=== PATIENT | female | born 1935 | race Caucasian/White ===

== ENCOUNTER → 2016-11-11 | Outpatient (CLI) | payer MEDICARE ==
[~2016-11-11] MED LIST: ASPI-587 PO; CARV40CP PO; CHOL10003 PO; OMEP-10 GT; OMEP20CA6 PO
--- OUTSIDE RECORDS SUMMARY | 2016-11-11 10:06 | XMS REPORT | Continuity of Care Document ---
Author Author [facility] Organization [facility] Address Unknown Phone Unavailable Care Team Providers Care Tree Pruner Name Role Phone FILEMON GAMEZ DO PCP Insurance Providers Payer Name Policy Number Subscriber Name Relationship Wps Medicare [id number] Elba Ricks 18 Self / Same As Patient Blue Cross [facility] Supp [id number] Elba Ricks 18 Self / Same As Patient Advance Directives Directive Response Recorded Date/Time Advance Directives No 08/25/14 6:35pm Resuscitation Status Full Code 08/25/14 6:35pm Problems Medical Problems Problem Onset Date Status Upper abdominal pain Unknown Active Coronary artery disease Unknown Active Leukocytosis Unknown Active Renal insufficiency Unknown Active Elevated troponin Unknown Active Chest pain Unknown Active Medications Medication Dose Route Sig Days/Qty Instructions Order Date Discontinued Date Status Carvedilol Phosphate 1 Each PO DAILY 08/25/14 Active Aspirin 81 Mg PO DAILY 08/25/14 Active Omeprazole 20 Mg GT 08/25/14 08/25/14 Discontinued Omeprazole 20 Mg PO DAILY 08/25/14 Active Cholecalciferol 1,000 Unit PO DAILY 08/25/14 Active Social History Social History Problem Response Recorded Date/Time Alcohol Use Denies Use 08/25/2014 6:35pm Recreational Drug Use No 08/25/2014 6:35pm Recent Foreign Travel No 08/25/2014 6:30pm Smoking Status Never a Smoker 08/25/2014 6:35pm Query Response Start Date Stop Date Smoking Status Never a Smoker Hospital Discharge Instructions No hospital discharge instructions. Plan of Care No plan of care. Functional Status No functional status results. Allergies, Adverse Reactions, Alerts Allergen Type Severity Reaction Status Last Updated No Known Drug Allergies Active 08/25/14 Immunizations No immunization records. Vital Signs Acute Vital Signs Vital Response Date/Time Temperature (Fahrenheit) 97.5 degrees F (97.6 - 99.5) Temperature (Calculated Celsius) 36.73219 degrees C (36.4 - 37.5) Pulse Rate (adult) 67 bpm (60 - 90) Respiratory Rate 20 bpm (12 - 24) O2 Sat by Pulse Oximetry 94 % (88 - 100) Blood Pressure 150/75 mm Hg Pain Pain Intensity 6 Height (Feet) 5 feet Height (Inches) 1 inches Height (Calculated Centimeters) 154.053668 cm Weight (Pounds) 180 pounds Weight (Calculated Kilograms) 81.518145 kilograms Calculated BMI 34.01 Results Laboratory Results Test Name Result Units Flags Reference Collection Date/Time Result Date/ Time Comments White Blood Count 15.2 10^3/uL H 4.3-11.0 08/25/2014 6:40pm 08/25/2014 6: 52pm Red Blood Count 4.92 10^6/uL 4.35-5.85 08/25/2014 6:40pm 08/25/2014 6: 52pm Hemoglobin 14.2 G/DL 11.5-16.0 08/25/2014 6:40pm 08/25/2014 6:52pm Hematocrit 44 % 35-52 08/25/2014 6:40pm 08/25/2014 6:52pm Mean Corpuscular Volume 88 FL 80-99 08/25/2014 6:40pm 08/25/2014 6: 52pm Mean Corpuscular Hemoglobin 29 PG 25-34 08/25/2014 6:40pm 08/25/2014 6: 52pm Mean Corpuscular Hemoglobin Concent 33 G/DL 32-36 08/25/2014 6:40pm 6:52pm Red Cell Distribution Width 14.3 % 10.0-14.5 08/25/2014 6:40pm 2013 6:52pm Platelet Count 345 10^3/uL 130-400 08/25/2014 6:40pm 08/25/2014 6:52pm Mean Platelet Volume 10.4 FL 7.4-10.4 08/25/2014 6:40pm 08/25/2014 6: 52pm Neutrophils (%) (Auto) 80 % H 42-75 08/25/2014 6:40pm 08/25/2014 6:52pm Lymphocytes (%) (Auto) 11 % L 12-44 08/25/2014 6:40pm 08/25/2014 6:52pm Monocytes (%) (Auto) 8 % 0-12 08/25/2014 6:40pm 08/25/2014 6:52pm Eosinophils (%) (Auto) 1 % 0-10 08/25/2014 6:40pm 08/25/2014 6:52pm Basophils (%) (Auto) 0 % 0-10 08/25/2014 6:40pm 08/25/2014 6:52pm Neutrophils # (Auto) 12.1 X 10^3 H 1.8-7.8 08/25/2014 6:40pm 08/25/2014 6 :52pm Lymphocytes # (Auto) 1.7 X 10^3 1.0-4.0 08/25/2014 6:40pm 08/25/2014 6: 52pm Monocytes # (Auto) 1.2 X 10^3 H 0.0-1.0 08/25/2014 6:40pm 08/25/2014 6: 52pm Eosinophils # (Auto) 0.2 10^3/uL 0.0-0.3 08/25/2014 6:40pm 08/25/2014 6 :52pm Basophils # (Auto) 0.1 10^3/uL 0.0-0.1 08/25/2014 6:40pm 08/25/2014 6: 52pm Neutrophils % (Manual) 78 % 08/25/2014 6:40pm 08/25/2014 7:06pm Band Neutrophils 0 % 08/25/2014 6:40pm 08/25/2014 7:06pm Lymphocytes % (Manual) 13 % 08/25/2014 6:40pm 08/25/2014 7:06pm Monocytes % (Manual) 5 % 08/25/2014 6:40pm 08/25/2014 7:06pm Eosinophils % (Manual) 4 % 08/25/2014 6:40pm 08/25/2014 7:06pm Basophils % (Manual) 0 % 08/25/2014 6:40pm 08/25/2014 7:06pm Anisocytosis SLIGHT 08/25/2014 6:40pm 08/25/2014 7:06pm Prothrombin Time 12.5 SEC 12.2-14.7 08/25/2014 6:40pm 08/25/2014 6: 58pm INR Comment 1.0 0.8-1.4 08/25/2014 6:40pm 08/25/2014 6:58pm INTERPRETIVE DATA SUGGESTED THERAPEUTIC RANGE FOR INR'S: VENOUS THROMBOSIS, PULMONARY EMBOLISM, OR PREVENTION OF SYSTEMIC EMBOLISM (EG. IN ATRIAL FIBRILLATION): 2.0 - 3.0 MECHANICAL PROSTHETIC HEART VALVES: 2.5 - 3.5* *NOTE: INR'S UP TO 4.5 MAY BE NECESSARY IN SELECTED GROUPS OF HIGH RISK PATIENTS. [employer] CONSENSUS CONFERENCE ON ANTITHROMBOTIC THERAPY (2000). Activated Partial Thromboplast Time 32 SEC 24-35 08/25/2014 6:40pm 6:58pm Sodium Level 138 MMOL/L 135-145 08/25/2014 6:40pm 08/25/2014 7:19pm Potassium Level 3.8 MMOL/L 3.6-5.0 08/25/2014 6:40pm 08/25/2014 7:19pm Chloride Level 102 MMOL/L 98-107 08/25/2014 6:40pm 08/25/2014 7:19pm Carbon Dioxide Level 24 MMOL/L 21-32 08/25/2014 6:40pm 08/25/2014 7: 19pm Blood Urea Nitrogen 21 MG/DL H 7-18 08/25/2014 6:40pm 08/25/2014 7:19pm Creatinine 1.33 MG/DL H 0.60-1.30 08/25/2014 6:40pm 08/25/2014 7:19pm BUN/Creatinine Ratio 16 08/25/2014 6:40pm 08/25/2014 7:19pm Estimat Glomerular Filtration Rate 39 08/25/2014 6:40pm 08/25/2014 7:19pm GFR INTERPRETIVE DATA UNITS FOR ESTIMATED GFR (eGFR): mL/min/1.73 M2 REFERENCE RANGE FOR ESTIMATED GFR (eGFR) eGFR NORMAL eGFR >60 MODERATELY DECREASED eGFR 30-59 SEVERLY DECREASED eGFR 15-29 KIDNEY FAILURE <15 (OR DIALYSIS) Glucose Level 110 MG/DL H 70-105 08/25/2014 6:40pm 08/25/2014 7:19pm Calcium Level 8.5 MG/DL 8.5-10.1 08/25/2014 6:40pm 08/25/2014 7:19pm Magnesium Level 2.0 MG/DL 1.8-2.4 08/25/2014 6:40pm 08/25/2014 7:19pm Total Bilirubin 0.6 MG/DL 0.1-1.0 08/25/2014 6:40pm 08/25/2014 7:19pm Alkaline Phosphatase 90 U/L 40-136 08/25/2014 6:40pm 08/25/2014 7:19pm Aspartate Amino Transf (AST/SGOT) 18 U/L 5-34 08/25/2014 6:40pm 2013 7:19pm Alanine Aminotransferase (ALT/SGPT) 10 U/L 0-55 08/25/2014 6:40pm 08/25 7:19pm Troponin I 0.52 NG/ML CH <0.30 08/25/2014 6:40pm 08/25/2014 7:18pm RESULT CALLED TO VENESSA AT 1920. RESULTS READ BACK: YES. Myoglobin 62.0 NG/ML 10.0-92.0 08/25/2014 6:40pm 08/25/2014 7:18pm Total Protein 7.0 G/DL 6.4-8.2 08/25/2014 6:40pm 08/25/2014 7:19pm Albumin 3.5 G/DL 3.2-4.5 08/25/2014 6:40pm 08/25/2014 7:19pm Lipase 38 U/L 8-78 08/25/2014 6:40pm 08/25/2014 7:19pm Procedures Procedure Status Date Provider(s) Tracing only of electrocardiogram completed 08/25/14 GOGO RAMIREZ MD Encounters Encounter Location Date/Time Departed Emergency Room [facility] 08/25/14 6:24pm Recent Diagnosis
--- NOTE | 2016-11-11 16:13 | Diagnostic Imaging Report ---
PA and lateral views of the chest. INDICATION: Cough and shortness of breath. FINDINGS: The lungs are clear. Pulmonary hyperinflation noted. The heart size is mildly enlarged. There is no effusion or pneumothorax. The mediastinum and zoe appear unremarkable. Mild opacity near the left lung base is likely related to pericardial fat pad. Sternotomy wires and post CABG changes are seen. No significant change from 01/22/2016 seen. IMPRESSION: Stable cardiomegaly and COPD changes. Dictated by: Dictated on workstation # [id number]
== END ==
LOC: RAD 10:02
PROVIDERS: ATTEND Nurse Practitioner Family
DX: J44.9 Chronic obstructive pulmonary disease, unspecified (principal); I51.7 Cardiomegaly
CPT/HCPCS: 71020

== ENCOUNTER → 2016-12-25 | Outpatient (CLI) | payer MEDICARE ==
--- NOTE | 2016-12-25 14:02 | Diagnostic Imaging Report ---
PROCEDURE: CT chest without contrast. TECHNIQUE: Multiple contiguous axial images were obtained through the chest without the use of intravenous contrast. INDICATION: Cryptococcus of the left lung, left lung pulmonary nodules. COMPARISON STUDY: CT of the chest from 08/25/2014. CT scan of the abdomen pelvis from 12/19/2015. FINDINGS: Coronary artery bypass graft changes are present. The heart size is upper normal. Couple of small mediastinal lymph nodes, which are within normal limits of size. No pleural or pericardial effusions are present. The right lung is clear. Two adjacent pulmonary nodules are seen in the left lower lobe. Largest one measures 11 mm and is unchanged. No new nodules are present. No infiltrates are seen. Visualized portions of the abdomen demonstrates some calcifications in the region of the gallbladder. This is seen on the most inferior slice and these are not completely imaged. A simple cyst is present in the right kidney which is incompletely imaged. This was seen previously. IMPRESSION: 1. Stable pulmonary nodules in the left lower lobe. 2. Coronary artery bypass graft changes with borderline cardiomegaly. 3. Probable gallstones. This is seen on the most inferior slice only and could be averaging from an adjacent bowel loop. Dictated by: Dictated on workstation # [id number]
== END ==
LOC: RAD 13:05
PROVIDERS: ATTEND Family Medicine
DX: R91.1 Solitary pulmonary nodule (principal); Z95.1 Presence of aortocoronary bypass graft
CPT/HCPCS: 71250

== ENCOUNTER 2017-01-30 15:42 | Outpatient (RCR) | payer MEDICARE | END 2017-03-19 14:52 | disposition home or self-care (01) | PROVIDERS: ATTEND Family Medicine | DX: M54.9 Dorsalgia, unspecified (principal); M25.512 Pain in left shoulder ==

== ENCOUNTER 2017-04-17 16:54 | Day surgery (SDC) | payer MEDICARE ==
[~2017-04-17] VITALS: Ht 157.5 cm; Wt 84.4 kg
--- OUTSIDE RECORDS SUMMARY | 2017-04-17 17:00 | XMS REPORT | Continuity of Care Document ---
Author Author [facility] Organization [facility] Address Unknown Phone Unavailable Allergies Active Description Code Type Severity Reaction Onset Reported/Identified Relationship to Patient Clinical Status Yes No Known Drug Allergies [id number] Drug Allergy Unknown N/ A 08/25/2014 Medications Problems Date Dx Coded Attending Type Code Diagnosis Diagnosed By 08/25/2014 JAMES VILLAR, GOGO Chun Ot 288.60 LEUKOCYTOSIS, UNSPECIFIED 08/25/2014 JAMES VILLAR, GOGO Chun Ot 414.01 CORONARY ATHEROSCLEROSIS OF [place] CORON 08/25/2014 JAMES VILLAR, GOGO Chun Ot 593.9 RENAL URETERAL DIS NOS 08/25/2014 JAMES VILLAR, GOGO Chun Ot 786.50 CHEST PAIN NOS 08/25/2014 JAMES VILLAR, GOGO Chun Ot V45.82 PERCUTANEOUS TRANSLUM CORON ANGIOPLASTY 10/02/2015 MOLINA VILLAR, REBECCA A Ot R05 10/02/2015 MOLINA VILLAR, REBECCA A Ot R06.00 10/11/2015 MOLINA VILLAR, REBECCA A Ot R05 10/11/2015 MOLINA VILLAR, REBECCA A Ot R06.00 12/07/2015 MOLINA VILLAR, REBECCA A Ot R05 12/07/2015 MOLINA VILLAR, REBECCA A Ot R06.00 12/10/2015 RUBA WHARTON TOWBOAT OPERATOR Ot K59.00 12/10/2015 RUBA WHARTON TOWBOAT OPERATOR Ot N39.0 12/11/2015 RUBA WHARTON TOWBOAT OPERATOR Ot M54.9 12/11/2015 RUBA WHARTON TOWBOAT OPERATOR Ot R10.13 12/11/2015 RUBA WHARTON TOWBOAT OPERATOR Ot R10.32 12/27/2015 RUBA WHARTON TOWBOAT OPERATOR Ot K59.00 CONSTIPATION, UNSPECIFIED 12/27/2015 RUBA WHARTON TOWBOAT OPERATOR Ot N39.0 URINARY TRACT INFECTION, SITE NOT SPECIF 01/02/2016 RUBA WHARTON TOWBOAT OPERATOR Ot K59.00 CONSTIPATION, UNSPECIFIED 01/02/2016 RUBA WHARTON TOWBOAT OPERATOR Ot N39.0 URINARY TRACT INFECTION, SITE NOT SPECIF 01/02/2016 RUBA WHARTON TOWBOAT OPERATOR Ot M54.9 DORSALGIA, UNSPECIFIED 01/02/2016 RUBA WHARTON TOWBOAT OPERATOR Ot R10.13 EPIGASTRIC PAIN 01/02/2016 RUBA WHARTON TOWBOAT OPERATOR Ot R10.32 LEFT LOWER QUADRANT PAIN 01/08/2016 JONATHAN OROZCO BLANKET BINDER Ot K57.90 DVRTCLOS OF INTEST, PART UNSP, W/O PERF 01/08/2016 JONATHAN OROZCO BLANKET BINDER Ot R10.11 RIGHT UPPER QUADRANT PAIN 01/08/2016 JONATHAN OROZCO BLANKET BINDER Ot R10.12 LEFT UPPER QUADRANT PAIN 01/08/2016 JONATHAN OROZCO APRN Ot R91.1 SOLITARY PULMONARY NODULE 01/09/2016 RUBA WHARTON TOWBOAT OPERATOR Ot M54.9 DORSALGIA, UNSPECIFIED 01/09/2016 RUBA WHARTON TOWBOAT OPERATOR Ot R10.13 EPIGASTRIC PAIN 01/09/2016 RUBA WHARTON TOWBOAT OPERATOR Ot R10.32 LEFT LOWER QUADRANT PAIN 01/22/2016 MOLINA VILLAR, REBECCA Lai Ot R05 COUGH 01/24/2016 JONATHAN OROZCO APRN Ot K57.90 DVRTCLOS OF INTEST, PART UNSP, W/O PERF 01/24/2016 JONATHAN OROZCO BLANKET BINDER Ot R10.11 RIGHT UPPER QUADRANT PAIN 01/24/2016 JONATHAN OROZCO BLANKET BINDER Ot R10.12 LEFT UPPER QUADRANT PAIN 01/24/2016 JONATHAN OROZCO BLANKET BINDER Ot R91.1 SOLITARY PULMONARY NODULE 02/14/2016 MOLINA VILLAR, REBECCA Lai Ot R05 COUGH 02/23/2016 MOLINA VILLAR, REBECCA Lai Ot R05 COUGH 11/11/2016 MOLINA VILLAR, REBECCA Lai Ot R05 COUGH 11/11/2016 MOLINA VILLAR, REBECCA Lai Ot R06.00 DYSPNEA, UNSPECIFIED 11/11/2016 RUBA WHARTON TOWBOAT OPERATOR Ot K59.00 CONSTIPATION, UNSPECIFIED 11/11/2016 RUBA WHARTON TOWBOAT OPERATOR Ot N39.0 URINARY TRACT INFECTION, SITE NOT SPECIF 11/11/2016 RUBA WHARTON TOWBOAT OPERATOR Ot M54.9 DORSALGIA, UNSPECIFIED 11/11/2016 RUBA WHARTON TOWBOAT OPERATOR Ot R10.13 EPIGASTRIC PAIN 11/11/2016 RUBA WHARTON TOWBOAT OPERATOR Ot R10.32 LEFT LOWER QUADRANT PAIN 11/11/2016 JONATHAN OROZCO BLANKET BINDER Ot K57.90 DVRTCLOS OF INTEST, PART UNSP, W/O PERF 11/11/2016 JONATHAN OROZCO BLANKET BINDER Ot R10.11 RIGHT UPPER QUADRANT PAIN 11/11/2016 JONATHAN OROZCO BLANKET BINDER Ot R10.12 LEFT UPPER QUADRANT PAIN 11/11/2016 JONATHAN OROZCO BLANKET BINDER Ot R91.1 SOLITARY PULMONARY NODULE 11/11/2016 MOLINA VILLAR, REBECCA Lai Ot R05 COUGH 11/12/2016 RUBA WHARTON TOWBOAT OPERATOR Ot I51.7 CARDIOMEGALY 11/12/2016 RUBA WHARTON TOWBOAT OPERATOR Ot J44.9 CHRONIC OBSTRUCTIVE PULMONARY DISEASE , U 11/27/2016 RUBA WHARTON TOWBOAT OPERATOR Ot I51.7 CARDIOMEGALY 11/27/2016 RUBA WHARTON TOWBOAT OPERATOR Ot J44.9 CHRONIC OBSTRUCTIVE PULMONARY DISEASE , U 12/02/2016 RUBA WHARTON TOWBOAT OPERATOR Ot I51.7 CARDIOMEGALY 12/02/2016 RUBA WHARTON TOWBOAT OPERATOR Ot J44.9 CHRONIC OBSTRUCTIVE PULMONARY DISEASE , U 01/15/2017 REBECCA AUGUSTE MD Ot R91.1 SOLITARY PULMONARY NODULE 01/15/2017 REBECCA AUGUSTE MD Ot Z95.1 PRESENCE OF AORTOCORONARY BYPASS GRAFT 01/27/2017 REBECCA AUGUSTE MD Ot R91.1 SOLITARY PULMONARY NODULE 01/27/2017 REBECCA AUGUSTE MD Ot Z95.1 PRESENCE OF AORTOCORONARY BYPASS GRAFT 02/20/2017 REBECCA AUGUSTE MD Ot M25.512 PAIN IN LEFT SHOULDER 02/20/2017 REBECCA AUGUSTE MD Ot M54.9 DORSALGIA, UNSPECIFIED 02/26/2017 REBECCA AUGUSTE MD Ot M25.512 PAIN IN LEFT SHOULDER 02/26/2017 REBECCA AUGUSTE MD Ot M54.9 DORSALGIA, UNSPECIFIED Procedures Results Encounters ACCT No. Visit Date/Time Discharge Status Pt. Type Provider Facility Loc./Unit Complaint [id number] 01/30/2017 15:42:00 2016 14:52:00 DIS Outpatient REBECCA AUGUSTE MD [facility] REHAB LEFT UPPER BACK AND SCAPULAR; L SHOULDER PAIN [id number] 12/25/2016 13:05:00 2016 23:59:59 CLS Outpatient REBECCA AUGUSTE MD [facility] RAD LEFT LUNG PULMONARY NODULES, FLU [id number] 11/11/2016 10:02:00 2016 23:59:59 CLS Outpatient RUBA WHARTON [facility] RAD COUGH [id number] 01/22/2016 10:25:00 2015 23:59:59 CLS Outpatient REBECCA AUGUSTE MD [facility] RAD COUGH [id number] 12/19/2015 11:57:00 2015 23:59:59 CLS Outpatient JONATHAN OROZCO APRN [facility] RAD RUQ PAIN LUQ PAIN [id number] 12/10/2015 15:16:00 2015 23:59:59 CLS Outpatient RUBA WHARTON [facility] RAD EPIGASTRIC PAIN [id number] 12/07/2015 12:01:00 2015 23:59:59 CLS Outpatient RUBA WHARTON [facility] RAD ABD PAIN,UTI,CONSTIPATION [id number] 09/05/2015 11:41:00 2015 23:59:59 CLS Outpatient REBECCA AUGUSTE MD [facility] RAD COUGH, DYSPNEA [id number] 08/25/2014 18:24:00 2013 22:25:00 DIS Emergency JAMES VILLAR, GOGO Chun [facility] ER L SIDE PAIN, CHEST PAIN
[2017-04-17] MEDS ORDERED: LOSA25TA2 PO (17:33)
[2017-04-17] MEDS ORDERED: ISOS30TA3 PO (17:33)
[2017-04-17] MEDS ORDERED: CLOP75TA69 PO (17:33)
[2017-04-17] MEDS ORDERED: KETOROLAC 30 MG/ML VIAL IVP STA (17:54)
[2017-04-17] MEDS ORDERED: NS IV 1000 ML 1,000 ML IV ONE ×2 (17:54→19:36)
--- NOTE | 2017-04-17 18:07 | ED Abdominal Pain ---
General Chief Complaint: Abdominal/GI Problems Stated Complaint: UNABLE TO HAVE A BOWEL MOVEMENT Nursing Triage Note: PT TO ROOM 6 CO OF ABD PAIN AND CONSTIPATION. PT HAS NOT HAD BM SINCE THURSDAY , STATES BM IS LOOSE AND RUNNING OUT WHEN STANDS Sepsis Screen: No Definite Risk Source of Information: Patient, Family Exam Limitations: No Limitations History of Present Illness Time Seen By Provider: 17:45 Initial Comments 81-year-old female patient presents to the emergency department with complaints of left sided abdominal pain and constipation. Patient states she has not had a good bowel movement since Thursday and is now having watery stools running out when she stands up. States she has been eating prunes, apples, and apple juice without improvement in symptoms. Does complain of nausea without vomiting. Patient has noticed over the last several months that she has been gaining weight and her abdomen has been getting bigger, but has had a poor appetite. Timing/Duration: 2-3 Days, Getting Worse Severity/Quality: Severe, Aching, Cramping, Sharp Location: Other (left-sided abdominal pain) Activities at Onset: None Modifying Factors: Worsens With Eating Allergies and Home Medications Allergies Coded Allergies: morphine (Verified Adverse Reaction, Unknown, vomiting, 04/17/17) Home Medications Aspirin 81 Mg Tablet.dr, 81 MG PO DAILY, (Reported) Carvedilol Phosphate 40 Mg Cpmp.24hr, 1 EACH PO DAILY, (Reported) Cholecalciferol 1,000 Unit Tablet, 1,000 UNIT PO DAILY, (Reported) Clopidogrel Bisulfate 75 Mg Tablet, 75 MG PO DAILY, (Reported) Isosorbide Mononitrate 30 Mg Tab.er.24h, Unknown Dose PO, (Reported) Losartan Potassium 25 Mg Tablet, 25 MG PO DAILY, (Reported) Omeprazole 20 Mg Capsule.dr, 20 MG PO DAILY, (Reported) Review of Systems Constitutional: No chills, No diaphoresis, No dizziness, No fever, malaise Respiratory: Denies Cough, Denies Shortness of Air Cardiovascular: Denies Chest Pain, Denies Edema, Denies Lightheadedness, Denies Palpitations, Denies Syncope Gastrointestinal: See HPI, Abdomen Distended, Abdominal Pain, Constipated, Nausea, Poor Appetite, Poor Fluid Intake, Denies Rectal Bleeding, Denies Vomiting Genitourinary: Denies Burning, Denies Frequency, Denies Flank Pain, Denies Hematuria Musculoskeletal: no symptoms reported Skin: no symptoms reported Psychiatric/Neurological: No Symptoms Reported All Other Systems Reviewed Negative Unless Noted: Yes (Negative excepted noted.) Past Unnxrtc-Lbviat-Gvajof Hx Patient Social History Alcohol Use: Denies Use Recreational Drug Use: No Smoking Status: Never a Smoker Recent Foreign Travel: No Contact w/Someone Who Travel: No Recent Infectious Disease Expo: No Recent Hopitalizations: No Immunizations Up To Date Date of Pneumonia Vaccine: Jul 31, 2015 Surgeries HX Surgeries: Yes (HEART STENT) Respiratory Hx Respiratory Disorders: Yes (FREQUENT PNEUMONIA) Cardiovascular Hx Cardiac Disorders: Yes Cardiac Disorders: Coronary Artery Disease, Hypertension Neurological Hx Neurological Disorders: No Reproductive System Hx Reproductive Disorders: No Gastrointestinal Hx Gastrointestinal Disorders: Yes (h/o diverticulitis) Gastrointestinal Disorders: Diverticulosis Musculoskeletal Hx Musculoskeletal Disorders: No Endocrine Hx Endocrine Disorders: No HEENT HX ENT Disorders: No Cancer Hx Cancer: No Psychosocial Hx Psychiatric Problems: No Integumentary HX Skin/Integumentary Disorder: No Blood Transfusions Hx Blood Disorders: No Reviewed Nursing Assessment Reviewed/Agree w Nursing PMH: Yes Family Medical History Significant Family History: No Pertinent Family Hx Physical Exam Vital Signs VS - Last 72 Hours, by Label 04/17/17 17:05 Temp 98.1 Pulse 83 Resp 18 B/P (MAP) 134/72 Pulse Ox 95 Capillary Refill : Less Than 3 Seconds General Appearance: WD/WN, no apparent distress HEENT: PERRL/EOMI, pharynx normal Neck: supple, normal inspection Respiratory: lungs clear, normal breath sounds, no respiratory distress, no accessory muscle use Cardiovascular: regular rate, rhythm, no murmur Gastrointestinal: abnormal bowel sounds (hypoactive bowel sounds), distended, guarding, No rebound, tenderness (generalized tenderness with greatest tenderness in the left mid abdomen and left lower quadrant.) Extremities: normal capillary refill Back: normal inspection Neurologic/Psychiatric: alert, normal mood/affect, oriented x 3 Skin: normal color, warm/dry Progress/Results/Core Measures Results/Orders Lab Results Laboratory Tests Test 04/17/17 18:35 Range/Units White Blood Count 24.1 H 4.3-11.0 10^3/uL Red Blood Count 4.50 4.35-5.85 10^6/uL Hemoglobin 12.9 11.5-16.0 G/DL Hematocrit 41 35-52 % Mean Corpuscular Volume 90 80-99 FL Mean Corpuscular Hemoglobin 29 25-34 PG Mean Corpuscular Hemoglobin Concent 32 32-36 G/DL Red Cell Distribution Width 14.2 10.0-14.5 % Platelet Count 346 130-400 10^3/uL Mean Platelet Volume 10.5 H 7.4-10.4 FL Neutrophils (%) (Auto) 90 H 42-75 % Lymphocytes (%) (Auto) 5 L 12-44 % Monocytes (%) (Auto) 5 0-12 % Eosinophils (%) (Auto) 0 0-10 % Basophils (%) (Auto) 0 0-10 % Neutrophils # (Auto) 21.7 H 1.8-7.8 X 10^3 Lymphocytes # (Auto) 1.2 1.0-4.0 X 10^3 Monocytes # (Auto) 1.1 H 0.0-1.0 X 10^3 Eosinophils # (Auto) 0.0 0.0-0.3 10^3/uL Basophils # (Auto) 0.0 0.0-0.1 10^3/uL Neutrophils % (Manual) 93 % Lymphocytes % (Manual) 4 % Monocytes % (Manual) 2 % Eosinophils % (Manual) 0 % Basophils % (Manual) 0 % Band Neutrophils 1 % Blood Morphology Comment NORMAL Sodium Level 136 135-145 MMOL/L Potassium Level 4.1 3.6-5.0 MMOL/L Chloride Level 104 98-107 MMOL/L Carbon Dioxide Level 20 L 21-32 MMOL/L Anion Gap 12 5-14 MMOL/L Blood Urea Nitrogen 13 7-18 MG/DL Creatinine 1.06 0.60-1.30 MG/DL Estimat Glomerular Filtration Rate 50 BUN/Creatinine Ratio 12 Glucose Level 148 H 70-105 MG/DL Calcium Level 8.9 8.5-10.1 MG/DL Total Bilirubin 1.0 0.1-1.0 MG/DL Aspartate Amino Transf (AST/SGOT) 14 5-34 U/L Alanine Aminotransferase (ALT/SGPT) 9 0-55 U/L Alkaline Phosphatase 87 40-136 U/L Total Protein 6.3 L 6.4-8.2 GM/DL Albumin 3.2 3.2-4.5 GM/DL Ania Church - GABINO BAILEY Cbc With Automated Diff (8/18/17 17:54) Comprehensive Metabolic Panel (04/17/17 17:54) Ua Culture If Indicated (04/17/17 17:54) Ct Abdomen/Pelvis W (04/17/17 17:54) Saline Lock/Iv-Start (04/17/17 17:54) Ketorolac Injection (Toradol Injection) (04/17/17 17:54) Ns Iv 1000 Ml (Sodium Chloride 0.9%) (04/17/17 17:54) Iohexol Injection (Omnipaque 350 Mg/Ml 1 (04/17/17 18:15) Ns (Ivpb) (Sodium Chloride 0.9% Ivpb Bag (04/17/17 18:15) Manual Differential (04/17/17 18:35) Ns Iv 1000 Ml (Sodium Chloride 0.9%) (04/17/17 19:36) Ct Abdomen/Pelvis Wo (04/17/17 20:53) Morphine Injection (Morphine Injection (04/17/17 21:11) Bisacodyl Tablet (Dulcolax Tablet) (04/17/17 23:30) Fentanyl Injection (Sublimaze Injection (04/17/17 23:16) Medications Given in ED Current Medications Medications Dose Ordered Sig/Hiram Route Start Time Stop Time Status Last Admin Dose Admin Iohexol 100 ml ONCE ONCE IV 04/17/17 18:15 04/17/17 18:16 DC 04/17/17 19:40 100 ML Sodium Chloride 100 ml ONCE ONCE IV 04/17/17 18:15 04/17/17 18:16 DC 04/17/17 19:40 80 ML Sodium Chloride 1,000 ml @ 0 mls/hr Q0M ONCE IV 04/17/17 17:54 04/17/17 17:56 DC 04/17/17 18:17 1,000 MLS/HR Sodium Chloride 1,000 ml @ 0 mls/hr Q0M ONCE IV 04/17/17 19:36 04/17/17 19:37 DC 04/17/17 20:06 0 MLS/HR Vital Signs/I&O Vital Sign - Last 12Hours 04/17/17 17:05 Temp 98.1 Pulse 83 Resp 18 B/P (MAP) 134/72 Pulse Ox 95 Blood Pressure Mean: 92 Diagnostic Imaging Diagonstic Imaging: CT Plain Films/CT/US/NM/MRI: abdomen, pelvis Comments FINDINGS: There is a persistent 1 cm nodule seen within the left lung base which appears to reside within the lingula. Low density in the liver indicates steatosis with occasional calcified granulomas present. There is also calcification seen within the neck of the gallbladder however no gallbladder dilatation or inflammation is seen. No pancreatic or adrenal gland lesion is identified. There are several hypodensities involving the kidneys which likely represent cysts. No hydronephrosis is identified. There is moderate aortoiliac atherosclerotic calcification. Note is made of elongated ovoid hyperdense object within the region of the cecum which is deviated medially just deep to the umbilicus. There is dilated colonic loop in the left upper quadrant which may represent an enlarged displaced cecum. There is no evidence of associated inflammation. No free fluid is seen in the abdomen or pelvis. There is no evidence of pathologically enlarged adenopathy. IMPRESSION: There appears to be leftward and superior displacement of the cecum with probable dilatation of stool-filled cecum in the left upper quadrant. This could be related to volvulus and clinical correlation is recommended. If indicated, this could be further evaluated with CT study with rectal contrast or barium enema versus endoscopy. Dictated by: Dictated on workstation # [id number] Reviewed: Reviewed by Me (radiology report reviewed by me) Diagonstic Imaging: CT Plain Films/CT/US/NM/MRI: abdomen (with rectal contrast), pelvis Comments Since the study of earlier in the day, rectal contrast opacifies the distal half of the colon. There is insufficient contrast opacification for complete evaluation of the ileocecal junction. There is no significant change in the dilated stool containing loop of bowel in the upper left abdomen. There is no evidence of significant inflammation or obstruction. IMPRESSION: Incomplete opacification of the colon. Focally dilated stool containing loops in left upper quadrant may represent the cecum or terminal ileum. Consideration could be given to endoscopy or contrast enema for assessment. No other significant change identified. The 1 cm nodule in the left lung base is again noted and should be further assessed with followup study of the chest. Dictated by: Dictated on workstation # [id number] Reviewed: Reviewed by Me (radiology report reviewed by me) Departure Communication Communication Dr. Cih Bernstein Communication/Consulting Dr. Albert Zazueta Impression Impression: Primary Impression: Intractable abdominal pain Additional Impressions: Leukocytosis Diarrhea Disposition: ADMITTED INPATIENT Condition: Stable Admissions Decision to Admit Reason: Admit from ER (General) Decision to Admit/Date: Apr 17, 2017 Time/Decision to Admit Time: 22:30 Departure-Patient Inst. Referrals: REBECCA AUGUSTE MD (PCP) Primary Care Physician GABINO BAILEY Apr 17, 2017 18:07
[2017-04-17] MEDS ORDERED: NS 100 ML (IVPB) BAG IV ONE (18:15)
[2017-04-17] MEDS ORDERED: IOHEXOL 350 MG/ML 100 ML (OMNIPAQUE 350) VIAL IV ONE (18:15)
[2017-04-17 18:41] LABS: BASOPHILS % (AUTO) 0 % (0-10); EOSINOPHILS % (AUTO) 0 % (0-10); LYMPHOCYTES # (AUTO) 1.2 X 10^3 (1.0-4.0); LYMPHOCYTES % (AUTO) 5 % (12-44); MEAN CORPUSCULAR HEMOGLOBIN 29 PG (25-34); MEAN CORPUSCULAR HGB CONC 32 G/DL (32-36); MEAN CORPUSCULAR VOLUME 90 FL (80-99); MEAN PLATELET VOLUME 10.5 FL (7.4-10.4); MONOCYTES # (AUTO) 1.1 X 10^3 (0.0-1.0); MONOCYTES % (AUTO) 5 % (0-12); NEUTROPHILS # (AUTO) 21.7 X 10^3 (1.8-7.8); NEUTROPHILS % (AUTO) 90 % (42-75); PLATELET COUNT 346 10^3/uL (130-400); RED CELL DISTRIBUTION WIDTH 14.2 % (10.0-14.5); WHITE BLOOD COUNT 24.1 10^3/uL (4.3-11.0)
[2017-04-17 19:05] LABS: ALBUMIN 3.2 GM/DL (3.2-4.5); CALCIUM 8.9 MG/DL (8.5-10.1); CREATININE SERUM 1.06 MG/DL (0.60-1.30); POTASSIUM 4.1 MMOL/L (3.6-5.0); TOTAL PROTEIN 6.3 GM/DL (6.4-8.2)
[2017-04-17 20:05] LABS: BAND NEUTROPHILS 1 %; BASOPHILS % (MANUAL) 0 %; EOSINOPHILS % (MANUAL) 0 %; LYMPHOCYTES % (MANUAL) 4 %; NEUTROPHILS % (MANUAL) 93 %
--- NOTE | 2017-04-17 20:18 | Diagnostic Imaging Report ---
PROCEDURE: CT abdomen and pelvis with contrast. TECHNIQUE: Multiple contiguous axial images were obtained through the abdomen and pelvis after administration of intravenous contrast. INDICATION: Constipation, nausea, and diarrhea COMPARISON: Comparison is made to thoracic CT dated 12/25/2016. FINDINGS: There is a persistent 1 cm nodule seen within the left lung base which appears to reside within the lingula. Low density in the liver indicates steatosis with occasional calcified granulomas present. There is also calcification seen within the neck of the gallbladder however no gallbladder dilatation or inflammation is seen. No pancreatic or adrenal gland lesion is identified. There are several hypodensities involving the kidneys which likely represent cysts. No hydronephrosis is identified. There is moderate aortoiliac atherosclerotic calcification. Note is made of elongated ovoid hyperdense object within the region of the cecum which is deviated medially just deep to the umbilicus. There is dilated colonic loop in the left upper quadrant which may represent an enlarged displaced cecum. There is no evidence of associated inflammation. No free fluid is seen in the abdomen or pelvis. There is no evidence of pathologically enlarged adenopathy. IMPRESSION: There appears to be leftward and superior displacement of the cecum with probable dilatation of stool-filled cecum in the left upper quadrant. This could be related to volvulus and clinical correlation is recommended. If indicated, this could be further evaluated with CT study with rectal contrast or barium enema versus endoscopy. Dictated by: Dictated on workstation # [id number]
[2017-04-17] MEDS ORDERED: morphine INJ 10 MG/ML 1ML (SYR OR VIAL) IVP STA (21:11)
--- NOTE | 2017-04-17 21:55 | Diagnostic Imaging Report ---
PROCEDURE: CT abdomen and pelvis without contrast. TECHNIQUE: Multiple contiguous axial images were obtained through the abdomen and pelvis without the use of intravenous contrast. Rectal contrast was administered. INDICATION: Nausea and diarrhea Since the study of earlier in the day, rectal contrast opacifies the distal half of the colon. There is insufficient contrast opacification for complete evaluation of the ileocecal junction. There is no significant change in the dilated stool containing loop of bowel in the upper left abdomen. There is no evidence of significant inflammation or obstruction. IMPRESSION: Incomplete opacification of the colon. Focally dilated stool containing loops in left upper quadrant may represent the cecum or terminal ileum. Consideration could be given to endoscopy or contrast enema for assessment. No other significant change identified. The 1 cm nodule in the left lung base is again noted and should be further assessed with followup study of the chest. Dictated by: Dictated on workstation # [id number]
[2017-04-17] MEDS ORDERED: fentaNYL INJECTION 100 MCG/2 ML AMP IVP STA (23:16)
[2017-04-17] MEDS ORDERED: BISACODYL 5 MG (DULCOLAX) TABLET PO ONE (23:30)
[2017-04-18 01:20] VITALS: BP 170/69
[2017-04-18 02:00] VITALS: BP 116/61
[2017-04-18] MEDS ORDERED: MAGNESIUM CITRATE 300 ML BTL PO ONE ×2 (02:30→06:00)
[2017-04-18] MEDS ORDERED: CATHETER FLUSH 10 ML SYR IV PRN (02:30)
[2017-04-18] MEDS ORDERED: fentaNYL INJECTION 100 MCG/2 ML AMP IV PRN (02:30)
[2017-04-18] MEDS ORDERED: ONDANSETRON 4 MG/2 ML (SDV) Z0FRAN IV PRN (02:30)
[2017-04-18] MEDS ORDERED: KETOROLAC 15 MG/ML VIAL IV PRN (02:30)
[2017-04-18] MEDS: NS W/KCL 20 MEQ/L 1,000 ML IV SCH ×2 (02:36→08:44)
[2017-04-18] MEDS: CATHETER FLUSH 10 ML SYR IV SCH ×3 (02:40→21:07)
[2017-04-18 03:19] LABS: KETONES,URINE NEGATIVE (NEGATIVE); LEUKOCYTE ESTERASE ,URINE 1+ (NEGATIVE); PH,URINE 6.5 (5-9); PROTEIN,URINE 2+ (NEGATIVE); UROBILINOGEN,URINE 1 MG/DL (NORMAL)
[2017-04-18 03:45] LABS: BILIRUBIN,URINE 1+ (NEGATIVE)
[2017-04-18 03:46] LABS: NITRITE,URINE NEGATIVE (NEGATIVE)
[2017-04-18 03:47] LABS: SQUAMOUS EPITHELIAL CELL,UR 25-50 /HPF; WBC,URINE RARE /HPF
[2017-04-18 04:15] VITALS: BP 147/69
[2017-04-18 08:00] VITALS: BP 131/67
[2017-04-18 11:05] LABS: MEAN PLATELET VOLUME 10.5 FL (7.4-10.4); RED BLOOD COUNT 4.15 10^6/uL (4.35-5.85); RED CELL DISTRIBUTION WIDTH 14.2 % (10.0-14.5); WHITE BLOOD COUNT 18.2 10^3/uL (4.3-11.0)
[2017-04-18 11:16] LABS: CALCIUM 8.2 MG/DL (8.5-10.1); CREATININE SERUM 0.98 MG/DL (0.60-1.30); POTASSIUM 4.5 MMOL/L (3.6-5.0)
--- NOTE | 2017-04-18 11:54 | Consultation ---
History of Present Illness History of Present Illness Patient Consulted On(maye/time) 04/17/17 23:00 Date Seen by Provider: Apr 17, 2017 Time Seen by Provider: 23:00 History of Present Illness Consult from Suzi Montanez for Abdominal pain. 81 year old female with abdominal pain she's been having for 2-3 days. Aching pain that has continued to increase in strength. She rates it about a 4/10. Primarily on the left side but does have it over most of her abdomen as well. She had not had a good bowel movement since thursday and then today began having multiple bouts of diarrhea. No blood. She has had some nausea no emesis. No fever sweats chills shortness of breath or chest pain. She had a ct scan demonstrating the cecum possibly in the left upper quadrant with slight dilation, possible volvulus, and then ct with rectal contrast that did not help any further. She reports having a colonoscopy less than 2 years ago which was normal she and family states. She does note that for the last 3 years she has had stomach/constipation issues. She has tried prunes and apples with out any improvement. Allergies and Home Medications Allergies Coded Allergies: morphine (Verified Adverse Reaction, Unknown, vomiting, 04/17/17) Home Medications Aspirin 81 Mg Tablet.dr, 81 MG PO DAILY, (Reported) Carvedilol Phosphate 40 Mg Cpmp.24hr, 1 EACH PO DAILY, (Reported) Cholecalciferol 1,000 Unit Tablet, 1,000 UNIT PO DAILY, (Reported) Clopidogrel Bisulfate 75 Mg Tablet, 75 MG PO DAILY, (Reported) Isosorbide Mononitrate 30 Mg Tab.er.24h, Unknown Dose PO, (Reported) Losartan Potassium 25 Mg Tablet, 25 MG PO DAILY, (Reported) Omeprazole 20 Mg Capsule.dr, 20 MG PO DAILY, (Reported) Past Dsdypzb-Pwxlqk-Gcxmcm Hx Patient Social History Alcohol Use: Denies Use Recreational Drug Use: No Smoking Status: Never a Smoker Recent Foreign Travel: No Contact w/Someone Who Travel: No Recent Infectious Disease Expo: No Recent Hopitalizations: No Physical Abuse Screen: No Sexual Abuse: No Immunizations Up To Date PED Vaccines UTD: No Date of Pneumonia Vaccine: May 31, 2017 Seasonal Allergies Seasonal Allergies: No Surgeries HX Surgeries: Yes (HEART STENT) Respiratory Hx Respiratory Disorders: Yes (FREQUENT PNEUMONIA) Respiratory Disorders: Pneumonia Cardiovascular Hx Cardiac Disorders: Yes Cardiac Disorders: Coronary Artery Disease, Hypertension Neurological Hx Neurological Disorders: No Reproductive System Hx Reproductive Disorders: No Gastrointestinal Hx Gastrointestinal Disorders: Yes (h/o diverticulitis) Gastrointestinal Disorders: Diverticulosis Musculoskeletal Hx Musculoskeletal Disorders: No Endocrine Hx Endocrine Disorders: No HEENT HX ENT Disorders: No Cancer Hx Cancer: No Psychosocial Hx Psychiatric Problems: No Integumentary HX Skin/Integumentary Disorder: No Blood Transfusions Hx Blood Disorders: No Adverse Reaction to a Blood Tr: No Reviewed Nursing Assessment Reviewed/Agree w Nursing PMH: Yes Family Medical History Significant Family History: No Pertinent Family Hx Family Medial History: Patient reports no known family medical history. Review of Systems-General Constitutional: see HPI EENTM: no symptoms reported Respiratory: no symptoms reported Cardiovascular: no symptoms reported Gastrointestinal: see HPI Genitourinary: no symptoms reported Musculoskeletal: no symptoms reported Skin: no symptoms reported Psychiatric/Neurological: No Symptoms Reported Physical Exam-General Problems Physical Exam Vital Signs Vital Sign - Last 12Hours 04/17/17 17:05 Temp 98.1 Pulse 83 Resp 18 B/P (MAP) 134/72 Pulse Ox 95 Capillary Refill : Less Than 3 Seconds General Appearance: no apparent distress HEENT: PERRL/EOMI, normal ENT inspection Neck: supple Respiratory: no respiratory distress, no accessory muscle use Cardiovascular: regular rate, rhythm Gastrointestinal: soft, no organomegaly, no pulsatile mass, tenderness ( minimal left upper quadrant no guarding or rebounding) Rectal: deferred Back: normal inspection Extremities: non-tender, normal inspection Neurologic/Psychiatric: alert, normal mood/affect, oriented x 3 Skin: warm/dry Data Review Labs Laboratory Tests 04/17/17 18:35: White Blood Count 24.1H, Red Blood Count 4.50, Hemoglobin 12.9, Hematocrit 41, Mean Corpuscular Volume 90, Mean Corpuscular Hemoglobin 29, Mean Corpuscular Hemoglobin Concent 32, Red Cell Distribution Width 14.2, Platelet Count 346, Mean Platelet Volume 10.5H, Neutrophils (%) (Auto) 90H, Lymphocytes (%) (Auto) 5L, Monocytes (%) (Auto) 5, Eosinophils (%) (Auto) 0, Basophils (%) (Auto) 0, Neutrophils # (Auto) 21.7H, Lymphocytes # (Auto) 1.2, Monocytes # (Auto) 1.1H, Eosinophils # (Auto) 0.0, Basophils # (Auto) 0.0, Neutrophils % (Manual) 93, Lymphocytes % (Manual) 4, Monocytes % (Manual) 2, Eosinophils % (Manual) 0, Basophils % (Manual) 0, Band Neutrophils 1, Blood Morphology Comment NORMAL, Sodium Level 136, Potassium Level 4.1, Chloride Level 104, Carbon Dioxide Level 20L, Anion Gap 12, Blood Urea Nitrogen 13, Creatinine 1.06, Estimat Glomerular Filtration Rate 50, BUN/Creatinine Ratio 12, Glucose Level 148H, Calcium Level 8.9, Total Bilirubin 1.0, Aspartate Amino Transf (AST/SGOT) 14, Alanine Aminotransferase (ALT/SGPT) 9, Alkaline Phosphatase 87, Total Protein 6.3L, Albumin 3.2 04/18/17 03:15: Urine Color AMBERH, Urine Clarity CLEAR, Urine pH 6.5, Urine Specific [place] 1.010L, Urine Protein 2+H, Urine Glucose (UA) NEGATIVE, Urine Ketones NEGATIVE, Urine Nitrite NEGATIVE, Urine Bilirubin 1+H, Urine Urobilinogen 1, Urine Leukocyte Esterase 1+H, Urine RBC (Auto) 1+H, Urine RBC RARE, Urine WBC RARE, Urine Squamous Epithelial Cells 25-50H, Urine Crystals NONE, Urine Bacteria TRACE, Urine Casts NONE, Urine Mucus NEGATIVE, Urine Culture Indicated NO 04/18/17 10:55: White Blood Count 18.2H, Red Blood Count 4.15L, Hemoglobin 12.0, Hematocrit 37, Mean Corpuscular Volume 90, Mean Corpuscular Hemoglobin 29, Mean Corpuscular Hemoglobin Concent 32, Red Cell Distribution Width 14.2, Platelet Count 315, Mean Platelet Volume 10.5H, Sodium Level 140, Potassium Level 4.5, Chloride Level 111H, Carbon Dioxide Level 23, Anion Gap 6, Blood Urea Nitrogen 14, Creatinine 0.98, Estimat Glomerular Filtration Rate 55, BUN/Creatinine Ratio 14 , Glucose Level 108H, Calcium Level 8.2L Assessment/Plan Assessment/Plan Assessment/Plan left upper quadrant pain abnormal radiological studies questioning cecal volvulus Diarrhea today. Constipation CAD Leukocytosis Patient with questionable findings on CT and CT with rectal contrast not any more helpful She has minimal tenderness on exam I we discussed options and feel that colonoscopy would be most helpful at this time. She is on Plavix which does make slightly higher risk of bleeding. She and family understand and wish to proceed. Prep ordered. Repeat labs. Colonoscopy tomorrow. Clinical Quality Measures DVT/VTE Risk/Contraindication: Risk Factor Score Per Nursin RFS Level Per Nursing on Admit: 4+=Very High MARCUS SYKES DO Apr 18, 2017 11:54
--- NOTE | 2017-04-18 12:03 | Progress Note ---
Subjective Date Seen by Provider: Apr 18, 2017 Time Seen by Provider: 12:00 Subjective/Events-last exam Patient feeling a little better today. Tired from doing prep and getting room. Patient Abdomen minimal pain better than yesterday. WBC slightly down. No nausea or emesis. Denies fever sweats chills shortness of breath or chest pain. Objective Exam Vital Signs Date Time Temp Pulse Resp B/P (MAP) Pulse Ox O2 Delivery O2 Flow Rate FiO2 04/18/17 08:00 98.0 61 20 131/67 95 Room Air 04/18/17 04:15 98.0 71 17 147/69 97 Room Air 04/18/17 02:00 97.1 61 17 116/61 98 Room Air 04/18/17 01:20 Room Air 04/18/17 01:20 97.2 64 18 170/69 98 Room Air 04/18/17 00:42 98.2 65 18 97 04/17/17 17:05 98.1 83 18 134/72 95 Capillary Refill : Less Than 3 Seconds General Appearance: No Apparent Distress HEENT: PERRL/EOMI Neck: Supple Respiratory: No Accessory Muscle Use, No Respiratory Distress Cardiovascular: Regular Rate, Rhythm Gastrointestinal: soft, no organomegaly, no pulsatile mass, tenderness (no significant tenderness on exam today.) Extremity: Non Tender Neurologic/Psychiatric: Alert, Oriented x3, Normal Mood/Affect Skin: Warm/Dry Results Lab Laboratory Tests 04/17/17 18:35: White Blood Count 24.1H, Red Blood Count 4.50, Hemoglobin 12.9, Hematocrit 41, Mean Corpuscular Volume 90, Mean Corpuscular Hemoglobin 29, Mean Corpuscular Hemoglobin Concent 32, Red Cell Distribution Width 14.2, Platelet Count 346, Mean Platelet Volume 10.5H, Neutrophils (%) (Auto) 90H, Lymphocytes (%) (Auto) 5L, Monocytes (%) (Auto) 5, Eosinophils (%) (Auto) 0, Basophils (%) (Auto) 0, Neutrophils # (Auto) 21.7H, Lymphocytes # (Auto) 1.2, Monocytes # (Auto) 1.1H, Eosinophils # (Auto) 0.0, Basophils # (Auto) 0.0, Neutrophils % (Manual) 93, Lymphocytes % (Manual) 4, Monocytes % (Manual) 2, Eosinophils % (Manual) 0, Basophils % (Manual) 0, Band Neutrophils 1, Blood Morphology Comment NORMAL, Sodium Level 136, Potassium Level 4.1, Chloride Level 104, Carbon Dioxide Level 20L, Anion Gap 12, Blood Urea Nitrogen 13, Creatinine 1.06, Estimat Glomerular Filtration Rate 50, BUN/Creatinine Ratio 12, Glucose Level 148H, Calcium Level 8.9, Total Bilirubin 1.0, Aspartate Amino Transf (AST/SGOT) 14, Alanine Aminotransferase (ALT/SGPT) 9, Alkaline Phosphatase 87, Total Protein 6.3L, Albumin 3.2 04/18/17 03:15: Urine Color AMBERH, Urine Clarity CLEAR, Urine pH 6.5, Urine Specific [place] 1.010L, Urine Protein 2+H, Urine Glucose (UA) NEGATIVE, Urine Ketones NEGATIVE, Urine Nitrite NEGATIVE, Urine Bilirubin 1+H, Urine Urobilinogen 1, Urine Leukocyte Esterase 1+H, Urine RBC (Auto) 1+H, Urine RBC RARE, Urine WBC RARE, Urine Squamous Epithelial Cells 25-50H, Urine Crystals NONE, Urine Bacteria TRACE, Urine Casts NONE, Urine Mucus NEGATIVE, Urine Culture Indicated NO 04/18/17 10:55: White Blood Count 18.2H, Red Blood Count 4.15L, Hemoglobin 12.0, Hematocrit 37, Mean Corpuscular Volume 90, Mean Corpuscular Hemoglobin 29, Mean Corpuscular Hemoglobin Concent 32, Red Cell Distribution Width 14.2, Platelet Count 315, Mean Platelet Volume 10.5H, Sodium Level 140, Potassium Level 4.5, Chloride Level 111H, Carbon Dioxide Level 23, Anion Gap 6, Blood Urea Nitrogen 14, Creatinine 0.98, Estimat Glomerular Filtration Rate 55, BUN/Creatinine Ratio 14 , Glucose Level 108H, Calcium Level 8.2L Assessment/Plan Assessment/Plan Assessment/Plan left upper quadrant pain abnormal radiological studies questioning cecal volvulus Diarrhea Constipation CAD Leukocytosis Patient did prep and planning colonoscopy today. Patient wbc slightly down. No significant tenderness on exam. Repeat labs in am. Clinical Quality Measures DVT/VTE Risk/Contraindication: Risk Factor Score Per Nursin RFS Level Per Nursing on Admit: 4+=Very High MARCUS SYKES DO Apr 18, 2017 12:03
[2017-04-18] MEDS ORDERED: LACTATED RINGERS 1,000 ML IV ONE (12:57)
--- NOTE | 2017-04-18 13:01 | History & Physical ---
History of Present Illness History of Present Illness Reason for visit/HPI 81 yo F admitted last night from the ER for abdominal pain and diarrhea- she was found to have elevated WBC 25k but other labs were relatively normal. No blood in her stools. Pt endorses not having a bowel movement for days. Initial CT with contrast notes possible volvulus with cecal involvment. Follow up CT with contrast was not much help in yielding more information. Pt denies any fevers or sick contacts. She will be doing a bowel prep overnight in preparation of a colonoscopy today. No overnight events besides the bowel prep- Pt today was not happy as it was around noon before I saw her and she had already saw the surgeon Dr. Zazueta- she thought I should have been by already. Date of Admission Apr 17, 2017 at 23:20 Date Seen by Provider: Apr 18, 2017 Time Seen by Provider: 12:54 I consulted on this patient on 04/18/17 12:54 Attending Physician Chi Bergeron MD Admitting Physician Rhina Ordoñez MD Consult Allergies and Home Medications Allergies Coded Allergies: morphine (Verified Adverse Reaction, Unknown, vomiting, 04/17/17) Home Medications Aspirin 81 Mg Tablet.dr, 81 MG PO DAILY, (Reported) Carvedilol Phosphate 40 Mg Cpmp.24hr, 1 EACH PO DAILY, (Reported) Cholecalciferol 1,000 Unit Tablet, 1,000 UNIT PO DAILY, (Reported) Clopidogrel Bisulfate 75 Mg Tablet, 75 MG PO DAILY, (Reported) Isosorbide Mononitrate 30 Mg Tab.er.24h, Unknown Dose PO, (Reported) Losartan Potassium 25 Mg Tablet, 25 MG PO DAILY, (Reported) Omeprazole 20 Mg Capsule.dr, 20 MG PO DAILY, (Reported) Past Atbxtdh-Mgqeoy-Xapxrz Hx Patient Social History Alcohol Use: Denies Use Recreational Drug Use: No Smoking Status: Never a Smoker Physical Abuse Screen: No Sexual Abuse: No Recent Foreign Travel: No Contact w/other who traveled: No Recent Hopitalizations: No Recent Infectious Disease Expo: No Immunizations Up To Date Date of Pneumonia Vaccine: May 31, 2017 Seasonal Allergies Seasonal Allergies: No Surgeries HX Surgeries: Yes (HEART STENT) Respiratory Hx Respiratory Disorders: Yes (FREQUENT PNEUMONIA) Cardiovascular Hx Cardiovascular Disorders: Yes Cardiac Disorders: Coronary Artery Disease, Hypertension Neurological Hx Neurological Disorders: No Reproductive System Hx Reproductive Disorders: No Gastrointestinal Hx Gastrointestinal Disorders: Yes (h/o diverticulitis) Gastrointestinal Disorders: Diverticulosis Musculoskeletal Hx Musculoskeletal Disorders: No Endocrine Hx Endocrine Disorders: No HEENT HX ENT Disorders: No Cancer Hx Cancer: No Psychosocial Hx Psychiatric Problems: No Integumentary HX Skin/Integumentary Disorder: No Blood Transfusions Hx Blood Disorders: No Adverse Reaction to a Blood Tr: No Reviewed Nursing Assessment Reviewed/Agree w Nursing PMH: Yes Family Medical History Significant Family History: No Pertinent Family Hx Family Hx: Patient reports no known family medical history. Review of Systems Review of Systems General: No Chills, No Night Sweats HEENT: No Head Aches, No Visual Changes Pulmonary: No Dyspnea, No Cough Cardiovascular: No: Chest Pain Gastrointestinal: Nausea, Abdominal Pain, Diarrhea, No: Vomiting Genitourinary: No Dysuria, No Frequency Neurological: No: Change in speech, Confusion, Seizures All Other Systems Reviewed All Other Systems Reviewed: Yes (Negative excepted noted.) Physical Exam Vital Signs Vital Sign - Last 12Hours 04/17/17 17:05 Temp 98.1 Pulse 83 Resp 18 B/P (MAP) 134/72 Pulse Ox 95 Capillary Refill : Less Than 3 Seconds General Appearance: No Apparent Distress (grouchy), WD/WN HEENT: PERRL/EOMI Neck: Non Tender, Supple Respiratory: Lungs Clear Cardiovascular: Regular Rate, Rhythm Gastrointestinal: Soft, No Guarding Back: No CVA Tenderness Extremity: Normal Range of Motion, Non Tender Neurologic/Psychiatric: Alert, Oriented x3, No Motor/Sensory Deficits Skin: Warm/Dry Assessment/Plan Assessment/Plan Assessment/Plan 81 yo F abdominal pain- CT indicates concern for cecal volvulus - Dr. Zazueta consulted for evaluation- Colonoscopy today fentanyl for pain management leukocytosis- improved with ivf and repeat labs. h/o CAD- stable HTN - normotensive, will resume meds when not npo h/o diverticulosis- Dispo: colonoscopy today- pt hopeful to go home after the colonoscopy. Problems: Clinical Quality Measures DVT/VTE Risk/Contraindication: Risk Factor Score Per Nursin RFS Level Per Nursing on Admit: 4+=Very High CHI BERGERON MD Apr 18, 2017 13:00
[2017-04-18] MEDS ORDERED: PROPOFOL INJECTION 50 ML IV ONE (13:08)
--- NOTE | 2017-04-18 14:24 | Progress Note-Post Operative ---
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
[2017-04-18] MEDS ORDERED: LACTATED RINGERS 1,000 ML IV SCH (15:00)
[2017-04-18 15:45] VITALS: BP 154/73
--- NOTE | 2017-04-18 16:11 | OPERATIVE REPORT ---
DATE OF SERVICE: 04/18/2017 PREOPERATIVE DIAGNOSIS: Abnormal CT scan, questionable cecal volvulus. 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 PROCEDURE: Colonoscopy. SURGEON: Marcus Zazueta DO ANESTHESIA: Per AUTOMOBILE MECHANIC RADIATOR. ESTIMATED BLOOD LOSS: None. COMPLICATIONS: None. INDICATIONS: The patient is an 81-year-old female who presented to Emergency Department last night with abdominal complaints and diarrhea. She had a CT scan demonstrating a questionable cecal volvulus and she had a white count of 24,000. The patient was discussed options and we had decided to proceed with colonoscopy. The patient was prepped for colonoscopy. Family and patient understood the risks and benefits and wished to proceed. Consent was signed and in the chart. PROCEDURE: The patient was taken to the endoscopy suite, placed in left lateral recumbent position. Timeout was performed. Digital rectal exam was performed and there were no palpable polyps, masses or ulcerations. Scope was inserted in the rectum and advanced all the way to the cecum with minimal difficulty. There was no evidence of volvulus at any time during the scope. The appendiceal orifice was located. The terminal ileum was partially intubated and no abnormalities were visualized. The scope was continued and slowly retracted back. In the ascending colon there was a metal clip present from likely previous procedure. This was attached to some of the mucosa there. Within this region also there was a colonic lipoma. There is no other polyps, masses or ulcerations. Scope was continued to be slowly retracted back noting no other pathology in the ascending colon, transverse colon, descending colon. Within the sigmoid colon, there is a small amount of diverticulosis present. No polyps, masses or ulcerations. Once in the rectum, there is some slight irritation and a very minimal size of either bruising or ischemic changes which was less than approximately 1.5 cm in diameter. The scope was inserted and removed multiple times, noting no other pathology. The scope was then slowly retracted until completely removed. The prep was adequate. RECOMMENDATIONS: There is no evidence of any cecal volvulus at this time. There were the changes in the rectum which could be due to the patient being on Plavix and having the rectal contrast enemas or it is a small area of ischemic change that would not be causing patient's symptoms. Would recommend repeating a flexible sigmoidoscopy in three to six months just to reevaluate this area. At this time will start on clear liquids, repeat labs in the morning. Job ID: [id number] DocumentID: [id number] Dictated Date: 04/18/2017 14:29:17 Coffee Host Date: 04/18/2017 16:10:40 Dictated By: MARCUS ZAZUETA DO
[2017-04-18 20:00] VITALS: BP 147/72
[2017-04-19] VITALS: BP 175/82
[2017-04-19 04:00] VITALS: BP 163/70
[2017-04-19 05:22] LABS: BASOPHILS % (AUTO) 0 % (0-10); EOSINOPHILS # (AUTO) 0.2 10^3/uL (0.0-0.3); EOSINOPHILS % (AUTO) 2 % (0-10); LYMPHOCYTES # (AUTO) 2.8 X 10^3 (1.0-4.0); LYMPHOCYTES % (AUTO) 22 % (12-44); MEAN CORPUSCULAR HEMOGLOBIN 29 PG (25-34); MEAN CORPUSCULAR HGB CONC 31 G/DL (32-36); MEAN CORPUSCULAR VOLUME 91 FL (80-99); MEAN PLATELET VOLUME 11.1 FL (7.4-10.4); MONOCYTES % (AUTO) 8 % (0-12); NEUTROPHILS # (AUTO) 8.7 X 10^3 (1.8-7.8); NEUTROPHILS % (AUTO) 69 % (42-75); PLATELET COUNT 330 10^3/uL (130-400); RED BLOOD COUNT 4.25 10^6/uL (4.35-5.85); RED CELL DISTRIBUTION WIDTH 14.5 % (10.0-14.5); WHITE BLOOD COUNT 12.7 10^3/uL (4.3-11.0)
[2017-04-19] MEDS: CATHETER FLUSH 10 ML SYR IV SCH (05:57)
[2017-04-19 06:12] LABS: BILIRUBIN,TOTAL 0.7 MG/DL (0.1-1.0); CALCIUM 8.6 MG/DL (8.5-10.1); CREATININE SERUM 0.92 MG/DL (0.60-1.30); TOTAL PROTEIN 5.9 GM/DL (6.4-8.2)
[2017-04-19 08:00] VITALS: BP 135/64
--- NOTE | 2017-04-19 10:31 | Progress Note ---
Subjective Date Seen by Provider: Apr 19, 2017 Time Seen by Provider: 10:27 Subjective/Events-last exam feeling better. not having any pain. passing flatus. wbc trending down. no nausea vomiting fever sweats chills shortness of breath or chest pain. Objective Exam Vital Signs Date Time Temp Pulse Resp B/P (MAP) Pulse Ox O2 Delivery O2 Flow Rate FiO2 04/19/17 08:00 98.4 67 20 135/64 95 Room Air 04/19/17 08:00 Room Air 04/19/17 04:00 98.0 75 19 163/70 98 Room Air 04/19/17 00:00 99.5 73 18 175/82 97 Room Air 04/18/17 20:00 97.8 66 20 147/72 97 Room Air 04/18/17 15:45 97.0 56 20 154/73 97 Room Air Capillary Refill : Less Than 3 Seconds General Appearance: No Apparent Distress, WD/WN HEENT: PERRL/EOMI Neck: Non Tender, Supple Respiratory: Lungs Clear Cardiovascular: Regular Rate, Rhythm Gastrointestinal: soft, no organomegaly, no pulsatile mass, No tenderness Extremity: Normal Range of Motion, Non Tender Neurologic/Psychiatric: Alert, Oriented x3, No Motor/Sensory Deficits Skin: Warm/Dry Results Lab Laboratory Tests 04/18/17 10:55: White Blood Count 18.2H, Red Blood Count 4.15L, Hemoglobin 12.0, Hematocrit 37, Mean Corpuscular Volume 90, Mean Corpuscular Hemoglobin 29, Mean Corpuscular Hemoglobin Concent 32, Red Cell Distribution Width 14.2, Platelet Count 315, Mean Platelet Volume 10.5H, Sodium Level 140, Potassium Level 4.5, Chloride Level 111H, Carbon Dioxide Level 23, Anion Gap 6, Blood Urea Nitrogen 14, Creatinine 0.98, Estimat Glomerular Filtration Rate 55, BUN/Creatinine Ratio 14 , Glucose Level 108H, Calcium Level 8.2L 04/19/17 04:28: White Blood Count 12.7H, Red Blood Count 4.25L, Hemoglobin 12.1, Hematocrit 39, Mean Corpuscular Volume 91, Mean Corpuscular Hemoglobin 29, Mean Corpuscular Hemoglobin Concent 31L, Red Cell Distribution Width 14.5, Platelet Count 330, Mean Platelet Volume 11.1H, Sodium Level 142, Potassium Level 4.0, Chloride Level 111H, Carbon Dioxide Level 21, Anion Gap 10, Blood Urea Nitrogen 14, Creatinine 0.92, Estimat Glomerular Filtration Rate 59, BUN/Creatinine Ratio 15 , Glucose Level 89, Calcium Level 8.6, Neutrophils (%) (Auto) 69, Lymphocytes (% ) (Auto) 22, Monocytes (%) (Auto) 8, Eosinophils (%) (Auto) 2, Basophils (%) ( Auto) 0, Neutrophils # (Auto) 8.7H, Lymphocytes # (Auto) 2.8, Monocytes # (Auto ) 1.0, Eosinophils # (Auto) 0.2, Basophils # (Auto) 0.0, Total Bilirubin 0.7, Aspartate Amino Transf (AST/SGOT) 18, Alanine Aminotransferase (ALT/SGPT) 10, Alkaline Phosphatase 73, Total Protein 5.9L, Albumin 3.0L Assessment/Plan Assessment/Plan Assessment/Plan 81 yo F abdominal pain- CT indicates concern for cecal volvulus was not present on endoscopy leukocytosis- improved h/o CAD- stable HTN - small area in rectum with bruising or small ischemic area would recommend flex sig in 3-6 months to re-evaluate okhal with dc home today Clinical Quality Measures DVT/VTE Risk/Contraindication: Risk Factor Score Per Nursin RFS Level Per Nursing on Admit: 4+=Very High MARCUS SYKES DO Apr 19, 2017 10:31
--- NOTE | 2017-04-19 10:47 | Discharge Inst-Simple/Standard ---
Discharge Inst-Standard Patient Instructions/Follow Up Plan of Care/Instructions/FU: Advance diet slowly. Monitor nausea, vomiting, diarrhea, constipation Activity as Tolerated: Yes Discharge Diet: Eat Small Frequent Meals Return to The Hospital For: worsening of symptoms new concerns ARIANA BERGERON MD Apr 19, 2017 10:47 am
--- NOTE | 2017-04-19 10:48 | Discharge Summary ---
Diagnosis/Chief Complaint Date of Admission Apr 17, 2017 at 11:20 pm Date of Discharge April 19, 2017 Admission Diagnosis Admission Diagnosis abdominal pain- leukocytosis- h/o CAD- HTN - h/o diverticulosis- Discharge Diagnosis diffuse abdominal pain- leukocytosis- h/o CAD- HTN - h/o diverticulosis- left lower lung nodule Reason Hospital Visit 81 yo F admitted last night from the ER for abdominal pain and diarrhea- she was found to have elevated WBC 25k but other labs were relatively normal. No blood in her stools. Pt endorses not having a bowel movement for days. Initial CT with contrast notes possible volvulus with cecal involvment. Follow up CT with contrast was not much help in yielding more information. Pt denies any fevers or sick contacts. She will be doing a bowel prep overnight in preparation of a colonoscopy today. No overnight events besides the bowel prep- Pt today was not happy as it was around noon before I saw her and she had already saw the surgeon Dr. Zazueta- she thought I should have been by already. Discharge Summary Hospital Course Hospital Course 81yo F admitted for abdominal pain- CT indicates concern for cecal volvulus - Dr. Zazueta consulted for evaluation- Colonoscopy performed and nothing too significant found- Leukocytosis- improved with ivf and repeat labs. h/o CAD- stable HTN - normotensive, will resumed home medications. h/o diverticulosis- no sign of diverticulitis. Patient was deemed stable for discharge 04/19/17- she greatly improved- with no issues and remained afebrile. She will slowly advance her diet. No antibiotics were started as there was not a bacterial infection to treat at this time. Patient to have repeat CT of chest in 6 months to reevaluate her left lung nodule (1cm). Patient to follow up in [address] Ordoñez. Labs Laboratory Tests 04/17/17 18:35: White Blood Count 24.1H, Mean Platelet Volume 10.5H, Neutrophils (%) (Auto) 90H , Lymphocytes (%) (Auto) 5L, Neutrophils # (Auto) 21.7H, Monocytes # (Auto) 1.1H , Carbon Dioxide Level 20L, Glucose Level 148H, Total Protein 6.3L 04/18/17 03:15: Urine Color AMBERH, Urine Specific [place] 1.010L, Urine Protein 2+H, Urine Bilirubin 1+H, Urine Leukocyte Esterase 1+H, Urine RBC (Auto) 1+H, Urine Squamous Epithelial Cells 25-50H 04/18/17 10:55: White Blood Count 18.2H, Mean Platelet Volume 10.5H, Glucose Level 108H, Red Blood Count 4.15L, Chloride Level 111H, Calcium Level 8.2L 04/19/17 04:28: White Blood Count 12.7H, Mean Platelet Volume 11.1H, Neutrophils # (Auto) 8.7H, Total Protein 5.9L, Red Blood Count 4.25L, Chloride Level 111H, Mean Corpuscular Hemoglobin Concent 31L, Albumin 3.0L Procedures None. Consultations Dr. Zazueta, surgery Discharge Physical Examination Allergies: Coded Allergies: morphine (Verified Adverse Reaction, Unknown, vomiting, 04/17/17) Vitals & I&Os Vital Signs Date Time Temp Pulse Resp B/P (MAP) Pulse Ox O2 Delivery O2 Flow Rate FiO2 04/19/17 11:20 04/19/17 08:00 98.4 67 20 95 Room Air General Appearance: Alert, Oriented X3, Cooperative HEENT: Atraumatic Respiratory: Clear to Auscultation Cardiovascular: Regular Rate, Normal S1, Normal S2 Abdominal: Normal Bowel Sounds, Soft Extremities: No Clubbing, No Cyanosis Skin: No Rashes, No Breakdown Neuro: Normal Gait, Normal Speech, Strength at 5/5 X4 Ext Psych/Mental Status: Mental Status NL, Mood NL Discharge Home Medications Reviewed and agree with Discharge Medication list on patient's Discharge Instruction sheet Condition at Discharge stable Instructions to Patient/Family Please see electronic discharge instructions given to patient. Clinical Quality Measures DVT/VTE Risk/Contraindication: Risk Factor Score Per Nursin RFS Level Per Nursing on Admit: 4+=Very High ARIANA BERGERON MD Apr 19, 2017 10:48 am
== END 2017-04-19 11:27 | disposition home or self-care (01) ==
LOC: EDUNIT# 16:54 → ER 16:56 → 4TH 23:20 → UNDOADMOB 23:20 → 4TH 04-18 01:20 → SDC 04-18 01:20 → UNDODISOB 04-19 11:27
PROVIDERS: ATTEND Family Medicine
DX: R10.84 Generalized abdominal pain (principal); R19.7 Diarrhea, unspecified; D17.5 Benign lipomatous neoplasm of intra-abdominal organs; K59.8 Other specified functional intestinal disorders; K57.30 Diverticulosis of large intestine without perforation or abscess without bleeding; I25.10 Atherosclerotic heart disease of native coronary artery without angina pectoris; I10 Essential (primary) hypertension; R91.1 Solitary pulmonary nodule; D72.829 Elevated white blood cell count, unspecified; K59.00 Constipation, unspecified; Z95.5 Presence of coronary angioplasty implant and graft; Z79.899 Other long term (current) drug therapy
CPT/HCPCS: 36415; 74176; 74177; 80048; 80053; 81000; 85007; 85025; 85027; 96361; 96374; 96375

== ENCOUNTER → 2017-12-03 | Outpatient (CLI) | payer MEDICARE ==
[~2017-12-03] MED LIST changes: +CLOP75TA69 PO; +ISOS30TA3 PO; +LOSA25TA2 PO
--- NOTE | 2017-12-03 19:03 | Diagnostic Imaging Report ---
EXAMINATION: PA and lateral chest at 10:02 a.m. INDICATION: Chest pain, shortness of breath. FINDINGS: The heart size is mildly enlarged but stable when compared to 11/11/2016. The sternotomy wires and surgical clips noted previously are again evident and no different. The vague area of increased density near the apex of the heart seen on the previous study is also again identified and no different. I suspect that this is secondary to an epicardial fat pad and scar formation. The left upper lung and right lung remain clear. The mediastinum is not widened. The osseous structures are intact. IMPRESSION: There is mild cardiomegaly and evidence of prior cardiac surgery and chronic pulmonary changes involving the left lung base. There is no sign of an acute cardiopulmonary abnormality, however. Dictated by: Dictated on workstation # [id number]
--- NOTE | 2017-12-03 20:30 | Diagnostic Imaging Report ---
EXAMINATION: Bilateral breast ultrasound. INDICATION: Bilateral breast pain. FINDINGS: The diagnostic mammogram performed earlier today failed to show any sign of malignancy or of an acute abnormality involving either breast. For this study, all four quadrants of the breasts, the retroareolar region, and the axilla of each breast were examined. In the right breast approximately 1 cm from the nipple at the 2 o'clock position, there is a fairly well-circumscribed avascular 0.8 x 0.5 x 0.5 cm hypoechoic lesion. I suspect that this is a benign process such as a small fibroadenoma or a cyst which has been slightly complicated by an infection and/or hemorrhage. Also, in the left breast in the 11 o'clock position roughly 2 cm from the nipple, there is a small 0.6 cm area of slightly altered echogenicity. I suspect that this is probably related to fibroglandular tissue as opposed to a discrete lesion. There is no other solid mass identified and there is no sign of an acute abnormality to account for the patient's breast pain. IMPRESSION: 1. There is a small benign-appearing hypoechoic lesion in the 2 o'clock position of the right breast. There also appears to be a region of fibrous tissue in the 11 o'clock position of the left breast. It may prove worthwhile to have a short-term (three-month) follow-up ultrasound exam of both breasts for further evaluation of these findings. 2. There is no solid mass to suggest malignancy and there is no acute abnormality to account for the patient's breast pain. Clinical follow-up is recommended. ACR BI-RADS Category 3: Probably benign findings. Dictated on workstation # [id number]
--- NOTE | 2017-12-03 20:35 | Diagnostic Imaging Report ---
EXAMINATION: Digital Mammogram bilateral diagnostic. INDICATION: Bilateral breast pain. COMPARISON: This study was compared to the prior exams of 01/02/2005. At this time, the patient does complain of pain in both breasts. The current study was also evaluated with a Computer Aided Detection (CAD) system. FINDINGS: The fibroglandular tissue in both breasts is heterogeneously dense. This does limit the sensitivity of this exam. There is no primary or secondary sign of malignancy noted. Benign-appearing calcifications are evident in both breasts. There is no abnormality to account for the patient's pain. IMPRESSION: 1. There is no evidence of malignancy, and there is no acute abnormality identified. 2. Ultrasound of both breasts has been scheduled for further evaluation. ACR BI-RADS Category 0: Incomplete. (Needs additional imaging evaluation). Result letter will be mailed to the patient. Note: At least 10% of breast cancer is not imaged by mammography. Dictated by: Dictated on workstation # [id number]
== END ==
LOC: RAD 08:02
PROVIDERS: ATTEND Family Medicine
DX: N64.89 Other specified disorders of breast (principal); I51.7 Cardiomegaly; Z98.890 Other specified postprocedural states
CPT/HCPCS: 71046; 77066

== ENCOUNTER → 2018-03-15 | Outpatient (CLI) | payer MEDICARE ==
--- NOTE | 2018-03-15 17:49 | Diagnostic Imaging Report ---
INDICATION: Three-month follow-up of bilateral breast nodules. Correlation is made with recent breast ultrasound from 12/03/2017. FINDINGS: Right breast: There is a circumscribed hypoechoic nodule at the 2 o'clock location of the right breast 1 cm from the nipple. This measures approximately 5 mm x 5 mm x 5 mm, stable to perhaps slightly smaller when compared with three months earlier. No new abnormality on the right is seen. Left breast: On the left, at the 11 o'clock location 2 cm from the nipple, the area of hypoechogenicity appears to be stable at approximately 6 mm x 8 mm. This may represent fibroglandular tissue. No new abnormality is seen. IMPRESSION: Stable bilateral breast ultrasound. Follow-up ultrasound in six months is recommended to confirm stability. ACR BI-RADS Category 3: Probably benign findings. Dictated by: Dictated on workstation # [id number]
== END ==
LOC: RAD 11:57
PROVIDERS: ATTEND Nurse Practitioner Family
DX: N63.12 Unspecified lump in the right breast, upper inner quadrant (principal); N63.22 Unspecified lump in the left breast, upper inner quadrant
CPT/HCPCS: 76642

== ENCOUNTER → 2018-09-09 | Outpatient (CLI) | payer MEDICARE ==
--- NOTE | 2018-09-09 19:28 | Diagnostic Imaging Report ---
INDICATION: Breast nodules. Patient presents for six-month followup. Correlation is made with prior breast ultrasound from 03/15/2018. FINDINGS: A previously noted region of hypo-echogenicity at 11 o'clock location left breast 2 cm from the nipple is again seen measuring approximately 6 mm x 7 mm, similar to prior study. Circumscribed hypoechoic nodule right breast 2 o'clock location 1 cm from the nipple measures 5 mm x 6 mm, stable when compared to prior exam. No new abnormality is seen. IMPRESSION: Stable bilateral breast nodules. This now shows approximately 6 months of stability. Additional sonographic followup in 6 months is recommended to confirm stability. ACR BI-RADS Category 3: Probably benign findings. Dictated by: Dictated on workstation # [id number]
== END ==
LOC: RAD 12:03
PROVIDERS: ATTEND Nurse Practitioner Family
DX: N63.20 Unspecified lump in the left breast, unspecified quadrant (principal); N63.10 Unspecified lump in the right breast, unspecified quadrant
CPT/HCPCS: 76642

== ENCOUNTER → 2018-09-27 | Outpatient (CLI) | payer MEDICARE ==
--- NOTE | 2018-09-27 18:01 | Diagnostic Imaging Report ---
PA and lateral chest at 433 hours. INDICATION: Cough. FINDINGS: The mild cardiomegaly and the sternal wires and surgical clips noted on the prior exam of 12/03/2017 are again visualized and no different. The chronic pulmonary changes, primarily involving the left lung base seen previously are also stable. There is no sign of failure, pneumonia or pleural effusion. Mediastinum is not widened. The osseous structures are intact. IMPRESSION: There is no evidence for active disease. When compared to the prior study, there has been no adverse change. Dictated by: Dictated on workstation # [id number]
== END ==
LOC: RAD 16:10
PROVIDERS: ATTEND Nurse Practitioner Family
DX: R06.02 Shortness of breath (principal); R05 Cough; Z97.8 Presence of other specified devices
CPT/HCPCS: 71046

== ENCOUNTER 2018-11-23 08:02 | Day surgery (SDC) | payer MEDICARE ==
[2018-11-23] VITALS (11 sets, daily range): BP systolic 109–144; BP diastolic 43–86
[~2018-11-23] VITALS: Ht 154.9 cm; Wt 78.9 kg
[2018-11-23] MEDS ORDERED: HEParin 1000 UNIT/ML (10ML VIAL) FOR BOLUS ONE (08:08)
[2018-11-23] MEDS ORDERED: NS IV 1000 ML 3,000 ML ONE (08:08)
[2018-11-23] MEDS ORDERED: LIDOCAINE 1% INJ 20 ML 20 ML VIAL ONE (08:08)
[2018-11-23] MEDS ORDERED: NS IV 1000 ML 1,000 ML IV SCH ×2 (08:15→11:14)
[2018-11-23] MEDS ORDERED: CARV6.25 PO (08:39)
--- OUTSIDE RECORDS SUMMARY | 2018-11-23 08:47 | XMS REPORT | CCD ---
Author Author Rhina Ordoñez Organization Rhina Ordoñez MD, [facility] Address [address] [place] [address] Phone Care Team Providers [place] Tax Auditor Name Role Phone Rhina Ordoñez PP Unavailable CCM Unavailable Summary Purpose Interface Exchange Insurance Providers Payer name Policy type / Coverage type Covered democrat ID Effective Begin Date Effective End Date WPS Medicare Part B Medicare Part B [id number] Unknown [facility] Medicare Part B [id number] Unknown Family history Brother Diagnosis Age At Onset No Family Disease Entered N/A Brother Diagnosis Age At Onset Heart disease Unknown Father Diagnosis Age At Onset sepsis Unknown Daughter Diagnosis Age At Onset No Family Disease Entered N/A Brother Diagnosis Age At Onset Heart disease Unknown Brother Diagnosis Age At Onset Heart disease Unknown Daughter Diagnosis Age At Onset No Family Disease Entered N/A Brother Diagnosis Age At Onset Accident Unknown Son Diagnosis Age At Onset No Family Disease Entered N/A Sister Diagnosis Age At Onset Heart disease Unknown Brother Diagnosis Age At Onset No Family Disease Entered N/A Daughter Diagnosis Age At Onset No Family Disease Entered N/A Daughter Diagnosis Age At Onset No Family Disease Entered N/A Sister Diagnosis Age At Onset No Family Disease Entered N/A Daughter Diagnosis Age At Onset No Family Disease Entered N/A Brother Diagnosis Age At Onset No Family Disease Entered N/A Sister Diagnosis Age At Onset Heart disease Unknown Brother Diagnosis Age At Onset No Family Disease Entered N/A Mother Diagnosis Age At Onset Denies: Diabetes mellitus Type 2 Unknown Stroke Unknown Social History Social History Element Codes Description Effective Dates Marital status Unknown [place] 09/05/2015 Living arrangements Unknown House 04/27/2011 Employment 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 Unknown Has never used illegal drugs 04/24/2011 Allergies, Adverse Reactions, Alerts Substance Reaction Codes Entered Date Inactivated Date Status Lisinopril Unknown 09/05/2015 No Inactive Date Active Past Medical History Illness Codes Condition Status Onset Date Resolved Date Cough ICD-9: 786.2 ICD-10: R05 Active 07/27/2016 Unknown Essential (primary) hypertension ICD-9: 401.1 ICD-10: I10 Active 11/25/2016 Unknown Gastro-esophageal reflux disease without esophagitis ICD-9: 530.81 ICD-10: K21.9 Active 04/07/2016 Unknown Dysuria ICD-9: 788.1 ICD-10: R30.0 Active 08/11/2017 Unknown Mixed hyperlipidemia ICD-9: 272.2 ICD-10: E78.2 Active 03/18/2018 Unknown Other abnormal glucose ICD-9: 790.29 ICD-10: R73.09 Active 10/14/2016 Unknown Vitamin B12 deficiency anemia due to intrinsic factor deficiency ICD-9: 266.2 ICD-10: D51.0 Active 08/04/2018 Unknown Mastodynia ICD-9: 611.71 ICD-10: N64.4 Active 12/01/2017 Unknown Pleurodynia ICD-9: 786.52 ICD-10: R07.81 Active 10/03/2015 Unknown Encounter for general adult medical examination with abnormal findings ICD-9: V70.0 ICD-10: Z00.01 Active 11/12/2016 Unknown Essential (primary) hypertension ICD-9: 401.9 ICD-10: I10 Active 04/07/2017 Unknown Acute bronchitis, unspecified ICD-9: 466.0 ICD-10: J20.9 Active 11/11/2016 Unknown Pneumonia due to other specified bacteria ICD-9: 482.89 ICD-10: J15.8 Active 07/16/2016 Unknown Localized enlarged lymph nodes ICD-9: 785.6 ICD-10: R59.0 Active 03/23/2016 Unknown Acute maxillary sinusitis, unspecified ICD-9: 461.0 ICD-10: J01.00 Active 03/12/2016 Unknown Enlarged lymph nodes, unspecified ICD-9: 785.6 ICD-10: R59.9 Active 03/12/2016 Unknown Dyspnea, unspecified ICD-9: 786.09 ICD-10: R06.00 Active 01/21/2016 Unknown Left upper quadrant pain ICD-9: 789.02 ICD-10: R10.12 Active 12/18/2015 Unknown Right upper quadrant pain ICD-9: 789.01 ICD-10: R10.11 Active 12/18/2015 Unknown Constipation, unspecified ICD-9: 564.00 ICD-10: K59.00 Active 12/06/2015 Unknown Generalized abdominal pain ICD-9: 789.07 ICD-10: R10.84 Active 12/06/2015 Unknown Urinary tract infection, site not specified ICD-9: 599.0 ICD-10: N39.0 Active 12/06/2015 Unknown Elevated C-reactive protein (CRP) ICD-9: 790.95 ICD-10: R79.82 Active 10/25/2015 Unknown Encounter for general adult medical examination without abnormal findings ICD-9: V70.9 ICD-10: Z00.00 Active 10/24/2015 Unknown Hypertension Unknown Active 09/05/2015 Unknown ESSENTIAL HYPERTENSION ICD-9: 401.9 Active 04/25/2011 Unknown History of cryptococcosis ICD-9: V12.09 Active 04/25/2011 Unknown Vitamin B 12 deficiency ICD-9: 266.2 Active 04/25/2011 Unknown Cardiomyopathy Unknown Active 04/24/2011 Unknown Vitamin B12 Deficiency Unknown Active 04/24/2011 Unknown Problems Condition Codes Effective Dates Condition Status Cough ICD-9: 786.2 ICD-10: R05 07/27/2016 Active Essential (primary) hypertension ICD-9: 401.1 ICD-10: I10 11/25/2016 Active Gastro-esophageal reflux disease without esophagitis ICD-9: 530.81 ICD-10: K21.9 04/07/2016 Active Dysuria ICD-9: 788.1 ICD-10: R30.0 08/11/2017 Active Mixed hyperlipidemia ICD-9: 272.2 ICD-10: E78.2 03/18/2018 Active Other abnormal glucose ICD-9: 790.29 ICD-10: R73.09 10/14/2016 Active Vitamin B12 deficiency anemia due to intrinsic factor deficiency ICD-9: 266.2 ICD-10: D51.0 08/04/2018 Active Mastodynia ICD-9: 611.71 ICD-10: N64.4 12/01/2017 Active Pleurodynia ICD-9: 786.52 ICD-10: R07.81 10/03/2015 Active Encounter for general adult medical examination with abnormal findings ICD-9: V70.0 ICD-10: Z00.01 11/12/2016 Active Essential (primary) hypertension ICD-9: 401.9 ICD-10: I10 04/07/2017 Active Acute bronchitis, unspecified ICD-9: 466.0 ICD-10: J20.9 11/11/2016 Active Pneumonia due to other specified bacteria ICD-9: 482.89 ICD-10: J15.8 07/16/2016 Active Localized enlarged lymph nodes ICD-9: 785.6 ICD-10: R59.0 03/23/2016 Active Acute maxillary sinusitis, unspecified ICD-9: 461.0 ICD-10: J01.00 03/12/2016 Active Enlarged lymph nodes, unspecified ICD-9: 785.6 ICD-10: R59.9 03/12/2016 Active Dyspnea, unspecified ICD-9: 786.09 ICD-10: R06.00 01/21/2016 Active Left upper quadrant pain ICD-9: 789.02 ICD-10: R10.12 12/18/2015 Active Right upper quadrant pain ICD-9: 789.01 ICD-10: R10.11 12/18/2015 Active Constipation, unspecified ICD-9: 564.00 ICD-10: K59.00 12/06/2015 Active Generalized abdominal pain ICD-9: 789.07 ICD-10: R10.84 12/06/2015 Active Urinary tract infection, site not specified ICD-9: 599.0 ICD-10: N39.0 12/06/2015 Active Elevated C-reactive protein (CRP) ICD-9: 790.95 ICD-10: R79.82 10/25/2015 Active Encounter for general adult medical examination without abnormal findings ICD-9: V70.9 ICD-10: Z00.00 10/24/2015 Active Hypertension Unknown 09/05/2015 Active ESSENTIAL HYPERTENSION ICD-9: 401.9 04/25/2011 Active History of cryptococcosis ICD-9: V12.09 04/25/2011 Active Vitamin B 12 deficiency ICD-9: 266.2 04/25/2011 Active Cardiomyopathy Unknown 04/24/2011 Active Vitamin B12 Deficiency Unknown 04/24/2011 Active Medications Medication Codes Instructions Start Date Stop Date Status Fill Instructions Cozaar 50 mg tablet RxNorm: 196388 ... TAKE 1 TABLET BY MOUTH EVERY DAY AFTER SUPPER ... 10/29/2018 07/25/2019 Active Generic For:COZAAR 50MG 10/28/2018 11: 18:09 AM simvastatin 40 mg tablet RxNorm: 641426 1 Tablet(s) PO QPM 12/201707/29/2019 Active Generic For:ZOCOR 40MG N O T I C E Last quantity doesn't match original quantity 07/21/2018 9:52:25 AM cyanocobalamin (vit B-12) 1,000 mcg/mL injection solution RxNorm: 759806 1 Milliliter(s) Inj monthly 08/04/201807/29 Active Kenalog 40 mg/mL suspension for injection RxNorm: 1439488 Milliliter(s) Inj 08/04/2018 08/04/2018 Inactive simvastatin 40 mg tablet RxNorm: 673925 ... TAKE 1 TABLET BY MOUTH 3 TIMES A WEEK AT BEDTIME ... 07/21/2018 08/03/2018 Inactive Generic For:ZOCOR 40MG N O T I C E Last quantity doesn't match original quantity 07/21/2018 9:52:25 AM simvastatin 40 mg tablet RxNorm: 220788 1 Tablet(s) PO TIW at [facility] 03/25/2018 07/20/2018 Inactive Take with coQ10 QD Burton 5 mg-325 mg tablet RxNorm: 933865 1 Tablet(s) PO BID as needed for pain 03/19/2018 No Stop Date Active Cozaar 50 mg tablet RxNorm: 139831 ... TAKE 1 TABLET BY MOUTH EVERY DAY AFTER SUPPER ... 03/01/2018 10/28/2018 Inactive Generic For:COZAAR 50MG 03/01/2018 11 :50:08 AM Coreg 6.25 mg tablet RxNorm: 837099 ... TAKE ONE TABLET BY MOUTH TWICE A DAY ... 02/01/2018 01/26/2019 Active Generic For:COREG 6.25MG N O T I C E Last quantity doesn't match original quantity 02/01/2018 10:56:10 AM simvastatin 40 mg tablet RxNorm: 388237 1 Tablet(s) PO TIW at [facility] 12/04/2017 12/03/2017 Inactive simvastatin 40 mg tablet RxNorm: 637674 1 Tablet(s) PO TIW at [facility] 12/04/2017 03/24/2018 Inactive Take with coQ10 QD Burton 5 mg-325 mg tablet RxNorm: 705755 1 Tablet(s) PO BID as needed for pain 11/17/2017 03/18/2018 Inactive Burton 5 mg-325 mg tablet RxNorm: 215993 1 Tablet(s) PO QAM and one PM PRN pain 08/11/2017 11/16/2017 Inactive Coreg 6.25 mg tablet RxNorm: 525457 one by mouth twice a day No Stop Date Active Coreg 6.25 mg tablet RxNorm: 785969 one by mouth twice a day 08/06/2017 Inactive Lipitor 40 mg tablet RxNorm: 138663 1 Tablet(s) PO QPM 201612/01/2017 Inactive Vitamin B-12 1,000 mcg/mL injection solution RxNorm: 855969 Milliliter(s) Inject 1 mL (1,000 mcg) by subQ inject. bi monthly in march and may then every 30 days 04/07/2017 No Stop Date Active Cozaar 50 mg tablet RxNorm: 487024 Take 1 Tab (50 mg) by mouth daily after supper. 03/23/2017 02/28/2018 Inactive Protonix 40 mg tablet,delayed release RxNorm: 169495 ... TAKE 1 TABLET BY MOUTH TWICE DAILY ... 12/24/2016 01/04/2017 Inactive Generic For:PROTONIX 40MG 2016 9:21:06 AM isosorbide mononitrate ER 30 mg tablet,extended release 24 hr RxNorm: 655376 1 Tablet(s) PO QAM 11/25/2016 03/24/2017 Inactive Zithromax Z-Chase 250 mg tablet RxNorm: 655370 1 Tablet(s) PO UD 11/11/2016 11/15/2016 Inactive zpack Kenalog 40 mg/mL suspension for injection RxNorm: 2299001 1 Milliliter(s) Inj 11/11/2016 11/11/2016 Inactive Protonix 40 mg tablet,delayed release RxNorm: 902424 1 Tablet(s) PO BID 07/30/2016 11/26/2016 Inactive Vitamin B-12 1,000 mcg/mL injection solution RxNorm: 630081 Inject 1 mL (1,000 mcg ) by subcutaneous injection every 30 days. 07/21/2016 04/06/2017 Inactive ceftriaxone 500 mg solution for injection RxNorm: 5810464 Inj 07/17/2016 07/17/2016 Inactive cefdinir 300 mg capsule RxNorm: 174102 1 Capsule(s) PO BID 07/23/2016 Inactive Kenalog 40 mg/mL suspension for injection RxNorm: 3028404 1 Milliliter(s) Inj 07/17/2016 07/17/2016 Inactive azithromycin 250 mg tablet RxNorm: 414652 1 Tablet(s) PO UD 2 tabs on day #1, then one tab daily until zpack finished 07/17/2016 07/27/2016 Inactive Coreg 6.25 mg tablet RxNorm: 773367 1 Tablet(s) PO BID 201502/04/2017 Inactive Protonix 40 mg tablet,delayed release RxNorm: 737743 1 Tablet(s) PO BID 04/08/2016 07/29/2016 Inactive ceftriaxone 500 mg solution for injection RxNorm: 4518975 Inj 03/13/2016 03/13/2016 Inactive cephalexin 500 mg capsule RxNorm: 630059 1 Capsule(s) PO TID 03/22/2016 Inactive azithromycin 250 mg tablet RxNorm: 726089 1 Tablet(s) PO UD 2 tabs on day #1, then one tab daily until zpack finished 01/22/2016 04/07/2016 Inactive Flagyl 500 mg tablet RxNorm: 493974 1 Tablet(s) PO TID 201512/26/2015 Inactive Cipro 500 mg tablet RxNorm: 434299 1 Tablet(s) PO BID 201512/29/2015 Inactive Reglan 5 mg tablet RxNorm: 900457 1 Tablet(s) PO UD Once 01/21/2016 Inactive Flagyl 500 mg tablet RxNorm: 942225 1 Tablet(s) PO TID 201512/13/2015 Inactive Flagyl 500 mg tablet RxNorm: 870831 1 Tablet(s) PO TID 201512/06/2015 Inactive Carafate 1 gram tablet RxNorm: 755502 1 Tablet(s) dissolve in 10ML of water before taking PO three times daily x 1 week then daily before bed and prn acid reflux 10/26/2015 01/21/2016 Inactive Kenalog 40 mg/mL suspension for injection RxNorm: 6385764 2 Milliliter(s) Inj 10/04/2015 10/04/2015 Inactive Coreg 12.5 mg tablet RxNorm: 241152 1 Tablet(s) PO BID 201504/01/2016 Inactive Cozaar 100 mg tablet RxNorm: 922364 1 Tablet(s) PO daily 201508/29/2016 Inactive Fish Oil 1,000 mg Cap RxNorm: 1 Capsule(s) PO TID 05/27/2011 01/21/2016 Inactive Vitamin B-12 1,000 mcg/mL injection solution RxNorm: 445379 1 Milliliter(s) Inj 05/26/2011 05/26/2011 Inactive cetirizine 10 mg tablet RxNorm: 0966617 1 Tablet(s) PO QAM No Start Date Active coenzyme Q10 10 mg tablet RxNorm: 166515 oral No Start Date Active aspirin 81 mg Tab, Delayed Release RxNorm: 194115 1 Tablet(s) PO daily No Start Date Active Lasix 20 mg tablet RxNorm: 264438 1 Tablet(s) PO daily No Start Date Active albuterol sulfate 0.63 mg/3 mL solution for nebulization RxNorm: 589448 Milliliter (s) INH as needed No Start Date Active Vitamin D 2,000 unit Cap RxNorm: 1 Capsule(s) PO daily No Start Date Active vitamin E (dl, acetate) 1,000 unit Cap RxNorm: 928748 1 Capsule(s) PO daily No Start Date 01/21/2016 Inactive Protonix 40 mg tablet,delayed release RxNorm: 582027 1 Tablet(s) PO daily No Start Date 01/21/2016 Inactive Lipitor 40 mg tablet RxNorm: 946438 1 Tablet(s) PO QPM No Start Date 11/24/2016 Inactive Fish Oil 1,000 mg Cap RxNorm: 1 Capsule(s) PO daily No Start Date 05/26/2011 Inactive Vitamin D 1,000 unit Tab RxNorm: 424957 1 Tablet(s) PO daily No Start Date 04/24/2011 Inactive 2000 mg on Sat and Sun niacin 500 mg Tab RxNorm: 743822 1 Tablet(s) PO QHS No Start Date 01/21/2016 Inactive Coreg CR 40 mg 24 hr Cap RxNorm: 364377 1 Capsule(s) PO daily No Start Date 09/03/2015 Inactive Cozaar 50 mg tablet RxNorm: 272520 1 Tablet(s) PO daily No Start Date 09/04/2015 Inactive Medication Administered Medication Codes Instructions Start Date Status Kenalog 40 mg/mL suspension for injection RxNorm: 4578151 Milliliter 08/04/2018 No longer Active Kenalog 40 mg/mL suspension for injection RxNorm: 5681127 1Milliliter 11/11/2016 No longer Active ceftriaxone 500 mg solution for injection RxNorm: 7338678 07/17/2016 No longer Active Kenalog 40 mg/mL suspension for injection RxNorm: 6540227 1Milliliter 07/17/2016 No longer Active ceftriaxone 500 mg solution for injection RxNorm: 2991074 03/13/2016 No longer Active Kenalog 40 mg/mL suspension for injection RxNorm: 2200061 2Milliliter 10/04/2015 No longer Active Vitamin B-12 1,000 mcg/mL Injection RxNorm: 685743 1Milliliter 05/26/2011 No longer Active Immunizations Vaccine Codes Date Status Influenza CVX: 141 05/31/2015 completed Pneumococcal CVX: 133 05/31/2015 completed Assessments Condition Codes Effective Dates Cough ICD-10: R05 ICD-9: 786.2 09/23/2018 Gastro-esophageal reflux disease without esophagitis ICD-10 : K21.9 ICD-9: 530.81 09/23/2018 Essential (primary) hypertension ICD-10: I10 ICD-9: 401.1 09/23/2018 Dysuria ICD-10: R30.0 ICD-9: 788.1 09/20/2018 Mixed hyperlipidemia ICD-10: E78.2 ICD-9: 272.2 09/20/2018 Other abnormal glucose ICD-10: R73.09 ICD-9: 790.29 09/20/2018 Vitamin B12 deficiency anemia due to intrinsic factor deficiency ICD-10: D51.0 ICD-9: 266.2 08/04/2018 Pleurodynia ICD-10: R07.81 ICD-9: 786.52 03/18/2018 Mastodynia ICD-10: N64.4 ICD-9: 611.71 12/01/2017 Encounter for general adult medical examination with abnormal findings ICD-10: Z00.01 ICD-9: V70.0 11/17/2017 Essential (primary) hypertension ICD-10: I10 ICD-9: 401.9 04/07/2017 Acute bronchitis, unspecified ICD-10: J20.9 ICD-9: 466.0 11/11/2016 Pneumonia due to other specified bacteria ICD-10: J15.8 ICD-9: 482.89 07/17/2016 Localized enlarged lymph nodes ICD-10: R59.0 ICD-9: 785.6 03/24/2016 Enlarged lymph nodes, unspecified ICD-10: R59.9 ICD-9: 785.6 03/13/2016 Acute maxillary sinusitis, unspecified ICD-10: J01.00 ICD-9: 461.0 03/13/2016 Dyspnea, unspecified ICD-10: R06.00 ICD-9: 786.09 01/22/2016 Left upper quadrant pain ICD-10: R10.12 ICD-9: 789.02 12/19/2015 Right upper quadrant pain ICD-10: R10.11 ICD-9: 789.01 12/19/2015 Constipation, unspecified ICD-10: K59.00 ICD-9: 564.00 12/07/2015 Urinary tract infection, site not specified ICD-10: N39.0 ICD-9: 599.0 12/07/2015 Generalized abdominal pain ICD-10: R10.84 ICD-9: 789.07 12/07/2015 Elevated C-reactive protein (CRP) ICD-10: R79.82 ICD-9: 790.95 10/26/2015 Encounter for general adult medical examination without abnormal findings ICD-10: Z00.00 ICD-9: V70.9 10/25/2015 B12 deficiency ICD-9: 266.2 05/26/2011 ESSENTIAL HYPERTENSION SNOMED: 39439990 ICD-9: 401.9 04/25/2011 Reason For Visit Reason For Visit Effective Dates Notes cough 09/23/2018 cough 08/04/2018 hypertension 03/18/2018 breast complaint 12/01/2017 Annual Medicare Wellness Exam 11/17/2017 fatigue 08/11/2017 back of head fatigue 04/07/2017 reports to feet every night hypertension 01/05/2017 hypertension 2016 hypertension 11/25/2016 Annual Medicare Wellness Exam 11/12/2016 cough 11/11/2016 cough 07/28/2016 cough 07/17/2016 chest pain/pressure 04/08/2016 lymph node enlargement/mass 03/24/2016 lymph node enlargement/mass 03/13/2016 cough 01/22/2016 abdominal pain 12/19/2015 abdominal pain 12/07/2015 chest pain/pressure 10/26/2015 chest pain/pressure 10/04/2015 cough 09/05/2015 hypertension 04/25/2011 Results Observation Observation Code Item Item Code Result Date Urine Culture Ucult Preliminary NO Growth Day 1 09/23/2018 Urine Culture Ucult Complete NO Growth Day 2 09/23/2018 Tsh Ord6 TSH (3rd IS) 2.16 uIU/mL 09/21/2018 Urinalysis Ord28 U-Color Yellow 09/21/2018 Urinalysis Ord28 U-Clarity Clear 09/21/2018 Urinalysis Ord28 U-Gluc Negative 09/21/2018 Urinalysis Ord28 U-Bili Negative 09/21/2018 Urinalysis Ord28 U-Ketone Negative 09/21/2018 Urinalysis Ord28 U-SG 1.010 09/21/2018 Urinalysis Ord28 U-Blood Negative 09/21/2018 Urinalysis Ord28 U-pH 5.5 09/21/2018 Urinalysis Ord28 U-Protein Negative 09/21/2018 Urinalysis Ord28 U-Urobilin 0.2 E.U./dL E.U./dL 09/21/2018 Urinalysis Ord28 U-Nitrites Negative 09/21/2018 Urinalysis Ord28 U-Leuk Negative 09/21/2018 Urinalysis Ord28 U-Bact None 09/21/2018 Urinalysis Ord28 U-Squamous Epi 0-5 per/HPF 09/21/2018 Urinalysis Ord28 U-Crystal None per/HPF 09/21/2018 Urinalysis Ord28 U-Mucus None 09/21/2018 Urinalysis Ord28 U-Renal tubular epi None 09/21/2018 Urinalysis Ord28 U-RBC None per/HPF 09/21/2018 Urinalysis Ord28 U-Transitional epi None per/HPF 09/21/2018 Urinalysis Ord28 U-WBC None per/HPF 09/21/2018 Urinalysis Ord28 U-Cast None per/HPF 09/21/2018 Urinalysis Ord28 U-VOL VOLUME SUFFICIENT (10mL) 09/21/2018 Urinalysis Ord28 U-Yeast NEGATIVE 09/21/2018 Urinalysis Ord28 U-Com Urine saved if culture needed (specimen acceptable for 48 hours from collection if refrigerated) 09/21/2018 %Hba1C Xuo948 % HbA1c 65900-2 6.1 % 09/21/2018 %Hba1C Ujh863 Gluc Ave 128 mg/dL 09/21/2018 Cbc With Differential Ord2 WBC 10.20 K/ul 09/21/2018 Cbc With Differential Ord2 RBC 4.70 M/ul 09/21/2018 Cbc With Differential Ord2 HGB 13.9 g/dl 09/21/2018 Cbc With Differential Ord2 HCT 42.0 % 09/21/2018 Cbc With Differential Ord2 Neut% 65.5 % 09/21/2018 Cbc With Differential Ord2 MCV 89.4 fl 09/21/2018 Cbc With Differential Ord2 Lymph% 27.3 % 09/21/2018 Cbc With Differential Ord2 MCH 29.6 pg 09/21/2018 Cbc With Differential Ord2 [place]% 6.4 % 09/21/2018 Cbc With Differential Ord2 MCHC 33.1 pg 09/21/2018 Cbc With Differential Ord2 Eos% 0.6 % 09/21/2018 Cbc With Differential Ord2 PLT 351 K/ul 09/21/2018 Cbc With Differential Ord2 Baso% 0.2 % 09/21/2018 Cbc With Differential Ord2 RDW 15.3 % 09/21/2018 Cbc With Differential Ord2 Neut ABS# 6.69 K/ul 09/21/2018 Cbc With Differential Ord2 Lymph ABS# 2.78 K/ul 09/21/2018 Cbc With Differential Ord2 [place] ABS# 0.7 K/ul 09/21/2018 Cbc With Differential Ord2 Eos ABS# 0.1 K/ul 09/21/2018 Cbc With Differential Ord2 Baso ABS# 0.0 K/ul 09/21/2018 Lipid Ord30 CHOL 132 mg/dL 09/21/2018 Lipid Ord30 HDL 35.0 mg/dl 09/21/2018 Lipid Ord30 TRIG 137 mg/dL 09/21/2018 Lipid Ord30 LDL 70 mg/dL 09/21/2018 Lipid Ord30 C/HDL 3.8 Ratio 09/21/2018 Comp Metabolic Jxi027 NA 139 mEq/L 09/21/2018 Comp Metabolic Ewo011 K 4.3 mEq/L 09/21/2018 Comp Metabolic Vyg214 CL 103 mEq/L 09/21/2018 Comp Metabolic Dda993 CO2 28.0 mEq/L 09/21/2018 Comp Metabolic Hhc318 ANION GAP 12 09/21/2018 Comp Metabolic Lew439 GLUCOSE 99 mg/dL 09/21/2018 Comp Metabolic Sbn106 Creat 1.1 mg/dL 09/21/2018 Comp Metabolic Tlm244 eGFR 50 ml/min/1.73m2 09/21/2018 Comp Metabolic Mjy221 BUN 27 mg/dL 09/21/2018 Comp Metabolic Per146 B/C Ratio 24.3 Ratio 09/21/2018 Comp Metabolic Vpi894 CALCIUM 9.0 mg/dL 09/21/2018 Comp Metabolic Zun979 ALK PHOS 79 U/L 09/21/2018 Comp Metabolic Sql889 AST(SGOT) 19 U/L 09/21/2018 Comp Metabolic Byx056 ALT(SGPT) 9 U/L 09/21/2018 Comp Metabolic Wyd436 BILI T 0.8 mg/dL 09/21/2018 Comp Metabolic Vta397 ALBUMIN 3.5 g/dL 09/21/2018 Comp Metabolic Ult354 TPRO 6.2 g/dL 09/21/2018 Comp Metabolic Yeu311 GLOB 2.7 g/dL 09/21/2018 Comp Metabolic Jzg754 A/G Ratio 1.3 Ratio 09/21/2018 Comp Metabolic Lxt017 Osmo 283 mOsmo 09/21/2018 %Hba1C Ehr233 % HbA1c 77735-4 5.9 % 12/01/2017 %Hba1C Ryf899 Gluc Ave 123 mg/dL 12/01/2017 Lipid Ord30 CHOL 211 mg/dL 12/01/2017 Lipid Ord30 HDL 32.0 mg/dl 12/01/2017 Lipid Ord30 TRIG 300 mg/dL 12/01/2017 Lipid Ord30 LDL 119 mg/dL 12/01/2017 Lipid Ord30 C/HDL 6.6 Ratio 12/01/2017 Cbc With Differential Ord2 WBC 9.17 K/ul 12/01/2017 Cbc With Differential Ord2 RBC 4.83 M/ul 12/01/2017 Cbc With Differential Ord2 HGB 14.0 g/dl 12/01/2017 Cbc With Differential Ord2 HCT 42.9 % 12/01/2017 Cbc With Differential Ord2 Neut% 65.5 % 12/01/2017 Cbc With Differential Ord2 MCV 88.8 fl 12/01/2017 Cbc With Differential Ord2 Lymph% 25.5 % 12/01/2017 Cbc With Differential Ord2 MCH 29.0 pg 12/01/2017 Cbc With Differential Ord2 [place]% 7.2 % 12/01/2017 Cbc With Differential Ord2 MCHC 32.6 pg 12/01/2017 Cbc With Differential Ord2 Eos% 1.6 % 12/01/2017 Cbc With Differential Ord2 PLT 393 K/ul 12/01/2017 Cbc With Differential Ord2 Baso% 0.2 % 12/01/2017 Cbc With Differential Ord2 RDW 15.2 % 12/01/2017 Cbc With Differential Ord2 Neut ABS# 6.00 K/ul 12/01/2017 Cbc With Differential Ord2 Lymph ABS# 2.34 K/ul 12/01/2017 Cbc With Differential Ord2 [place] ABS# 0.7 K/ul 12/01/2017 Cbc With Differential Ord2 Eos ABS# 0.2 K/ul 12/01/2017 Cbc With Differential Ord2 Baso ABS# 0.0 K/ul 12/01/2017 Tsh Ord6 TSH (3rd IS) 1.91 uIU/mL 12/01/2017 Comp Metabolic Ffy945 NA 141 mEq/L 12/01/2017 Comp Metabolic Sce752 K 4.4 mEq/L 12/01/2017 Comp Metabolic Vmb220 CL 106 mEq/L 12/01/2017 Comp Metabolic Xjo396 CO2 23.0 mEq/L 12/01/2017 Comp Metabolic Jbv028 ANION GAP 16 12/01/2017 Comp Metabolic Wqb743 GLUCOSE 109 mg/dL 12/01/2017 Comp Metabolic Rvf895 Creat 1.0 mg/dL 12/01/2017 Comp Metabolic Mgu145 eGFR 57 ml/min/1.73m2 12/01/2017 Comp Metabolic Fok359 BUN 16 mg/dL 12/01/2017 Comp Metabolic Jue598 B/C Ratio 16.0 Ratio 12/01/2017 Comp Metabolic Itd894 CALCIUM 8.9 mg/dL 12/01/2017 Comp Metabolic Sjg265 ALK PHOS 99 U/L 12/01/2017 Comp Metabolic Kea179 AST(SGOT) 15 U/L 12/01/2017 Comp Metabolic Vqa338 ALT(SGPT) 12 U/L 12/01/2017 Comp Metabolic Upf830 BILI T 0.7 mg/dL 12/01/2017 Comp Metabolic Xid186 ALBUMIN 3.6 g/dL 12/01/2017 Comp Metabolic Fsv175 TPRO 6.5 g/dL 12/01/2017 Comp Metabolic Gji607 GLOB 2.9 g/dL 12/01/2017 Comp Metabolic Arj419 A/G Ratio 1.2 Ratio 12/01/2017 Comp Metabolic Kqm905 Osmo 283 mOsmo 12/01/2017 Lipid Ord30 CHOL 171 mg/dL 07/28/2017 Lipid Ord30 HDL 29.0 mg/dl 07/28/2017 Lipid Ord30 TRIG 218 mg/dL 07/28/2017 Lipid Ord30 LDL 98 mg/dL 07/28/2017 Lipid Ord30 C/HDL 5.9 Ratio 07/28/2017 Lipid Ord30 CHOL 248 mg/dL 04/08/2017 Lipid Ord30 HDL 34.0 mg/dl 04/08/2017 Lipid Ord30 TRIG 252 mg/dL 04/08/2017 Lipid Ord30 LDL 164 mg/dL 04/08/2017 Lipid Ord30 C/HDL 7.3 Ratio 04/08/2017 Tsh Ord6 hTSH II 3.37 uIU/mL 04/08/2017 %Hba1C Dia788 % HbA1c 47361-3 5.6 % 04/08/2017 %Hba1C Xzu035 Gluc Ave 114 mg/dL 04/08/2017 Comp Metabolic Rod053 NA 139 mEq/L 04/08/2017 Comp Metabolic Hfm790 K 4.3 mEq/L 04/08/2017 Comp Metabolic Mgj879 CL 102 mEq/L 04/08/2017 Comp Metabolic Ghj761 CO2 26.0 mEq/L 04/08/2017 Comp Metabolic Ulw411 ANION GAP 15 04/08/2017 Comp Metabolic Ock700 GLUCOSE 99 mg/dL 04/08/2017 Comp Metabolic Vdy507 Creat 1.1 mg/dL 04/08/2017 Comp Metabolic Bly607 eGFR 52 ml/min/1.73m2 04/08/2017 Comp Metabolic Haf020 BUN 16 mg/dL 04/08/2017 Comp Metabolic Cmw986 B/C Ratio 15.0 Ratio 04/08/2017 Comp Metabolic Mly907 CALCIUM 8.8 mg/dL 04/08/2017 Comp Metabolic Mpg389 ALK PHOS 86 U/L 04/08/2017 Comp Metabolic Kkh542 AST(SGOT) 12 U/L 04/08/2017 Comp Metabolic Jqv114 ALT(SGPT) 8 U/L 04/08/2017 Comp Metabolic Jzk551 BILI T 0.8 mg/dL 04/08/2017 Comp Metabolic Mke628 ALBUMIN 3.5 g/dL 04/08/2017 Comp Metabolic Snw520 TPRO 6.6 g/dL 04/08/2017 Comp Metabolic Pgh384 GLOB 3.1 g/dL 04/08/2017 Comp Metabolic Qdu566 A/G Ratio 1.1 Ratio 04/08/2017 Comp Metabolic Kag932 Osmo 279 mOsmo 04/08/2017 Cbc With Differential Ord2 WBC 10.13 K/ul 04/08/2017 Cbc With Differential Ord2 RBC 4.66 M/ul 04/08/2017 Cbc With Differential Ord2 HGB 13.8 g/dl 04/08/2017 Cbc With Differential Ord2 HCT 42.5 % 04/08/2017 Cbc With Differential Ord2 Neut% 69.4 % 04/08/2017 Cbc With Differential Ord2 MCV 91.2 fl 04/08/2017 Cbc With Differential Ord2 Lymph% 21.9 % 04/08/2017 Cbc With Differential Ord2 MCH 29.6 pg 04/08/2017 Cbc With Differential Ord2 [place]% 6.8 % 04/08/2017 Cbc With Differential Ord2 MCHC 32.5 pg 04/08/2017 Cbc With Differential Ord2 Eos% 1.6 % 04/08/2017 Cbc With Differential Ord2 PLT 336 K/ul 04/08/2017 Cbc With Differential Ord2 Baso% 0.3 % 04/08/2017 Cbc With Differential Ord2 RDW 14.5 % 04/08/2017 Cbc With Differential Ord2 Neut ABS# 7.03 K/ul 04/08/2017 Cbc With Differential Ord2 Lymph ABS# 2.22 K/ul 04/08/2017 Cbc With Differential Ord2 [place] ABS# 0.7 K/ul 04/08/2017 Cbc With Differential Ord2 Eos ABS# 0.2 K/ul 04/08/2017 Cbc With Differential Ord2 Baso ABS# 0.0 K/ul 04/08/2017 B12 Zyh134 B12 665.00 pg/ml 04/08/2017 Culture Sputum [id number] LOWER RESPIRATORY TRACT CULTURE SEE NOTES 12/26/2016 %Hba1C Npb225 % HbA1c 34088-1 5.9 % 10/15/2016 %Hba1C Uvs946 Gluc Ave 123 mg/dL 10/15/2016 Lipid Ord30 CHOL 141 mg/dL 10/15/2016 Lipid Ord30 HDL 39.0 mg/dl 10/15/2016 Lipid Ord30 TRIG 164 mg/dL 10/15/2016 Lipid Ord30 LDL 69 mg/dL 10/15/2016 Lipid Ord30 C/HDL 3.6 Ratio 10/15/2016 Comp Metabolic Xfk326 NA 140 mEq/L 10/15/2016 Comp Metabolic Rba956 K 4.3 mEq/L 10/15/2016 Comp Metabolic Bqc165 CL 105 mEq/L 10/15/2016 Comp Metabolic Mgc321 CO2 22.0 mEq/L 10/15/2016 Comp Metabolic Til865 ANION GAP 17 10/15/2016 Comp Metabolic Iak904 GLUCOSE 101 mg/dL 10/15/2016 Comp Metabolic Jqy630 Creat 1.1 mg/dL 10/15/2016 Comp Metabolic Epx908 eGFR 52 ml/min/1.73m2 10/15/2016 Comp Metabolic Otk777 BUN 20 mg/dL 10/15/2016 Comp Metabolic Jbv314 B/C Ratio 18.7 Ratio 10/15/2016 Comp Metabolic Skc704 CALCIUM 9.0 mg/dL 10/15/2016 Comp Metabolic Uqq877 ALK PHOS 103 U/L 10/15/2016 Comp Metabolic Zji593 AST(SGOT) 14 U/L 10/15/2016 Comp Metabolic Bht386 ALT(SGPT) 11 U/L 10/15/2016 Comp Metabolic Psr255 BILI T 1.3 mg/dL 10/15/2016 Comp Metabolic Jxi938 ALBUMIN 3.7 g/dL 10/15/2016 Comp Metabolic Vor560 TPRO 6.4 g/dL 10/15/2016 Comp Metabolic Mvj364 GLOB 2.7 g/dL 10/15/2016 Comp Metabolic Yeg734 A/G Ratio 1.4 Ratio 10/15/2016 Comp Metabolic Bbi095 Osmo 282 mOsmo 10/15/2016 Cbc With Differential Ord2 WBC 10.44 K/ul 10/15/2016 Cbc With Differential Ord2 RBC 4.58 M/ul 10/15/2016 Cbc With Differential Ord2 HGB 13.4 g/dl 10/15/2016 Cbc With Differential Ord2 HCT 42.4 % 10/15/2016 Cbc With Differential Ord2 Neut% 66.6 % 10/15/2016 Cbc With Differential Ord2 MCV 92.6 fl 10/15/2016 Cbc With Differential Ord2 Lymph% 24.6 % 10/15/2016 Cbc With Differential Ord2 MCH 29.3 pg 10/15/2016 Cbc With Differential Ord2 [place]% 6.9 % 10/15/2016 Cbc With Differential Ord2 MCHC 31.6 pg 10/15/2016 Cbc With Differential Ord2 Eos% 1.5 % 10/15/2016 Cbc With Differential Ord2 PLT 317 K/ul 10/15/2016 Cbc With Differential Ord2 Baso% 0.4 % 10/15/2016 Cbc With Differential Ord2 RDW 16.4 % 10/15/2016 Cbc With Differential Ord2 Neut ABS# 6.95 K/ul 10/15/2016 Cbc With Differential Ord2 Lymph ABS# 2.57 K/ul 10/15/2016 Cbc With Differential Ord2 [place] ABS# 0.7 K/ul 10/15/2016 Cbc With Differential Ord2 Eos ABS# 0.2 K/ul 10/15/2016 Cbc With Differential Ord2 Baso ABS# 0.0 K/ul 10/15/2016 Tsh Ord6 hTSH II 2.56 uIU/mL 10/15/2016 Lipid Ord30 CHOL 154 mg/dL 07/11/2016 Lipid Ord30 HDL 38.0 mg/dl 07/11/2016 Lipid Ord30 TRIG 199 mg/dL 07/11/2016 Lipid Ord30 LDL 76 mg/dL 07/11/2016 Lipid Ord30 C/HDL 4.1 Ratio 07/11/2016 %Hba1C Yep923 % HbA1c 66638-5 6.0 % 07/11/2016 %Hba1C Hvk023 Gluc Ave 126 mg/dL 07/11/2016 Vitamin D 25 Oh Nxj6341 VITAMIN D, 25 HYDROXY 49.14 ng/mL Free T4 Qns297 FREE T4 1.00 ng/dL 07/11/2016 Cbc With Differential Ord2 WBC 11.21 K/ul 07/11/2016 Cbc With Differential Ord2 RBC 4.69 M/ul 07/11/2016 Cbc With Differential Ord2 HGB 13.6 g/dl 07/11/2016 Cbc With Differential Ord2 HCT 42.2 % 07/11/2016 Cbc With Differential Ord2 Neut% 67.4 % 07/11/2016 Cbc With Differential Ord2 MCV 90.0 fl 07/11/2016 Cbc With Differential Ord2 Lymph% 24.4 % 07/11/2016 Cbc With Differential Ord2 MCH 29.0 pg 07/11/2016 Cbc With Differential Ord2 [place]% 6.4 % 07/11/2016 Cbc With Differential Ord2 MCHC 32.2 pg 07/11/2016 Cbc With Differential Ord2 Eos% 1.5 % 07/11/2016 Cbc With Differential Ord2 PLT 339 K/ul 07/11/2016 Cbc With Differential Ord2 Baso% 0.3 % 07/11/2016 Cbc With Differential Ord2 RDW 15.9 % 07/11/2016 Cbc With Differential Ord2 Neut ABS# 7.56 K/ul 07/11/2016 Cbc With Differential Ord2 Lymph ABS# 2.73 K/ul 07/11/2016 Cbc With Differential Ord2 [place] ABS# 0.7 K/ul 07/11/2016 Cbc With Differential Ord2 Eos ABS# 0.2 K/ul 07/11/2016 Cbc With Differential Ord2 Baso ABS# 0.0 K/ul 07/11/2016 Magnesium Ord90 Mag 2.0 mg/dL 07/11/2016 Comp Metabolic Vbr453 NA 139 mEq/L 07/11/2016 Comp Metabolic Qas011 K 4.0 mEq/L 07/11/2016 Comp Metabolic Aei192 CL 103 mEq/L 07/11/2016 Comp Metabolic Afi998 CO2 25.0 mEq/L 07/11/2016 Comp Metabolic Pkk463 ANION GAP 15 07/11/2016 Comp Metabolic Uid247 GLUCOSE 94 mg/dL 07/11/2016 Comp Metabolic Mud490 Creat 1.2 mg/dL 07/11/2016 Comp Metabolic Tqz487 eGFR 47 ml/min/1.73m2 07/11/2016 Comp Metabolic Twy899 BUN 17 mg/dL 07/11/2016 Comp Metabolic Jdo605 B/C Ratio 14.5 Ratio 07/11/2016 Comp Metabolic Rcl399 CALCIUM 8.9 mg/dL 07/11/2016 Comp Metabolic Uzo825 ALK PHOS 107 U/L 07/11/2016 Comp Metabolic Igj238 AST(SGOT) 14 U/L 07/11/2016 Comp Metabolic Rus655 ALT(SGPT) 10 U/L 07/11/2016 Comp Metabolic Pdz687 BILI T 1.1 mg/dL 07/11/2016 Comp Metabolic Tae173 ALBUMIN 3.8 g/dL 07/11/2016 Comp Metabolic Enu057 TPRO 6.7 g/dL 07/11/2016 Comp Metabolic Feb694 GLOB 3.0 g/dL 07/11/2016 Comp Metabolic Gnk070 A/G Ratio 1.3 Ratio 07/11/2016 Comp Metabolic Kak703 Osmo 279 mOsmo 07/11/2016 Tsh Ord6 hTSH II 2.65 uIU/mL 07/11/2016 Comp Metabolic Wii334 NA 137 mEq/L 12/11/2015 Comp Metabolic Lew663 K 3.9 mEq/L 12/11/2015 Comp Metabolic Lah872 CL 101 mEq/L 12/11/2015 Comp Metabolic Zcm962 CO2 32.0 mEq/L 12/11/2015 Comp Metabolic Faw212 ANION GAP 8 12/11/2015 Comp Metabolic Hnc738 GLUCOSE 88 mg/dL 12/11/2015 Comp Metabolic Qrn220 Creat 1.0 mg/dL 12/11/2015 Comp Metabolic Bni982 eGFR 55 ml/min/1.73m2 12/11/2015 Comp Metabolic Sew520 BUN 14 mg/dL 12/11/2015 Comp Metabolic Yug842 B/C Ratio 13.6 Ratio 12/11/2015 Comp Metabolic Bmt974 CALCIUM 9.0 mg/dL 12/11/2015 Comp Metabolic Mgj802 ALK PHOS 75 U/L 12/11/2015 Comp Metabolic Vlp036 AST(SGOT) 13 U/L 12/11/2015 Comp Metabolic Izj453 ALT(SGPT) 8 U/L 12/11/2015 Comp Metabolic Mpp914 BILI T 0.6 mg/dL 12/11/2015 Comp Metabolic Rpz448 ALBUMIN 3.4 g/dL 12/11/2015 Comp Metabolic Ndv168 TPRO 5.8 g/dL 12/11/2015 Comp Metabolic Zge897 GLOB 2.5 g/dL 12/11/2015 Comp Metabolic Ogm599 A/G Ratio 1.4 Ratio 12/11/2015 Comp Metabolic Osl769 Osmo 274 mOsmo 12/11/2015 Amylase Ord34 AMYLASE 32 U/L 12/11/2015 Cbc With Differential Ord2 WBC 9.94 K/ul 12/11/2015 Cbc With Differential Ord2 RBC 4.49 M/ul 12/11/2015 Cbc With Differential Ord2 HGB 13.1 g/dl 12/11/2015 Cbc With Differential Ord2 HCT 40.7 % 12/11/2015 Cbc With Differential Ord2 Neut% 65.3 % 12/11/2015 Cbc With Differential Ord2 MCV 90.6 fl 12/11/2015 Cbc With Differential Ord2 Lymph% 25.2 % 12/11/2015 Cbc With Differential Ord2 MCH 29.2 pg 12/11/2015 Cbc With Differential Ord2 [place]% 8.5 % 12/11/2015 Cbc With Differential Ord2 MCHC 32.2 pg 12/11/2015 Cbc With Differential Ord2 Eos% 0.5 % 12/11/2015 Cbc With Differential Ord2 PLT 428 K/ul 12/11/2015 Cbc With Differential Ord2 Baso% 0.5 % 12/11/2015 Cbc With Differential Ord2 RDW 15.6 % 12/11/2015 Cbc With Differential Ord2 Neut ABS# 6.50 K/ul 12/11/2015 Cbc With Differential Ord2 Lymph ABS# 2.50 K/ul 12/11/2015 Cbc With Differential Ord2 [place] ABS# 0.8 K/ul 12/11/2015 Cbc With Differential Ord2 Eos ABS# 0.1 K/ul 12/11/2015 Cbc With Differential Ord2 Baso ABS# 0.1 K/ul 12/11/2015 Cbc With Differential Ord2 New Analyzer Notice Please note new ref ranges starting 09-12-2015 due to implemntation of new five part differential hematolgy analyzer. 12/11/2015 Vitamin D 25 Oh Umb1317 VITAMIN D, 25 HYDROXY 54.60 ng/mL Lipase Psk187 LIPASE 38 U/L 12/11/2015 C-Reactive Protein Qnt Crqnt CRP 0.6 mg/dl 10/25/2015 Comp Metabolic Nxy914 NA 139 mEq/L 10/25/2015 Comp Metabolic Idi183 K 4.5 mEq/L 10/25/2015 Comp Metabolic Iwx211 CL 101 mEq/L 10/25/2015 Comp Metabolic Pql906 CO2 31.0 mEq/L 10/25/2015 Comp Metabolic Lsu096 ANION GAP 12 10/25/2015 Comp Metabolic Fnp939 GLUCOSE 70 mg/dL 10/25/2015 Comp Metabolic Bjf515 Creat 1.1 mg/dL 10/25/2015 Comp Metabolic Vhp628 eGFR 54 ml/min/1.73m2 10/25/2015 Comp Metabolic Qra523 BUN 17 mg/dL 10/25/2015 Comp Metabolic Mxz540 B/C Ratio 16.2 Ratio 10/25/2015 Comp Metabolic Uwl154 CALCIUM 8.8 mg/dL 10/25/2015 Comp Metabolic Hdg612 ALK PHOS 82 U/L 10/25/2015 Comp Metabolic Osd364 AST(SGOT) 13 U/L 10/25/2015 Comp Metabolic Jok640 ALT(SGPT) 7 U/L 10/25/2015 Comp Metabolic Gnu309 BILI T 0.7 mg/dL 10/25/2015 Comp Metabolic Mad349 ALBUMIN 3.5 g/dL 10/25/2015 Comp Metabolic Coc877 TPRO 6.2 g/dL 10/25/2015 Comp Metabolic Rcf320 GLOB 2.7 g/dL 10/25/2015 Comp Metabolic Equ570 A/G Ratio 1.3 Ratio 10/25/2015 Comp Metabolic Mte271 Osmo 278 mOsmo 10/25/2015 Lipid Ord30 CHOL 259 mg/dL 10/25/2015 Lipid Ord30 HDL 46.0 mg/dl 10/25/2015 Lipid Ord30 TRIG 146 mg/dL 10/25/2015 Lipid Ord30 LDL 184 mg/dL 10/25/2015 Lipid Ord30 C/HDL 5.6 Ratio 10/25/2015 Bordetella pertussis DNA, Qualitative Real-Time PCR [id number] BORDETELLA PERTUSSIS DNA NEGATIVE 09/06/2015 Cbc With Differential Ord2 WBC 10.4 K/uL 09/05/2015 Cbc With Differential Ord2 LYM 2.5 K/uL 09/05/2015 Cbc With Differential Ord2 LYM% 24.3 % 09/05/2015 Cbc With Differential Ord2 NEUT/GRAN 7.3 K/uL 09/05/2015 Cbc With Differential Ord2 NEUT/GRAN % 69.8 % 09/05/2015 Cbc With Differential Ord2 MID 0.6 K/uL 09/05/2015 Cbc With Differential Ord2 MID% 5.9 % 09/05/2015 Cbc With Differential Ord2 RBC 4.78 M/uL 09/05/2015 Cbc With Differential Ord2 HGB 13.5 g/dL 09/05/2015 Cbc With Differential Ord2 HCT 44.4 % 09/05/2015 Cbc With Differential Ord2 MCV 93 fL 09/05/2015 Cbc With Differential Ord2 MCH 28 pg 09/05/2015 Cbc With Differential Ord2 MCHC 30 g/dL 09/05/2015 Cbc With Differential Ord2 PLT 273 K/uL 09/05/2015 Cbc With Differential Ord2 RDW 15.8 % 09/05/2015 C-Reactive Protein Qnt Crqnt CRP 1.8 mg/dl 09/05/2015 Comp Metabolic Qnh436 NA 135 mEq/L 09/05/2015 Comp Metabolic Yjw236 K 3.8 mEq/L 09/05/2015 Comp Metabolic Sqw380 CL 100 mEq/L 09/05/2015 Comp Metabolic Seg392 CO2 26.0 mEq/L 09/05/2015 Comp Metabolic Lfu380 ANION GAP 13 09/05/2015 Comp Metabolic Pkq255 GLUCOSE 100 mg/dL 09/05/2015 Comp Metabolic Ggw879 Creat 1.0 mg/dL 09/05/2015 Comp Metabolic Cbh613 eGFR 56 ml/min/1.73m2 09/05/2015 Comp Metabolic Ige458 BUN 16 mg/dL 09/05/2015 Comp Metabolic Ejt080 B/C Ratio 15.7 Ratio 09/05/2015 Comp Metabolic Mha998 CALCIUM 8.8 mg/dL 09/05/2015 Comp Metabolic Wji744 ALK PHOS 96 U/L 09/05/2015 Comp Metabolic Qev632 AST(SGOT) 12 U/L 09/05/2015 Comp Metabolic Xnt950 ALT(SGPT) 10 U/L 09/05/2015 Comp Metabolic Zny354 BILI T 0.8 mg/dL 09/05/2015 Comp Metabolic Mkg750 ALBUMIN 3.6 g/dL 09/05/2015 Comp Metabolic Qhs820 TPRO 6.5 g/dL 09/05/2015 Comp Metabolic Pjx248 GLOB 2.9 g/dL 09/05/2015 Comp Metabolic Cla723 A/G Ratio 1.2 Ratio 09/05/2015 Comp Metabolic Mgq332 Osmo 271 mOsmo 09/05/2015 Tsh Ord6 hTSH II 2.05 uIU/mL 09/05/2015 Sed Rate Ord21 ESR 26 mm/hr 09/05/2015 Review of Systems System Result Effective Dates Constitutional No recent illness 2018 Constitutional No night sweats 2018 Constitutional No chills 09/23/2018 Constitutional fatigue 09/23/2018 Constitutional No fever 09/23/2018 Constitutional No insomnia 09/23/2018 Constitutional No malaise 09/23/2018 Eyes No blindness 09/23/2018 Eyes No vision change 09/23/2018 Ears/Nose/Throat/Neck No dental pain Ears/Nose/Throat/Neck No dizziness 2018 Ears/Nose/Throat/Neck No dysphagia 2018 Ears/Nose/Throat/Neck No headache 2018 Ears/Nose/Throat/Neck No hearing loss Ears/Nose/Throat/Neck No nasal allergies 09/23/2018 Ears/Nose/Throat/Neck No sore throat Ears/Nose/Throat/Neck No postnasal drip 09/23/2018 Ears/Nose/Throat/Neck No sinus congestion 09/23/2018 Cardiovascular No dyspnea 09/23/2018 Cardiovascular edema 09/23/2018 Cardiovascular exercise intolerance 09/23 Cardiovascular fatigue 09/23/2018 Cardiovascular hypertension 09/23/2018 Cardiovascular No near-syncope/dizziness 09/23/2018 Cardiovascular No palpitations 2018 Respiratory No chest congestion 2018 Respiratory No chest tightness 2018 Respiratory cough 09/23/2018 Respiratory dyspnea on exertion 2018 Respiratory No dyspnea 09/23/2018 Respiratory No pedal edema 09/23/2018 Gastrointestinal No abdominal pain 2018 Gastrointestinal No constipation 2018 Gastrointestinal No diarrhea 09/23/2018 Gastrointestinal gastroesophageal reflux 09/23/2018 Gastrointestinal No nausea 09/23/2018 Gastrointestinal No vomiting 09/23/2018 Genitourinary/Nephrology No dysuria 09/23 Genitourinary/Nephrology nocturia 2018 Genitourinary/Nephrology No urinary incontinence 09/23/2018 Musculoskeletal No stiffness 09/23/2018 Musculoskeletal No swelling 09/23/2018 Musculoskeletal No muscle weakness 2018 Musculoskeletal No myalgias 09/23/2018 Dermatologic No rash 09/23/2018 Dermatologic No sores 09/23/2018 Dermatologic No scar 09/23/2018 Neurologic No dizziness 09/23/2018 Neurologic No headache 09/23/2018 Neurologic No neck pain 09/23/2018 Neurologic No syncope 09/23/2018 Psychiatric No anxiety 09/23/2018 Psychiatric No depression 09/23/2018 Constitutional No recent illness 2017 Constitutional No night sweats 2017 Constitutional No chills 08/04/2018 Constitutional fatigue 08/04/2018 Constitutional No fever 08/04/2018 Constitutional No insomnia 08/04/2018 Constitutional No malaise 08/04/2018 Eyes No blindness 08/04/2018 Eyes No vision change 08/04/2018 Ears/Nose/Throat/Neck No dental pain 12/2017 Ears/Nose/Throat/Neck No dizziness 2017 Ears/Nose/Throat/Neck No dysphagia 2017 Ears/Nose/Throat/Neck No headache 2017 Ears/Nose/Throat/Neck No hearing loss 12/2017 Ears/Nose/Throat/Neck No nasal allergies 08/04/2018 Ears/Nose/Throat/Neck No sore throat 12/2017 Ears/Nose/Throat/Neck No postnasal drip 08/04/2018 Ears/Nose/Throat/Neck No sinus congestion 08/04/2018 Cardiovascular chest pain/pressure 2017 Cardiovascular No dyspnea 08/04/2018 Cardiovascular edema 08/04/2018 Cardiovascular exercise intolerance 08/04 Cardiovascular fatigue 08/04/2018 Cardiovascular hypertension 08/04/2018 Cardiovascular No near-syncope/dizziness 08/04/2018 Cardiovascular No palpitations 2017 Respiratory No chest congestion 2017 Respiratory No chest tightness 2017 Respiratory No cough 08/04/2018 Respiratory dyspnea on exertion 2017 Respiratory No dyspnea 08/04/2018 Respiratory No pedal edema 08/04/2018 Gastrointestinal No abdominal pain 2017 Gastrointestinal No constipation 2017 Gastrointestinal No diarrhea 08/04/2018 Gastrointestinal gastroesophageal reflux 08/04/2018 Gastrointestinal No nausea 08/04/2018 Gastrointestinal No vomiting 08/04/2018 Genitourinary/Nephrology breast complaint 08/04/2018 Genitourinary/Nephrology No dysuria 08/04 Genitourinary/Nephrology nocturia 2017 Genitourinary/Nephrology No urinary incontinence 08/04/2018 Musculoskeletal No stiffness 08/04/2018 Musculoskeletal No swelling 08/04/2018 Musculoskeletal No muscle weakness 2017 Musculoskeletal No myalgias 08/04/2018 Dermatologic No rash 08/04/2018 Dermatologic No sores 08/04/2018 Dermatologic No scar 08/04/2018 Neurologic No dizziness 08/04/2018 Neurologic No headache 08/04/2018 Neurologic No neck pain 08/04/2018 Neurologic paresthesia 08/04/2018 Neurologic No syncope 08/04/2018 Psychiatric No anxiety 08/04/2018 Psychiatric No depression 08/04/2018 Constitutional No recent illness 2017 Constitutional No night sweats 2017 Constitutional No chills 03/18/2018 Constitutional fatigue 03/18/2018 Constitutional No fever 03/18/2018 Constitutional No insomnia 03/18/2018 Constitutional No malaise 03/18/2018 Eyes No blindness 03/18/2018 Eyes No vision change 03/18/2018 Ears/Nose/Throat/Neck No dental pain Ears/Nose/Throat/Neck No dizziness 2017 Ears/Nose/Throat/Neck No dysphagia 2017 Ears/Nose/Throat/Neck No headache 2017 Ears/Nose/Throat/Neck No hearing loss Ears/Nose/Throat/Neck No nasal allergies 03/18/2018 Ears/Nose/Throat/Neck No sore throat Ears/Nose/Throat/Neck No postnasal drip 03/18/2018 Ears/Nose/Throat/Neck No sinus congestion 03/18/2018 Cardiovascular chest pain/pressure 2017 Cardiovascular No dyspnea 03/18/2018 Cardiovascular edema 03/18/2018 Cardiovascular exercise intolerance 03/18 Cardiovascular fatigue 03/18/2018 Cardiovascular hypertension 03/18/2018 Cardiovascular No near-syncope/dizziness 03/18/2018 Cardiovascular No palpitations 2017 Respiratory No chest congestion 2017 Respiratory chest tightness 03/18/2018 Respiratory No cough 03/18/2018 Respiratory dyspnea on exertion 2017 Respiratory No dyspnea 03/18/2018 Respiratory No pedal edema 03/18/2018 Gastrointestinal No abdominal pain 2017 Gastrointestinal No constipation 2017 Gastrointestinal No diarrhea 03/18/2018 Gastrointestinal gastroesophageal reflux 03/18/2018 Gastrointestinal No nausea 03/18/2018 Gastrointestinal No vomiting 03/18/2018 Genitourinary/Nephrology breast complaint 03/18/2018 Genitourinary/Nephrology No dysuria 03/18 Genitourinary/Nephrology nocturia 2017 Genitourinary/Nephrology No urinary incontinence 03/18/2018 Musculoskeletal No stiffness 03/18/2018 Musculoskeletal No swelling 03/18/2018 Musculoskeletal No muscle weakness 2017 Musculoskeletal No myalgias 03/18/2018 Dermatologic No rash 03/18/2018 Dermatologic No sores 03/18/2018 Dermatologic No scar 03/18/2018 Neurologic No dizziness 03/18/2018 Neurologic No headache 03/18/2018 Neurologic No neck pain 03/18/2018 Neurologic paresthesia 03/18/2018 Neurologic No syncope 03/18/2018 Psychiatric No anxiety 03/18/2018 Psychiatric No depression 03/18/2018 Constitutional No recent illness 2017 Constitutional No night sweats 2017 Constitutional No chills 12/01/2017 Constitutional fatigue 12/01/2017 Constitutional No fever 12/01/2017 Constitutional No insomnia 12/01/2017 Constitutional No malaise 12/01/2017 Eyes No blindness 12/01/2017 Eyes No vision change 12/01/2017 Ears/Nose/Throat/Neck No dental pain 10/2017 Ears/Nose/Throat/Neck No dizziness 2017 Ears/Nose/Throat/Neck No dysphagia 2017 Ears/Nose/Throat/Neck No headache 2017 Ears/Nose/Throat/Neck No hearing loss 10/2017 Ears/Nose/Throat/Neck No nasal allergies 12/01/2017 Ears/Nose/Throat/Neck No sore throat 10/2017 Ears/Nose/Throat/Neck No postnasal drip 12/01/2017 Ears/Nose/Throat/Neck No sinus congestion 12/01/2017 Cardiovascular chest pain/pressure 2017 Cardiovascular No dyspnea 12/01/2017 Cardiovascular edema 12/01/2017 Cardiovascular exercise intolerance 12/01 Cardiovascular fatigue 12/01/2017 Cardiovascular hypertension 12/01/2017 Cardiovascular No near-syncope/dizziness 12/01/2017 Cardiovascular No palpitations 2017 Respiratory No chest congestion 2017 Respiratory No chest tightness 2017 Respiratory No cough 12/01/2017 Respiratory dyspnea on exertion 2017 Respiratory No dyspnea 12/01/2017 Respiratory No pedal edema 12/01/2017 Gastrointestinal No abdominal pain 2017 Gastrointestinal No constipation 2017 Gastrointestinal No diarrhea 12/01/2017 Gastrointestinal gastroesophageal reflux 12/01/2017 Gastrointestinal No nausea 12/01/2017 Gastrointestinal No vomiting 12/01/2017 Genitourinary/Nephrology No dysuria 12/01 Genitourinary/Nephrology nocturia 2017 Genitourinary/Nephrology No urinary incontinence 12/01/2017 Musculoskeletal No stiffness 12/01/2017 Musculoskeletal No swelling 12/01/2017 Musculoskeletal No muscle weakness 2017 Musculoskeletal No myalgias 12/01/2017 Dermatologic No rash 12/01/2017 Dermatologic No sores 12/01/2017 Dermatologic No scar 12/01/2017 Neurologic No dizziness 12/01/2017 Neurologic No headache 12/01/2017 Neurologic No neck pain 12/01/2017 Neurologic paresthesia 12/01/2017 Neurologic No syncope 12/01/2017 Psychiatric No anxiety 12/01/2017 Psychiatric No depression 12/01/2017 Genitourinary/Nephrology breast complaint 12/01/2017 Constitutional No recent illness 2017 Constitutional No chills 11/17/2017 Constitutional No diaphoresis 11/17/2017 Constitutional No fever 11/17/2017 Eyes No eye erythema 11/17/2017 Ears/Nose/Throat/Neck No nasal discharge 11/17/2017 Cardiovascular No chest pain/pressure Cardiovascular No dyspnea 11/17/2017 Respiratory No cough 11/17/2017 Respiratory No dyspnea 11/17/2017 Neurologic No alteration of consciousness 11/17/2017 Neurologic No mental status change 2017 Constitutional No recent illness 2016 Constitutional No night sweats 2016 Constitutional No chills 08/11/2017 Constitutional fatigue 08/11/2017 Constitutional No fever 08/11/2017 Constitutional No insomnia 08/11/2017 Constitutional No malaise 08/11/2017 Eyes No blindness 08/11/2017 Eyes No vision change 08/11/2017 Ears/Nose/Throat/Neck No dental pain 07/2017 Ears/Nose/Throat/Neck No dizziness 2016 Ears/Nose/Throat/Neck No dysphagia 2016 Ears/Nose/Throat/Neck No headache 2016 Ears/Nose/Throat/Neck No hearing loss 07/2017 Ears/Nose/Throat/Neck No nasal allergies 08/11/2017 Ears/Nose/Throat/Neck No sore throat 07/2017 Ears/Nose/Throat/Neck No postnasal drip 08/11/2017 Ears/Nose/Throat/Neck No sinus congestion 08/11/2017 Cardiovascular No chest pain/pressure 07/2017 Cardiovascular No dyspnea 08/11/2017 Cardiovascular edema 08/11/2017 Cardiovascular exercise intolerance 08/11 Cardiovascular fatigue 08/11/2017 Cardiovascular hypertension 08/11/2017 Cardiovascular No near-syncope/dizziness 08/11/2017 Cardiovascular No palpitations 2016 Respiratory No chest congestion 2016 Respiratory No chest tightness 2016 Respiratory No cough 08/11/2017 Respiratory dyspnea on exertion 2016 Respiratory No dyspnea 08/11/2017 Respiratory No pedal edema 08/11/2017 Gastrointestinal No abdominal pain 2016 Gastrointestinal No constipation 2016 Gastrointestinal No diarrhea 08/11/2017 Gastrointestinal gastroesophageal reflux 08/11/2017 Gastrointestinal No nausea 08/11/2017 Gastrointestinal No vomiting 08/11/2017 Genitourinary/Nephrology No dysuria 08/11 Genitourinary/Nephrology nocturia 2016 Genitourinary/Nephrology No urinary incontinence 08/11/2017 Musculoskeletal No stiffness 08/11/2017 Musculoskeletal No swelling 08/11/2017 Musculoskeletal No muscle weakness 2016 Musculoskeletal No myalgias 08/11/2017 Dermatologic No rash 08/11/2017 Dermatologic No sores 08/11/2017 Dermatologic No scar 08/11/2017 Neurologic No dizziness 08/11/2017 Neurologic No headache 08/11/2017 Neurologic No neck pain 08/11/2017 Neurologic paresthesia 08/11/2017 Neurologic No syncope 08/11/2017 Psychiatric No anxiety 08/11/2017 Psychiatric No depression 08/11/2017 Constitutional No recent illness 2016 Constitutional No night sweats 2016 Constitutional No chills 04/07/2017 Constitutional fatigue 04/07/2017 Constitutional No fever 04/07/2017 Constitutional No insomnia 04/07/2017 Constitutional No malaise 04/07/2017 Eyes No blindness 04/07/2017 Eyes No vision change 04/07/2017 Ears/Nose/Throat/Neck No dental pain 03/2017 Ears/Nose/Throat/Neck No dizziness 2016 Ears/Nose/Throat/Neck No dysphagia 2016 Ears/Nose/Throat/Neck No headache 2016 Ears/Nose/Throat/Neck No hearing loss 03/2017 Ears/Nose/Throat/Neck No nasal allergies 04/07/2017 Ears/Nose/Throat/Neck No sore throat 03/2017 Ears/Nose/Throat/Neck No postnasal drip 04/07/2017 Ears/Nose/Throat/Neck No sinus congestion 04/07/2017 Cardiovascular No chest pain/pressure 03/2017 Cardiovascular No dyspnea 04/07/2017 Cardiovascular No edema 04/07/2017 Cardiovascular exercise intolerance 04/07 Cardiovascular No fatigue 04/07/2017 Cardiovascular hypertension 04/07/2017 Cardiovascular No near-syncope/dizziness 04/07/2017 Cardiovascular No palpitations 2016 Respiratory No chest congestion 2016 Respiratory No chest tightness 2016 Respiratory No cough 04/07/2017 Respiratory dyspnea on exertion 2016 Respiratory No dyspnea 04/07/2017 Respiratory No pedal edema 04/07/2017 Gastrointestinal No abdominal pain 2016 Gastrointestinal No constipation 2016 Gastrointestinal No diarrhea 04/07/2017 Gastrointestinal gastroesophageal reflux 04/07/2017 Gastrointestinal No nausea 04/07/2017 Gastrointestinal No vomiting 04/07/2017 Genitourinary/Nephrology No dysuria 04/07 Genitourinary/Nephrology No nocturia 03/2017 Genitourinary/Nephrology No urinary incontinence 04/07/2017 Musculoskeletal No stiffness 04/07/2017 Musculoskeletal No swelling 04/07/2017 Musculoskeletal No muscle weakness 2016 Musculoskeletal No myalgias 04/07/2017 Dermatologic No rash 04/07/2017 Dermatologic No sores 04/07/2017 Dermatologic No scar 04/07/2017 Neurologic No dizziness 04/07/2017 Neurologic No headache 04/07/2017 Neurologic No neck pain 04/07/2017 Neurologic paresthesia 04/07/2017 Neurologic No syncope 04/07/2017 Psychiatric No anxiety 04/07/2017 Psychiatric No depression 04/07/2017 Constitutional recent illness 01/05/2017 Constitutional No chills 01/05/2017 Constitutional No diaphoresis 01/05/2017 Constitutional fatigue 01/05/2017 Constitutional No fever 01/05/2017 Constitutional insomnia 01/05/2017 Constitutional No malaise 01/05/2017 Eyes No eye discharge 01/05/2017 Eyes No eye erythema 01/05/2017 Ears/Nose/Throat/Neck nasal allergies 03/2017 Ears/Nose/Throat/Neck nasal discharge 03/2017 Cardiovascular No chest pain/pressure 03/2017 Cardiovascular No dyspnea 01/05/2017 Respiratory cough 01/05/2017 Respiratory No dyspnea 01/05/2017 Gastrointestinal No abdominal pain 2016 Gastrointestinal No constipation 2016 Gastrointestinal No diarrhea 01/05/2017 Musculoskeletal No joint complaint 2016 Dermatologic No rash 01/05/2017 Neurologic No alteration of consciousness 01/05/2017 Neurologic No mental status change 2016 Psychiatric No anxiety 01/05/2017 Psychiatric No depression 01/05/2017 Constitutional No chills 2016 Constitutional fatigue 2016 Constitutional No fever 2016 Eyes No eye erythema 2016 Eyes No vision change 2016 Ears/Nose/Throat/Neck No nasal allergies 2016 Cardiovascular No chest pain/pressure Cardiovascular No dyspnea 2016 Respiratory cough 2016 Respiratory dyspnea on exertion 2016 Respiratory No dyspnea 2016 Gastrointestinal No abdominal pain 2016 Gastrointestinal No constipation 2016 Gastrointestinal No diarrhea 2016 Gastrointestinal No nausea 2016 Gastrointestinal No vomiting 2016 Dermatologic No rash 2016 Dermatologic No scar 2016 Ears/Nose/Throat/Neck No nasal discharge 2016 Respiratory productive sputum 2016 Musculoskeletal No joint complaint 2016 Neurologic No alteration of consciousness 2016 Neurologic No mental status change 2016 Constitutional No recent illness 2016 Constitutional No night sweats 2016 Constitutional No chills 11/25/2016 Constitutional fatigue 11/25/2016 Constitutional No fever 11/25/2016 Constitutional No insomnia 11/25/2016 Constitutional No malaise 11/25/2016 Eyes No blindness 11/25/2016 Eyes No vision change 11/25/2016 Ears/Nose/Throat/Neck No dental pain Ears/Nose/Throat/Neck No dizziness 2016 Ears/Nose/Throat/Neck No dysphagia 2016 Ears/Nose/Throat/Neck No headache 2016 Ears/Nose/Throat/Neck No hearing loss Ears/Nose/Throat/Neck No nasal allergies 11/25/2016 Ears/Nose/Throat/Neck No sore throat Ears/Nose/Throat/Neck No postnasal drip 11/25/2016 Ears/Nose/Throat/Neck No sinus congestion 11/25/2016 Cardiovascular No chest pain/pressure Cardiovascular No dyspnea 11/25/2016 Cardiovascular No edema 11/25/2016 Cardiovascular exercise intolerance 11/25 Cardiovascular No fatigue 11/25/2016 Cardiovascular hypertension 11/25/2016 Cardiovascular No near-syncope/dizziness 11/25/2016 Cardiovascular No palpitations 2016 Respiratory No chest congestion 2016 Respiratory No chest tightness 2016 Respiratory No cough 11/25/2016 Respiratory dyspnea on exertion 2016 Respiratory No dyspnea 11/25/2016 Respiratory No pedal edema 11/25/2016 Gastrointestinal No abdominal pain 2016 Gastrointestinal No constipation 2016 Gastrointestinal No diarrhea 11/25/2016 Gastrointestinal gastroesophageal reflux 11/25/2016 Gastrointestinal No nausea 11/25/2016 Gastrointestinal No vomiting 11/25/2016 Genitourinary/Nephrology No dysuria 11/25 Genitourinary/Nephrology No nocturia Genitourinary/Nephrology No urinary incontinence 11/25/2016 Musculoskeletal No stiffness 11/25/2016 Musculoskeletal No swelling 11/25/2016 Musculoskeletal No muscle weakness 2016 Musculoskeletal No myalgias 11/25/2016 Dermatologic No rash 11/25/2016 Dermatologic No sores 11/25/2016 Dermatologic No scar 11/25/2016 Neurologic No dizziness 11/25/2016 Neurologic No headache 11/25/2016 Neurologic No neck pain 11/25/2016 Neurologic paresthesia 11/25/2016 Neurologic No syncope 11/25/2016 Psychiatric No anxiety 11/25/2016 Psychiatric No depression 11/25/2016 Constitutional recent illness 11/12/2016 Constitutional No chills 11/12/2016 Constitutional No diaphoresis 11/12/2016 Constitutional fatigue 11/12/2016 Constitutional No fever 11/12/2016 Constitutional insomnia 11/12/2016 Constitutional No malaise 11/12/2016 Eyes No eye discharge 11/12/2016 Eyes No eye erythema 11/12/2016 Ears/Nose/Throat/Neck nasal allergies Ears/Nose/Throat/Neck nasal discharge Cardiovascular No chest pain/pressure Cardiovascular No dyspnea 11/12/2016 Respiratory cough 11/12/2016 Gastrointestinal No abdominal pain 2016 Gastrointestinal No constipation 2016 Gastrointestinal No diarrhea 11/12/2016 Musculoskeletal No joint complaint 2016 Dermatologic No rash 11/12/2016 Neurologic No alteration of consciousness 11/12/2016 Respiratory No dyspnea 11/12/2016 Neurologic No mental status change 2016 Constitutional recent illness 11/11/2016 Constitutional No anorexia 11/11/2016 Constitutional No night sweats 2016 Constitutional No chills 11/11/2016 Constitutional No diaphoresis 11/11/2016 Constitutional fatigue 11/11/2016 Constitutional No fever 11/11/2016 Constitutional insomnia 11/11/2016 Constitutional No malaise 11/11/2016 Constitutional No weight loss 11/11/2016 Constitutional No weight gain 11/11/2016 Eyes No eye discharge 11/11/2016 Eyes No eye erythema 11/11/2016 Ears/Nose/Throat/Neck nasal allergies Ears/Nose/Throat/Neck nasal discharge Cardiovascular No chest pain/pressure Cardiovascular No dyspnea 11/11/2016 Respiratory productive sputum 11/11/2016 Respiratory cough 11/11/2016 Gastrointestinal No abdominal pain 2016 Gastrointestinal No constipation 2016 Gastrointestinal No diarrhea 11/11/2016 Genitourinary/Nephrology No dysuria 11/11 Musculoskeletal No joint complaint 2016 Dermatologic No rash 11/11/2016 Neurologic No alteration of consciousness 11/11/2016 Gastrointestinal gastroesophageal reflux 11/11/2016 Constitutional recent illness 07/28/2016 Constitutional No night sweats 2015 Constitutional No chills 07/28/2016 Constitutional fatigue 07/28/2016 Constitutional No fever 07/28/2016 Constitutional No insomnia 07/28/2016 Constitutional No malaise 07/28/2016 Eyes No blindness 07/28/2016 Eyes No vision change 07/28/2016 Ears/Nose/Throat/Neck No dental pain Ears/Nose/Throat/Neck No dizziness 2015 Ears/Nose/Throat/Neck No dysphagia 2015 Ears/Nose/Throat/Neck No headache 2015 Ears/Nose/Throat/Neck No hearing loss Ears/Nose/Throat/Neck No nasal allergies 07/28/2016 Ears/Nose/Throat/Neck No sore throat Ears/Nose/Throat/Neck No postnasal drip 07/28/2016 Ears/Nose/Throat/Neck No sinus congestion 07/28/2016 Cardiovascular No chest pain/pressure Cardiovascular No dyspnea 07/28/2016 Cardiovascular No edema 07/28/2016 Cardiovascular No exercise intolerance Cardiovascular No fatigue 07/28/2016 Cardiovascular hypertension 07/28/2016 Cardiovascular No near-syncope/dizziness 07/28/2016 Cardiovascular No palpitations 2015 Respiratory chest congestion 07/28/2016 Respiratory No chest tightness 2015 Respiratory cough 07/28/2016 Respiratory No dyspnea on exertion 2015 Respiratory No dyspnea 07/28/2016 Respiratory No pedal edema 07/28/2016 Gastrointestinal No abdominal pain 2015 Gastrointestinal No constipation 2015 Gastrointestinal No diarrhea 07/28/2016 Gastrointestinal No gastroesophageal reflux 07/28/2016 Genitourinary/Nephrology No dysuria 07/28 Genitourinary/Nephrology No nocturia Genitourinary/Nephrology No urinary incontinence 07/28/2016 Musculoskeletal No stiffness 07/28/2016 Musculoskeletal No swelling 07/28/2016 Musculoskeletal No muscle weakness 2015 Musculoskeletal No myalgias 07/28/2016 Psychiatric No anxiety 07/28/2016 Psychiatric No depression 07/28/2016 Constitutional recent illness 07/17/2016 Constitutional No night sweats 2015 Constitutional No chills 07/17/2016 Constitutional fatigue 07/17/2016 Constitutional fever 07/17/2016 Constitutional No insomnia 07/17/2016 Constitutional malaise 07/17/2016 Eyes No blindness 07/17/2016 Eyes No vision change 07/17/2016 Ears/Nose/Throat/Neck No dental pain Ears/Nose/Throat/Neck No dizziness 2015 Ears/Nose/Throat/Neck No dysphagia 2015 Ears/Nose/Throat/Neck No headache 2015 Ears/Nose/Throat/Neck No hearing loss Ears/Nose/Throat/Neck No nasal allergies 07/17/2016 Ears/Nose/Throat/Neck No sore throat Ears/Nose/Throat/Neck No postnasal drip 07/17/2016 Ears/Nose/Throat/Neck No sinus congestion 07/17/2016 Cardiovascular No chest pain/pressure Cardiovascular No dyspnea 07/17/2016 Cardiovascular No edema 07/17/2016 Cardiovascular No exercise intolerance Cardiovascular No fatigue 07/17/2016 Cardiovascular hypertension 07/17/2016 Cardiovascular No near-syncope/dizziness 07/17/2016 Cardiovascular No palpitations 2015 Respiratory chest congestion 07/17/2016 Respiratory No chest tightness 2015 Respiratory cough 07/17/2016 Respiratory dyspnea on exertion 2015 Respiratory No dyspnea 07/17/2016 Respiratory No pedal edema 07/17/2016 Gastrointestinal No abdominal pain 2015 Gastrointestinal No constipation 2015 Gastrointestinal No diarrhea 07/17/2016 Gastrointestinal gastroesophageal reflux 07/17/2016 Gastrointestinal No nausea 07/17/2016 Gastrointestinal No vomiting 07/17/2016 Genitourinary/Nephrology No dysuria 07/17 Genitourinary/Nephrology No nocturia Genitourinary/Nephrology No urinary incontinence 07/17/2016 Musculoskeletal No stiffness 07/17/2016 Musculoskeletal No swelling 07/17/2016 Musculoskeletal No muscle weakness 2015 Musculoskeletal No myalgias 07/17/2016 Dermatologic No rash 07/17/2016 Dermatologic No sores 07/17/2016 Dermatologic No scar 07/17/2016 Neurologic No dizziness 07/17/2016 Neurologic No headache 07/17/2016 Neurologic No neck pain 07/17/2016 Neurologic paresthesia 07/17/2016 Neurologic No syncope 07/17/2016 Psychiatric No anxiety 07/17/2016 Psychiatric No depression 07/17/2016 Constitutional No recent illness 2015 Constitutional No night sweats 2015 Constitutional No chills 04/08/2016 Constitutional No fatigue 04/08/2016 Constitutional No fever 04/08/2016 Constitutional No insomnia 04/08/2016 Constitutional No malaise 04/08/2016 Eyes No blindness 04/08/2016 Eyes No vision change 04/08/2016 Ears/Nose/Throat/Neck No dental pain 05/2016 Ears/Nose/Throat/Neck No dizziness 2015 Ears/Nose/Throat/Neck No dysphagia 2015 Ears/Nose/Throat/Neck No headache 2015 Ears/Nose/Throat/Neck No hearing loss 05/2016 Ears/Nose/Throat/Neck No nasal allergies 04/08/2016 Ears/Nose/Throat/Neck No sore throat 05/2016 Ears/Nose/Throat/Neck No postnasal drip 04/08/2016 Ears/Nose/Throat/Neck No sinus congestion 04/08/2016 Cardiovascular No chest pain/pressure 05/2016 Cardiovascular No dyspnea 04/08/2016 Cardiovascular No edema 04/08/2016 Cardiovascular No exercise intolerance Cardiovascular No fatigue 04/08/2016 Cardiovascular hypertension 04/08/2016 Cardiovascular No near-syncope/dizziness 04/08/2016 Cardiovascular No palpitations 2015 Respiratory No chest congestion 2015 Respiratory No chest tightness 2015 Respiratory No cough 04/08/2016 Respiratory dyspnea on exertion 2015 Respiratory No dyspnea 04/08/2016 Respiratory No pedal edema 04/08/2016 Gastrointestinal No abdominal pain 2015 Gastrointestinal No constipation 2015 Gastrointestinal No diarrhea 04/08/2016 Gastrointestinal gastroesophageal reflux 04/08/2016 Gastrointestinal No nausea 04/08/2016 Gastrointestinal No vomiting 04/08/2016 Genitourinary/Nephrology No dysuria 04/08 Genitourinary/Nephrology No nocturia 05/2016 Genitourinary/Nephrology No urinary incontinence 04/08/2016 Musculoskeletal No stiffness 04/08/2016 Musculoskeletal No swelling 04/08/2016 Musculoskeletal No muscle weakness 2015 Musculoskeletal No myalgias 04/08/2016 Dermatologic No rash 04/08/2016 Dermatologic No sores 04/08/2016 Dermatologic No scar 04/08/2016 Neurologic No dizziness 04/08/2016 Neurologic No headache 04/08/2016 Neurologic No neck pain 04/08/2016 Neurologic paresthesia 04/08/2016 Neurologic No syncope 04/08/2016 Psychiatric No anxiety 04/08/2016 Psychiatric No depression 04/08/2016 Constitutional No recent illness 2015 Constitutional No anorexia 03/24/2016 Constitutional No night sweats 2015 Constitutional No chills 03/24/2016 Constitutional No diaphoresis 03/24/2016 Constitutional No fatigue 03/24/2016 Constitutional No fever 03/24/2016 Constitutional No insomnia 03/24/2016 Constitutional No malaise 03/24/2016 Constitutional No weight loss 03/24/2016 Constitutional No weight gain 03/24/2016 Ears/Nose/Throat/Neck No neck pain 2015 Ears/Nose/Throat/Neck No neck swelling Constitutional No recent illness 2015 Constitutional No anorexia 03/13/2016 Constitutional No night sweats 2015 Constitutional No chills 03/13/2016 Constitutional No diaphoresis 03/13/2016 Constitutional No fatigue 03/13/2016 Constitutional No fever 03/13/2016 Constitutional No insomnia 03/13/2016 Constitutional No malaise 03/13/2016 Ears/Nose/Throat/Neck No neck pain 2015 Ears/Nose/Throat/Neck No neck swelling Constitutional No recent illness 2015 Constitutional No night sweats 2015 Constitutional No chills 01/22/2016 Constitutional No fatigue 01/22/2016 Constitutional No fever 01/22/2016 Constitutional No insomnia 01/22/2016 Constitutional No malaise 01/22/2016 Eyes No blindness 01/22/2016 Eyes No vision change 01/22/2016 Ears/Nose/Throat/Neck No dental pain Ears/Nose/Throat/Neck No dizziness 2015 Ears/Nose/Throat/Neck No dysphagia 2015 Ears/Nose/Throat/Neck No headache 2015 Ears/Nose/Throat/Neck No hearing loss Ears/Nose/Throat/Neck No nasal allergies 01/22/2016 Ears/Nose/Throat/Neck No sore throat Ears/Nose/Throat/Neck No postnasal drip 01/22/2016 Ears/Nose/Throat/Neck No sinus congestion 01/22/2016 Cardiovascular No chest pain/pressure Cardiovascular No dyspnea 01/22/2016 Cardiovascular No edema 01/22/2016 Cardiovascular No exercise intolerance Cardiovascular No fatigue 01/22/2016 Cardiovascular hypertension 01/22/2016 Cardiovascular No near-syncope/dizziness 01/22/2016 Cardiovascular No palpitations 2015 Respiratory No chest congestion 2015 Respiratory No chest tightness 2015 Respiratory cough 01/22/2016 Respiratory dyspnea on exertion 2015 Respiratory No dyspnea 01/22/2016 Respiratory No pedal edema 01/22/2016 Gastrointestinal No abdominal pain 2015 Gastrointestinal No constipation 2015 Gastrointestinal No diarrhea 01/22/2016 Gastrointestinal No gastroesophageal reflux 01/22/2016 Gastrointestinal No nausea 01/22/2016 Gastrointestinal No vomiting 01/22/2016 Genitourinary/Nephrology No dysuria 01/21 Genitourinary/Nephrology No nocturia Genitourinary/Nephrology No urinary incontinence 01/22/2016 Musculoskeletal No stiffness 01/22/2016 Musculoskeletal No swelling 01/22/2016 Musculoskeletal No muscle weakness 2015 Musculoskeletal No myalgias 01/22/2016 Dermatologic No rash 01/22/2016 Dermatologic No sores 01/22/2016 Dermatologic No scar 01/22/2016 Neurologic No dizziness 01/22/2016 Neurologic No headache 01/22/2016 Neurologic No neck pain 01/22/2016 Neurologic No syncope 01/22/2016 Psychiatric No anxiety 01/22/2016 Psychiatric No depression 01/22/2016 Constitutional recent illness 12/19/2015 Constitutional No chills 12/19/2015 Constitutional No diaphoresis 12/19/2015 Constitutional No fatigue 12/19/2015 Constitutional No fever 12/19/2015 Constitutional No insomnia 12/19/2015 Constitutional No malaise 12/19/2015 Eyes No eye discharge 12/19/2015 Eyes No eye erythema 12/19/2015 Cardiovascular No dyspnea 12/19/2015 Cardiovascular No edema 12/19/2015 Respiratory No chest congestion 2015 Respiratory No cough 12/19/2015 Respiratory No dyspnea on exertion 2015 Respiratory No dyspnea 12/19/2015 Gastrointestinal constipation 12/19/2015 Gastrointestinal No diarrhea 12/19/2015 Gastrointestinal nausea 12/19/2015 Gastrointestinal No vomiting 12/19/2015 Genitourinary/Nephrology No dysuria 12/18 Genitourinary/Nephrology flank pain 12/18 Musculoskeletal No joint complaint 2015 Dermatologic No rash 12/19/2015 Neurologic No alteration of consciousness 12/19/2015 Ears/Nose/Throat/Neck No nasal allergies 12/19/2015 Ears/Nose/Throat/Neck No nasal discharge 12/19/2015 Cardiovascular No chest pain/pressure Gastrointestinal abdominal pain 2015 Neurologic No mental status change 2015 Gastrointestinal nausea 12/07/2015 Gastrointestinal No vomiting 12/07/2015 Gastrointestinal No diarrhea 12/07/2015 Gastrointestinal constipation 12/07/2015 Genitourinary/Nephrology No dysuria 12/06 Genitourinary/Nephrology flank pain 12/06 Cardiovascular chest pain/pressure 2015 Cardiovascular No dyspnea 12/07/2015 Cardiovascular No edema 12/07/2015 Constitutional recent illness 12/07/2015 Constitutional No anorexia 12/07/2015 Constitutional No night sweats 2015 Constitutional No chills 12/07/2015 Constitutional No diaphoresis 12/07/2015 Constitutional No fatigue 12/07/2015 Constitutional No fever 12/07/2015 Constitutional No insomnia 12/07/2015 Constitutional No malaise 12/07/2015 Constitutional No weight loss 12/07/2015 Constitutional No weight gain 12/07/2015 Constitutional No obesity 12/07/2015 Respiratory No cough 12/07/2015 Respiratory No cigarette smoking 2015 Respiratory No chest tightness 2015 Respiratory No chest congestion 2015 Respiratory No dyspnea 12/07/2015 Respiratory No dyspnea on exertion 2015 Musculoskeletal muscle weakness 2015 Musculoskeletal No myalgias 12/07/2015 Musculoskeletal No joint complaint 2015 Eyes No eye discharge 12/07/2015 Eyes No eye erythema 12/07/2015 Ears/Nose/Throat/Neck No dizziness 2015 Dermatologic No rash 12/07/2015 Neurologic No alteration of consciousness 12/07/2015 Constitutional No recent illness 2015 Constitutional No night sweats 2015 Constitutional No chills 10/26/2015 Constitutional No fatigue 10/26/2015 Constitutional No fever 10/26/2015 Constitutional No insomnia 10/26/2015 Constitutional No malaise 10/26/2015 Eyes No blindness 10/26/2015 Eyes No vision change 10/26/2015 Ears/Nose/Throat/Neck No dental pain Ears/Nose/Throat/Neck No dizziness 2015 Ears/Nose/Throat/Neck No dysphagia 2015 Ears/Nose/Throat/Neck No headache 2015 Ears/Nose/Throat/Neck No hearing loss Ears/Nose/Throat/Neck No nasal allergies 10/26/2015 Ears/Nose/Throat/Neck No sore throat Ears/Nose/Throat/Neck No postnasal drip 10/26/2015 Ears/Nose/Throat/Neck No sinus congestion 10/26/2015 Cardiovascular No chest pain/pressure Cardiovascular No dyspnea 10/26/2015 Cardiovascular No edema 10/26/2015 Cardiovascular No exercise intolerance Cardiovascular No fatigue 10/26/2015 Cardiovascular hypertension 10/26/2015 Cardiovascular No near-syncope/dizziness 10/26/2015 Cardiovascular No palpitations 2015 Respiratory No chest congestion 2015 Respiratory No chest tightness 2015 Respiratory No cough 10/26/2015 Respiratory dyspnea on exertion 2015 Respiratory No dyspnea 10/26/2015 Respiratory No pedal edema 10/26/2015 Gastrointestinal No abdominal pain 2015 Gastrointestinal No constipation 2015 Gastrointestinal No diarrhea 10/26/2015 Gastrointestinal No gastroesophageal reflux 10/26/2015 Gastrointestinal No nausea 10/26/2015 Gastrointestinal No vomiting 10/26/2015 Genitourinary/Nephrology No dysuria 10/26 Genitourinary/Nephrology No nocturia Genitourinary/Nephrology No urinary incontinence 10/26/2015 Musculoskeletal No stiffness 10/26/2015 Musculoskeletal No swelling 10/26/2015 Musculoskeletal No muscle weakness 2015 Musculoskeletal No myalgias 10/26/2015 Dermatologic No rash 10/26/2015 Dermatologic No sores 10/26/2015 Dermatologic No scar 10/26/2015 Neurologic No dizziness 10/26/2015 Neurologic No headache 10/26/2015 Neurologic No neck pain 10/26/2015 Neurologic paresthesia 10/26/2015 Neurologic No syncope 10/26/2015 Psychiatric No anxiety 10/26/2015 Psychiatric No depression 10/26/2015 Constitutional No recent illness 2015 Constitutional No night sweats 2015 Constitutional No chills 10/04/2015 Constitutional No fatigue 10/04/2015 Constitutional No fever 10/04/2015 Constitutional No insomnia 10/04/2015 Constitutional No malaise 10/04/2015 Eyes No blindness 10/04/2015 Eyes No vision change 10/04/2015 Ears/Nose/Throat/Neck No dental pain 11/2015 Ears/Nose/Throat/Neck No dizziness 2015 Ears/Nose/Throat/Neck No dysphagia 2015 Ears/Nose/Throat/Neck No headache 2015 Ears/Nose/Throat/Neck No hearing loss 11/2015 Ears/Nose/Throat/Neck No nasal allergies 10/04/2015 Ears/Nose/Throat/Neck No sore throat 11/2015 Ears/Nose/Throat/Neck No postnasal drip 10/04/2015 Ears/Nose/Throat/Neck No sinus congestion 10/04/2015 Cardiovascular chest pain/pressure 2015 Cardiovascular No dyspnea 10/04/2015 Cardiovascular No edema 10/04/2015 Cardiovascular No exercise intolerance Cardiovascular No fatigue 10/04/2015 Cardiovascular hypertension 10/04/2015 Cardiovascular No near-syncope/dizziness 10/04/2015 Cardiovascular No palpitations 2015 Respiratory No chest congestion 2015 Respiratory No chest tightness 2015 Respiratory No cough 10/04/2015 Respiratory dyspnea on exertion 2015 Respiratory No dyspnea 10/04/2015 Respiratory No pedal edema 10/04/2015 Gastrointestinal No abdominal pain 2015 Gastrointestinal No constipation 2015 Gastrointestinal No diarrhea 10/04/2015 Gastrointestinal No gastroesophageal reflux 10/04/2015 Gastrointestinal No nausea 10/04/2015 Gastrointestinal No vomiting 10/04/2015 Genitourinary/Nephrology No dysuria 10/04 Genitourinary/Nephrology No nocturia 11/2015 Genitourinary/Nephrology No urinary incontinence 10/04/2015 Musculoskeletal No stiffness 10/04/2015 Musculoskeletal No swelling 10/04/2015 Musculoskeletal No muscle weakness 2015 Musculoskeletal No myalgias 10/04/2015 Dermatologic No rash 10/04/2015 Dermatologic No sores 10/04/2015 Dermatologic No scar 10/04/2015 Neurologic No dizziness 10/04/2015 Neurologic No headache 10/04/2015 Neurologic No neck pain 10/04/2015 Neurologic paresthesia 10/04/2015 Neurologic No syncope 10/04/2015 Psychiatric No anxiety 10/04/2015 Psychiatric No depression 10/04/2015 Constitutional No night sweats 2015 Constitutional No fatigue 09/05/2015 Constitutional No fever 09/05/2015 Cardiovascular No chest pain/pressure 01/2016 Cardiovascular No dyspnea 09/05/2015 Cardiovascular No edema 09/05/2015 Cardiovascular No fatigue 09/05/2015 Cardiovascular hypertension 09/05/2015 Cardiovascular No palpitations 2015 Respiratory No chest congestion 2015 Respiratory No chest tightness 2015 Respiratory dyspnea on exertion 2015 Neurologic paresthesia 09/05/2015 Psychiatric No anxiety 09/05/2015 Psychiatric No depression 09/05/2015 Constitutional No recent illness 2015 Constitutional No chills 09/05/2015 Constitutional No insomnia 09/05/2015 Constitutional No malaise 09/05/2015 Eyes No blindness 09/05/2015 Eyes No vision change 09/05/2015 Ears/Nose/Throat/Neck No dental pain 01/2016 Ears/Nose/Throat/Neck No dizziness 2015 Ears/Nose/Throat/Neck No dysphagia 2015 Ears/Nose/Throat/Neck No headache 2015 Ears/Nose/Throat/Neck No hearing loss 01/2016 Ears/Nose/Throat/Neck No nasal allergies 09/05/2015 Ears/Nose/Throat/Neck No sore throat 01/2016 Ears/Nose/Throat/Neck No postnasal drip 09/05/2015 Ears/Nose/Throat/Neck No sinus congestion 09/05/2015 Cardiovascular No exercise intolerance Cardiovascular No near-syncope/dizziness 09/05/2015 Respiratory No cough 09/05/2015 Respiratory No dyspnea 09/05/2015 Respiratory No pedal edema 09/05/2015 Gastrointestinal No abdominal pain 2015 Gastrointestinal No constipation 2015 Gastrointestinal No diarrhea 09/05/2015 Gastrointestinal No gastroesophageal reflux 09/05/2015 Gastrointestinal No nausea 09/05/2015 Gastrointestinal No vomiting 09/05/2015 Genitourinary/Nephrology No dysuria 09/05 Genitourinary/Nephrology No nocturia 01/2016 Genitourinary/Nephrology No urinary incontinence 09/05/2015 Musculoskeletal No stiffness 09/05/2015 Musculoskeletal No swelling 09/05/2015 Musculoskeletal No muscle weakness 2015 Musculoskeletal No myalgias 09/05/2015 Dermatologic No rash 09/05/2015 Dermatologic No sores 09/05/2015 Dermatologic No scar 09/05/2015 Neurologic No dizziness 09/05/2015 Neurologic No headache 09/05/2015 Neurologic No neck pain 09/05/2015 Neurologic No syncope 09/05/2015 Constitutional No night sweats 2010 Constitutional No fatigue 04/25/2011 Constitutional No fever 04/25/2011 Cardiovascular No chest pain/pressure Cardiovascular No dyspnea 04/25/2011 Cardiovascular No edema 04/25/2011 Cardiovascular No fatigue 04/25/2011 Cardiovascular hypertension 04/25/2011 Cardiovascular No palpitations 2010 Respiratory No chest congestion 2010 Respiratory No chest tightness 2010 Neurologic paresthesia 04/25/2011 Respiratory dyspnea on exertion 2010 Psychiatric No depression 04/25/2011 Psychiatric No anxiety 04/25/2011 Physical Exam Exam Name System Name Item Name Status Result Effective Dates Notes Full Exam - General 1994 Constitutional general appearance Development: well developed 09/23/2018 None Full Exam - General 1994 Constitutional general appearance Development: appears stated age 0109/23/2018 None Full Exam - General 1994 Constitutional general appearance Hygiene/Attention to Grooming: good hygiene 09/23/2018 None Full Exam - General 1994 Eyes conjunctiva /eyelids Overall: conjunctiva clear 09/23/2018 None Full Exam - General 1994 Eyes conjunctiva /eyelids Overall: cornea clear 09/23/2018 None Full Exam - General 1994 Eyes conjunctiva /eyelids Overall: eyelids normal 09/23/2018 None Full Exam - General 1994 Eyes pupils and irises Overall: pupils equal, round, reactive to light and accomodation 09/23/2018 None Full Exam - General 1994 Ears/Nose/Throat otoscopic exam Overall: external auditory canals clear 09/23/2018 None Full Exam - General 1994 Ears/Nose/Throat otoscopic exam Overall: tympanic membranes clear 09/23/2018 None Full Exam - General 1994 Ears/Nose/Throat lips/teeth/gingiva Overall: benign lips 09/23/2018 None Full Exam - General 1994 Ears/Nose/Throat lips/teeth/gingiva Overall: normal dentition 09/23/2018 None Full Exam - General 1994 Ears/Nose/Throat oral cavity/pharynx/larynx Overall: oral mucosa clear 09/23/2018 None Full Exam - General 1994 Ears/Nose/Throat oral cavity/pharynx/larynx Overall: oropharyngeal mucosa clear 09/23/2018 None Full Exam - General 1994 Ears/Nose/Throat oral cavity/pharynx/larynx Overall: hypopharynx benign 09/23/2018 None Full Exam - General 1994 Ears/Nose/Throat oral cavity/pharynx/larynx Overall: no masses 09/23/2018 None Full Exam - General 1994 Respiratory auscultation Overall: breath sounds clear bilaterally 09/23/2018 None Full Exam - General 1994 Respiratory respiratory effort/rhythm Overall: no retractions 09/23/2018 None Full Exam - General 1994 Respiratory respiratory effort/rhythm Overall: normal rate 09/23/2018 None Full Exam - General 1994 Cardiovascular extremities Overall: no clubbing 09/23/2018 None Full Exam - General 1994 Cardiovascular auscultation of heart Overall: regular rate 09/23/2018 None Full Exam - General 1994 Cardiovascular auscultation of heart Overall: normal heart sounds 09/23/2018 None Full Exam - General 1994 Lymphatic neck nodes Overall: anterior cervical chain benign 09/23/2018 None Full Exam - General 1994 Lymphatic neck nodes Overall: posterior cervical chain benign 09/23/2018 None Full Exam - General 1994 Musculoskeletal spine, ribs and pelvis Overall: sacroiliac joint benign 09/23/2018 None Full Exam - General 1994 Musculoskeletal spine, ribs and pelvis Overall: good posture 09/23/2018 None Full Exam - General 1994 Musculoskeletal head and neck Overall: head atraumatic 09/23/2018 None Full Exam - General 1994 Musculoskeletal head and neck Overall: cervical spine benign 09/23/2018 None Full Exam - General 1994 Neurologic cranial nerves Overall: crainial nerves 2 - 12 grossly intact 09/23/2018 None Full Exam - General 1994 Psychiatric orientation/consciousness Overall: oriented to person, place and time 09/23/2018 None Full Exam - General 1994 Psychiatric mood and affect Overall: normal mood and affect 09/23/2018 None Full Exam - General 1994 Constitutional general appearance Development: well developed 08/04/2018 None Full Exam - General 1994 Constitutional general appearance Development: appears stated age 1208/04/2018 None Full Exam - General 1994 Constitutional general appearance Hygiene/Attention to Grooming: good hygiene 08/04/2018 None Full Exam - General 1994 Eyes conjunctiva /eyelids Overall: conjunctiva clear 08/04/2018 None Full Exam - General 1994 Eyes conjunctiva /eyelids Overall: cornea clear 08/04/2018 None Full Exam - General 1994 Eyes conjunctiva /eyelids Overall: eyelids normal 08/04/2018 None Full Exam - General 1994 Eyes pupils and irises Overall: pupils equal, round, reactive to light and accomodation 08/04/2018 None Full Exam - General 1994 Ears/Nose/Throat otoscopic exam Overall: external auditory canals clear 08/04/2018 None Full Exam - General 1994 Ears/Nose/Throat otoscopic exam Overall: tympanic membranes clear 08/04/2018 None Full Exam - General 1994 Ears/Nose/Throat lips/teeth/gingiva Overall: benign lips 08/04/2018 None Full Exam - General 1994 Ears/Nose/Throat lips/teeth/gingiva Overall: normal dentition 08/04/2018 None Full Exam - General 1994 Ears/Nose/Throat oral cavity/pharynx/larynx Overall: oral mucosa clear 08/04/2018 None Full Exam - General 1994 Ears/Nose/Throat oral cavity/pharynx/larynx Overall: oropharyngeal mucosa clear 08/04/2018 None Full Exam - General 1994 Ears/Nose/Throat oral cavity/pharynx/larynx Overall: hypopharynx benign 08/04/2018 None Full Exam - General 1994 Ears/Nose/Throat oral cavity/pharynx/larynx Overall: no masses 08/04/2018 None Full Exam - General 1994 Respiratory palpation of chest Chest wall pain: pain to light pressure 08/04/2018 at surgical site on left Full Exam - General 1994 Respiratory auscultation Overall: breath sounds clear bilaterally 08/04/2018 None Full Exam - General 1994 Respiratory respiratory effort/rhythm Overall: no retractions 08/04/2018 None Full Exam - General 1994 Respiratory respiratory effort/rhythm Overall: normal rate 08/04/2018 None Full Exam - General 1994 Cardiovascular extremities Overall: no clubbing 08/04/2018 None Full Exam - General 1994 Cardiovascular auscultation of heart Overall: regular rate 08/04/2018 None Full Exam - General 1994 Cardiovascular auscultation of heart Overall: normal heart sounds 08/04/2018 None Full Exam - General 1994 Chest/Breast breast and axillae palpation Upper inner quadrant: no mass 08/04/2018 None Full Exam - General 1994 Chest/Breast breast and axillae palpation Upper inner quadrant: non-tender 08/04/2018 None Full Exam - General 1994 Chest/Breast breast and axillae palpation Upper inner quadrant: tender 08/04/2018 None Full Exam - General 1994 Chest/Breast breast and axillae palpation Upper outer quadrant: no mass 08/04/2018 None Full Exam - General 1994 Chest/Breast breast and axillae palpation Upper outer quadrant: non-tender 08/04/2018 None Full Exam - General 1994 Chest/Breast breast and axillae palpation Upper outer quadrant: tender 08/04/2018 None Full Exam - General 1994 Chest/Breast breast and axillae palpation Upper outer quadrant: soft 08/04/2018 None Full Exam - General 1994 Chest/Breast breast and axillae palpation Lower inner quadrant: no mass 08/04/2018 None Full Exam - General 1994 Chest/Breast breast and axillae palpation Lower inner quadrant: non-tender 08/04/2018 None Full Exam - General 1994 Chest/Breast breast and axillae palpation Lower inner quadrant: tender 08/04/2018 None Full Exam - General 1994 Chest/Breast breast and axillae palpation Lower outer quadrant: no mass 08/04/2018 None Full Exam - General 1994 Chest/Breast breast and axillae palpation Lower outer quadrant: non-tender 08/04/2018 None Full Exam - General 1994 Chest/Breast breast and axillae palpation Lower outer quadrant: soft 08/04/2018 None Full Exam - General 1994 Abdomen abdominal exam Overall: no tenderness 08/04/2018 None Full Exam - General 1994 Abdomen abdominal exam Overall: normal bowel sounds 08/04/2018 None Full Exam - General 1994 Lymphatic neck nodes Overall: anterior cervical chain benign 08/04/2018 None Full Exam - General 1994 Lymphatic neck nodes Overall: posterior cervical chain benign 08/04/2018 None Full Exam - General 1994 Musculoskeletal spine, ribs and pelvis Overall: spine benign 08/04/2018 None Full Exam - General 1994 Musculoskeletal spine, ribs and pelvis Overall: sacroiliac joint benign 08/04/2018 None Full Exam - General 1994 Musculoskeletal spine, ribs and pelvis Overall: good posture 08/04/2018 None Full Exam - General 1994 Musculoskeletal head and neck Overall: head atraumatic 08/04/2018 None Full Exam - General 1994 Musculoskeletal head and neck Overall: cervical spine benign 08/04/2018 None Full Exam - General 1994 Integument inspection of skin Overall: few scattered moles, no gross abnormalities 08/04/2018 None Full Exam - General 1994 Neurologic deep tendon reflexes Overall: deep tendon reflexes intact 08/04/2018 None Full Exam - General 1994 Neurologic cranial nerves Overall: crainial nerves 2 - 12 grossly intact 08/04/2018 None Full Exam - General 1994 Psychiatric orientation/consciousness Overall: oriented to person, place and time 08/04/2018 None Full Exam - General 1994 Psychiatric mood and affect Overall: normal mood and affect 08/04/2018 None Full Exam - General 1994 Constitutional general appearance Development: well developed 03/18/2018 None Full Exam - General 1994 Constitutional general appearance Development: appears stated age 0703/18/2018 None Full Exam - General 1994 Constitutional general appearance Hygiene/Attention to Grooming: good hygiene 03/18/2018 None Full Exam - General 1994 Eyes conjunctiva /eyelids Overall: conjunctiva clear 03/18/2018 None Full Exam - General 1994 Eyes conjunctiva /eyelids Overall: cornea clear 03/18/2018 None Full Exam - General 1994 Eyes conjunctiva /eyelids Overall: eyelids normal 03/18/2018 None Full Exam - General 1994 Eyes pupils and irises Overall: pupils equal, round, reactive to light and accomodation 03/18/2018 None Full Exam - General 1994 Ears/Nose/Throat otoscopic exam Overall: external auditory canals clear 03/18/2018 None Full Exam - General 1994 Ears/Nose/Throat otoscopic exam Overall: tympanic membranes clear 03/18/2018 None Full Exam - General 1994 Ears/Nose/Throat lips/teeth/gingiva Overall: benign lips 03/18/2018 None Full Exam - General 1994 Ears/Nose/Throat lips/teeth/gingiva Overall: normal dentition 03/18/2018 None Full Exam - General 1994 Ears/Nose/Throat oral cavity/pharynx/larynx Overall: oral mucosa clear 03/18/2018 None Full Exam - General 1994 Ears/Nose/Throat oral cavity/pharynx/larynx Overall: oropharyngeal mucosa clear 03/18/2018 None Full Exam - General 1994 Ears/Nose/Throat oral cavity/pharynx/larynx Overall: hypopharynx benign 03/18/2018 None Full Exam - General 1994 Ears/Nose/Throat oral cavity/pharynx/larynx Overall: no masses 03/18/2018 None Full Exam - General 1994 Respiratory palpation of chest Chest wall pain: pain to light pressure 03/18/2018 at surgical site on left Full Exam - General 1994 Respiratory auscultation Overall: breath sounds clear bilaterally 03/18/2018 None Full Exam - General 1994 Respiratory respiratory effort/rhythm Overall: no retractions 03/18/2018 None Full Exam - General 1994 Respiratory respiratory effort/rhythm Overall: normal rate 03/18/2018 None Full Exam - General 1994 Cardiovascular extremities Overall: no clubbing 03/18/2018 None Full Exam - General 1994 Cardiovascular auscultation of heart Overall: regular rate 03/18/2018 None Full Exam - General 1994 Cardiovascular auscultation of heart Overall: normal heart sounds 03/18/2018 None Full Exam - General 1994 Musculoskeletal spine, ribs and pelvis Overall: spine benign 03/18/2018 None Full Exam - General 1994 Musculoskeletal spine, ribs and pelvis Overall: sacroiliac joint benign 03/18/2018 None Full Exam - General 1994 Musculoskeletal spine, ribs and pelvis Overall: good posture 03/18/2018 None Full Exam - General 1994 Musculoskeletal head and neck Overall: head atraumatic 03/18/2018 None Full Exam - General 1994 Musculoskeletal head and neck Overall: cervical spine benign 03/18/2018 None Full Exam - General 1994 Neurologic cranial nerves Overall: crainial nerves 2 - 12 grossly intact 03/18/2018 None Full Exam - General 1994 Psychiatric orientation/consciousness Overall: oriented to person, place and time 03/18/2018 None Full Exam - General 1994 Psychiatric mood and affect Overall: normal mood and affect 03/18/2018 None Full Exam - General 1994 Constitutional general appearance Development: well developed 12/01/2017 None Full Exam - General 1994 Constitutional general appearance Development: appears stated age 0412/01/2017 None Full Exam - General 1994 Constitutional general appearance Hygiene/Attention to Grooming: good hygiene 12/01/2017 None Full Exam - General 1994 Eyes conjunctiva /eyelids Overall: conjunctiva clear 12/01/2017 None Full Exam - General 1994 Eyes conjunctiva /eyelids Overall: cornea clear 12/01/2017 None Full Exam - General 1994 Eyes conjunctiva /eyelids Overall: eyelids normal 12/01/2017 None Full Exam - General 1994 Eyes pupils and irises Overall: pupils equal, round, reactive to light and accomodation 12/01/2017 None Full Exam - General 1994 Ears/Nose/Throat otoscopic exam Overall: external auditory canals clear 12/01/2017 None Full Exam - General 1994 Ears/Nose/Throat otoscopic exam Overall: tympanic membranes clear 12/01/2017 None Full Exam - General 1994 Ears/Nose/Throat lips/teeth/gingiva Overall: benign lips 12/01/2017 None Full Exam - General 1994 Ears/Nose/Throat lips/teeth/gingiva Overall: normal dentition 12/01/2017 None Full Exam - General 1994 Ears/Nose/Throat oral cavity/pharynx/larynx Overall: oral mucosa clear 12/01/2017 None Full Exam - General 1994 Ears/Nose/Throat oral cavity/pharynx/larynx Overall: oropharyngeal mucosa clear 12/01/2017 None Full Exam - General 1994 Ears/Nose/Throat oral cavity/pharynx/larynx Overall: hypopharynx benign 12/01/2017 None Full Exam - General 1994 Ears/Nose/Throat oral cavity/pharynx/larynx Overall: no masses 12/01/2017 None Full Exam - General 1994 Respiratory auscultation Overall: breath sounds clear bilaterally 12/01/2017 None Full Exam - General 1994 Respiratory respiratory effort/rhythm Overall: no retractions 12/01/2017 None Full Exam - General 1994 Respiratory respiratory effort/rhythm Overall: normal rate 12/01/2017 None Full Exam - General 1994 Cardiovascular extremities Overall: no clubbing 12/01/2017 None Full Exam - General 1994 Cardiovascular auscultation of heart Overall: regular rate 12/01/2017 None Full Exam - General 1994 Cardiovascular auscultation of heart Overall: normal heart sounds 12/01/2017 None Full Exam - General 1994 Abdomen abdominal exam Overall: no tenderness 12/01/2017 None Full Exam - General 1994 Abdomen abdominal exam Overall: normal bowel sounds 12/01/2017 None Full Exam - General 1994 Lymphatic neck nodes Overall: anterior cervical chain benign 12/01/2017 None Full Exam - General 1994 Lymphatic neck nodes Overall: posterior cervical chain benign 12/01/2017 None Full Exam - General 1994 Musculoskeletal spine, ribs and pelvis Overall: spine benign 12/01/2017 None Full Exam - General 1994 Musculoskeletal spine, ribs and pelvis Overall: sacroiliac joint benign 12/01/2017 None Full Exam - General 1994 Musculoskeletal spine, ribs and pelvis Overall: good posture 12/01/2017 None Full Exam - General 1994 Musculoskeletal head and neck Overall: head atraumatic 12/01/2017 None Full Exam - General 1994 Musculoskeletal head and neck Overall: cervical spine benign 12/01/2017 None Full Exam - General 1994 Integument inspection of skin Overall: few scattered moles, no gross abnormalities 12/01/2017 None Full Exam - General 1994 Neurologic deep tendon reflexes Overall: deep tendon reflexes intact 12/01/2017 None Full Exam - General 1994 Neurologic cranial nerves Overall: crainial nerves 2 - 12 grossly intact 12/01/2017 None Full Exam - General 1994 Psychiatric orientation/consciousness Overall: oriented to person, place and time 12/01/2017 None Full Exam - General 1994 Psychiatric mood and affect Overall: normal mood and affect 12/01/2017 None Full Exam - General 1994 Chest/Breast breast and axillae palpation Upper inner quadrant: no mass 12/01/2017 None Full Exam - General 1994 Chest/Breast breast and axillae palpation Upper inner quadrant: non-tender 12/01/2017 None Full Exam - General 1994 Chest/Breast breast and axillae palpation Upper inner quadrant: tender 12/01/2017 None Full Exam - General 1994 Chest/Breast breast and axillae palpation Upper outer quadrant: no mass 12/01/2017 None Full Exam - General 1994 Chest/Breast breast and axillae palpation Upper outer quadrant: non-tender 12/01/2017 None Full Exam - General 1994 Chest/Breast breast and axillae palpation Upper outer quadrant: tender 12/01/2017 None Full Exam - General 1994 Chest/Breast breast and axillae palpation Upper outer quadrant: soft 12/01/2017 None Full Exam - General 1994 Chest/Breast breast and axillae palpation Lower inner quadrant: no mass 12/01/2017 None Full Exam - General 1994 Chest/Breast breast and axillae palpation Lower inner quadrant: non-tender 12/01/2017 None Full Exam - General 1994 Chest/Breast breast and axillae palpation Lower inner quadrant: tender 12/01/2017 None Full Exam - General 1994 Chest/Breast breast and axillae palpation Lower outer quadrant: no mass 12/01/2017 None Full Exam - General 1994 Chest/Breast breast and axillae palpation Lower outer quadrant: non-tender 12/01/2017 None Full Exam - General 1994 Chest/Breast breast and axillae palpation Lower outer quadrant: soft 12/01/2017 None Full Exam - General 1994 Respiratory palpation of chest Chest wall pain: pain to light pressure 12/01/2017 at surgical site on left Full Exam - General 1994 Constitutional general appearance Overall: well developed 11/17/2017 None Full Exam - General 1994 Constitutional general appearance Overall: in no acute distress 11/17/2017 None Full Exam - General 1994 Constitutional general appearance Overall: well nourished 11/17/2017 None Full Exam - General 1994 Eyes conjunctiva /eyelids Overall: conjunctiva clear 11/17/2017 None Full Exam - General 1994 Eyes conjunctiva /eyelids Overall: eyelids normal 11/17/2017 None Full Exam - General 1994 Ears/Nose/Throat lips/teeth/gingiva Overall: benign lips 11/17/2017 None Full Exam - General 1994 Respiratory respiratory effort/rhythm Overall: no retractions 11/17/2017 None Full Exam - General 1994 Respiratory respiratory effort/rhythm Overall: normal rate 11/17/2017 None Full Exam - General 1994 Musculoskeletal head and neck Overall: head atraumatic 11/17/2017 None Full Exam - General 1994 Neurologic cranial nerves Overall: crainial nerves 2 - 12 grossly intact 11/17/2017 None Full Exam - General 1994 Psychiatric orientation/consciousness Overall: oriented to person, place and time 11/17/2017 None Full Exam - General 1994 Psychiatric mood and affect Overall: normal mood and affect 11/17/2017 None Full Exam - General 1994 Psychiatric appearance Overall: well-groomed, good eye contact 11/17/2017 None Full Exam - General 1994 Constitutional general appearance Development: well developed 08/11/2017 None Full Exam - General 1994 Constitutional general appearance Development: appears stated age 1208/11/2017 None Full Exam - General 1994 Constitutional general appearance Hygiene/Attention to Grooming: good hygiene 08/11/2017 None Full Exam - General 1994 Eyes conjunctiva /eyelids Overall: conjunctiva clear 08/11/2017 None Full Exam - General 1994 Eyes conjunctiva /eyelids Overall: cornea clear 08/11/2017 None Full Exam - General 1994 Eyes conjunctiva /eyelids Overall: eyelids normal 08/11/2017 None Full Exam - General 1994 Eyes pupils and irises Overall: pupils equal, round, reactive to light and accomodation 08/11/2017 None Full Exam - General 1994 Ears/Nose/Throat otoscopic exam Overall: external auditory canals clear 08/11/2017 None Full Exam - General 1994 Ears/Nose/Throat otoscopic exam Overall: tympanic membranes clear 08/11/2017 None Full Exam - General 1994 Ears/Nose/Throat lips/teeth/gingiva Overall: benign lips 08/11/2017 None Full Exam - General 1994 Ears/Nose/Throat lips/teeth/gingiva Overall: normal dentition 08/11/2017 None Full Exam - General 1994 Ears/Nose/Throat oral cavity/pharynx/larynx Overall: oral mucosa clear 08/11/2017 None Full Exam - General 1994 Ears/Nose/Throat oral cavity/pharynx/larynx Overall: oropharyngeal mucosa clear 08/11/2017 None Full Exam - General 1994 Ears/Nose/Throat oral cavity/pharynx/larynx Overall: hypopharynx benign 08/11/2017 None Full Exam - General 1994 Ears/Nose/Throat oral cavity/pharynx/larynx Overall: no masses 08/11/2017 None Full Exam - General 1994 Respiratory auscultation Overall: breath sounds clear bilaterally 08/11/2017 None Full Exam - General 1994 Respiratory respiratory effort/rhythm Overall: no retractions 08/11/2017 None Full Exam - General 1994 Respiratory respiratory effort/rhythm Overall: normal rate 08/11/2017 None Full Exam - General 1994 Cardiovascular extremities Overall: no clubbing 08/11/2017 None Full Exam - General 1994 Cardiovascular auscultation of heart Overall: regular rate 08/11/2017 None Full Exam - General 1994 Cardiovascular auscultation of heart Overall: normal heart sounds 08/11/2017 None Full Exam - General 1994 Abdomen abdominal exam Overall: no tenderness 08/11/2017 None Full Exam - General 1994 Abdomen abdominal exam Overall: normal bowel sounds 08/11/2017 None Full Exam - General 1994 Lymphatic neck nodes Overall: anterior cervical chain benign 08/11/2017 None Full Exam - General 1994 Lymphatic neck nodes Overall: posterior cervical chain benign 08/11/2017 None Full Exam - General 1994 Musculoskeletal spine, ribs and pelvis Overall: spine benign 08/11/2017 None Full Exam - General 1994 Musculoskeletal spine, ribs and pelvis Overall: sacroiliac joint benign 08/11/2017 None Full Exam - General 1994 Musculoskeletal spine, ribs and pelvis Overall: good posture 08/11/2017 None Full Exam - General 1994 Musculoskeletal head and neck Overall: head atraumatic 08/11/2017 None Full Exam - General 1994 Musculoskeletal head and neck Overall: cervical spine benign 08/11/2017 None Full Exam - General 1994 Integument inspection of skin Overall: few scattered moles, no gross abnormalities 08/11/2017 None Full Exam - General 1994 Neurologic deep tendon reflexes Overall: deep tendon reflexes intact 08/11/2017 None Full Exam - General 1994 Neurologic cranial nerves Overall: crainial nerves 2 - 12 grossly intact 08/11/2017 None Full Exam - General 1994 Psychiatric orientation/consciousness Overall: oriented to person, place and time 08/11/2017 None Full Exam - General 1994 Psychiatric mood and affect Overall: normal mood and affect 08/11/2017 None Full Exam - General 1994 Constitutional general appearance Development: well developed 04/07/2017 None Full Exam - General 1994 Constitutional general appearance Development: appears stated age 0804/07/2017 None Full Exam - General 1994 Constitutional general appearance Hygiene/Attention to Grooming: good hygiene 04/07/2017 None Full Exam - General 1994 Eyes conjunctiva /eyelids Overall: conjunctiva clear 04/07/2017 None Full Exam - General 1994 Eyes conjunctiva /eyelids Overall: cornea clear 04/07/2017 None Full Exam - General 1994 Eyes conjunctiva /eyelids Overall: eyelids normal 04/07/2017 None Full Exam - General 1994 Eyes pupils and irises Overall: pupils equal, round, reactive to light and accomodation 04/07/2017 None Full Exam - General 1994 Ears/Nose/Throat otoscopic exam Overall: external auditory canals clear 04/07/2017 None Full Exam - General 1994 Ears/Nose/Throat otoscopic exam Overall: tympanic membranes clear 04/07/2017 None Full Exam - General 1994 Ears/Nose/Throat lips/teeth/gingiva Overall: benign lips 04/07/2017 None Full Exam - General 1994 Ears/Nose/Throat lips/teeth/gingiva Overall: normal dentition 04/07/2017 None Full Exam - General 1994 Ears/Nose/Throat oral cavity/pharynx/larynx Overall: oral mucosa clear 04/07/2017 None Full Exam - General 1994 Ears/Nose/Throat oral cavity/pharynx/larynx Overall: oropharyngeal mucosa clear 04/07/2017 None Full Exam - General 1994 Ears/Nose/Throat oral cavity/pharynx/larynx Overall: hypopharynx benign 04/07/2017 None Full Exam - General 1994 Ears/Nose/Throat oral cavity/pharynx/larynx Overall: no masses 04/07/2017 None Full Exam - General 1994 Respiratory auscultation Overall: breath sounds clear bilaterally 04/07/2017 None Full Exam - General 1994 Respiratory respiratory effort/rhythm Overall: no retractions 04/07/2017 None Full Exam - General 1994 Respiratory respiratory effort/rhythm Overall: normal rate 04/07/2017 None Full Exam - General 1994 Cardiovascular extremities Overall: no clubbing 04/07/2017 None Full Exam - General 1994 Cardiovascular auscultation of heart Overall: regular rate 04/07/2017 None Full Exam - General 1994 Cardiovascular auscultation of heart Overall: normal heart sounds 04/07/2017 None Full Exam - General 1994 Abdomen abdominal exam Overall: no tenderness 04/07/2017 None Full Exam - General 1994 Abdomen abdominal exam Overall: normal bowel sounds 04/07/2017 None Full Exam - General 1995 Lymphatic neck nodes Overall: anterior cervical chain benign 04/07/2017 None Full Exam - General 1994 Lymphatic neck nodes Overall: posterior cervical chain benign 04/07/2017 None Full Exam - General 1994 Musculoskeletal spine, ribs and pelvis Overall: spine benign 04/07/2017 None Full Exam - General 1994 Musculoskeletal spine, ribs and pelvis Overall: sacroiliac joint benign 04/07/2017 None Full Exam - General 1994 Musculoskeletal spine, ribs and pelvis Overall: good posture 04/07/2017 None Full Exam - General 1994 Musculoskeletal head and neck Overall: head atraumatic 04/07/2017 None Full Exam - General 1994 Musculoskeletal head and neck Overall: cervical spine benign 04/07/2017 None Full Exam - General 1994 Integument inspection of skin Overall: few scattered moles, no gross abnormalities 04/07/2017 None Full Exam - General 1994 Neurologic deep tendon reflexes Overall: deep tendon reflexes intact 04/07/2017 None Full Exam - General 1994 Neurologic cranial nerves Overall: crainial nerves 2 - 12 grossly intact 04/07/2017 None Full Exam - General 1994 Psychiatric orientation/consciousness Overall: oriented to person, place and time 04/07/2017 None Full Exam - General 1994 Psychiatric mood and affect Overall: normal mood and affect 04/07/2017 None Full Exam - General 1994 Constitutional general appearance Overall: well developed 01/05/2017 None Full Exam - General 1994 Constitutional general appearance Overall: in no acute distress 01/05/2017 None Full Exam - General 1994 Constitutional general appearance Overall: well nourished 01/05/2017 None Full Exam - General 1994 Constitutional general appearance Hygiene/Attention to Grooming: good hygiene 01/05/2017 None Full Exam - General 1994 Eyes conjunctiva /eyelids Overall: conjunctiva clear 01/05/2017 None Full Exam - General 1994 Eyes conjunctiva /eyelids Overall: eyelids normal 01/05/2017 None Full Exam - General 1994 Eyes pupils and irises Overall: pupils equal, round, reactive to light and accomodation 01/05/2017 None Full Exam - General 1994 Ears/Nose/Throat lips/teeth/gingiva Overall: benign lips 01/05/2017 None Full Exam - General 1994 Ears/Nose/Throat lips/teeth/gingiva Overall: normal dentition 01/05/2017 None Full Exam - General 1994 Ears/Nose/Throat oral cavity/pharynx/larynx Overall: oral mucosa clear 01/05/2017 None Full Exam - General 1994 Respiratory auscultation Lower lung field: diminished 01/05/2017 None Full Exam - General 1994 Respiratory respiratory effort/rhythm Overall: no retractions 01/05/2017 None Full Exam - General 1994 Respiratory respiratory effort/rhythm Overall: normal rate 01/05/2017 None Full Exam - General 1994 Cardiovascular extremities Overall: no clubbing 01/05/2017 None Full Exam - General 1994 Cardiovascular auscultation of heart Overall: regular rate 01/05/2017 None Full Exam - General 1994 Cardiovascular auscultation of heart Overall: normal heart sounds 01/05/2017 None Full Exam - General 1994 Musculoskeletal head and neck Overall: head atraumatic 01/05/2017 None Full Exam - General 1994 Neurologic cranial nerves Overall: crainial nerves 2 - 12 grossly intact 01/05/2017 None Full Exam - General 1994 Psychiatric orientation/consciousness Overall: oriented to person, place and time 01/05/2017 None Full Exam - General 1994 Psychiatric mood and affect Overall: normal mood and affect 01/05/2017 None Full Exam - General 1994 Psychiatric appearance Overall: well-groomed, good eye contact 01/05/2017 None Full Exam - General 1994 Abdomen abdominal exam Overall: no tenderness 01/05/2017 None Full Exam - General 1994 Abdomen abdominal exam Overall: normal bowel sounds 01/05/2017 None Full Exam - General 1994 Constitutional general appearance Hygiene/Attention to Grooming: good hygiene 2016 None Full Exam - General 1994 Eyes conjunctiva /eyelids Overall: conjunctiva clear 2016 None Full Exam - General 1994 Eyes conjunctiva /eyelids Overall: eyelids normal 2016 None Full Exam - General 1994 Ears/Nose/Throat otoscopic exam Overall: external auditory canals clear 2016 None Full Exam - General 1994 Ears/Nose/Throat otoscopic exam Overall: tympanic membranes clear 2016 None Full Exam - General 1994 Ears/Nose/Throat lips/teeth/gingiva Overall: benign lips 2016 None Full Exam - General 1994 Ears/Nose/Throat oral cavity/pharynx/larynx Overall: oral mucosa clear 2016 None Full Exam - General 1994 Ears/Nose/Throat oral cavity/pharynx/larynx Overall: oropharyngeal mucosa clear 2016 None Full Exam - General 1994 Ears/Nose/Throat oral cavity/pharynx/larynx Overall: no masses 2016 None Full Exam - General 1994 Respiratory auscultation Overall: breath sounds clear bilaterally 2016 None Full Exam - General 1994 Respiratory respiratory effort/rhythm Overall: no retractions 2016 None Full Exam - General 1994 Respiratory respiratory effort/rhythm Overall: normal rate 2016 None Full Exam - General 1994 Cardiovascular extremities Overall: no clubbing 2016 None Full Exam - General 1994 Cardiovascular auscultation of heart Overall: regular rate 2016 None Full Exam - General 1994 Cardiovascular auscultation of heart Overall: normal heart sounds 2016 None Full Exam - General 1994 Lymphatic neck nodes Overall: anterior cervical chain benign 2016 None Full Exam - General 1994 Lymphatic neck nodes Overall: posterior cervical chain benign 2016 None Full Exam - General 1994 Musculoskeletal spine, ribs and pelvis Overall: good posture 2016 None Full Exam - General 1994 Musculoskeletal head and neck Overall: head atraumatic 2016 None Full Exam - General 1994 Neurologic cranial nerves Overall: crainial nerves 2 - 12 grossly intact 2016 None Full Exam - General 1994 Psychiatric orientation/consciousness Overall: oriented to person, place and time 2016 None Full Exam - General 1994 Psychiatric mood and affect Overall: normal mood and affect 2016 None Full Exam - General 1994 Constitutional general appearance Overall: well developed 2016 None Full Exam - General 1994 Constitutional general appearance Overall: in no acute distress 2016 None Full Exam - General 1994 Constitutional general appearance Overall: well nourished 2016 None Full Exam - General 1994 Respiratory auscultation Diffuse: diminished 2016 None Full Exam - General 1994 Psychiatric appearance Overall: well-groomed, good eye contact 2016 None Full Exam - General 1994 Respiratory auscultation Lower lung field: crackles 2016 very faint Full Exam - General 1994 Constitutional general appearance Development: well developed 11/25/2016 None Full Exam - General 1994 Constitutional general appearance Development: appears stated age 0311/25/2016 None Full Exam - General 1994 Constitutional general appearance Hygiene/Attention to Grooming: good hygiene 11/25/2016 None Full Exam - General 1994 Eyes conjunctiva /eyelids Overall: conjunctiva clear 11/25/2016 None Full Exam - General 1994 Eyes conjunctiva /eyelids Overall: cornea clear 11/25/2016 None Full Exam - General 1994 Eyes conjunctiva /eyelids Overall: eyelids normal 11/25/2016 None Full Exam - General 1994 Eyes pupils and irises Overall: pupils equal, round, reactive to light and accomodation 11/25/2016 None Full Exam - General 1994 Ears/Nose/Throat otoscopic exam Overall: external auditory canals clear 11/25/2016 None Full Exam - General 1994 Ears/Nose/Throat otoscopic exam Overall: tympanic membranes clear 11/25/2016 None Full Exam - General 1994 Ears/Nose/Throat lips/teeth/gingiva Overall: benign lips 11/25/2016 None Full Exam - General 1994 Ears/Nose/Throat lips/teeth/gingiva Overall: normal dentition 11/25/2016 None Full Exam - General 1994 Ears/Nose/Throat oral cavity/pharynx/larynx Overall: oral mucosa clear 11/25/2016 None Full Exam - General 1994 Ears/Nose/Throat oral cavity/pharynx/larynx Overall: oropharyngeal mucosa clear 11/25/2016 None Full Exam - General 1994 Ears/Nose/Throat oral cavity/pharynx/larynx Overall: hypopharynx benign 11/25/2016 None Full Exam - General 1994 Ears/Nose/Throat oral cavity/pharynx/larynx Overall: no masses 11/25/2016 None Full Exam - General 1994 Respiratory auscultation Overall: breath sounds clear bilaterally 11/25/2016 None Full Exam - General 1994 Respiratory respiratory effort/rhythm Overall: no retractions 11/25/2016 None Full Exam - General 1994 Respiratory respiratory effort/rhythm Overall: normal rate 11/25/2016 None Full Exam - General 1994 Cardiovascular extremities Overall: no clubbing 11/25/2016 None Full Exam - General 1994 Cardiovascular auscultation of heart Overall: regular rate 11/25/2016 None Full Exam - General 1994 Cardiovascular auscultation of heart Overall: normal heart sounds 11/25/2016 None Full Exam - General 1994 Abdomen abdominal exam Overall: no tenderness 11/25/2016 None Full Exam - General 1994 Abdomen abdominal exam Overall: normal bowel sounds 11/25/2016 None Full Exam - General 1994 Lymphatic neck nodes Overall: anterior cervical chain benign 11/25/2016 None Full Exam - General 1994 Lymphatic neck nodes Overall: posterior cervical chain benign 11/25/2016 None Full Exam - General 1994 Musculoskeletal spine, ribs and pelvis Overall: spine benign 11/25/2016 None Full Exam - General 1994 Musculoskeletal spine, ribs and pelvis Overall: sacroiliac joint benign 11/25/2016 None Full Exam - General 1994 Musculoskeletal spine, ribs and pelvis Overall: good posture 11/25/2016 None Full Exam - General 1994 Musculoskeletal head and neck Overall: head atraumatic 11/25/2016 None Full Exam - General 1994 Musculoskeletal head and neck Overall: cervical spine benign 11/25/2016 None Full Exam - General 1994 Integument inspection of skin Overall: few scattered moles, no gross abnormalities 11/25/2016 None Full Exam - General 1994 Neurologic deep tendon reflexes Overall: deep tendon reflexes intact 11/25/2016 None Full Exam - General 1994 Neurologic cranial nerves Overall: crainial nerves 2 - 12 grossly intact 11/25/2016 None Full Exam - General 1994 Psychiatric orientation/consciousness Overall: oriented to person, place and time 11/25/2016 None Full Exam - General 1994 Psychiatric mood and affect Overall: normal mood and affect 11/25/2016 None Full Exam - General 1994 Constitutional general appearance Hygiene/Attention to Grooming: good hygiene 11/12/2016 None Full Exam - General 1994 Eyes conjunctiva /eyelids Overall: conjunctiva clear 11/12/2016 None Full Exam - General 1994 Eyes conjunctiva /eyelids Overall: eyelids normal 11/12/2016 None Full Exam - General 1994 Eyes pupils and irises Overall: pupils equal, round, reactive to light and accomodation 11/12/2016 None Full Exam - General 1994 Ears/Nose/Throat lips/teeth/gingiva Overall: benign lips 11/12/2016 None Full Exam - General 1994 Ears/Nose/Throat lips/teeth/gingiva Overall: normal dentition 11/12/2016 None Full Exam - General 1994 Ears/Nose/Throat oral cavity/pharynx/larynx Overall: oral mucosa clear 11/12/2016 None Full Exam - General 1994 Respiratory auscultation Lower lung field: diminished 11/12/2016 None Full Exam - General 1994 Respiratory respiratory effort/rhythm Overall: no retractions 11/12/2016 None Full Exam - General 1994 Respiratory respiratory effort/rhythm Overall: normal rate 11/12/2016 None Full Exam - General 1994 Cardiovascular extremities Overall: no clubbing 11/12/2016 None Full Exam - General 1994 Cardiovascular auscultation of heart Overall: regular rate 11/12/2016 None Full Exam - General 1994 Cardiovascular auscultation of heart Overall: normal heart sounds 11/12/2016 None Full Exam - General 1994 Musculoskeletal head and neck Overall: head atraumatic 11/12/2016 None Full Exam - General 1994 Neurologic cranial nerves Overall: crainial nerves 2 - 12 grossly intact 11/12/2016 None Full Exam - General 1994 Psychiatric orientation/consciousness Overall: oriented to person, place and time 11/12/2016 None Full Exam - General 1994 Psychiatric mood and affect Overall: normal mood and affect 11/12/2016 None Full Exam - General 1994 Constitutional general appearance Overall: well developed 11/12/2016 None Full Exam - General 1994 Constitutional general appearance Overall: in no acute distress 11/12/2016 None Full Exam - General 1994 Constitutional general appearance Overall: well nourished 11/12/2016 None Full Exam - General 1994 Psychiatric appearance Overall: well-groomed, good eye contact 11/12/2016 None Full Exam - General 1994 Constitutional general appearance Development: well developed 11/11/2016 None Full Exam - General 1994 Constitutional general appearance Development: appears stated age 0311/11/2016 None Full Exam - General 1994 Constitutional general appearance Hygiene/Attention to Grooming: good hygiene 11/11/2016 None Full Exam - General 1994 Eyes conjunctiva /eyelids Overall: conjunctiva clear 11/11/2016 None Full Exam - General 1994 Eyes conjunctiva /eyelids Overall: cornea clear 11/11/2016 None Full Exam - General 1994 Eyes conjunctiva /eyelids Overall: eyelids normal 11/11/2016 None Full Exam - General 1994 Eyes pupils and irises Overall: pupils equal, round, reactive to light and accomodation 11/11/2016 None Full Exam - General 1994 Ears/Nose/Throat otoscopic exam Overall: external auditory canals clear 11/11/2016 None Full Exam - General 1994 Ears/Nose/Throat otoscopic exam Overall: tympanic membranes clear 11/11/2016 None Full Exam - General 1994 Ears/Nose/Throat lips/teeth/gingiva Overall: benign lips 11/11/2016 None Full Exam - General 1994 Ears/Nose/Throat lips/teeth/gingiva Overall: normal dentition 11/11/2016 None Full Exam - General 1994 Ears/Nose/Throat oral cavity/pharynx/larynx Overall: oral mucosa clear 11/11/2016 None Full Exam - General 1994 Ears/Nose/Throat oral cavity/pharynx/larynx Overall: oropharyngeal mucosa clear 11/11/2016 None Full Exam - General 1994 Ears/Nose/Throat oral cavity/pharynx/larynx Overall: hypopharynx benign 11/11/2016 None Full Exam - General 1994 Ears/Nose/Throat oral cavity/pharynx/larynx Overall: no masses 11/11/2016 None Full Exam - General 1994 Respiratory auscultation Lower lung field: diminished 11/11/2016 None Full Exam - General 1994 Respiratory respiratory effort/rhythm Overall: no retractions 11/11/2016 None Full Exam - General 1994 Respiratory respiratory effort/rhythm Overall: normal rate 11/11/2016 None Full Exam - General 1994 Cardiovascular extremities Overall: no clubbing 11/11/2016 None Full Exam - General 1994 Cardiovascular auscultation of heart Overall: regular rate 11/11/2016 None Full Exam - General 1994 Cardiovascular auscultation of heart Overall: normal heart sounds 11/11/2016 None Full Exam - General 1994 Abdomen abdominal exam Overall: no tenderness 11/11/2016 None Full Exam - General 1994 Abdomen abdominal exam Overall: normal bowel sounds 11/11/2016 None Full Exam - General 1994 Musculoskeletal head and neck Overall: head atraumatic 11/11/2016 None Full Exam - General 1994 Musculoskeletal head and neck Overall: cervical spine benign 11/11/2016 None Full Exam - General 1994 Neurologic deep tendon reflexes Overall: deep tendon reflexes intact 11/11/2016 None Full Exam - General 1994 Neurologic cranial nerves Overall: crainial nerves 2 - 12 grossly intact 11/11/2016 None Full Exam - General 1994 Psychiatric orientation/consciousness Overall: oriented to person, place and time 11/11/2016 None Full Exam - General 1994 Psychiatric mood and affect Overall: normal mood and affect 11/11/2016 None Full Exam - General 1994 Constitutional general appearance Development: well developed 07/28/2016 None Full Exam - General 1994 Constitutional general appearance Development: appears stated age 1107/28/2016 None Full Exam - General 1994 Constitutional general appearance Hygiene/Attention to Grooming: good hygiene 07/28/2016 None Full Exam - General 1994 Eyes conjunctiva /eyelids Overall: conjunctiva clear 07/28/2016 None Full Exam - General 1994 Eyes conjunctiva /eyelids Overall: cornea clear 07/28/2016 None Full Exam - General 1994 Eyes conjunctiva /eyelids Overall: eyelids normal 07/28/2016 None Full Exam - General 1994 Eyes pupils and irises Overall: pupils equal, round, reactive to light and accomodation 07/28/2016 None Full Exam - General 1994 Ears/Nose/Throat otoscopic exam Overall: external auditory canals clear 07/28/2016 None Full Exam - General 1994 Ears/Nose/Throat otoscopic exam Overall: tympanic membranes clear 07/28/2016 None Full Exam - General 1994 Ears/Nose/Throat lips/teeth/gingiva Overall: benign lips 07/28/2016 None Full Exam - General 1994 Ears/Nose/Throat lips/teeth/gingiva Overall: normal dentition 07/28/2016 None Full Exam - General 1994 Ears/Nose/Throat oral cavity/pharynx/larynx Overall: oral mucosa clear 07/28/2016 None Full Exam - General 1994 Ears/Nose/Throat oral cavity/pharynx/larynx Overall: oropharyngeal mucosa clear 07/28/2016 None Full Exam - General 1994 Ears/Nose/Throat oral cavity/pharynx/larynx Overall: hypopharynx benign 07/28/2016 None Full Exam - General 1994 Ears/Nose/Throat oral cavity/pharynx/larynx Overall: no masses 07/28/2016 None Full Exam - General 1994 Respiratory auscultation Overall: breath sounds clear bilaterally 07/28/2016 None Full Exam - General 1994 Respiratory respiratory effort/rhythm Overall: no retractions 07/28/2016 None Full Exam - General 1994 Respiratory respiratory effort/rhythm Overall: normal rate 07/28/2016 None Full Exam - General 1994 Cardiovascular extremities Overall: no clubbing 07/28/2016 None Full Exam - General 1994 Cardiovascular auscultation of heart Overall: regular rate 07/28/2016 None Full Exam - General 1994 Cardiovascular auscultation of heart Overall: normal heart sounds 07/28/2016 None Full Exam - General 1994 Lymphatic neck nodes Overall: anterior cervical chain benign 07/28/2016 None Full Exam - General 1994 Lymphatic neck nodes Overall: posterior cervical chain benign 07/28/2016 None Full Exam - General 1994 Neurologic cranial nerves Overall: crainial nerves 2 - 12 grossly intact 07/28/2016 None Full Exam - General 1994 Psychiatric orientation/consciousness Overall: oriented to person, place and time 07/28/2016 None Full Exam - General 1994 Psychiatric mood and affect Overall: normal mood and affect 07/28/2016 None Full Exam - General 1994 Constitutional general appearance Development: well developed 07/17/2016 None Full Exam - General 1994 Constitutional general appearance Development: appears stated age 1107/17/2016 None Full Exam - General 1994 Constitutional general appearance Hygiene/Attention to Grooming: good hygiene 07/17/2016 None Full Exam - General 1994 Eyes conjunctiva /eyelids Overall: conjunctiva clear 07/17/2016 None Full Exam - General 1994 Eyes conjunctiva /eyelids Overall: cornea clear 07/17/2016 None Full Exam - General 1994 Eyes conjunctiva /eyelids Overall: eyelids normal 07/17/2016 None Full Exam - General 1994 Eyes pupils and irises Overall: pupils equal, round, reactive to light and accomodation 07/17/2016 None Full Exam - General 1994 Ears/Nose/Throat otoscopic exam Overall: external auditory canals clear 07/17/2016 None Full Exam - General 1994 Ears/Nose/Throat otoscopic exam Overall: tympanic membranes clear 07/17/2016 None Full Exam - General 1994 Ears/Nose/Throat lips/teeth/gingiva Overall: benign lips 07/17/2016 None Full Exam - General 1994 Ears/Nose/Throat lips/teeth/gingiva Overall: normal dentition 07/17/2016 None Full Exam - General 1994 Ears/Nose/Throat oral cavity/pharynx/larynx Overall: oral mucosa clear 07/17/2016 None Full Exam - General 1994 Ears/Nose/Throat oral cavity/pharynx/larynx Overall: oropharyngeal mucosa clear 07/17/2016 None Full Exam - General 1994 Ears/Nose/Throat oral cavity/pharynx/larynx Overall: hypopharynx benign 07/17/2016 None Full Exam - General 1994 Ears/Nose/Throat oral cavity/pharynx/larynx Overall: no masses 07/17/2016 None Full Exam - General 1994 Respiratory respiratory effort/rhythm Overall: no retractions 07/17/2016 None Full Exam - General 1994 Respiratory respiratory effort/rhythm Overall: normal rate 07/17/2016 None Full Exam - General 1994 Cardiovascular extremities Overall: no clubbing 07/17/2016 None Full Exam - General 1994 Cardiovascular auscultation of heart Overall: regular rate 07/17/2016 None Full Exam - General 1994 Cardiovascular auscultation of heart Overall: normal heart sounds 07/17/2016 None Full Exam - General 1994 Abdomen abdominal exam Overall: no tenderness 07/17/2016 None Full Exam - General 1994 Abdomen abdominal exam Overall: normal bowel sounds 07/17/2016 None Full Exam - General 1994 Musculoskeletal head and neck Overall: head atraumatic 07/17/2016 None Full Exam - General 1994 Musculoskeletal head and neck Overall: cervical spine benign 07/17/2016 None Full Exam - General 1994 Neurologic deep tendon reflexes Overall: deep tendon reflexes intact 07/17/2016 None Full Exam - General 1994 Neurologic cranial nerves Overall: crainial nerves 2 - 12 grossly intact 07/17/2016 None Full Exam - General 1994 Psychiatric orientation/consciousness Overall: oriented to person, place and time 07/17/2016 None Full Exam - General 1994 Psychiatric mood and affect Overall: normal mood and affect 07/17/2016 None Full Exam - General 1994 Respiratory auscultation Lower lung field: diminished 07/17/2016 None Full Exam - General 1994 Respiratory auscultation Lower lung field: crackles 07/17/2016 None Full Exam - General 1994 Constitutional general appearance Development: well developed 04/08/2016 None Full Exam - General 1994 Constitutional general appearance Development: appears stated age 0804/08/2016 None Full Exam - General 1994 Constitutional general appearance Hygiene/Attention to Grooming: good hygiene 04/08/2016 None Full Exam - General 1994 Eyes conjunctiva /eyelids Overall: conjunctiva clear 04/08/2016 None Full Exam - General 1994 Eyes conjunctiva /eyelids Overall: cornea clear 04/08/2016 None Full Exam - General 1994 Eyes conjunctiva /eyelids Overall: eyelids normal 04/08/2016 None Full Exam - General 1994 Eyes pupils and irises Overall: pupils equal, round, reactive to light and accomodation 04/08/2016 None Full Exam - General 1994 Ears/Nose/Throat otoscopic exam Overall: external auditory canals clear 04/08/2016 None Full Exam - General 1994 Ears/Nose/Throat otoscopic exam Overall: tympanic membranes clear 04/08/2016 None Full Exam - General 1994 Ears/Nose/Throat lips/teeth/gingiva Overall: benign lips 04/08/2016 None Full Exam - General 1994 Ears/Nose/Throat lips/teeth/gingiva Overall: normal dentition 04/08/2016 None Full Exam - General 1994 Ears/Nose/Throat oral cavity/pharynx/larynx Overall: oral mucosa clear 04/08/2016 None Full Exam - General 1994 Ears/Nose/Throat oral cavity/pharynx/larynx Overall: oropharyngeal mucosa clear 04/08/2016 None Full Exam - General 1994 Ears/Nose/Throat oral cavity/pharynx/larynx Overall: hypopharynx benign 04/08/2016 None Full Exam - General 1994 Ears/Nose/Throat oral cavity/pharynx/larynx Overall: no masses 04/08/2016 None Full Exam - General 1994 Respiratory auscultation Overall: breath sounds clear bilaterally 04/08/2016 None Full Exam - General 1994 Respiratory respiratory effort/rhythm Overall: no retractions 04/08/2016 None Full Exam - General 1994 Respiratory respiratory effort/rhythm Overall: normal rate 04/08/2016 None Full Exam - General 1994 Cardiovascular extremities Overall: no clubbing 04/08/2016 None Full Exam - General 1994 Cardiovascular auscultation of heart Overall: regular rate 04/08/2016 None Full Exam - General 1994 Cardiovascular auscultation of heart Overall: normal heart sounds 04/08/2016 None Full Exam - General 1994 Abdomen abdominal exam Overall: no tenderness 04/08/2016 None Full Exam - General 1994 Abdomen abdominal exam Overall: normal bowel sounds 04/08/2016 None Full Exam - General 1994 Lymphatic neck nodes Overall: anterior cervical chain benign 04/08/2016 None Full Exam - General 1994 Lymphatic neck nodes Overall: posterior cervical chain benign 04/08/2016 None Full Exam - General 1994 Musculoskeletal spine, ribs and pelvis Overall: spine benign 04/08/2016 None Full Exam - General 1994 Musculoskeletal spine, ribs and pelvis Overall: sacroiliac joint benign 04/08/2016 None Full Exam - General 1994 Musculoskeletal spine, ribs and pelvis Overall: good posture 04/08/2016 None Full Exam - General 1994 Musculoskeletal head and neck Overall: head atraumatic 04/08/2016 None Full Exam - General 1994 Musculoskeletal head and neck Overall: cervical spine benign 04/08/2016 None Full Exam - General 1994 Integument inspection of skin Overall: few scattered moles, no gross abnormalities 04/08/2016 None Full Exam - General 1994 Neurologic deep tendon reflexes Overall: deep tendon reflexes intact 04/08/2016 None Full Exam - General 1994 Neurologic cranial nerves Overall: crainial nerves 2 - 12 grossly intact 04/08/2016 None Full Exam - General 1994 Psychiatric orientation/consciousness Overall: oriented to person, place and time 04/08/2016 None Full Exam - General 1994 Psychiatric mood and affect Overall: normal mood and affect 04/08/2016 None Full Exam - ENT Constitutional general appearance Overall: well nourished 03/24/2016 None Full Exam - ENT Constitutional general appearance Overall: well developed 03/24/2016 None Full Exam - ENT Constitutional general appearance Overall: in no acute distress 03/24/2016 None Full Exam - ENT Ears/Nose/Throat otoscopic exam Overall: tympanic membranes normal 03/24/2016 None Full Exam - ENT Ears/Nose/Throat otoscopic exam Overall: external auditory canals normal 03/24/2016 None Full Exam - ENT Lymphatic palpation of lymph nodes Overall: anterior cervical chain benign 03/24/2016 None Full Exam - ENT Lymphatic palpation of lymph nodes Overall: posterior cervical chain benign 03/24/2016 None Full Exam - ENT Neurologic orientation Overall: oriented to person, place and time 03/24/2016 None Full Exam - ENT Constitutional general appearance Overall: well nourished 03/13/2016 None Full Exam - ENT Constitutional general appearance Overall: well developed 03/13/2016 None Full Exam - ENT Constitutional general appearance Overall: in no acute distress 03/13/2016 None Full Exam - ENT Ears/Nose/Throat otoscopic exam Overall: external auditory canals normal 03/13/2016 None Full Exam - ENT Ears/Nose/Throat otoscopic exam Overall: tympanic membranes normal 03/13/2016 None Full Exam - ENT Neurologic orientation Overall: oriented to person, place and time 03/13/2016 None Full Exam - ENT Lymphatic palpation of lymph nodes Overall: shotty lymphadenopathy 03/13/2016 right neck Full Exam - ENT Respiratory auscultation Overall: breath sounds clear bilaterally 03/13/2016 None Full Exam - ENT Cardiovascular auscultation of heart Overall: no murmurs 03/13/2016 None Full Exam - ENT Cardiovascular auscultation of heart Overall: normal heart sounds 03/13/2016 None Full Exam - General 1994 Constitutional general appearance Development: well developed 01/22/2016 None Full Exam - General 1994 Constitutional general appearance Development: appears stated age 0501/22/2016 None Full Exam - General 1994 Constitutional general appearance Hygiene/Attention to Grooming: good hygiene 01/22/2016 None Full Exam - General 1994 Eyes conjunctiva /eyelids Overall: conjunctiva clear 01/22/2016 None Full Exam - General 1994 Eyes conjunctiva /eyelids Overall: cornea clear 01/22/2016 None Full Exam - General 1994 Eyes conjunctiva /eyelids Overall: eyelids normal 01/22/2016 None Full Exam - General 1994 Eyes pupils and irises Overall: pupils equal, round, reactive to light and accomodation 01/22/2016 None Full Exam - General 1994 Ears/Nose/Throat otoscopic exam Overall: external auditory canals clear 01/22/2016 None Full Exam - General 1994 Ears/Nose/Throat otoscopic exam Overall: tympanic membranes clear 01/22/2016 None Full Exam - General 1994 Ears/Nose/Throat lips/teeth/gingiva Overall: benign lips 01/22/2016 None Full Exam - General 1994 Ears/Nose/Throat lips/teeth/gingiva Overall: normal dentition 01/22/2016 None Full Exam - General 1994 Ears/Nose/Throat oral cavity/pharynx/larynx Overall: oral mucosa clear 01/22/2016 None Full Exam - General 1994 Ears/Nose/Throat oral cavity/pharynx/larynx Overall: oropharyngeal mucosa clear 01/22/2016 None Full Exam - General 1994 Ears/Nose/Throat oral cavity/pharynx/larynx Overall: hypopharynx benign 01/22/2016 None Full Exam - General 1994 Ears/Nose/Throat oral cavity/pharynx/larynx Overall: no masses 01/22/2016 None Full Exam - General 1994 Respiratory auscultation Overall: breath sounds clear bilaterally 01/22/2016 None Full Exam - General 1994 Respiratory respiratory effort/rhythm Overall: no retractions 01/22/2016 None Full Exam - General 1994 Respiratory respiratory effort/rhythm Overall: normal rate 01/22/2016 None Full Exam - General 1994 Cardiovascular extremities Overall: no clubbing 01/22/2016 None Full Exam - General 1994 Cardiovascular auscultation of heart Overall: regular rate 01/22/2016 None Full Exam - General 1994 Cardiovascular auscultation of heart Overall: normal heart sounds 01/22/2016 None Full Exam - General 1994 Abdomen abdominal exam Overall: no tenderness 01/22/2016 None Full Exam - General 1994 Abdomen abdominal exam Overall: normal bowel sounds 01/22/2016 None Full Exam - General 1994 Lymphatic neck nodes Overall: anterior cervical chain benign 01/22/2016 None Full Exam - General 1994 Lymphatic neck nodes Overall: posterior cervical chain benign 01/22/2016 None Full Exam - General 1994 Musculoskeletal spine, ribs and pelvis Overall: spine benign 01/22/2016 None Full Exam - General 1994 Musculoskeletal spine, ribs and pelvis Overall: sacroiliac joint benign 01/22/2016 None Full Exam - General 1994 Musculoskeletal spine, ribs and pelvis Overall: good posture 01/22/2016 None Full Exam - General 1994 Musculoskeletal head and neck Overall: head atraumatic 01/22/2016 None Full Exam - General 1994 Musculoskeletal head and neck Overall: cervical spine benign 01/22/2016 None Full Exam - General 1994 Integument inspection of skin Overall: few scattered moles, no gross abnormalities 01/22/2016 None Full Exam - General 1994 Neurologic deep tendon reflexes Overall: deep tendon reflexes intact 01/22/2016 None Full Exam - General 1994 Neurologic cranial nerves Overall: crainial nerves 2 - 12 grossly intact 01/22/2016 None Full Exam - General 1994 Psychiatric orientation/consciousness Overall: oriented to person, place and time 01/22/2016 None Full Exam - General 1994 Psychiatric mood and affect Overall: normal mood and affect 01/22/2016 None Full Exam - General 1994 Constitutional general appearance Overall: well developed 12/19/2015 None Full Exam - General 1994 Constitutional general appearance Overall: well nourished 12/19/2015 None Full Exam - General 1994 Constitutional general appearance Evidence of Distress: mild distress 12/19/2015 None Full Exam - General 1994 Eyes conjunctiva /eyelids Overall: conjunctiva clear 12/19/2015 None Full Exam - General 1994 Eyes conjunctiva /eyelids Overall: cornea clear 12/19/2015 None Full Exam - General 1994 Eyes conjunctiva /eyelids Overall: eyelids normal 12/19/2015 None Full Exam - General 1994 Eyes pupils and irises Overall: pupils equal, round, reactive to light and accomodation 12/19/2015 None Full Exam - General 1994 Respiratory auscultation Overall: breath sounds clear bilaterally 12/19/2015 None Full Exam - General 1994 Respiratory respiratory effort/rhythm Overall: no retractions 12/19/2015 None Full Exam - General 1994 Respiratory respiratory effort/rhythm Overall: normal rate 12/19/2015 None Full Exam - General 1994 Cardiovascular extremities Overall: no clubbing 12/19/2015 None Full Exam - General 1994 Cardiovascular auscultation of heart Overall: regular rate 12/19/2015 None Full Exam - General 1994 Cardiovascular auscultation of heart Overall: normal heart sounds 12/19/2015 None Full Exam - General 1994 Abdomen abdominal exam Contour: rounded 12/19/2015 None Full Exam - General 1994 Abdomen abdominal exam Upper quadrant: tender to palpation 12/19/2015 None Full Exam - General 1994 Abdomen abdominal exam Upper quadrant: sharp pain 12/19/2015 None Full Exam - General 1994 Abdomen abdominal exam Upper quadrant: no mass lesions 12/19/2015 None Full Exam - General 1994 Abdomen abdominal exam Epigastric: tender to palpation 12/19/2015 None Full Exam - General 1994 Abdomen abdominal exam Epigastric: sharp pain 12/19/2015 None Full Exam - General 1994 Abdomen abdominal exam Epigastric: no mass lesions 12/19/2015 None Full Exam - General 1994 Musculoskeletal gait and station Overall: normal gait 12/19/2015 None Full Exam - General 1994 Musculoskeletal gait and station Overall: normal station 12/19/2015 None Full Exam - General 1994 Integument inspection of skin Overall: no rash, lesions 12/19/2015 None Full Exam - General 1994 Psychiatric orientation/consciousness Overall: oriented to person, place and time 12/19/2015 None Full Exam - General 1994 Psychiatric mood and affect Mood: anxious 12/19/2015 None Full Exam - General 1994 Abdomen abdominal exam Bowel sounds: hyperactive 12/19/2015 None Full Exam - General 1994 Abdomen abdominal exam Upper quadrant: voluntary guarding 12/19/2015 None Full Exam - General 1994 Abdomen abdominal exam Upper quadrant: soft 12/19/2015 None Full Exam - General 1994 Abdomen abdominal exam Lower quadrant: non-tender to palpation 12/19/2015 None Full Exam - General 1994 Abdomen abdominal exam Lower quadrant: no guarding 12/19/2015 None Full Exam - General 1994 Abdomen abdominal exam Lower quadrant: no mass lesions 12/19/2015 None Full Exam - General 1994 Abdomen abdominal exam Lower quadrant: soft 12/19/2015 None Full Exam - General 1994 Abdomen abdominal exam Epigastric: voluntary guarding 12/19/2015 None Full Exam - General 1994 Constitutional general appearance Overall: well nourished 12/07/2015 None Full Exam - General 1994 Constitutional general appearance Overall: well developed 12/07/2015 None Full Exam - General 1994 Constitutional general appearance Evidence of Distress: mild distress 12/07/2015 None Full Exam - General 1994 Eyes conjunctiva /eyelids Overall: conjunctiva clear 12/07/2015 None Full Exam - General 1994 Eyes conjunctiva /eyelids Overall: eyelids normal 12/07/2015 None Full Exam - General 1994 Eyes conjunctiva /eyelids Overall: cornea clear 12/07/2015 None Full Exam - General 1994 Eyes pupils and irises Overall: pupils equal, round, reactive to light and accomodation 12/07/2015 None Full Exam - General 1994 Respiratory auscultation Overall: breath sounds clear bilaterally 12/07/2015 None Full Exam - General 1994 Respiratory respiratory effort/rhythm Overall: normal rate 12/07/2015 None Full Exam - General 1994 Respiratory respiratory effort/rhythm Overall: no retractions 12/07/2015 None Full Exam - General 1994 Cardiovascular extremities Overall: no clubbing 12/07/2015 None Full Exam - General 1994 Cardiovascular auscultation of heart Overall: regular rate 12/07/2015 None Full Exam - General 1994 Cardiovascular auscultation of heart Overall: normal heart sounds 12/07/2015 None Full Exam - General 1994 Cardiovascular auscultation of heart Overall: no murmurs 12/07/2015 None Full Exam - General 1994 Abdomen abdominal exam Contour: rounded 12/07/2015 None Full Exam - General 1994 Abdomen abdominal exam Bowel sounds: hypoactive 12/07/2015 None Full Exam - General 1994 Abdomen abdominal exam Upper quadrant: tender to palpation 12/07/2015 None Full Exam - General 1994 Abdomen abdominal exam Upper quadrant: sharp pain 12/07/2015 None Full Exam - General 1994 Abdomen abdominal exam Upper quadrant: no guarding 12/07/2015 None Full Exam - General 1994 Abdomen abdominal exam Upper quadrant: no mass lesions 12/07/2015 None Full Exam - General 1994 Abdomen abdominal exam Lower quadrant: tender to palpation 12/07/2015 None Full Exam - General 1994 Abdomen abdominal exam Lower quadrant: sharp pain 12/07/2015 None Full Exam - General 1994 Abdomen abdominal exam Lower quadrant: no guarding 12/07/2015 None Full Exam - General 1994 Abdomen abdominal exam Lower quadrant: no mass lesions 12/07/2015 None Full Exam - General 1994 Abdomen abdominal exam Epigastric: sharp pain 12/07/2015 None Full Exam - General 1994 Abdomen abdominal exam Epigastric: tender to palpation 12/07/2015 None Full Exam - General 1994 Abdomen abdominal exam Epigastric: no guarding 12/07/2015 None Full Exam - General 1994 Abdomen abdominal exam Epigastric: no mass lesions 12/07/2015 None Full Exam - General 1994 Musculoskeletal gait and station Overall: normal station 12/07/2015 None Full Exam - General 1994 Musculoskeletal gait and station Overall: normal gait 12/07/2015 None Full Exam - General 1994 Integument inspection of skin Overall: no rash, lesions 12/07/2015 None Full Exam - General 1994 Psychiatric orientation/consciousness Overall: oriented to person, place and time 12/07/2015 None Full Exam - General 1994 Psychiatric mood and affect Mood: anxious 12/07/2015 None Full Exam - General 1994 Constitutional general appearance Development: well developed 10/26/2015 None Full Exam - General 1994 Constitutional general appearance Development: appears stated age 0210/26/2015 None Full Exam - General 1994 Constitutional general appearance Hygiene/Attention to Grooming: good hygiene 10/26/2015 None Full Exam - General 1994 Eyes conjunctiva /eyelids Overall: conjunctiva clear 10/26/2015 None Full Exam - General 1994 Eyes conjunctiva /eyelids Overall: cornea clear 10/26/2015 None Full Exam - General 1994 Eyes conjunctiva /eyelids Overall: eyelids normal 10/26/2015 None Full Exam - General 1994 Eyes pupils and irises Overall: pupils equal, round, reactive to light and accomodation 10/26/2015 None Full Exam - General 1994 Ears/Nose/Throat oral cavity/pharynx/larynx Overall: oral mucosa clear 10/26/2015 None Full Exam - General 1994 Ears/Nose/Throat oral cavity/pharynx/larynx Overall: oropharyngeal mucosa clear 10/26/2015 None Full Exam - General 1994 Ears/Nose/Throat oral cavity/pharynx/larynx Overall: hypopharynx benign 10/26/2015 None Full Exam - General 1994 Ears/Nose/Throat oral cavity/pharynx/larynx Overall: no masses 10/26/2015 None Full Exam - General 1994 Respiratory auscultation Overall: breath sounds clear bilaterally 10/26/2015 None Full Exam - General 1994 Respiratory respiratory effort/rhythm Overall: no retractions 10/26/2015 None Full Exam - General 1994 Respiratory respiratory effort/rhythm Overall: normal rate 10/26/2015 None Full Exam - General 1994 Cardiovascular extremities Overall: no clubbing 10/26/2015 None Full Exam - General 1994 Cardiovascular auscultation of heart Overall: regular rate 10/26/2015 None Full Exam - General 1994 Cardiovascular auscultation of heart Overall: normal heart sounds 10/26/2015 None Full Exam - General 1994 Abdomen abdominal exam Overall: no tenderness 10/26/2015 None Full Exam - General 1994 Abdomen abdominal exam Overall: normal bowel sounds 10/26/2015 None Full Exam - General 1994 Neurologic cranial nerves Overall: crainial nerves 2 - 12 grossly intact 10/26/2015 None Full Exam - General 1994 Psychiatric orientation/consciousness Overall: oriented to person, place and time 10/26/2015 None Full Exam - General 1994 Psychiatric mood and affect Overall: normal mood and affect 10/26/2015 None Full Exam - General 1994 Constitutional general appearance Development: well developed 10/04/2015 None Full Exam - General 1994 Constitutional general appearance Development: appears stated age 0210/04/2015 None Full Exam - General 1994 Constitutional general appearance Hygiene/Attention to Grooming: good hygiene 10/04/2015 None Full Exam - General 1994 Eyes conjunctiva /eyelids Overall: conjunctiva clear 10/04/2015 None Full Exam - General 1994 Eyes conjunctiva /eyelids Overall: cornea clear 10/04/2015 None Full Exam - General 1994 Eyes conjunctiva /eyelids Overall: eyelids normal 10/04/2015 None Full Exam - General 1994 Eyes pupils and irises Overall: pupils equal, round, reactive to light and accomodation 10/04/2015 None Full Exam - General 1994 Ears/Nose/Throat otoscopic exam Overall: external auditory canals clear 10/04/2015 None Full Exam - General 1994 Ears/Nose/Throat otoscopic exam Overall: tympanic membranes clear 10/04/2015 None Full Exam - General 1994 Ears/Nose/Throat lips/teeth/gingiva Overall: benign lips 10/04/2015 None Full Exam - General 1994 Ears/Nose/Throat lips/teeth/gingiva Overall: normal dentition 10/04/2015 None Full Exam - General 1994 Ears/Nose/Throat oral cavity/pharynx/larynx Overall: oral mucosa clear 10/04/2015 None Full Exam - General 1994 Ears/Nose/Throat oral cavity/pharynx/larynx Overall: oropharyngeal mucosa clear 10/04/2015 None Full Exam - General 1994 Ears/Nose/Throat oral cavity/pharynx/larynx Overall: hypopharynx benign 10/04/2015 None Full Exam - General 1994 Ears/Nose/Throat oral cavity/pharynx/larynx Overall: no masses 10/04/2015 None Full Exam - General 1994 Respiratory auscultation Overall: breath sounds clear bilaterally 10/04/2015 None Full Exam - General 1994 Respiratory respiratory effort/rhythm Overall: no retractions 10/04/2015 None Full Exam - General 1994 Respiratory respiratory effort/rhythm Overall: normal rate 10/04/2015 None Full Exam - General 1994 Cardiovascular extremities Overall: no clubbing 10/04/2015 None Full Exam - General 1994 Cardiovascular auscultation of heart Overall: regular rate 10/04/2015 None Full Exam - General 1994 Cardiovascular auscultation of heart Overall: normal heart sounds 10/04/2015 None Full Exam - General 1994 Musculoskeletal spine, ribs and pelvis Overall: good posture 10/04/2015 None Full Exam - General 1994 Musculoskeletal head and neck Overall: head atraumatic 10/04/2015 None Full Exam - General 1994 Musculoskeletal head and neck Overall: cervical spine benign 10/04/2015 None Full Exam - General 1994 Neurologic deep tendon reflexes Overall: deep tendon reflexes intact 10/04/2015 None Full Exam - General 1994 Neurologic cranial nerves Overall: crainial nerves 2 - 12 grossly intact 10/04/2015 None Full Exam - General 1994 Psychiatric orientation/consciousness Overall: oriented to person, place and time 10/04/2015 None Full Exam - General 1994 Psychiatric mood and affect Overall: normal mood and affect 10/04/2015 None Full Exam - General 1994 Integument inspection of skin Location: chest 10/04/2015 at apex of scar TTP with suture material palpable at site of scar - Full Exam - General 1994 Constitutional general appearance Development: well developed 09/05/2015 None Full Exam - General 1994 Constitutional general appearance Development: appears stated age 0109/05/2015 None Full Exam - General 1994 Constitutional general appearance Hygiene/Attention to Grooming: good hygiene 09/05/2015 None Full Exam - General 1994 Eyes conjunctiva /eyelids Overall: conjunctiva clear 09/05/2015 None Full Exam - General 1994 Eyes conjunctiva /eyelids Overall: cornea clear 09/05/2015 None Full Exam - General 1994 Eyes conjunctiva /eyelids Overall: eyelids normal 09/05/2015 None Full Exam - General 1994 Eyes pupils and irises Overall: pupils equal, round, reactive to light and accomodation 09/05/2015 None Full Exam - General 1994 Ears/Nose/Throat otoscopic exam Overall: external auditory canals clear 09/05/2015 None Full Exam - General 1994 Ears/Nose/Throat otoscopic exam Overall: tympanic membranes clear 09/05/2015 None Full Exam - General 1994 Ears/Nose/Throat lips/teeth/gingiva Overall: benign lips 09/05/2015 None Full Exam - General 1994 Ears/Nose/Throat lips/teeth/gingiva Overall: normal dentition 09/05/2015 None Full Exam - General 1994 Ears/Nose/Throat oral cavity/pharynx/larynx Overall: oral mucosa clear 09/05/2015 None Full Exam - General 1994 Ears/Nose/Throat oral cavity/pharynx/larynx Overall: oropharyngeal mucosa clear 09/05/2015 None Full Exam - General 1994 Ears/Nose/Throat oral cavity/pharynx/larynx Overall: hypopharynx benign 09/05/2015 None Full Exam - General 1994 Ears/Nose/Throat oral cavity/pharynx/larynx Overall: no masses 09/05/2015 None Full Exam - General 1994 Respiratory auscultation Overall: breath sounds clear bilaterally 09/05/2015 None Full Exam - General 1994 Respiratory respiratory effort/rhythm Overall: no retractions 09/05/2015 None Full Exam - General 1994 Respiratory respiratory effort/rhythm Overall: normal rate 09/05/2015 None Full Exam - General 1994 Cardiovascular extremities Overall: no clubbing 09/05/2015 None Full Exam - General 1994 Cardiovascular auscultation of heart Overall: regular rate 09/05/2015 None Full Exam - General 1994 Cardiovascular auscultation of heart Overall: normal heart sounds 09/05/2015 None Full Exam - General 1994 Abdomen abdominal exam Overall: no tenderness 09/05/2015 None Full Exam - General 1994 Abdomen abdominal exam Overall: normal bowel sounds 09/05/2015 None Full Exam - General 1994 Lymphatic neck nodes Overall: anterior cervical chain benign 09/05/2015 None Full Exam - General 1994 Lymphatic neck nodes Overall: posterior cervical chain benign 09/05/2015 None Full Exam - General 1994 Musculoskeletal spine, ribs and pelvis Overall: spine benign 09/05/2015 None Full Exam - General 1994 Musculoskeletal spine, ribs and pelvis Overall: sacroiliac joint benign 09/05/2015 None Full Exam - General 1994 Musculoskeletal spine, ribs and pelvis Overall: good posture 09/05/2015 None Full Exam - General 1994 Musculoskeletal head and neck Overall: head atraumatic 09/05/2015 None Full Exam - General 1994 Musculoskeletal head and neck Overall: cervical spine benign 09/05/2015 None Full Exam - General 1994 Integument inspection of skin Overall: few scattered moles, no gross abnormalities 09/05/2015 None Full Exam - General 1994 Neurologic deep tendon reflexes Overall: deep tendon reflexes intact 09/05/2015 None Full Exam - General 1994 Neurologic cranial nerves Overall: crainial nerves 2 - 12 grossly intact 09/05/2015 None Full Exam - General 1994 Psychiatric orientation/consciousness Overall: oriented to person, place and time 09/05/2015 None Full Exam - General 1994 Psychiatric mood and affect Overall: normal mood and affect 09/05/2015 None Full Exam - Cardiology Ears/Nose/Throat oral mucosa Overall: oral mucosa clear 04/25/2011 None Full Exam - Cardiology Ears/Nose/Throat oral mucosa Overall: no cyanosis 04/25/2011 None Full Exam - Cardiology Chest/Breast breast/chest inspection Overall: normal chest shape 04/25/2011 None Full Exam - Cardiology Respiratory respiratory effort/rhythm Overall: no retractions 04/25/2011 None Full Exam - Cardiology Respiratory respiratory effort/rhythm Overall: normal rate 04/25/2011 None Full Exam - Cardiology Respiratory auscultation Overall: breath sounds clear bilaterally 04/25/2011 None Full Exam - Cardiology Cardiovascular auscultation of heart Overall: normal heart sounds 04/25/2011 None Full Exam - Cardiology Cardiovascular auscultation of heart Overall: regular rate 04/25/2011 None Full Exam - Cardiology Cardiovascular extremities Overall: without clubbing, cyanosis, or edema 04/25/2011 None Full Exam - Cardiology Abdomen abdominal exam Overall: no tenderness 04/25/2011 None Full Exam - Cardiology Abdomen abdominal exam Overall: normal bowel sounds 04/25/2011 None Full Exam - Cardiology Musculoskeletal back Overall: good posture 04/25/2011 None Full Exam - Cardiology Musculoskeletal gait and station Overall: normal gait 04/25/2011 None Full Exam - Cardiology Psychiatric orientation/consciousness Overall: oriented to person, place and time 04/25/2011 None Full Exam - Cardiology Psychiatric mood and affect Overall: normal mood and affect 04/25/2011 None Full Exam - Cardiology Constitutional general appearance Overall: well nourished 04/25/2011 None Full Exam - Cardiology Constitutional general appearance Overall: well developed 04/25/2011 None Full Exam - Cardiology Constitutional general appearance Overall: in no acute distress 04/25/2011 None Full Exam - Cardiology Ears/Nose/Throat teeth/gingiva/palate Overall: benign gingiva 04/25/2011 None Full Exam - Cardiology Ears/Nose/Throat teeth/gingiva/palate Teeth: a normal exam 04/25/2011 None Procedures Procedure Codes Date THER/PROPH/DIAG INJ SC/IM CPT-4: 71596 08/04/2018 TRIAMCINOLONE ACET INJ NOS CPT-4: J3301 08/04/2018 PPPS, SUBSEQ VISIT CPT -4: G0439 11/17/2017 PPPS, SUBSEQ VISIT CPT -4: G0439 11/12/2016 TRIAMCINOLONE ACET INJ NOS CPT-4: J3301 11/11/2016 TRIAMCINOLONE ACET INJ NOS CPT-4: J3301 07/17/2016 ROCEPHIN, PER 250 MG CPT-4: J0696 07/17/2016 ROCEPHIN, PER 250 MG CPT-4: J0696 03/13/2016 THER/PROPH/DIAG INJ SC/IM CPT-4: 79356 10/04/2015 TRIAMCINOLONE ACET INJ NOS CPT-4: J3301 10/04/2015 VITAMIN B12 INJECTION CPT-4: J3420 05/26/2011 THER/PROPH/DIAG INJ SC/IM CPT-4: 92863 05/26/2011 VITAMIN B12 INJECTION CPT-4: J3420 04/25/2011 THER/PROPH/DIAG INJ SC/IM CPT-4: 48641 04/25/2011 Vital Signs Date Vital 09/23/2018 Blood Pressure 1: 136/82 Code : 8480-6 BMI: 32.0 Code : 38679-4 Heart Rate 1 : 58 bpm Height: 5'2" SpO2: 98% Weight: 175 lbs 08/04/2018 Blood Pressure 1: 130/74 Code : 8480-6 BMI: 32.7 Code : 99325-1 Heart Rate 1 : 59 bpm Height: 5'2" SpO2: 97% Weight: 179 lbs 03/18/2018 Blood Pressure 1: 122/70 Code : 8480-6 BMI: 32.0 Code : 86608-5 Heart Rate 1 : 63 bpm Height: 5'2" SpO2: 97% Weight: 174 lbs 14 oz 12/01/2017 Blood Pressure 1: 130/72 Code : 8480-6 BMI: 32.0 Code : 09730-6 Heart Rate 1 : 66 bpm Height: 5'2" SpO2: 96% Weight: 175 lbs 11/17/2017 Blood Pressure 1: 138/74 Code : 8480-6 BMI: 32.2 Code : 11206-8 Heart Rate 1 : 61 bpm Height: 5'2" SpO2: 98% Waist Measure (cm): 94 cm Weight: 176 lbs 08/11/2017 Blood Pressure 1: 126/64 Code : 8480-6 BMI: 32.2 Code : 08441-8 Heart Rate 1 : 57 bpm Height: 5'2" SpO2: 98% Weight: 176 lbs 04/07/2017 Blood Pressure 1: 120/70 Code : 8480-6 BMI: 33.1 Code : 35801-2 Heart Rate 1 : 80 bpm Height: 5'2" SpO2: 95% Weight: 181 lbs 01/05/2017 Blood Pressure 1: 128/70 Code : 8480-6 Heart Rate 1: 68 bpm Height: 5'2" SpO2: 96% Temperature: 36.6 (C) / 97.8 (F) Weight: 2016 Blood Pressure 1: 134/62 Code : 8480-6 BMI: 32.6 Code : 92025-8 Heart Rate 1 : 66 bpm Height: 5'2" SpO2: 97% Weight: 178 lbs 11/25/2016 Blood Pressure 1: 144/78 Code : 8480-6 BMI: 32.7 Code : 12539-6 Heart Rate 1 : 54 bpm Height: 5'2" SpO2: 96% Weight: 179 lbs 11/12/2016 Blood Pressure 1: 132/70 Code : 8480-6 BMI: 23.6 Code : 73781-5 Heart Rate 1 : 66 bpm Height: 5'2" SpO2: 98% Waist Measure (cm): 69 cm Weight: 129 lbs 11/11/2016 Blood Pressure 1: 132/68 Code : 8480-6 BMI: 33.1 Code : 06319-0 Heart Rate 1 : 66 bpm Height: 5'2" SpO2: 98% Temperature: 36.6 (C) / 97.8 (F) Weight: 181 lbs 07/28/2016 Blood Pressure 1: 138/78 Code : 8480-6 BMI: 32.0 Code : 04101-8 Heart Rate 1 : 60 bpm Height: 5'2" SpO2: 98% Weight: 175 lbs 07/17/2016 Blood Pressure 1: 118/62 Code : 8480-6 BMI: 31.5 Code : 37946-8 Heart Rate 1 : 66 bpm Height: 5'2" SpO2: 97% Temperature: 36.8 (C) / 98.2 (F) Weight: 172 lbs 04/08/2016 Blood Pressure 1: 138/72 Code : 8480-6 BMI: 31.5 Code : 18213-8 Heart Rate 1 : 58 bpm Height: 5'2" SpO2: 98% Weight: 172 lbs 03/24/2016 Blood Pressure 1: 128/82 Code : 8480-6 BMI: 30.9 Code : 21629-0 Heart Rate 1 : 53 bpm Height: 5'2" SpO2: 96% Weight: 169 lbs 03/13/2016 Blood Pressure 1: 122/72 Code : 8480-6 BMI: 31.1 Code : 73243-6 Heart Rate 1 : 54 bpm Height: 5'2" SpO2: 98% Temperature: 36.7 (C) / 98.0 (F) Weight: 170 lbs 01/22/2016 Blood Pressure 1: 116/58 Code : 8480-6 BMI: 31.5 Code : 07413-7 Heart Rate 1 : 59 bpm Height: 5'2" SpO2: 98% Weight: 172 lbs 12/19/2015 Blood Pressure 1: 158/88 Code : 8480-6 BMI: 30.7 Code : 19275-7 Heart Rate 1 : 70 bpm Height: 5'2" SpO2: 97% Weight: 168 lbs 12/07/2015 Blood Pressure 1: 118/74 Code : 8480-6 BMI: 31.5 Code : 46660-5 Heart Rate 1 : 71 bpm Height: 5'2" SpO2: 93% Temperature: 35.6 (C) / 96.0 (F) Weight: 172 lbs 10/26/2015 Blood Pressure 1: 122/76 Code : 8480-6 BMI: 31.2 Code : 57167-4 Heart Rate 1 : 60 bpm Height: 5'2" SpO2: 98% Weight: 170 lbs 8 oz 10/04/2015 Blood Pressure 1: 120/74 Code : 8480-6 BMI: 31.5 Code : 29440-8 Heart Rate 1 : 57 bpm Height: 5'2" SpO2: 97% Weight: 172 lbs 09/05/2015 Blood Pressure 1: 160/82 Code : 8480-6 BMI: 31.1 Code : 93864-9 Heart Rate 1 : 61 bpm Height: 5'2" SpO2: 98% Weight: 170 lbs 04/25/2011 Blood Pressure 1: 146/88 Code : 8480-6 BMI: 38.9 Code : 53042-2 Heart Rate 1 : 64 bpm Height: 5' Respiratory Rate: 24 bpm Weight: 199 lbs Functional Status No Functional Status data History of Present Illness Symptom Name Status Result Effective Date Notes Quality dry 2018 None Quality intermittent 09/23/2018 None Pertinent Findings Denies dyspnea 09/23/2018 None Pertinent Findings Denies fever 09/23/2018 None Quality intermittent 09/23/2018 None Onset and Resolution ongoing 09/23/2018 None Onset of Symptom Denies 1-2 months ago 09/23/2018 None Frequency of Episodes every meal 09/23/2018 None Pertinent Findings cough 09/23/2018 None Pertinent Findings Denies hoarseness 09/23/2018 None Pertinent Findings heartburn 09/23/2018 None Location in the lung 08/04/2018 None Quality constant 12/2017 None Quality hacking 08/04 None Onset and Resolution sudden in onset 08/04/2018 None Onset of Symptom 2 weeks ago 08/04/2018 None Frequency of Episodes daily 08/04/2018 None Onset and Resolution ongoing 08/04/2018 None Onset of Symptom during adulthood 08/04/2018 None Alleviating Factors medication 08/04/2018 None Pertinent Findings decreased energy 08/04/2018 None hypertension Onset and Resolution ongoing 03/18/2018 None hypertension Onset of Symptom during adulthood 03/18/2018 None hypertension Alleviating Factors medication 03/18/2018 None hypertension Pertinent Findings Denies anxiety 03/18/2018 None hypertension Pertinent Findings decreased energy 03/18/2018 None hypertension Pertinent Findings Denies dizziness 03/18/2018 None hypertension Pertinent Findings Denies dyspnea 03/18/2018 None hypertension Pertinent Findings Denies edema 03/18/2018 None chest pain/pressure Location in the substernal area 03/18/2018 None chest pain/pressure Quality sharp 03/18/2018 None chest pain/pressure Onset of Symptom 3 years ago 03/18/2018 None chest pain/pressure Radiating the back 03/18/2018 None chest pain/pressure Pertinent Findings back pain 03/18/2018 None chest pain/pressure Pertinent Findings dyspnea 03/18/2018 None hypertension Onset and Resolution ongoing 12/01/2017 None hypertension Onset of Symptom during adulthood 12/01/2017 None hypertension Alleviating Factors medication 12/01/2017 None hypertension Pertinent Findings decreased energy 12/01/2017 None hypertension Pertinent Findings Denies dizziness 12/01/2017 None hypertension Pertinent Findings Denies dyspnea 12/01/2017 None hypertension Pertinent Findings Denies edema 12/01/2017 None hypertension Pertinent Findings Denies anxiety 12/01/2017 None breast complaint Location diffusely 12/01/2017 None breast complaint Onset and Resolution sudden in onset 12/01/2017 None breast complaint Pertinent Findings breast pain 12/01/2017 None breast complaint Triggers no known associated factors 12/01/2017 None Annual Medicare Wellness Exam Alcohol Use does not drink any alcohol 11/17/2017 None Annual Medicare Wellness Exam Aspirin Use yes 11/17/2017 None Annual Medicare Wellness Exam Blood Glucose (self reported) don't know 11/17/2017 None Annual Medicare Wellness Exam Blood Pressure (self reported ) don't know 11/17/2017 None Annual Medicare Wellness Exam Cholesterol (self reported) desireable (below 200) 11/17/2017 None Annual Medicare Wellness Exam Depression (last 6 months) some of the time 11/17/2017 None Annual Medicare Wellness Exam Depression or Hopelessness almost never 11/17/2017 None Annual Medicare Wellness Exam Describe Your Health fair 11/17/2017 None Annual Medicare Wellness Exam Exercise Habits does not exercise 11/17/2017 None Annual Medicare Wellness Exam Handling Stress usually jules effectively 11/17/2017 None Annual Medicare Wellness Exam Hemaglobin A-1C (self reported ) don't know 11/17/2017 None Annual Medicare Wellness Exam Hours of Sleep 7 11/17/2017 None Annual Medicare Wellness Exam Interaction with Friends yes 11/17/2017 None Annual Medicare Wellness Exam Interests & Pleasure most of the time 11/17/2017 None Annual Medicare Wellness Exam Life Satisfaction satisfied 11/17/2017 None Annual Medicare Wellness Exam Motor Vehicle Safety always fastens seat belt: y 11/17/2017 None Annual Medicare Wellness Exam Motor Vehicle Safety drives after drinking: n 11/17/2017 None Annual Medicare Wellness Exam Motor Vehicle Safety rides with someone who has been drinking: n 2017 None Annual Medicare Wellness Exam Nutrition servings of fried food / high fat foods per day: 1 2017 None Annual Medicare Wellness Exam Nutrition servings of high fiber / whole grain per day: 1 11/17/2017 None Annual Medicare Wellness Exam Nutrition servings of vegetables / fruit per day: 4 11/17/2017 None Annual Medicare Wellness Exam Smoking and Tobacco Use non smoker 11/17/2017 None Annual Medicare Wellness Exam Social & Emotional Support always 11/17/2017 None Annual Medicare Wellness Exam Stress some of the time 11/17/2017 None Annual Medicare Wellness Exam Sun Exposure protects skin when outdoors: y 11/17/2017 None fatigue Onset and Resolution ongoing 08/11/2017 None fatigue Onset of Symptom _ months ago 08/11/2017 None fatigue Limitation on Activities moderately limits activities 08/11/2017 None fatigue Pertinent Findings Denies back pain 08/11/2017 None fatigue Pertinent Findings Denies dizziness 08/11/2017 None paresthesia Location on both feet 08/11/2017 None paresthesia Location on both legs 08/11/2017 None paresthesia Quality burning 08/11/2017 None paresthesia Quality intermittent 08/11/2017 None paresthesia Quality numbness 08/11/2017 None paresthesia Onset and Resolution ongoing 08/11/2017 None paresthesia Pertinent Findings Denies back pain 08/11/2017 None paresthesia Pertinent Findings Denies dyspnea 08/11/2017 None swelling Location-Major on the head 08/11/2017 None hypertension Onset and Resolution ongoing 08/11/2017 None hypertension Onset of Symptom during adulthood 08/11/2017 None hypertension Alleviating Factors medication 08/11/2017 None hypertension Pertinent Findings decreased energy 08/11/2017 None fatigue Onset and Resolution ongoing 04/07/2017 None fatigue Onset of Symptom _ months ago 04/07/2017 None fatigue Limitation on Activities moderately limits activities 04/07/2017 None fatigue Pertinent Findings Denies back pain 04/07/2017 None fatigue Pertinent Findings Denies dizziness 04/07/2017 None paresthesia Location on both legs 04/07/2017 None paresthesia Location on both feet 04/07/2017 None paresthesia Quality intermittent 04/07/2017 None paresthesia Quality numbness 04/07/2017 None paresthesia Quality burning 04/07/2017 None paresthesia Onset and Resolution ongoing 04/07/2017 None paresthesia Pertinent Findings Denies back pain 04/07/2017 None paresthesia Pertinent Findings Denies dyspnea 04/07/2017 None hypertension Onset and Resolution ongoing 01/05/2017 None hypertension Onset of Symptom during adulthood 01/05/2017 None hypertension Blood Pressure Values patient checking blood pressure at home - did not bring in readings 01/05/2017 None hypertension Alleviating Factors medication 01/05/2017 None hypertension Pertinent Findings decreased energy 01/05/2017 None hypertension Pertinent Findings Denies dizziness 01/05/2017 None hypertension Pertinent Findings dyspnea 01/05/2017 None hypertension Pertinent Findings edema 01/05/2017 None fatigue Onset and Resolution ongoing 01/05/2017 None cough Quality intermittent 01/05/2017 None cough Quality productive 01/05/2017 None cough Onset and Resolution ongoing 01/05/2017 None cough Location in the throat 01/05/2017 None cough Pertinent Findings chest discomfort 01/05/2017 None cough Pertinent Findings dyspnea 01/05/2017 None cough Pertinent Findings Denies fever 01/05/2017 None cough Pertinent Findings lethargy 01/05/2017 None cough Pertinent Findings hoarseness 01/05/2017 None hypertension Onset and Resolution ongoing 2016 None hypertension Onset of Symptom during adulthood 2016 None hypertension Blood Pressure Values patient checking blood pressure at home - did not bring in readings 2016 None hypertension Alleviating Factors medication 2016 None hypertension Pertinent Findings decreased energy 2016 None hypertension Pertinent Findings Denies dizziness 2016 None hypertension Pertinent Findings dyspnea 2016 None hypertension Pertinent Findings edema 2016 None fatigue Onset and Resolution ongoing 2016 None cough Quality intermittent 2016 None cough Quality productive 2016 None cough Onset and Resolution ongoing 2016 None myalgias Location on both feet 2016 None myalgias Location on both legs 2016 None myalgias Location on the left hand 2016 None myalgias Quality intermittent 2016 None myalgias Onset and Resolution ongoing 2016 None spasms/spasticity Location on both arms 2016 None spasms/spasticity Quality intermittent 2016 None spasms/spasticity Quality painful 2016 None spasms/spasticity Onset and Resolution ongoing 2016 None spasms/spasticity Onset of Symptom 2 months ago 2016 None spasms/spasticity Triggers no known associated factors 2016 None myalgias Location on both legs 11/25/2016 None myalgias Location on the left hand 11/25/2016 None myalgias Location on both feet 11/25/2016 None myalgias Quality intermittent 11/25/2016 None myalgias Onset and Resolution ongoing 11/25/2016 None cough Quality intermittent 11/25/2016 None cough Onset and Resolution ongoing 11/25/2016 None spasms/spasticity Location on both arms 11/25/2016 None spasms/spasticity Quality intermittent 11/25/2016 None spasms/spasticity Quality painful 11/25/2016 None spasms/spasticity Onset and Resolution ongoing 11/25/2016 None spasms/spasticity Onset of Symptom 2 months ago 11/25/2016 None spasms/spasticity Triggers no known associated factors 11/25/2016 None fatigue Onset and Resolution ongoing 11/25/2016 None hypertension Onset and Resolution ongoing 11/25/2016 None hypertension Onset of Symptom during adulthood 11/25/2016 None hypertension Alleviating Factors medication 11/25/2016 None hypertension Blood Pressure Values patient checking blood pressure at home - did not bring in readings 11/25/2016 None hypertension Pertinent Findings decreased energy 11/25/2016 None hypertension Pertinent Findings Denies dizziness 11/25/2016 None hypertension Pertinent Findings dyspnea 11/25/2016 None hypertension Pertinent Findings edema 11/25/2016 None cough Quality productive 11/25/2016 None Annual Medicare Wellness Exam Alcohol Use does not drink any alcohol 11/12/2016 None Annual Medicare Wellness Exam Aspirin Use yes 11/12/2016 None Annual Medicare Wellness Exam Blood Glucose (self reported) desireable (below 100) 11/12/2016 None Annual Medicare Wellness Exam Blood Pressure (self reported ) borderline (120/80 - 139/89) 11/12/2016 None Annual Medicare Wellness Exam Cholesterol (self reported) desireable (below 200) 11/12/2016 None Annual Medicare Wellness Exam Depression (last 6 months) some of the time 11/12/2016 None Annual Medicare Wellness Exam Depression or Hopelessness almost never 11/12/2016 None Annual Medicare Wellness Exam Describe Your Health poor 11/12/2016 None Annual Medicare Wellness Exam Exercise Habits does not exercise 11/12/2016 None Annual Medicare Wellness Exam Handling Stress usually jules effectively 11/12/2016 None Annual Medicare Wellness Exam Hemaglobin A-1C (self reported ) don't know 11/12/2016 None Annual Medicare Wellness Exam Hours of Sleep 6 11/12/2016 None Annual Medicare Wellness Exam Interaction with Friends yes 11/12/2016 None Annual Medicare Wellness Exam Interests & Pleasure some of the time 11/12/2016 None Annual Medicare Wellness Exam Life Satisfaction very satisfied 11/12/2016 None Annual Medicare Wellness Exam Motor Vehicle Safety always fastens seat belt: y 11/12/2016 None Annual Medicare Wellness Exam Motor Vehicle Safety drives after drinking: n 11/12/2016 None Annual Medicare Wellness Exam Motor Vehicle Safety rides with someone who has been drinking: n 2016 None Annual Medicare Wellness Exam Nutrition servings of fried food / high fat foods per day: 1 2016 None Annual Medicare Wellness Exam Nutrition servings of high fiber / whole grain per day: 2 11/12/2016 None Annual Medicare Wellness Exam Nutrition servings of vegetables / fruit per day: 2 11/12/2016 None Annual Medicare Wellness Exam Smoking and Tobacco Use non smoker 11/12/2016 None Annual Medicare Wellness Exam Social & Emotional Support always 11/12/2016 None Annual Medicare Wellness Exam Stress some of the time 11/12/2016 None Annual Medicare Wellness Exam Sun Exposure protects skin when outdoors: y 11/12/2016 None cough Location in the throat 11/11/2016 None cough Onset and Resolution ongoing 11/11/2016 None cough Quality chronic 11/11/2016 None cough Quality constant 11/11/2016 None cough Quality hacking 11/11/2016 None cough Quality interrupts sleep 11/11/2016 None cough Quality productive 11/11/2016 None cough Onset of Symptom 4 months ago 11/11/2016July cough Limitation on Activities moderately limits activities 11/11/2016 None cough Pertinent Findings Denies chest discomfort 11/11/2016 None cough Pertinent Findings Denies chills 11/11/2016 None cough Pertinent Findings Denies dyspnea 11/11/2016 None cough Pertinent Findings Denies fever 11/11/2016 None cough Pertinent Findings Denies frothy pink sputum 11/11/2016 None cough Pertinent Findings hoarseness 11/11/2016 None cough Pertinent Findings lethargy 11/11/2016 None cough Pertinent Findings Denies nasal congestion 11/11/2016 None cough Pertinent Findings Denies post nasal drip 11/11/2016 None cough Pertinent Findings Denies purulent sputum 11/11/2016 None cough Pertinent Findings sputum production 11/11/2016 None cough Pertinent Findings weakness 11/11/2016 None cough Triggers no known associated factors 11/11/2016 None cough Significant Medical Conditions cardiac disease 11/11/2016 None cough Location in the throat 07/28/2016 None cough Onset and Resolution sudden in onset 07/28/2016 None cough Frequency of Episodes daily 07/28/2016 None chest congestion Quality thick secretions 07/28/2016 None chest congestion Onset and Resolution sudden in onset 07/28/2016 None cough Quality acute None cough Quality improving 07/28/2016 None cough Quality productive 07/28/2016 None cough Quality intermittent 07/28/2016 None cough Pertinent Findings Denies chills 07/28/2016 None cough Pertinent Findings Denies fever 07/28/2016 None cough Pertinent Findings sputum production 07/28/2016 None chest congestion Quality improving 07/28/2016 None fatigue Onset and Resolution ongoing 07/28/2016 None fatigue Limitation on Activities moderately limits activities 07/28/2016 None fatigue Alleviating Factors rest 07/28/2016 None cough Location in the throat 07/17/2016 None cough Quality constant 07/17/2016 None cough Quality dry None cough Onset and Resolution sudden in onset 07/17/2016 None cough Onset of Symptom 1 weeks ago 07/17/2016 None cough Frequency of Episodes daily 07/17/2016 None chest congestion Quality constant 07/17/2016 None chest congestion Quality thick secretions 07/17/2016 None chest congestion Onset and Resolution sudden in onset 07/17/2016 None chest congestion Onset of Symptom 1 weeks ago 07/17/2016 None foot pain Location on the left 07/17/2016 None foot pain Location on the right 07/17/2016 None foot pain Quality dull pain 07/17/2016 None foot pain Quality tingling 07/17/2016 None foot pain Quality intermittent 07/17/2016 None foot pain Timing of Episodes at night 07/17/2016 None foot pain Onset and Resolution sudden in onset 07/17/2016 None foot pain Onset of Symptom 2 months ago 07/17/2016 None foot pain Frequency of Episodes daily 07/17/2016 None chest pain/pressure Quality aching 04/08/2016 None chest pain/pressure Quality pressure 04/08/2016 None chest pain/pressure Pertinent Findings Denies confusion 04/08/2016 None chest pain/pressure Pertinent Findings Denies palpitations 04/08/2016 None chest pain/pressure Pertinent Findings Denies tachycardia 04/08/2016 None hypertension Onset and Resolution ongoing 04/08/2016 None hypertension Onset of Symptom during adulthood 04/08/2016 None hypertension Blood Pressure Values patient checking blood pressure at home - did not bring in readings 04/08/2016 -Checks occassionally hypertension Alleviating Factors medication 04/08/2016 None hypertension Pertinent Findings Denies dizziness 04/08/2016 None hypertension Pertinent Findings dyspnea 04/08/2016 with exertion hypertension Pertinent Findings edema 04/08/2016 -occasional chest pain/pressure Location in the epigastric area 04/08/2016 None chest pain/pressure Quality intermittent 04/08/2016 None chest pain/pressure Exacerbating Factors eating 04/08/2016 None back pain Quality intermittent 04/08/2016 None back pain Quality sharp 04/08/2016 None lymph node enlargement/mass Quality acute 03/24/2016 None lymph node enlargement/mass Onset and Resolution sudden in onset 03/24/2016 None lymph node enlargement/mass Onset of Symptom 3 days ago 03/24/2016 None lymph node enlargement/mass Triggers no known associated factors 03/24/2016 None lymph node enlargement/mass Pertinent Findings Denies fever 03/24/2016 None lymph node enlargement/mass Pertinent Findings Denies nausea 03/24/2016 None lymph node enlargement/mass Pertinent Findings Denies oral mucosal changes 03/24/2016 None lymph node enlargement/mass Pertinent Findings Denies vomiting 03/24/2016 None lymph node enlargement/mass Frequency of Episodes daily 03/24/2016 None lymph node enlargement/mass Quality acute 03/13/2016 None lymph node enlargement/mass Onset and Resolution sudden in onset 03/13/2016 None lymph node enlargement/mass Onset of Symptom 3 days ago 03/13/2016 None lymph node enlargement/mass Triggers no known associated factors 03/13/2016 None lymph node enlargement/mass Pertinent Findings Denies fever 03/13/2016 None lymph node enlargement/mass Pertinent Findings Denies nausea 03/13/2016 None lymph node enlargement/mass Pertinent Findings Denies vomiting 03/13/2016 None lymph node enlargement/mass Pertinent Findings Denies oral mucosal changes 03/13/2016 None cough Quality intermittent 01/22/2016 None cough Quality productive 01/22/2016 -went from yellowish to foamy white cough Onset and Resolution ongoing 01/22/2016 None cough Quality interrupts sleep 01/22/2016 None cough Onset of Symptom 1-2 months ago 01/22/2016 None cough Pertinent Findings Denies chills 01/22/2016 None cough Pertinent Findings Denies fever 01/22/2016 None edema Onset and Resolution ongoing 01/22/2016 None edema Onset of Symptom 1.5 years ago 01/22/2016 None edema Location on both legs 01/22/2016 None edema Location on the right leg 01/22/2016 worse hypertension Onset and Resolution ongoing 01/22/2016 None hypertension Onset of Symptom during adulthood 01/22/2016 None hypertension Blood Pressure Values not checking blood pressure at home 01/22/2016 None hypertension Alleviating Factors medication 01/22/2016 None hypertension Pertinent Findings Denies dizziness 01/22/2016 None hypertension Pertinent Findings Denies dyspnea 01/22/2016 None hypertension Pertinent Findings edema 01/22/2016 None abdominal pain Location in the LUQ 12/19/2015 None abdominal pain Radiating the back 12/19/2015 None abdominal pain Quality aching 12/19/2015 None abdominal pain Quality constant 12/19/2015 None abdominal pain Quality cramping 12/19/2015 None abdominal pain Frequency of Episodes hourly 12/19/2015 None abdominal pain Pertinent Findings back pain 12/19/2015 None abdominal pain Pertinent Findings dyspnea 12/19/2015 None abdominal pain Pertinent Findings Denies heartburn 12/19/2015 None chest pain/pressure Location on the left side of on the chest 12/19/2015 None chest pain/pressure Quality aching 12/19/2015 None chest pain/pressure Quality pressure 12/19/2015 None chest pain/pressure Pertinent Findings Denies confusion 12/19/2015 None chest pain/pressure Pertinent Findings dyspnea 12/19/2015 None chest pain/pressure Pertinent Findings Denies palpitations 12/19/2015 None chest pain/pressure Pertinent Findings Denies tachycardia 12/19/2015 None abdominal pain Location in the LUQ 12/07/2015 None abdominal pain Radiating the back 12/07/2015 None abdominal pain Quality aching 12/07/2015 None abdominal pain Quality cramping 12/07/2015 None abdominal pain Quality constant 12/07/2015 None abdominal pain Onset of Symptom 4 days ago 12/07/2015 None abdominal pain Frequency of Episodes hourly 12/07/2015 None abdominal pain Pertinent Findings back pain 12/07/2015 None abdominal pain Pertinent Findings dyspnea 12/07/2015 None abdominal pain Pertinent Findings Denies heartburn 12/07/2015 None chest pain/pressure Location on the left side of on the chest 12/07/2015 None chest pain/pressure Quality aching 12/07/2015 None chest pain/pressure Quality pressure 12/07/2015 None chest pain/pressure Pertinent Findings Denies confusion 12/07/2015 None chest pain/pressure Pertinent Findings dyspnea 12/07/2015 None chest pain/pressure Pertinent Findings Denies palpitations 12/07/2015 None chest pain/pressure Pertinent Findings Denies tachycardia 12/07/2015 None chest pain/pressure Location stabbing 10/26/2015 at the apex of the scar from her open heart surgery. chest pain/pressure Quality sharp 10/26/2015 None cough Quality intermittent 10/26/2015 None cough Quality productive 10/26/2015 "foamy slime"- no longer yellow or green cough Onset and Resolution ongoing 10/26/2015 None cough Frequency of Episodes decreasing 10/26/2015 None cough Pertinent Findings Denies fever 10/26/2015 None fatigue Onset and Resolution ongoing 10/26/2015 None fatigue Onset of Symptom _ years ago 10/26/2015 None fatigue Quality chronic 10/26/2015 None chest pain/pressure Quality intermittent 10/26/2015 None chest pain/pressure Quality sharp 10/04/2015 None cough Quality intermittent 10/04/2015 None cough Quality productive 10/04/2015 'a little'- clear, "slimy" sputum cough Onset and Resolution ongoing 10/04/2015 None cough Pertinent Findings Denies fever 10/04/2015 None cough Frequency of Episodes decreasing 10/04/2015 None fatigue Onset and Resolution ongoing 10/04/2015 None fatigue Onset of Symptom _ years ago 10/04/2015 None fatigue Quality chronic 10/04/2015 None chest pain/pressure Location stabbing 10/04/2015 at the apex of the scar from her open heart surgery. cough Quality productive 09/05/2015 In the morning, it is yellowish. Throughout the day her sputum is more white. cough Quality acute None cough Onset and Resolution ongoing 09/05/2015 None cough Onset and Resolution sudden in onset 09/05/2015 None cough Quality interrupts sleep 09/05/2015 None cough Onset of Symptom 2 months ago 09/05/2015 None cough Pertinent Findings Denies fever 09/05/2015 None cough Pertinent Findings Denies nausea 09/05/2015 None cough Pertinent Findings muscle aches 09/05/2015 Hurts through chest hypertension Onset and Resolution ongoing 09/05/2015 None hypertension Onset of Symptom during adulthood 09/05/2015 None hypertension Blood Pressure Values patient checking blood pressure at home - did not bring in readings 09/05/2015 Checks occasionlly hypertension Pertinent Findings Denies dizziness 09/05/2015 None hypertension Pertinent Findings Denies dyspnea 09/05/2015 None hypertension Alleviating Factors medication 09/05/2015 None cough Significant Medical Conditions cardiac disease 09/05/2015 None hypertension Quality chronic 04/25/2011 None hypertension Onset and Resolution ongoing 04/25/2011 None hypertension Onset of Symptom during adulthood 04/25/2011 None hypertension Blood Pressure Values Stage 1:SBP 140-159 mmHg / DBP 90-99 mmHg 04/25/2011 None hypertension Severity mild 04/25/2011 None hypertension Triggers no known associated factors 04/25/2011 None hypertension Alleviating Factors medication 04/25/2011 None hypertension Exacerbating Factors stress 04/25/2011 None hypertension Pertinent Findings obesity 04/25/2011 None Advance Directives No Advance Directive data Encounters Encounter Performer Location Codes Date ([id number]) 20231 EST. PATIENT, LEVEL IV Diagnosis: Essential (primary) hypertension[ICD10: I10] Diagnosis: Cough[ICD10: R05] Diagnosis: Gastro-esophageal reflux disease without esophagitis[ICD10: K21.9] Rhina Ordoñez MD, [facility] CPT-4: 28268 09/23/2018 ([id number]) 42760 EST. PATIENT, LEVEL IV Diagnosis: Essential (primary) hypertension[ICD10: I10] Diagnosis: Mixed hyperlipidemia[ICD10: E78.2] Diagnosis: Cough[ICD10: R05] Diagnosis: Vitamin B12 deficiency anemia due to intrinsic factor deficiency[ ICD10: D51.0] Rhina Ordoñez MD, [facility] CPT-4: 87569 08/04/2018 [id number]) [id number] EST. PATIENT, LEVEL IV Diagnosis: Essential (primary) hypertension[ICD10: I10] Diagnosis: Pleurodynia[ICD10: R07.81] Diagnosis: Mixed hyperlipidemia[ICD10: E78.2] [facility] CPT-4: 35452 03/18/2018 [id number]) 61948 EST. PATIENT, LEVEL IV Diagnosis: Essential (primary) hypertension[ICD10: I10] Diagnosis: Pleurodynia[ICD10: R07.81] Diagnosis: Other abnormal glucose[ICD10: R73.09] Diagnosis: Mastodynia[ICD10: N64.4] Rhina Ordoñez MD, [facility] CPT-4: 40003 12/01/2017 ([id number]) 35840 EST. PATIENT, LEVEL IV Diagnosis: Essential (primary) hypertension[ICD10: I10] Diagnosis: Dysuria[ICD10: R30.0] Diagnosis: Vitamin B12 deficiency anemia due to intrinsic factor deficiency[ ICD10: D51.0] Rhina Ordoñez MD, [facility] CPT-4: 78012 08/11/2017 ([id number]) 63179 EST. PATIENT, LEVEL IV Diagnosis: Vitamin B12 deficiency anemia due to intrinsic factor deficiency[ ICD10: D51.0] Diagnosis: Essential (primary) hypertension[ICD10: I10] Diagnosis: Gastro-esophageal reflux disease without esophagitis[ICD10: K21.9] Diagnosis: Essential (primary) hypertension[ICD10: I10] Diagnosis: Other abnormal glucose[ICD10: R73.09] Rhina Ordoñez MD, [facility] CPT-4: 82021 04/07/2017 ([id number]) 87491 EST. PATIENT, LEVEL IV Diagnosis: Essential (primary) hypertension[ICD10: I10] Diagnosis: Vitamin B12 deficiency anemia due to intrinsic factor deficiency[ ICD10: D51.0] Diagnosis: Cough[ICD10: R05] Rhina Ordoñez MD, [facility] CPT-4: 47173 01/05/2017 [id number] EST. PATIENT, LEVEL IV Diagnosis: Cough[ICD10: R05] Diagnosis: Essential (primary) hypertension[ICD10: I10] Adela Ordoñez MD, [facility] CPT-4: 31186 2016 ([id number]) 97222 EST. PATIENT, LEVEL III Diagnosis: Essential (primary) hypertension[ICD10: I10] Rhina Ordoñez MD, [facility] CPT-4: 11470 11/25/2016 ([id number]) 40332 EST. PATIENT, LEVEL III Diagnosis: Cough[ICD10: R05] Diagnosis: Gastro-esophageal reflux disease without esophagitis[ICD10: K21.9] Diagnosis: Acute bronchitis, unspecified[ICD10: J20.9] Soraida Ordoñez MD, [facility] CPT-4: 05446 11/11/2016 ([id number]) 77061 EST. PATIENT, LEVEL III Diagnosis: Cough[ICD10: R05] Rhina Ordoñez MD [facility] CPT-4: 12645 07/28/2016 ([id number]) 10158 EST. PATIENT, LEVEL IV Diagnosis: Pneumonia due to other specified bacteria[ICD10: J15.8] Diagnosis: Cough[ICD10: R05] Diagnosis: Vitamin B12 deficiency anemia due to intrinsic factor deficiency[ ICD10: D51.0] Rhina Ordoñez MD [facility] CPT-4: 87048 07/17/2016 ([id number]) 31272 EST. PATIENT, LEVEL IV Diagnosis: Essential (primary) hypertension[ICD10: I10] Diagnosis: Gastro-esophageal reflux disease without esophagitis[ICD10: K21.9] Rhina Ordoñez MD, [facility] CPT-4: 32258 04/08/2016 19711 EST. PATIENT, LEVEL II Diagnosis: Localized enlarged lymph nodes[ICD10: R59.0] Soraida Ordoñez MD, [facility] CPT-4: 11581 03/24/2016 ([id number]) 73622 EST. PATIENT, LEVEL III Diagnosis: Enlarged lymph nodes, unspecified[ICD10: R59.9] Diagnosis: Acute maxillary sinusitis, unspecified[ICD10: J01.00] Rhina Ordoñez MD, [facility] CPT-4: 03018 03/13/2016 ([id number]) 39998 EST. PATIENT, LEVEL IV Diagnosis: Cough[ICD10: R05] Diagnosis: Dyspnea, unspecified[ICD10: R06.00] Rhina Ordoñez MD, [facility] CPT-4: 07311 01/22/2016 [id number] EST. PATIENT, LEVEL IV Diagnosis: Right upper quadrant pain[ICD10: R10.11] Diagnosis: Left upper quadrant pain[ICD10: R10.12] Adela Ordoñez MD, [facility] CPT-4: 14619 12/19/2015 ([id number]) 15604 EST. PATIENT, LEVEL IV Diagnosis: Generalized abdominal pain[ICD10: R10.84] Diagnosis: Constipation, unspecified[ICD10: K59.00] Diagnosis: Urinary tract infection, site not specified[ICD10: N39.0] Soraida Ordoñez MD , [facility] CPT-4: 09011 12/07/2015 ([id number]) 66433 EST. PATIENT, LEVEL III Diagnosis: Gastro-esophageal reflux disease without esophagitis[ICD10: K21.9] Diagnosis: Elevated C-reactive protein (CRP)[ICD10: R79.82] AQUILINO Sanabria MD CPT-4: 96608 10/26/2015 ([id number]) 43312 EST. PATIENT, LEVEL III Diagnosis: Cough[ICD10: R05] Diagnosis: Elevated C-reactive protein (CRP)[ICD10: R79.82] Diagnosis: Pleurodynia[ICD10: R07.81] AQUILINO Sanabria MD CPT- 4: 75778 10/04/2015 ([id number]) OFFICE VISIT, NEW - LEVEL 4 Diagnosis: Cough[ICD10: R05] Diagnosis: Dyspnea, unspecified[ICD10: R06.00] Diagnosis: Essential (primary) hypertension[ICD10: I10] Rhina Ordoñez MD, [facility] CPT-4: 97590 09/05/2015 75618 EST. PATIENT, LEVEL IV Diagnosis: ESSENTIAL HYPERTENSION[SNOMED: 17962193] Diagnosis: Vitamin B 12 deficiency[ICD9: 266.2] Rhina Ordoñez MD, [facility] CPT-4: 80083 04/25/2011 Plan of Care Planned Activity Notes Codes Status Date Visit Plan: Hypertension - well controlled - continue with current medications, continue with no added salt diet. Pt has been encouraged to exercise daily. The pt has been advised to call the office if there are any acute concerns about change in blood pressure readings at home. Cough - Suspect from reflux - continue with pepcid and I have recommended a referral to Dr. cote for egd 09/23/2018 Appointment: Rhina Ordoñez WPtel: [address] [place], [place] [phone] (15 min) Moderate 09/23/2018 Patient Education: Patient Medication Summary Completed 09/23/2018 Patient Education: Patient Medication Summary Completed 09/20/2018 Visit Plan: Hypertension - well controlled - continue with current medications, continue with no added salt diet. Pt has been encouraged to exercise daily. The pt has been advised to call the office if there are any acute concerns about change in blood pressure readings at home. Hyperlipidemia - pt has been counseled about appropriate diet, exercise, and need for low fat food choices. I have discussed the need for the patient to take medications as prescribed. If the patient has negative side effects from the medication, they are to CALL the office and not abruptly discontinue the medication without discussion with a practitioner in the office. We will check labs in 3-6 months for follow up on the patient's chronic medical problem and to assure normal liver response to medications. Cough - URI - shot of kenalog today - pt to call if not improving. Vitamin B 12 deficiency - pt has not been taking her shots as directed - refilled rx. 08/04/2018 Appointment: [facility]el[facility] [phone] [facility] (15 min) Moderate 08/04/2018 Patient Education: Patient Medication Summary Completed 08/04/2018 Patient Education: Cholesterol Management Completed 08/04/2018 Visit Plan: Hypertension - well controlled - continue with current medications, continue with no added salt diet. Pt has been encouraged to exercise daily. The pt has been advised to call the office if there are any acute concerns about change in blood pressure readings at home. Chest pain - chronic in nature - continue with supportive care. Hyperlipidemia - pt has been counseled about appropriate diet, exercise, and need for low fat food choices. I have discussed the need for the patient to take medications as prescribed. If the patient has negative side effects from the medication, they are to CALL the office and not abruptly discontinue the medication without discussion with a practitioner in the office. We will check labs in 3-6 months for follow up on the patient's chronic medical problem and to assure normal liver response to medications. 03/18/2018 Appointment: [facility]do[facility]ez [facility]el[facility] [phone] [facility] (15 min) Moderate 03/18/2018 Patient Education: Patient Medication Summary Completed 03/18/2018 Visit Plan: Hypertension - well controlled - continue with current medications, continue with no added salt diet. Pt has been encouraged to exercise daily. The pt has been advised to call the office if there are any acute concerns about change in blood pressure readings at home. Hx of CAD - HTN - referral to dr. carpenter for cardiac eval -hx of open heart surgery. Mastodynia - bilateral breasts - left greater than right - pt to have mammogram and breast ultrasound. hx of elevated glucose - check labs 12/01/2017 Appointment: [facility]do[facility]ez [facility]el[facility] [phone] [facility] (15 min) Moderate 12/01/2017 Patient Education: Patient Medication Summary Completed 12/01/2017 Care Plan: Referral Order SNOMED-CT : [id number] Pending 12/01/2017 Visit Plan: Medicare Exam - today we discussed the patients past history, immunizations, preventative exams/evaluations - colonoscopy, fecal occult blood testing, routine labs for renal function, glucose, cholesterol, osteoporosis evaluations, cardiovascular testing and cancer screenings. We have also discussed mental health and the signs/symptoms of depression. The patient was advised of home safety evaluations and the need to make sure that as the aging process continues, we need to be aware of different ways to make the home a safer place to reside. The patient has also been counseled that exercise is necessary - and of utmost importance as we age to help decrease fall risk and to maintain independece in the home. Today we discussed the need for the patient to create paperwork for Advanced directives as well as for the patient to provide this office with a copy of her DOPA paperwork for health care surrogate. 11/17/2017 Appointment: [facility] Ventura [facility]el[facility] [phone] [facility] [facility] - Annual Wellness Visit 11/17/2017 Patient Education: Patient Medication Summary Completed 11/17/2017 Visit Plan: Hypertension - well controlled - continue with current medications, continue with no added salt diet. Pt has been encouraged to exercise daily. The pt has been advised to call the office if there are any acute concerns about change in blood pressure readings at home. Dysuria - check urinalysis Vitamin B12 injections to be given at home. 08/11/2017 Appointment: Rhina Ordo[facility]ez [facility]Ptel[facility] [phone] [facility] (15 min) Moderate 08/11/2017 Patient Education: Patient Medication Summary Completed 08/11/2017 Patient Education: Obesity Completed 08/11/2017 Visit Plan: Hypertension - well controlled - continue with current medications, continue with no added salt diet. Pt has been encouraged to exercise daily. The pt has been advised to call the office if there are any acute concerns about change in blood pressure readings at home. Esophageal Reflux - the patient has been counseled against excessive intake of caffeine, spicy foods, peppermint, and cinnamon - all of which can exacerbate esophageal reflux. The patient is to take medications as prescribed and call the office if the symptoms are not improving. Power Pudding: equal parts of prune juice, bran flakes, apple sauce - mix together, and take 2-4 tablespoons up to three times daily. The mixture will stay good in the fridge for 10 days. vitamin b12 - take a shot today and a shot on april 29 and a shot may 13 and may 27, then go back to monthly vitamin B12 injections. getting your vitamin b12 level back up to more normal should help to decrease your neuropathy symptoms of your feet 04/07/2017 Appointment: Rhina Ordo[facility]ez [facility]Ptel[facility] [phone] [facility] (15 min) Moderate 04/07/2017 Patient Education: Patient Medication Summary Completed 04/07/2017 Patient Education: Obesity Completed 04/07/2017 Patient Education: Patient Medication Summary Completed 03/31/2017 Care Plan: Cbc With Differential Pending 03/31/2017 Care Plan: Comp Metabolic Pending 03/31/2017 Visit Plan: Hypertension - well controlled - continue with current medications, continue with no added salt diet. Pt has been encouraged to exercise daily. The pt has been advised to call the office if there are any acute concerns about change in blood pressure readings at home. Cough - continue with chronic current therapy - monitor symptoms. CT of chest discussed with patient - 01/05/2017 Appointment: Rhina Ordoñez WPtel[facility] [phone] [facility] (15 min) Moderate 01/05/2017 Patient Education: Patient Medication Summary Completed 01/05/2017 Patient Education: Hypertension Completed 01/05/2017 Visit Plan: Persistent cough - Pt is scheduled for a CT of the chest - will treat as indicated by results. Hypertension - well controlled - continue with current medications, continue with no added salt diet. Pt has been encouraged to exercise daily. The pt has been advised to call the office if there are any acute concerns about change in blood pressure readings at home. 2016 Visit Plan: Persistent cough - Pt is scheduled for a CT of the chest - will treat as indicated by results. Hypertension - well controlled - continue with current medications, continue with no added salt diet. Pt has been encouraged to exercise daily. The pt has been advised to call the office if there are any acute concerns about change in blood pressure readings at home. 2016 Appointment: Adela Ventura WPtel: [phone] [id number] (15 min) Moderate 2016 Patient Education: Patient Medication Summary Completed 2016 Visit Plan: Hypertension - uncontrolled - the patient's medications have been modified as documented in the visit note. The patient has been counseled to cut back on salt in diet for a no added salt diet, low fat diet, start an exercise program with low weight bearing exercises and higher aerobic activity for heart health. The patient is to check blood pressure readings as an outpatient and either fax, call, or email the readings to the office next week for practitioner to review. The pt is to call for acute concerns. 11/25/2016 Appointment: Rhina Ordoñez WPtel: [phone] [facility] (15 min) Moderate 11/25/2016 Patient Education: Patient Medication Summary Completed 11/25/2016 Patient Education: Obesity Completed 11/25/2016 Visit Plan: Medicare Exam - today we discussed the patients past history, immunizations, preventative exams/evaluations - colonoscopy, fecal occult blood testing, routine labs for renal function, glucose, cholesterol, osteoporosis evaluations, cardiovascular testing and cancer screenings. We have also discussed mental health and the signs/symptoms of depression. The patient was advised of home safety evaluations and the need to make sure that as the aging process continues, we need to be aware of different ways to make the home a safer place to reside. The patient has also been counseled that exercise is necessary - and of utmost importance as we age to help decrease fall risk and to maintain independence in the home. Today we discussed the need for the patient to create paperwork for Advanced directives as well as for the patient to provide this office with a copy of her DOPA paperwork for health care surrogate. 11/12/2016 Appointment: Adela Ventura WPtel: [phone] [facility] [facility] - Annual Wellness Visit 11/12/2016 Patient Education: Patient Medication Summary Completed 11/12/2016 Visit Plan: Bronchitis/cough - acute case of bronchitis identified. Pt has been given antibiotics, breathing treatments as appropriate, and pt has been instructed to call if symptoms are not improved, or if symptoms acutely worsen. Follow up in 2 weeks GERD-protonix BID 11/11/2016 Appointment: Soraida Mayorga WPtel: [phone] (15 min) Moderate 11/11/2016 Patient Education: Patient Medication Summary Completed 11/11/2016 Patient Education: Patient Medication Summary Completed 10/14/2016 Care Plan: Cbc With Differential Pending 10/14/2016 Care Plan: Comp Metabolic Pending 10/14/2016 Care Plan: Tsh Pending 10/14/2016 Care Plan: Lipid Pending 10/14/2016 Care Plan: %Hba1C LOINC : 49799-3 Pending 10/14/2016 Appointment: Rhina Ordoñez WPtel: [address] [place], [place] [phone] (15 min) Moderate 08/06/2016 Visit Plan: Cough - improved - but still slight cough - due to congestion - recommended pt to continue with decongestion medication, call if symptoms worsen or do not further improve. 07/28/2016 Appointment: Rhina Ordoñez WPtel: [facility] (15 min) Moderate 07/28/2016 Patient Education: Patient Medication Summary Completed 07/28/2016 Patient Education: Obesity Completed 07/28/2016 Visit Plan: Pneumonia - Pt has been diagnosed with pneumonia by physical exam. Antibiotics have been ordered, pt to call if symptoms are not improving.. The pt is aware of the diagnosis and the need for acute treatment of this illness. 07/17/2016 Appointment: Rhina Ordoñez WPtel: [facility] (15 min) Moderate 07/17/2016 Patient Education: Patient Medication Summary Completed 07/17/2016 Patient Education: Obesity Completed 07/17/2016 Appointment: Rhina Ordoñez WPtel: [facility] (15 min) Moderate 04/22/2016 Visit Plan: Hypertension - well controlled - continue with current medications, continue with no added salt diet. Pt has been encouraged to exercise daily. The pt has been advised to call the office if there are any acute concerns about change in blood pressure readings at home. Esophageal Reflux - the patient has been counseled against excessive intake of caffeine, spicy foods, peppermint, and cinnamon - all of which can exacerbate esophageal reflux. The patient is to take medications as prescribed and call the office if the symptoms are not improving. Recommended pt to take the protonix twice daily as directed by GI specialist. 04/08/2016 Patient Education: Patient Medication Summary Completed 04/08/2016 Patient Education: Obesity Completed 04/08/2016 Patient Education: Hypertension Completed 04/08/2016 Visit Plan: Lymph node swelling-completed treatment- swelling resolved-no further treatment indicated. 03/24/2016 Patient Education: Patient Medication Summary Completed 03/24/2016 Visit Plan: Sinusitis - Pt has acute infection - pain in face, maxillary region, Pt informed to use decongestant, RX given to patient, sinus rinses also recommended. Call if symptoms do not show improvement. 03/13/2016 Appointment: Rhina Ordoñez WPtel: [address] [place], [place] [phone] (10 min) Simple 03/13/2016 Patient Education: Patient Medication Summary Completed 03/13/2016 Patient Education: Obesity Completed 03/13/2016 Visit Plan: Bronchitis - acute case of bronchitis identified. Pt has been given antibiotics, breathing treatments as appropriate, and pt has been instructed to call if symptoms are not improved, or if symptoms acutely worsen. 01/22/2016 Appointment: Rhina Ordoñez WPtel: [facility] [place] (15 min) Moderate 01/22/2016 Appointment: Rhina Ordoñez WPtel: [address] [place], [place] [phone] [place] (15 min) Moderate 01/22/2016 Patient Education: Patient Medication Summary Completed 01/22/2016 Patient Education: Obesity Completed 01/22/2016 Referral: Dr Ramirez they will call pt with appt Initiated 12/20/2015 Visit Plan: Continued Abdominal pain - Dr. Ordoñez in to see pt, will order repeat CT, pending results will send abx and refer to GI specialist. 12/19/2015 Patient Education: Patient Medication Summary Completed 12/19/2015 Patient Education: Obesity Completed 12/19/2015 Visit Plan: Abdominal pain-patient sent to the hospital for IVF, labs and KUB-will proceed as indicated-plan to start flagyl and continue cipro for full course-instructed patient to call if symptoms do not resolve or if any worse-clear liquid diet advance to bland as tolerated UTI- recheck urine Constipation-check KUB-monitor symptoms 12/07/2015 Appointment: [facility] [phone] [place] (10 min) Simple 12/07/2015 Patient Education: Patient Medication Summary Completed 12/07/2015 Patient Education: Obesity Completed 12/07/2015 Visit Plan: Esophageal Reflux - the patient has been counseled against excessive intake of caffeine, spicy foods, peppermint, and cinnamon - all of which can exacerbate esophageal reflux. The patient is to take medications as prescribed and call the office if the symptoms are not improving. CRP improving. 10/26/2015 Patient Education: Patient Medication Summary Completed 10/26/2015 Patient Education: Hypertension Completed 10/26/2015 Appointment: [phone] [place] (15 min) Moderate 10/25/2015 Patient Education: Patient Medication Summary Completed 10/25/2015 Visit Plan: Elevated CRP, Shoulder pain, Chest wall pain, cough - I suspect that she has Polymyalgia Rheumatica - she refused a CRP repeat today. RTC in 3 weeks for re-eval - if not better, she has agreed to lab draw. 10/04/2015 Patient Education: Patient Medication Summary Completed 10/04/2015 Visit Plan: Hypertension - uncontrolled - the patient's medications have been modified as documented in the visit note. The patient has been counseled to cut back on salt in diet for a no added salt diet, low fat diet, start an exercise program with low weight bearing exercises and higher aerobic activity for heart health. The patient is to check blood pressure readings as an outpatient and either fax, call, or email the readings to the office next week for practitioner to review. The pt is to call for acute concerns. Cough - recommended a pertussis swab today, and a chest xray - may end up needing a CT scan of the chest due to her history of cryptococcal lung disease. 09/05/2015 Appointment: Rhina Ordoñez WPtel: [address] [facility] [place] New Patient 09/05/2015 Patient Education: Patient Medication Summary Completed 09/05/2015 Patient Education: Hypertension Completed 09/05/2015 Appointment: Rhina Ordoñez WPtel: [facility] [place] Injection 05/26/2011 Patient Education: Patient Medication Summary Completed 05/26/2011 Visit Plan: Hypertension - well controlled - continue with current medications, continue with no added salt diet. Pt has been encouraged to exercise daily. The pt has been advised to call the office if there are any acute concerns about change in blood pressure readings at home. Vitamin B12 deficiency - injection given today. 04/25/2011 Appointment: Rhina Ordoñez WPtel: [address] [facility] [place] Other 04/25/2011 Patient Education: Patient Medication Summary Completed 04/25/2011 Referral: Dr Ramirez Referral Initiated Referral: Dr Ramirez they will call with appt Initiated Referral: Ame Carpenter Referral Appointment Requested Instructions Comment . Abdominal pain-patient sent to the hospital for IVF, labs and KUB-will proceed as indicated-plan to start flagyl and continue cipro for full course-instructed patient to call if symptoms do not resolve or if any worse-clear liquid diet advance to bland as tolerated UTI-recheck urine Constipation-check KUB-monitor symptoms return to clinic in the next 4-6 months with blood pressure readings , have labs the week before your appt. you can come in to clinic for the labs, call at least two days before to make sure we are in clinic return monthly to clinic for your b12 shots. . Hypertension - well controlled - continue with current medications, continue with no added salt diet. Pt has been encouraged to exercise daily. The pt has been advised to call the office if there are any acute concerns about change in blood pressure readings at home. Vitamin B12 deficiency - injection given today. . Hypertension - well controlled - continue with current medications, continue with no added salt diet. Pt has been encouraged to exercise daily. The pt has been advised to call the office if there are any acute concerns about change in blood pressure readings at home. Hyperlipidemia - pt has been counseled about appropriate diet, exercise, and need for low fat food choices. I have discussed the need for the patient to take medications as prescribed. If the patient has negative side effects from the medication, they are to CALL the office and not abruptly discontinue the medication without discussion with a practitioner in the office. We will check labs in 3-6 months for follow up on the patient's chronic medical problem and to assure normal liver response to medications. Cough - URI - shot of kenalog today - pt to call if not improving. Vitamin B 12 deficiency - pt has not been taking her shots as directed - refilled rx. Polymyalgia Rheumatica - . Elevated CRP, Shoulder pain, Chest wall pain, cough - I suspect that she has Polymyalgia Rheumatica - she refused a CRP repeat today. RTC in 3 weeks for re-eval - if not better, she has agreed to lab draw. . Sinusitis - Pt has acute infection - pain in face, maxillary region, Pt informed to use decongestant, RX given to patient, sinus rinses also recommended. Call if symptoms do not show improvement. Power Pudding: equal parts of prune juice, bran flakes, apple sauce - mix together, and take 2-4 tablespoons up to three times daily. The mixture will stay good in the fridge for 10 days. vitamin b12 - take a shot today and a shot on april 29 and a shot may 13 and may 27, then go back to monthly vitamin B12 injections. getting your vitamin b12 level back up to more normal should help to decrease your neuropathy symptoms of your feet . Hypertension - well controlled - continue with current medications, continue with no added salt diet. Pt has been encouraged to exercise daily. The pt has been advised to call the office if there are any acute concerns about change in blood pressure readings at home. Esophageal Reflux - the patient has been counseled against excessive intake of caffeine, spicy foods, peppermint, and cinnamon - all of which can exacerbate esophageal reflux. The patient is to take medications as prescribed and call the office if the symptoms are not improving. Power Pudding: equal parts of prune juice, bran flakes, apple sauce - mix together, and take 2-4 tablespoons up to three times daily. The mixture will stay good in the fridge for 10 days. vitamin b12 - take a shot today and a shot on april 29 and a shot may 13 and may 27, then go back to monthly vitamin B12 injections. getting your vitamin b12 level back up to more normal should help to decrease your neuropathy symptoms of your feet . Hypertension - well controlled - continue with current medications, continue with no added salt diet. Pt has been encouraged to exercise daily. The pt has been advised to call the office if there are any acute concerns about change in blood pressure readings at home. Esophageal Reflux - the patient has been counseled against excessive intake of caffeine, spicy foods, peppermint, and cinnamon - all of which can exacerbate esophageal reflux. The patient is to take medications as prescribed and call the office if the symptoms are not improving. Recommended pt to take the protonix twice daily as directed by GI specialist. . Cough - improved - but still slight cough - due to congestion - recommended pt to continue with decongestion medication, call if symptoms worsen or do not further improve. . Medicare Exam - today we discussed the patients past history, immunizations, preventative exams/evaluations - colonoscopy, fecal occult blood testing, routine labs for renal function, glucose, cholesterol, osteoporosis evaluations, cardiovascular testing and cancer screenings. We have also discussed mental health and the signs/symptoms of depression. The patient was advised of home safety evaluations and the need to make sure that as the aging process continues, we need to be aware of different ways to make the home a safer place to reside. The patient has also been counseled that exercise is necessary - and of utmost importance as we age to help decrease fall risk and to maintain independece in the home. Today we discussed the need for the patient to create paperwork for Advanced directives as well as for the patient to provide this office with a copy of her DOPA paperwork for health care surrogate. . Bronchitis - acute case of bronchitis identified. Pt has been given antibiotics, breathing treatments as appropriate, and pt has been instructed to call if symptoms are not improved, or if symptoms acutely worsen. . Hypertension - well controlled - continue with current medications, continue with no added salt diet. Pt has been encouraged to exercise daily. The pt has been advised to call the office if there are any acute concerns about change in blood pressure readings at home. Hx of CAD - HTN - referral to dr. carpenter for cardiac eval -hx of open heart surgery. Mastodynia - bilateral breasts - left greater than right - pt to have mammogram and breast ultrasound. hx of elevated glucose - check labs . Hypertension - well controlled - continue with current medications, continue with no added salt diet. Pt has been encouraged to exercise daily. The pt has been advised to call the office if there are any acute concerns about change in blood pressure readings at home. Dysuria - check urinalysis Vitamin B12 injections to be given at home. . Hypertension - uncontrolled - the patient's medications have been modified as documented in the visit note. The patient has been counseled to cut back on salt in diet for a no added salt diet, low fat diet, start an exercise program with low weight bearing exercises and higher aerobic activity for heart health. The patient is to check blood pressure readings as an outpatient and either fax , call, or email the readings to the office next week for practitioner to review. The pt is to call for acute concerns. . Continued Abdominal pain - Dr. Ordoñez in to see pt, will order repeat CT, pending results will send abx and refer to GI specialist. . Lymph node swelling-completed treatment-swelling resolved -no further treatment indicated. . Hypertension - uncontrolled - the patient's medications have been modified as documented in the visit note. The patient has been counseled to cut back on salt in diet for a no added salt diet, low fat diet, start an exercise program with low weight bearing exercises and higher aerobic activity for heart health. The patient is to check blood pressure readings as an outpatient and either fax , call, or email the readings to the office next week for practitioner to review. The pt is to call for acute concerns. Cough - recommended a pertussis swab today, and a chest xray - may end up needing a CT scan of the chest due to her history of cryptococcal lung disease. . Esophageal Reflux - the patient has been counseled against excessive intake of caffeine, spicy foods, peppermint, and cinnamon - all of which can exacerbate esophageal reflux. The patient is to take medications as prescribed and call the office if the symptoms are not improving. CRP improving. Coenzyme Q 10 over the counter. Medicare Exam - today we discussed the patients past history, immunizations, preventative exams/ evaluations - colonoscopy, fecal occult blood testing, routine labs for renal function, glucose, cholesterol, osteoporosis evaluations, cardiovascular testing and cancer screenings. We have also discussed mental health and the signs/symptoms of depression. The patient was advised of home safety evaluations and the need to make sure that as the aging process continues, we need to be aware of different ways to make the home a safer place to reside. The patient has also been counseled that exercise is necessary - and of utmost importance as we age to help decrease fall risk and to maintain independence in the home. Today we discussed the need for the patient to create paperwork for Advanced directives as well as for the patient to provide this office with a copy of her DOPA paperwork for health care surrogate. Breo 1 puff daily chest xray kenalog injection today cholo keep appt in 2 weeks for follow up on your cough protonix twice daily to see if reflux is contributing to your cough . Bronchitis/cough - acute case of bronchitis identified. Pt has been given antibiotics, breathing treatments as appropriate, and pt has been instructed to call if symptoms are not improved, or if symptoms acutely worsen. Follow up in 2 weeks GERD-protonix BID . Hypertension - well controlled - continue with current medications, continue with no added salt diet. Pt has been encouraged to exercise daily. The pt has been advised to call the office if there are any acute concerns about change in blood pressure readings at home. Cough - continue with chronic current therapy - monitor symptoms. CT of chest discussed with patient - . Persistent cough - Pt is scheduled for a CT of the chest - will treat as indicated by results. Hypertension - well controlled - continue with current medications, continue with no added salt diet. Pt has been encouraged to exercise daily. The pt has been advised to call the office if there are any acute concerns about change in blood pressure readings at home. . Persistent cough - Pt is scheduled for a CT of the chest - will treat as indicated by results. Hypertension - well controlled - continue with current medications, continue with no added salt diet. Pt has been encouraged to exercise daily. The pt has been advised to call the office if there are any acute concerns about change in blood pressure readings at home. restart the b12 shots . Pneumonia - Pt has been diagnosed with pneumonia by physical exam. Antibiotics have been ordered, pt to call if symptoms are not improving.. The pt is aware of the diagnosis and the need for acute treatment of this illness. referral to Dr. cote for egd . Hypertension - well controlled - continue with current medications, continue with no added salt diet. Pt has been encouraged to exercise daily. The pt has been advised to call the office if there are any acute concerns about change in blood pressure readings at home. Cough - Suspect from reflux - continue with pepcid and I have recommended a referral to Dr. cote for egd . Hypertension - well controlled - continue with current medications, continue with no added salt diet. Pt has been encouraged to exercise daily. The pt has been advised to call the office if there are any acute concerns about change in blood pressure readings at home. Chest pain - chronic in nature - continue with supportive care. Hyperlipidemia - pt has been counseled about appropriate diet, exercise, and need for low fat food choices. I have discussed the need for the patient to take medications as prescribed. If the patient has negative side effects from the medication, they are to CALL the office and not abruptly discontinue the medication without discussion with a practitioner in the office. We will check labs in 3-6 months for follow up on the patient's chronic medical problem and to assure normal liver response to medications.
--- OUTSIDE RECORDS SUMMARY | 2018-11-23 08:50 | XMS REPORT | CCD ---
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 [employer] 04/27/[address]: 986393771 Never smoker 04/24/[address]: 718201132 Never drinks alcohol 04/24/2011 Has the patient [...] Start Date Stop Date Status Fill Instructions simvastatin 40 mg tablet RxNorm: 738177 1 Tablet(s) PO QPM 12/201707/29/2019 Active Generic For:ZOCOR 40MG N O T I C E Last quantity doesn't match original quantity 07/21/2018 9:52:25 AM cyanocobalamin (vit B-12) 1,000 mcg/mL injection solution RxNorm: 638690 1 Milliliter(s) Inj monthly 08/04/201807/29 Active Kenalog 40 mg/mL suspension for injection RxNorm: 4640619 Milliliter(s) Inj 08/04/2018 08/04/2018 Inactive simvastatin 40 mg tablet RxNorm: 903237 ... TAKE 1 TABLET BY MOUTH 3 TIMES A WEEK AT BEDTIME ... 07/21/2018 08/03/2018 Inactive Generic For:ZOCOR 40MG N O T I C E Last quantity doesn't match original quantity 07/21/2018 9:52:25 AM simvastatin 40 mg tablet RxNorm: 579552 1 Tablet(s) PO TIW at [facility] 03/25/2018 07/20/2018 Inactive Take with coQ10 QD [place] 5 mg-325 mg tablet RxNorm: 567449 1 Tablet(s) PO BID as needed for pain 03/19/2018 No Stop Date Active Cozaar 50 mg tablet RxNorm: 111438 ... TAKE 1 TABLET BY MOUTH EVERY DAY AFTER SUPPER ... 03/01/2018 11/25/2018 Active Generic For:COZAAR 50MG 03/01/2018 11: 50:08 AM Coreg 6.25 mg tablet RxNorm: 704410 ... TAKE ONE TABLET BY MOUTH TWICE A DAY ... 02/01/2018 01/26/2019 Active Generic For:COREG 6.25MG N O T I C E Last quantity doesn't match original quantity 02/01/2018 10:56:10 AM simvastatin 40 mg tablet RxNorm: 277123 1 Tablet(s) PO TIW at [facility] 12/04/2017 12/03/2017 Inactive simvastatin 40 mg tablet RxNorm: 270294 1 Tablet(s) PO TIW at [facility] 12/04/2017 03/24/2018 Inactive Take with coQ10 QD Col[place]itt 5 mg-325 mg tablet RxNorm: 388344 1 Tablet(s) PO BID as needed for pain 11/17/2017 03/18/2018 Inactive Colquitt 5 mg-325 mg tablet RxNorm: 720786 1 Tablet(s) PO QAM and one PM PRN pain 08/11/2017 11/16/2017 Inactive Coreg 6.25 mg tablet RxNorm: 368546 one by mouth twice a day No Stop Date Active Coreg 6.25 mg tablet RxNorm: 939957 one by mouth twice a day 08/06/2017 Inactive Lipitor 40 mg tablet RxNorm: 533771 1 Tablet(s) PO QPM 201612/01/2017 Inactive Vitamin B-12 1,000 mcg/mL injection solution RxNorm: 138207 Milliliter(s) Inject 1 mL (1,000 mcg) by subQ inject. bi monthly in march and may then every 30 days 04/07/2017 No Stop Date Active Cozaar 50 mg tablet RxNorm: 072416 Take 1 Tab (50 mg) by mouth daily after supper. 03/23/2017 02/28/2018 Inactive Protonix 40 mg tablet,delayed release RxNorm: 007288 ... TAKE 1 TABLET BY MOUTH TWICE DAILY ... 12/24/2016 01/04/2017 Inactive Generic For:PROTONIX 40MG 2016 9:21:06 AM isosorbide mononitrate ER 30 mg tablet,extended release 24 hr RxNorm: 847572 1 Tablet(s) PO QAM 11/25/2016 03/24/2017 Inactive Zithromax Z-Chase 250 mg tablet RxNorm: 508270 1 Tablet(s) PO UD 11/11/2016 11/15/2016 Inactive zpack Kenalog 40 mg/mL suspension for injection RxNorm: 1765824 1 Milliliter(s) Inj 11/11/2016 11/11/2016 Inactive Protonix 40 mg tablet,delayed release RxNorm: 519277 1 Tablet(s) PO BID 07/30/2016 11/26/2016 Inactive Vitamin B-12 1,000 mcg/mL injection solution RxNorm: 058049 Inject 1 mL (1,000 mcg ) by subcutaneous injection every 30 days. 07/21/2016 04/06/2017 Inactive ceftriaxone 500 mg solution for injection RxNorm: 5877710 Inj 07/17/2016 07/17/2016 Inactive cefdinir 300 mg capsule RxNorm: 000135 1 Capsule(s) PO BID 07/23/2016 Inactive Kenalog 40 mg/mL suspension for injection RxNorm: 4095983 1 Milliliter(s) Inj 07/17/2016 07/17/2016 Inactive azithromycin 250 mg tablet RxNorm: 932654 1 Tablet(s) PO UD 2 tabs on day #1, then one tab daily until zpack finished 07/17/2016 07/27/2016 Inactive Coreg 6.25 mg tablet RxNorm: 171953 1 Tablet(s) PO BID 201502/04/2017 Inactive Protonix 40 mg tablet,delayed release RxNorm: 576116 1 Tablet(s) PO BID 04/08/2016 07/29/2016 Inactive ceftriaxone 500 mg solution for injection RxNorm: 1285921 Inj 03/13/2016 03/13/2016 Inactive cephalexin 500 mg capsule RxNorm: 086225 1 Capsule(s) PO TID 03/22/2016 Inactive azithromycin 250 mg tablet RxNorm: 047910 1 Tablet(s) PO UD 2 tabs on day #1, then one tab daily until zpack finished 01/22/2016 04/07/2016 Inactive Flagyl 500 mg tablet RxNorm: 697976 1 Tablet(s) PO TID 201512/26/2015 Inactive Cipro 500 mg tablet RxNorm: 942946 1 Tablet(s) PO BID 201512/29/2015 Inactive Reglan 5 mg tablet RxNorm: 588091 1 Tablet(s) PO UD Once 01/21/2016 Inactive Flagyl 500 mg tablet RxNorm: 024272 1 Tablet(s) PO TID 201512/13/2015 Inactive Flagyl 500 mg tablet RxNorm: 622307 1 Tablet(s) PO TID 201512/06/2015 Inactive Carafate 1 gram tablet RxNorm: 921713 1 Tablet(s) dissolve in 10ML of water before taking PO three times daily x 1 week then daily before bed and prn acid reflux 10/26/2015 01/21/2016 Inactive Kenalog 40 mg/mL suspension for injection RxNorm: 0498208 2 Milliliter(s) Inj 10/04/2015 10/04/2015 Inactive Coreg 12.5 mg tablet RxNorm: 500749 1 Tablet(s) PO BID 201504/01/2016 Inactive Cozaar 100 mg tablet RxNorm: 613740 1 Tablet(s) PO daily 201508/29/2016 Inactive Fish Oil 1,000 mg Cap RxNorm: 1 Capsule(s) PO TID 05/27/2011 01/21/2016 Inactive Vitamin B-12 1,000 mcg/mL injection solution RxNorm: 275112 1 Milliliter(s) Inj 05/26/2011 05/26/2011 Inactive cetirizine 10 mg tablet RxNorm: 9894632 1 Tablet(s) PO QAM No Start Date Active coenzyme Q10 10 mg tablet RxNorm: 926891 oral No Start Date Active aspirin 81 mg Tab, Delayed Release RxNorm: 172473 1 Tablet(s) PO daily No Start Date Active Lasix 20 mg tablet RxNorm: 256770 1 Tablet(s) PO daily No Start Date Active albuterol sulfate 0.63 mg/3 mL solution for nebulization RxNorm: 298749 Milliliter (s) INH as needed No Start Date Active Vitamin D 2,000 unit Cap RxNorm: 1 Capsule(s) PO daily No Start Date Active vitamin E (dl, acetate) 1,000 unit Cap RxNorm: 419579 1 Capsule(s) PO daily No Start Date 01/21/2016 Inactive Protonix 40 mg tablet,delayed release RxNorm: 622929 1 Tablet(s) PO daily No Start Date 01/21/2016 Inactive Lipitor 40 mg tablet RxNorm: 384360 1 Tablet(s) PO QPM No Start Date 11/24/2016 Inactive Fish Oil 1,000 mg Cap RxNorm: 1 Capsule(s) PO daily No Start Date 05/26/2011 Inactive Vitamin D 1,000 unit Tab RxNorm: 412575 1 Tablet(s) PO daily No Start Date 04/24/2011 Inactive 2000 mg on Sat and Sun niacin 500 mg Tab RxNorm: 407786 1 Tablet(s) PO QHS No Start Date 01/21/2016 Inactive Coreg CR 40 mg 24 hr Cap RxNorm: 601067 1 Capsule(s) PO daily No Start Date 09/03/2015 Inactive Cozaar 50 mg tablet RxNorm: 575622 1 Tablet(s) PO daily No Start Date 09/04/2015 Inactive Medication Administered Medication Codes Instructions Start Date Status Kenalog 40 mg/mL suspension for injection RxNorm: 0515737 Milliliter 08/04/2018 No longer Active Kenalog 40 mg/mL suspension for injection RxNorm: 1086752 1Milliliter 11/11/2016 No longer Active ceftriaxone 500 mg solution for injection RxNorm: 2839696 07/17/2016 No longer Active Kenalog 40 mg/mL suspension for injection RxNorm: 2377568 1Milliliter 07/17/2016 No longer Active ceftriaxone 500 mg solution for injection RxNorm: 2171151 03/13/2016 No longer Active Kenalog 40 mg/mL suspension for injection RxNorm: 1000303 2Milliliter 10/04/2015 No longer Active Vitamin B-12 1,000 mcg/mL Injection RxNorm: 990588 1Milliliter 05/26/2011 No longer Active Immunizations Vaccine [...] deficiency ICD-9: 266.2 05/26/2011 ESSENTIAL HYPERTENSION SNOMED: 04178589 ICD-9: 401.9 04/25/2011 Reason For Visit Reason [...] Ucult Complete NO Growth Day 2 09/23/2018 Cbc With Differential Ord2 WBC 10.20 K/ul 09/21/2018 Cbc With Differential Ord2 RBC 4.70 M/ul 09/21/2018 Cbc With Differential Ord2 HGB 13.9 g/dl 09/21/2018 Cbc With Differential Ord2 Neut% 65.5 % 09/21/2018 Cbc With Differential Ord2 HCT 42.0 % 09/21/2018 Cbc With Differential Ord2 MCV 89.4 fl 09/21/2018 Cbc With Differential Ord2 Lymph% 27.3 % 09/21/2018 Cbc With Differential Ord2 MCH 29.6 pg 09/21/2018 Cbc With Differential Ord2 Colbert% 6.4 % 09/21/2018 Cbc With Differential Ord2 Eos% 0.6 % 09/21/2018 Cbc With Differential Ord2 MCHC 33.1 pg 09/21/2018 Cbc With Differential Ord2 PLT 351 K/ul 09/21/2018 Cbc With Differential Ord2 Baso% 0.2 % 09/21/2018 Cbc With Differential Ord2 Neut ABS# 6.69 K/ul 09/21/2018 Cbc With Differential Ord2 RDW 15.3 % 09/21/2018 Cbc With Differential Ord2 Lymph ABS# 2.78 K/ul 09/21/2018 Cbc With Differential Ord2 Colbert ABS# 0.7 K/ul 09/21/2018 Cbc With Differential Ord2 Eos ABS# 0.1 K/ul 09/21/2018 Cbc With Differential Ord2 Baso ABS# 0.0 K/ul 09/21/2018 Lipid Ord30 CHOL 132 mg/dL 09/21/2018 Lipid Ord30 HDL 35.0 mg/dl 09/21/2018 Lipid Ord30 TRIG 137 mg/dL 09/21/2018 Lipid Ord30 LDL 70 mg/dL 09/21/2018 Lipid Ord30 C/HDL 3.8 Ratio 09/21/2018 Tsh Ord6 TSH (3rd IS) 2.16 uIU/mL 09/21/2018 %Hba1C Uel182 % HbA1c 11296-2 6.1 % 09/21/2018 %Hba1C Ref550 Gluc Ave 128 mg/dL 09/21/2018 Urinalysis Ord28 U-Color Yellow 09/21/2018 Urinalysis [...] U-VOL VOLUME SUFFICIENT (10mL) 09/21/2018 Urinalysis Ord28 U-Com Urine saved if culture needed (specimen acceptable for 48 hours from collection if refrigerated) 09/21/2018 Urinalysis Ord28 U-Yeast NEGATIVE 09/21/2018 Comp Metabolic Wwf365 NA 139 mEq/L 09/21/2018 Comp Metabolic Xws934 K 4.3 mEq/L 09/21/2018 Comp Metabolic Cmn555 CL 103 mEq/L 09/21/2018 Comp Metabolic Rng695 CO2 28.0 mEq/L 09/21/2018 Comp Metabolic Nau637 ANION GAP 12 09/21/2018 Comp Metabolic Baj768 GLUCOSE 99 mg/dL 09/21/2018 Comp Metabolic Ycn752 Creat 1.1 mg/dL 09/21/2018 Comp Metabolic Ufu400 eGFR 50 ml/min/1.73m2 09/21/2018 Comp Metabolic Daw330 BUN 27 mg/dL 09/21/2018 Comp Metabolic Qnx179 B/C Ratio 24.3 Ratio 09/21/2018 Comp Metabolic Tro711 CALCIUM 9.0 mg/dL 09/21/2018 Comp Metabolic Pkj285 ALK PHOS 79 U/L 09/21/2018 Comp Metabolic Suq465 AST(SGOT) 19 U/L 09/21/2018 Comp Metabolic Tbo810 ALT(SGPT) 9 U/L 09/21/2018 Comp Metabolic Aom395 BILI T 0.8 mg/dL 09/21/2018 Comp Metabolic Rxj366 ALBUMIN 3.5 g/dL 09/21/2018 Comp Metabolic Smh275 TPRO 6.2 g/dL 09/21/2018 Comp Metabolic Rpu025 GLOB 2.7 g/dL 09/21/2018 Comp Metabolic Cof335 A/G Ratio 1.3 Ratio 09/21/2018 Comp Metabolic Kxv645 Osmo 283 mOsmo 09/21/2018 %Hba1C Upw828 % HbA1c 61833-1 5.9 % 12/01/2017 %Hba1C Fuu902 Gluc Ave 123 mg/dL 12/01/2017 Lipid Ord30 CHOL 211 mg/dL 12/01/2017 Lipid Ord30 HDL 32.0 mg/dl 12/01/2017 Lipid Ord30 TRIG 300 mg/dL 12/01/2017 Lipid Ord30 LDL 119 mg/dL 12/01/2017 Lipid Ord30 C/HDL 6.6 Ratio 12/01/2017 Tsh Ord6 TSH (3rd IS) 1.91 uIU/mL 12/01/2017 Cbc With Differential Ord2 WBC 9.17 K/ul 12/01/2017 Cbc With Differential Ord2 RBC 4.83 M/ul 12/01/2017 Cbc With Differential Ord2 HGB 14.0 g/dl 12/01/2017 Cbc With Differential Ord2 HCT 42.9 % 12/01/2017 Cbc With Differential Ord2 Neut% 65.5 % 12/01/2017 Cbc With Differential Ord2 Lymph% 25.5 % 12/01/2017 Cbc With Differential Ord2 MCV 88.8 fl 12/01/2017 Cbc With Differential Ord2 Colbert% 7.2 % 12/01/2017 Cbc With Differential Ord2 MCH 29.0 pg 12/01/2017 Cbc With Differential Ord2 Eos% 1.6 % 12/01/2017 Cbc With Differential Ord2 MCHC 32.6 pg 12/01/2017 Cbc With Differential Ord2 PLT 393 K/ul 12/01/2017 Cbc With Differential Ord2 Baso% 0.2 % 12/01/2017 Cbc With Differential Ord2 Neut ABS# 6.00 K/ul 12/01/2017 Cbc With Differential Ord2 RDW 15.2 % 12/01/2017 Cbc With Differential Ord2 Lymph ABS# 2.34 K/ul 12/01/2017 Cbc With Differential Ord2 Colbert ABS# 0.7 K/ul 12/01/2017 Cbc With Differential Ord2 Eos ABS# 0.2 K/ul 12/01/2017 Cbc With Differential Ord2 Baso ABS# 0.0 K/ul 12/01/2017 Comp Metabolic Ief940 NA 141 mEq/L 12/01/2017 Comp Metabolic Oly743 K 4.4 mEq/L 12/01/2017 Comp Metabolic Qzr850 CL 106 mEq/L 12/01/2017 Comp Metabolic Cmo030 CO2 23.0 mEq/L 12/01/2017 Comp Metabolic Ehs521 ANION GAP 16 12/01/2017 Comp Metabolic Mmt869 GLUCOSE 109 mg/dL 12/01/2017 Comp Metabolic Dnm351 Creat 1.0 mg/dL 12/01/2017 Comp Metabolic Ayf828 eGFR 57 ml/min/1.73m2 12/01/2017 Comp Metabolic Kih833 BUN 16 mg/dL 12/01/2017 Comp Metabolic Gte466 B/C Ratio 16.0 Ratio 12/01/2017 Comp Metabolic Gxb851 CALCIUM 8.9 mg/dL 12/01/2017 Comp Metabolic Lzj998 ALK PHOS 99 U/L 12/01/2017 Comp Metabolic Kow891 AST(SGOT) 15 U/L 12/01/2017 Comp Metabolic Oap551 ALT(SGPT) 12 U/L 12/01/2017 Comp Metabolic Jvj210 BILI T 0.7 mg/dL 12/01/2017 Comp Metabolic Srr710 ALBUMIN 3.6 g/dL 12/01/2017 Comp Metabolic Jgw211 TPRO 6.5 g/dL 12/01/2017 Comp Metabolic Sxq418 GLOB 2.9 g/dL 12/01/2017 Comp Metabolic Gqg190 A/G Ratio 1.2 Ratio 12/01/2017 Comp Metabolic Vof827 Osmo 283 mOsmo 12/01/2017 Lipid Ord30 CHOL 171 mg/dL 07/28/2017 Lipid Ord30 HDL 29.0 mg/dl 07/28/2017 Lipid Ord30 TRIG 218 mg/dL 07/28/2017 Lipid Ord30 LDL 98 mg/dL 07/28/2017 Lipid Ord30 C/HDL 5.9 Ratio 07/28/2017 %Hba1C Zoe723 % HbA1c 63343-4 5.6 % 04/08/2017 %Hba1C Jip020 Gluc Ave 114 mg/dL 04/08/2017 Comp Metabolic Kux383 NA 139 mEq/L 04/08/2017 Comp Metabolic Idt713 K 4.3 mEq/L 04/08/2017 Comp Metabolic Zrm287 CL 102 mEq/L 04/08/2017 Comp Metabolic Mxp085 CO2 26.0 mEq/L 04/08/2017 Comp Metabolic Iad835 ANION GAP 15 04/08/2017 Comp Metabolic Pev702 GLUCOSE 99 mg/dL 04/08/2017 Comp Metabolic Bhy392 Creat 1.1 mg/dL 04/08/2017 Comp Metabolic Hcy129 eGFR 52 ml/min/1.73m2 04/08/2017 Comp Metabolic Lxq802 BUN 16 mg/dL 04/08/2017 Comp Metabolic Ked275 B/C Ratio 15.0 Ratio 04/08/2017 Comp Metabolic Lew397 CALCIUM 8.8 mg/dL 04/08/2017 Comp Metabolic Qnu079 ALK PHOS 86 U/L 04/08/2017 Comp Metabolic Rfl739 AST(SGOT) 12 U/L 04/08/2017 Comp Metabolic Tzc002 ALT(SGPT) 8 U/L 04/08/2017 Comp Metabolic Hcf400 BILI T 0.8 mg/dL 04/08/2017 Comp Metabolic Nbc866 ALBUMIN 3.5 g/dL 04/08/2017 Comp Metabolic Klh073 TPRO 6.6 g/dL 04/08/2017 Comp Metabolic Yzr718 GLOB 3.1 g/dL 04/08/2017 Comp Metabolic Gxk696 A/G Ratio 1.1 Ratio 04/08/2017 Comp Metabolic Ikf165 Osmo 279 mOsmo 04/08/2017 Cbc With Differential [...] 21.9 % 04/08/2017 Cbc With Differential Ord2 Colbert% 6.8 % 04/08/2017 Cbc With Differential Ord2 MCH 29.6 pg 04/08/2017 Cbc With Differential Ord2 MCHC 32.5 pg 04/08/2017 Cbc With Differential Ord2 Eos% 1.6 % 04/08/2017 Cbc With Differential Ord2 Baso% 0.3 % 04/08/2017 Cbc With Differential Ord2 PLT 336 K/ul 04/08/2017 Cbc With Differential Ord2 Neut ABS# 7.03 K/ul 04/08/2017 Cbc With Differential Ord2 RDW 14.5 % 04/08/2017 Cbc With Differential Ord2 Lymph ABS# 2.22 K/ul 04/08/2017 Cbc With Differential Ord2 Colbert ABS# 0.7 K/ul 04/08/2017 Cbc With Differential Ord2 Eos ABS# 0.2 K/ul 04/08/2017 Cbc With Differential Ord2 Baso ABS# 0.0 K/ul 04/08/2017 Lipid Ord30 CHOL 248 mg/dL 04/08/2017 Lipid Ord30 HDL 34.0 mg/dl 04/08/2017 Lipid Ord30 TRIG 252 mg/dL 04/08/2017 Lipid Ord30 LDL 164 mg/dL 04/08/2017 Lipid Ord30 C/HDL 7.3 Ratio 04/08/2017 B12 Ioi486 B12 665.00 pg/ml 04/08/2017 Tsh Ord6 hTSH II 3.37 uIU/mL 04/08/2017 Culture Sputum 109322 LOWER RESPIRATORY TRACT CULTURE SEE NOTES 12/26/2016 %Hba1C Eyu221 % HbA1c 28383-3 5.9 % 10/15/2016 %Hba1C Efk957 Gluc Ave 123 mg/dL 10/15/2016 Lipid Ord30 CHOL 141 mg/dL 10/15/2016 Lipid Ord30 HDL 39.0 mg/dl 10/15/2016 Lipid Ord30 TRIG 164 mg/dL 10/15/2016 Lipid Ord30 LDL 69 mg/dL 10/15/2016 Lipid Ord30 C/HDL 3.6 Ratio 10/15/2016 Comp Metabolic Kbw812 NA 140 mEq/L 10/15/2016 Comp Metabolic Acq856 K 4.3 mEq/L 10/15/2016 Comp Metabolic Trw939 CL 105 mEq/L 10/15/2016 Comp Metabolic Xjy193 CO2 22.0 mEq/L 10/15/2016 Comp Metabolic Qpu153 ANION GAP 17 10/15/2016 Comp Metabolic Bol063 GLUCOSE 101 mg/dL 10/15/2016 Comp Metabolic Nsr344 Creat 1.1 mg/dL 10/15/2016 Comp Metabolic Tgg338 eGFR 52 ml/min/1.73m2 10/15/2016 Comp Metabolic Zhc364 BUN 20 mg/dL 10/15/2016 Comp Metabolic Dca520 B/C Ratio 18.7 Ratio 10/15/2016 Comp Metabolic Vwz123 CALCIUM 9.0 mg/dL 10/15/2016 Comp Metabolic Eyh994 ALK PHOS 103 U/L 10/15/2016 Comp Metabolic Qtk848 AST(SGOT) 14 U/L 10/15/2016 Comp Metabolic Mie171 ALT(SGPT) 11 U/L 10/15/2016 Comp Metabolic Xlb583 BILI T 1.3 mg/dL 10/15/2016 Comp Metabolic Qaz353 ALBUMIN 3.7 g/dL 10/15/2016 Comp Metabolic Umk581 TPRO 6.4 g/dL 10/15/2016 Comp Metabolic Nvu010 GLOB 2.7 g/dL 10/15/2016 Comp Metabolic Oec235 A/G Ratio 1.4 Ratio 10/15/2016 Comp Metabolic Djs898 Osmo 282 mOsmo 10/15/2016 Cbc With Differential Ord2 WBC 10.44 K/ul 10/15/2016 Cbc With Differential Ord2 RBC 4.58 M/ul 10/15/2016 Cbc With Differential Ord2 HGB 13.4 g/dl 10/15/2016 Cbc With Differential Ord2 HCT 42.4 % 10/15/2016 Cbc With Differential Ord2 Neut% 66.6 % 10/15/2016 Cbc With Differential Ord2 Lymph% 24.6 % 10/15/2016 Cbc With Differential Ord2 MCV 92.6 fl 10/15/2016 Cbc With Differential Ord2 MCH 29.3 pg 10/15/2016 Cbc With Differential Ord2 Colbert% 6.9 % 10/15/2016 Cbc With Differential Ord2 Eos% 1.5 % 10/15/2016 Cbc With Differential Ord2 MCHC 31.6 pg 10/15/2016 Cbc With Differential Ord2 Baso% 0.4 % 10/15/2016 Cbc With Differential Ord2 PLT 317 K/ul 10/15/2016 Cbc With Differential Ord2 Neut ABS# 6.95 K/ul 10/15/2016 Cbc With Differential Ord2 RDW 16.4 % 10/15/2016 Cbc With Differential Ord2 Lymph ABS# 2.57 K/ul 10/15/2016 Cbc With Differential Ord2 Colbert ABS# 0.7 K/ul 10/15/2016 Cbc With Differential Ord2 Eos ABS# 0.2 K/ul 10/15/2016 Cbc With Differential Ord2 Baso ABS# 0.0 K/ul 10/15/2016 Tsh Ord6 hTSH II 2.56 uIU/mL 10/15/2016 Tsh Ord6 hTSH II 2.65 uIU/mL 07/11/2016 Comp Metabolic Yef750 NA 139 mEq/L 07/11/2016 Comp Metabolic Wmy658 K 4.0 mEq/L 07/11/2016 Comp Metabolic Yye098 CL 103 mEq/L 07/11/2016 Comp Metabolic Plk944 CO2 25.0 mEq/L 07/11/2016 Comp Metabolic Mxq453 ANION GAP 15 07/11/2016 Comp Metabolic Jdh562 GLUCOSE 94 mg/dL 07/11/2016 Comp Metabolic Vuz802 Creat 1.2 mg/dL 07/11/2016 Comp Metabolic Btd937 eGFR 47 ml/min/1.73m2 07/11/2016 Comp Metabolic Zwt017 BUN 17 mg/dL 07/11/2016 Comp Metabolic Ahf333 B/C Ratio 14.5 Ratio 07/11/2016 Comp Metabolic Zik831 CALCIUM 8.9 mg/dL 07/11/2016 Comp Metabolic Xru907 ALK PHOS 107 U/L 07/11/2016 Comp Metabolic Zjh975 AST(SGOT) 14 U/L 07/11/2016 Comp Metabolic Qgh199 ALT(SGPT) 10 U/L 07/11/2016 Comp Metabolic Ugr669 BILI T 1.1 mg/dL 07/11/2016 Comp Metabolic Ytm108 ALBUMIN 3.8 g/dL 07/11/2016 Comp Metabolic Mce629 TPRO 6.7 g/dL 07/11/2016 Comp Metabolic Nsx364 GLOB 3.0 g/dL 07/11/2016 Comp Metabolic Vnr443 A/G Ratio 1.3 Ratio 07/11/2016 Comp Metabolic Ocl509 Osmo 279 mOsmo 07/11/2016 Lipid Ord30 CHOL 154 mg/dL 07/11/2016 Lipid Ord30 HDL 38.0 mg/dl 07/11/2016 Lipid Ord30 TRIG 199 mg/dL 07/11/2016 Lipid Ord30 LDL 76 mg/dL 07/11/2016 Lipid Ord30 C/HDL 4.1 Ratio 07/11/2016 %Hba1C Ydw657 % HbA1c 69278-1 6.0 % 07/11/2016 %Hba1C Nun683 Gluc Ave 126 mg/dL 07/11/2016 Free T4 Vmn740 FREE T4 1.00 ng/dL 07/11/2016 Magnesium Ord90 Mag 2.0 mg/dL 07/11/2016 Vitamin D 25 Oh Dqy7871 VITAMIN D, 25 HYDROXY 49.14 ng/mL Cbc With Differential Ord2 WBC 11.21 K/ul 07/11/2016 Cbc With Differential Ord2 RBC 4.69 M/ul 07/11/2016 Cbc With Differential Ord2 HGB 13.6 g/dl 07/11/2016 Cbc With Differential Ord2 Neut% 67.4 % 07/11/2016 Cbc With Differential Ord2 HCT 42.2 % 07/11/2016 Cbc With Differential Ord2 Lymph% 24.4 % 07/11/2016 Cbc With Differential Ord2 MCV 90.0 fl 07/11/2016 Cbc With Differential Ord2 Colbert% 6.4 % 07/11/2016 Cbc With Differential Ord2 MCH 29.0 pg 07/11/2016 Cbc With Differential Ord2 Eos% 1.5 % 07/11/2016 Cbc With Differential Ord2 MCHC 32.2 pg 07/11/2016 Cbc With Differential Ord2 Baso% 0.3 % 07/11/2016 Cbc With Differential Ord2 PLT 339 K/ul 07/11/2016 Cbc With Differential Ord2 Neut ABS# 7.56 K/ul 07/11/2016 Cbc With Differential Ord2 RDW 15.9 % 07/11/2016 Cbc With Differential Ord2 Lymph ABS# 2.73 K/ul 07/11/2016 Cbc With Differential Ord2 Colbert ABS# 0.7 K/ul 07/11/2016 Cbc With Differential Ord2 Eos ABS# 0.2 K/ul 07/11/2016 Cbc With Differential Ord2 Baso ABS# 0.0 K/ul 07/11/2016 Vitamin D 25 Oh Fln5042 VITAMIN D, 25 HYDROXY 54.60 ng/mL Lipase Svy415 LIPASE 38 U/L 12/11/2015 Cbc With Differential Ord2 WBC [...] 29.2 pg 12/11/2015 Cbc With Differential Ord2 Colbert% 8.5 % 12/11/2015 Cbc With Differential Ord2 MCHC 32.2 pg 12/11/2015 Cbc With Differential Ord2 Eos% 0.5 % 12/11/2015 Cbc With Differential Ord2 Baso% 0.5 % 12/11/2015 Cbc With Differential Ord2 PLT 428 K/ul 12/11/2015 Cbc With Differential Ord2 RDW 15.6 % 12/11/2015 Cbc With Differential Ord2 Neut ABS# 6.50 K/ul 12/11/2015 Cbc With Differential Ord2 Lymph ABS# 2.50 K/ul 12/11/2015 Cbc With Differential Ord2 Colbert ABS# 0.8 K/ul 12/11/2015 Cbc With Differential Ord2 Eos ABS# 0.1 K/ul 12/11/2015 Cbc With Differential Ord2 Baso ABS# 0.1 K/ul 12/11/2015 Cbc With Differential Ord2 New Analyzer Notice Please note new ref ranges starting 09-12-2015 due to implemntation of new five part differential hematolgy analyzer. 12/11/2015 Comp Metabolic Tam588 NA 137 mEq/L 12/11/2015 Comp Metabolic Wse421 K 3.9 mEq/L 12/11/2015 Comp Metabolic Pah812 CL 101 mEq/L 12/11/2015 Comp Metabolic Nxy171 CO2 32.0 mEq/L 12/11/2015 Comp Metabolic Rhr040 ANION GAP 8 12/11/2015 Comp Metabolic Jkk935 GLUCOSE 88 mg/dL 12/11/2015 Comp Metabolic Kqm070 Creat 1.0 mg/dL 12/11/2015 Comp Metabolic Pqn869 eGFR 55 ml/min/1.73m2 12/11/2015 Comp Metabolic Jpp374 BUN 14 mg/dL 12/11/2015 Comp Metabolic Bxr977 B/C Ratio 13.6 Ratio 12/11/2015 Comp Metabolic Fmr629 CALCIUM 9.0 mg/dL 12/11/2015 Comp Metabolic Evn616 ALK PHOS 75 U/L 12/11/2015 Comp Metabolic Rcd229 AST(SGOT) 13 U/L 12/11/2015 Comp Metabolic Wsz631 ALT(SGPT) 8 U/L 12/11/2015 Comp Metabolic Foz440 BILI T 0.6 mg/dL 12/11/2015 Comp Metabolic Cct040 ALBUMIN 3.4 g/dL 12/11/2015 Comp Metabolic Lzh035 TPRO 5.8 g/dL 12/11/2015 Comp Metabolic Lvd125 GLOB 2.5 g/dL 12/11/2015 Comp Metabolic Yqp515 A/G Ratio 1.4 Ratio 12/11/2015 Comp Metabolic Szz746 Osmo 274 mOsmo 12/11/2015 Amylase Ord34 AMYLASE 32 U/L 12/11/2015 Comp Metabolic Brl341 NA 139 mEq/L 10/25/2015 Comp Metabolic Tds472 K 4.5 mEq/L 10/25/2015 Comp Metabolic Tpj372 CL 101 mEq/L 10/25/2015 Comp Metabolic Mxc629 CO2 31.0 mEq/L 10/25/2015 Comp Metabolic Uhf342 ANION GAP 12 10/25/2015 Comp Metabolic Sbo020 GLUCOSE 70 mg/dL 10/25/2015 Comp Metabolic Rfe140 Creat 1.1 mg/dL 10/25/2015 Comp Metabolic Cql421 eGFR 54 ml/min/1.73m2 10/25/2015 Comp Metabolic Rgf997 BUN 17 mg/dL 10/25/2015 Comp Metabolic Ett076 B/C Ratio 16.2 Ratio 10/25/2015 Comp Metabolic Rbf689 CALCIUM 8.8 mg/dL 10/25/2015 Comp Metabolic Abc207 ALK PHOS 82 U/L 10/25/2015 Comp Metabolic Nru637 AST(SGOT) 13 U/L 10/25/2015 Comp Metabolic Pgu485 ALT(SGPT) 7 U/L 10/25/2015 Comp Metabolic Heb862 BILI T 0.7 mg/dL 10/25/2015 Comp Metabolic Etd326 ALBUMIN 3.5 g/dL 10/25/2015 Comp Metabolic Mfg862 TPRO 6.2 g/dL 10/25/2015 Comp Metabolic Gfw565 GLOB 2.7 g/dL 10/25/2015 Comp Metabolic Vcu463 A/G Ratio 1.3 Ratio 10/25/2015 Comp Metabolic Qmf227 Osmo 278 mOsmo 10/25/2015 C-Reactive Protein Qnt Crqnt CRP 0.6 mg/dl 10/25/2015 Lipid Ord30 CHOL 259 mg/dL 10/25/2015 Lipid Ord30 HDL 46.0 mg/dl 10/25/2015 Lipid Ord30 TRIG 146 mg/dL 10/25/2015 Lipid Ord30 LDL 184 mg/dL 10/25/2015 Lipid Ord30 C/HDL 5.6 Ratio 10/25/2015 Bordetella pertussis DNA, Qualitative Real-Time PCR [id number] BORDETELLA PERTUSSIS DNA NEGATIVE 09/06/2015 Comp Metabolic Kyr371 NA 135 mEq/L 09/05/2015 Comp Metabolic Brl462 K 3.8 mEq/L 09/05/2015 Comp Metabolic Vuc284 CL 100 mEq/L 09/05/2015 Comp Metabolic Gtq737 CO2 26.0 mEq/L 09/05/2015 Comp Metabolic Rhx285 ANION GAP 13 09/05/2015 Comp Metabolic Pms615 GLUCOSE 100 mg/dL 09/05/2015 Comp Metabolic Hkn287 Creat 1.0 mg/dL 09/05/2015 Comp Metabolic Asw259 eGFR 56 ml/min/1.73m2 09/05/2015 Comp Metabolic Elj398 BUN 16 mg/dL 09/05/2015 Comp Metabolic Mti589 B/C Ratio 15.7 Ratio 09/05/2015 Comp Metabolic Voz023 CALCIUM 8.8 mg/dL 09/05/2015 Comp Metabolic Ewc821 ALK PHOS 96 U/L 09/05/2015 Comp Metabolic Oje674 AST(SGOT) 12 U/L 09/05/2015 Comp Metabolic Anb569 ALT(SGPT) 10 U/L 09/05/2015 Comp Metabolic Kkz280 BILI T 0.8 mg/dL 09/05/2015 Comp Metabolic Oxl767 ALBUMIN 3.6 g/dL 09/05/2015 Comp Metabolic Per670 TPRO 6.5 g/dL 09/05/2015 Comp Metabolic Mkr533 GLOB 2.9 g/dL 09/05/2015 Comp Metabolic Tib015 A/G Ratio 1.2 Ratio 09/05/2015 Comp Metabolic Roe568 Osmo 271 mOsmo 09/05/2015 Tsh Ord6 hTSH II 2.05 uIU/mL 09/05/2015 Cbc With Differential Ord2 WBC 10.4 K/uL [...] Protein Qnt Crqnt CRP 1.8 mg/dl 09/05/2015 Sed Rate Ord21 ESR 26 mm/hr [...] clear 04/07/2017 None Full Exam - General 1995 Ears/Nose/Throat oral cavity/pharynx/larynx Overall: oropharyngeal mucosa clear [...] benign 04/07/2017 None Full Exam - General 1995 Musculoskeletal spine, ribs and pelvis Overall: spine benign 04/07/2017 None Full Exam - General 1995 Musculoskeletal spine, ribs and pelvis Overall: sacroiliac [...] Procedure Codes Date THER/PROPH/DIAG INJ SC/IM CPT-4: 50789 08/04/2018 TRIAMCINOLONE ACET INJ NOS CPT-4: J3301 08/04/2018 PPPS, SUBSEQ VISIT CPT -4: G0439 11/17/2017 PPPS, SUBSEQ VISIT CPT -4: G0439 11/12/2016 TRIAMCINOLONE ACET INJ NOS CPT-4: J3301 11/11/2016 TRIAMCINOLONE ACET INJ NOS CPT-4: J3301 07/17/2016 ROCEPHIN, PER 250 MG CPT-4: J0696 07/17/2016 ROCEPHIN, PER 250 MG CPT-4: J0696 03/13/2016 THER/PROPH/DIAG INJ SC/IM CPT-4: 11297 10/04/2015 TRIAMCINOLONE ACET INJ NOS CPT-4: J3301 10/04/2015 VITAMIN B12 INJECTION CPT-4: J3420 05/26/2011 THER/PROPH/DIAG INJ SC/IM CPT-4: 75915 05/26/2011 VITAMIN B12 INJECTION CPT-4: J3420 04/25/2011 THER/PROPH/DIAG INJ SC/IM CPT-4: 63391 04/25/2011 Vital Signs Date Vital 09/23/2018 Blood Pressure 1: 136/82 Code : 8480-6 BMI: 32.0 Code : 27465-3 Heart Rate 1 : 58 bpm Height: 5'2" SpO2: 98% Weight: 175 lbs 08/04/2018 Blood Pressure 1: 130/74 Code : 8480-6 BMI: 32.7 Code : 49046-5 Heart Rate 1 : 59 bpm Height: 5'2" SpO2: 97% Weight: 179 lbs 03/18/2018 Blood Pressure 1: 122/70 Code : 8480-6 BMI: 32.0 Code : 01356-5 Heart Rate 1 : 63 bpm Height: 5'2" SpO2: 97% Weight: 174 lbs 14 oz 12/01/2017 Blood Pressure 1: 130/72 Code : 8480-6 BMI: 32.0 Code : 07978-9 Heart Rate 1 : 66 bpm Height: 5'2" SpO2: 96% Weight: 175 lbs 11/17/2017 Blood Pressure 1: 138/74 Code : 8480-6 BMI: 32.2 Code : 25033-9 Heart Rate 1 : 61 bpm Height: 5'2" SpO2: 98% Waist Measure (cm): 94 cm Weight: 176 lbs 08/11/2017 Blood Pressure 1: 126/64 Code : 8480-6 BMI: 32.2 Code : 03770-2 Heart Rate 1 : 57 bpm Height: 5'2" SpO2: 98% Weight: 176 lbs 04/07/2017 Blood Pressure 1: 120/70 Code : 8480-6 BMI: 33.1 Code : 64816-6 Heart Rate 1 : 80 bpm Height: 5'2" SpO2: 95% Weight: 181 lbs 01/05/2017 Blood Pressure 1: 128/70 Code : 8480-6 Heart Rate 1: 68 bpm Height: 5'2" SpO2: 96% Temperature: 36.6 (C) / 97.8 (F) Weight: 2016 Blood Pressure 1: 134/62 Code : 8480-6 BMI: 32.6 Code : 93879-2 Heart Rate 1 : 66 bpm Height: 5'2" SpO2: 97% Weight: 178 lbs 11/25/2016 Blood Pressure 1: 144/78 Code : 8480-6 BMI: 32.7 Code : 77027-6 Heart Rate 1 : 54 bpm Height: 5'2" SpO2: 96% Weight: 179 lbs 11/12/2016 Blood Pressure 1: 132/70 Code : 8480-6 BMI: 23.6 Code : 88993-8 Heart Rate 1 : 66 bpm Height: 5'2" SpO2: 98% Waist Measure (cm): 69 cm Weight: 129 lbs 11/11/2016 Blood Pressure 1: 132/68 Code : 8480-6 BMI: 33.1 Code : 67190-3 Heart Rate 1 : 66 bpm Height: 5'2" SpO2: 98% Temperature: 36.6 (C) / 97.8 (F) Weight: 181 lbs 07/28/2016 Blood Pressure 1: 138/78 Code : 8480-6 BMI: 32.0 Code : 11311-7 Heart Rate 1 : 60 bpm Height: 5'2" SpO2: 98% Weight: 175 lbs 07/17/2016 Blood Pressure 1: 118/62 Code : 8480-6 BMI: 31.5 Code : 13496-1 Heart Rate 1 : 66 bpm Height: 5'2" SpO2: 97% Temperature: 36.8 (C) / 98.2 (F) Weight: 172 lbs 04/08/2016 Blood Pressure 1: 138/72 Code : 8480-6 BMI: 31.5 Code : 88427-9 Heart Rate 1 : 58 bpm Height: 5'2" SpO2: 98% Weight: 172 lbs 03/24/2016 Blood Pressure 1: 128/82 Code : 8480-6 BMI: 30.9 Code : 16774-0 Heart Rate 1 : 53 bpm Height: 5'2" SpO2: 96% Weight: 169 lbs 03/13/2016 Blood Pressure 1: 122/72 Code : 8480-6 BMI: 31.1 Code : 62946-7 Heart Rate 1 : 54 bpm Height: 5'2" SpO2: 98% Temperature: 36.7 (C) / 98.0 (F) Weight: 170 lbs 01/22/2016 Blood Pressure 1: 116/58 Code : 8480-6 BMI: 31.5 Code : 33720-7 Heart Rate 1 : 59 bpm Height: 5'2" SpO2: 98% Weight: 172 lbs 12/19/2015 Blood Pressure 1: 158/88 Code : 8480-6 BMI: 30.7 Code : 67046-5 Heart Rate 1 : 70 bpm Height: 5'2" SpO2: 97% Weight: 168 lbs 12/07/2015 Blood Pressure 1: 118/74 Code : 8480-6 BMI: 31.5 Code : 09773-6 Heart Rate 1 : 71 bpm Height: 5'2" SpO2: 93% Temperature: 35.6 (C) / 96.0 (F) Weight: 172 lbs 10/26/2015 Blood Pressure 1: 122/76 Code : 8480-6 BMI: 31.2 Code : 91128-4 Heart Rate 1 : 60 bpm Height: 5'2" SpO2: 98% Weight: 170 lbs 8 oz 10/04/2015 Blood Pressure 1: 120/74 Code : 8480-6 BMI: 31.5 Code : 14775-8 Heart Rate 1 : 57 bpm Height: 5'2" SpO2: 97% Weight: 172 lbs 09/05/2015 Blood Pressure 1: 160/82 Code : 8480-6 BMI: 31.1 Code : 44279-6 Heart Rate 1 : 61 bpm Height: 5'2" SpO2: 98% Weight: 170 lbs 04/25/2011 Blood Pressure 1: 146/88 Code : 8480-6 BMI: 38.9 Code : 37836-0 Heart Rate 1 : 64 bpm Height: [...] data Encounters Encounter Performer Location Codes Date ([id number]) 79634 EST. PATIENT, LEVEL IV Diagnosis: Essential (primary) hypertension[ICD10: I10] Diagnosis: Cough[ICD10: R05] Diagnosis: Gastro-esophageal reflux disease without esophagitis[ICD10: K21.9] Rhina Ordoñez MD, [facility] CPT-4: 77038 09/23/2018 ([id number]) 00298 EST. PATIENT, LEVEL IV Diagnosis: Essential (primary) hypertension[ICD10: I10] Diagnosis: Mixed hyperlipidemia[ICD10: E78.2] Diagnosis: Cough[ICD10: R05] Diagnosis: Vitamin B12 deficiency anemia due to intrinsic factor deficiency[ ICD10: D51.0] Rhina Ordoñez MD, [facility] CPT-4: 09289 08/04/2018 ([id number]) 94330 EST. PATIENT, LEVEL IV Diagnosis: Essential (primary) hypertension[ICD10: I10] Diagnosis: Pleurodynia[ICD10: R07.81] Diagnosis: Mixed hyperlipidemia[ICD10: E78.2] Rhina Ordoñez MD, [facility] CPT-4: 05144 03/18/2018 ([id number]) 36028 EST. PATIENT, LEVEL IV Diagnosis: Essential (primary) hypertension[ICD10: I10] Diagnosis: Pleurodynia[ICD10: R07.81] Diagnosis: Other abnormal glucose[ICD10: R73.09] Diagnosis: Mastodynia[ICD10: N64.4] Rhina Ordoñez MD, [facility] CPT-4: 37780 12/01/2017 [id number]) 49899 EST. PATIENT, LEVEL IV Diagnosis: Essential (primary) hypertension[ICD10: I10] Diagnosis: Dysuria[ICD10: R30.0] Diagnosis: Vitamin B12 deficiency anemia due to intrinsic factor deficiency[ ICD10: D51.0] Rhina Ordoñez MD, [facility] CPT-4: 88206 08/11/2017 ([id number]) 35718 EST. PATIENT, LEVEL IV Diagnosis: Vitamin B12 deficiency anemia due to intrinsic factor deficiency[ ICD10: D51.0] Diagnosis: Essential (primary) hypertension[ICD10: I10] Diagnosis: Gastro-esophageal reflux disease without esophagitis[ICD10: K21.9] Diagnosis: Essential (primary) hypertension[ICD10: I10] Diagnosis: Other abnormal glucose[ICD10: R73.09] Rhina Ordoñez MD, [facility] CPT-4: 70667 04/07/2017 ([id number]) 10392 EST. PATIENT, LEVEL IV Diagnosis: Essential (primary) hypertension[ICD10: I10] Diagnosis: Vitamin B12 deficiency anemia due to intrinsic factor deficiency[ ICD10: D51.0] Diagnosis: Cough[ICD10: R05] Rhina Ordoñez MD, [facility] CPT-4: 15952 01/05/2017 [id number] EST. PATIENT, LEVEL IV Diagnosis: Cough[ICD10: R05] Diagnosis: Essential (primary) hypertension[ICD10: I10] Adela Ordoñez MD, [facility] CPT-4: 09741 2016 ([id number]) 63252 EST. PATIENT, LEVEL III Diagnosis: Essential (primary) hypertension[ICD10: I10] Rhina Ordoñez MD, [facility] CPT-4: 33015 11/25/2016 ([id number]) 02630 EST. PATIENT, LEVEL III Diagnosis: Cough[ICD10: R05] Diagnosis: Gastro-esophageal reflux disease without esophagitis[ICD10: K21.9] Diagnosis: Acute bronchitis, unspecified[ICD10: J20.9] Soraida Ordoñez MD, [facility] CPT-4: 14585 11/11/2016 ([id number]) 89303 EST. PATIENT, LEVEL III Diagnosis: Cough[ICD10: R05] Rhina Ordoñez MD, [facility] CPT-4: 32640 07/28/2016 ([id number]) 69138 EST. PATIENT, LEVEL IV Diagnosis: Pneumonia due to other specified bacteria[ICD10: J15.8] Diagnosis: Cough[ICD10: R05] Diagnosis: Vitamin B12 deficiency anemia due to intrinsic factor deficiency[ ICD10: D51.0] Rhina Ordoñez MD, [facility] CPT-4: 47801 07/17/2016 ([id number]) 95051 EST. PATIENT, LEVEL IV Diagnosis: Essential (primary) hypertension[ICD10: I10] Diagnosis: Gastro-esophageal reflux disease without esophagitis[ICD10: K21.9] Rhina Ordoñez MD, [facility] CPT-4: 99525 04/08/2016 43606 EST. PATIENT, LEVEL II Diagnosis: Localized enlarged lymph nodes[ICD10: R59.0] Soraida Ordoñez MD, [facility] CPT-4: 50074 03/24/2016 ([id number]) 86111 EST. PATIENT, LEVEL III Diagnosis: Enlarged lymph nodes, unspecified[ICD10: R59.9] Diagnosis: Acute maxillary sinusitis, unspecified[ICD10: J01.00] Rhina Ordoñez MD, [facility] CPT-4: 98756 03/13/2016 ([id number]) 09754 EST. PATIENT, LEVEL IV Diagnosis: Cough[ICD10: R05] Diagnosis: Dyspnea, unspecified[ICD10: R06.00] Rhina Ordoñez MD, [facility] CPT-4: 89227 01/22/2016 35482 EST. PATIENT, LEVEL IV Diagnosis: Right upper quadrant pain[ICD10: R10.11] Diagnosis: Left upper quadrant pain[ICD10: R10.12] Adela Ordoñez MD, [facility] CPT-4: 73522 12/19/2015 ([id number]) 70212 EST. PATIENT, LEVEL IV Diagnosis: Generalized abdominal pain[ICD10: R10.84] Diagnosis: Constipation, unspecified[ICD10: K59.00] Diagnosis: Urinary tract infection, site not specified[ICD10: N39.0] Soraida Ordoñez MD , [facility] CPT-4: 65533 12/07/2015 ([id number]) 06871 EST. PATIENT, LEVEL III Diagnosis: Gastro-esophageal reflux disease without esophagitis[ICD10: K21.9] Diagnosis: Elevated C-reactive protein (CRP)[ICD10: R79.82] Rhina Ordoñez MD, [facility] CPT-4: 07365 10/26/2015 ([id number]) 65481 EST. PATIENT, LEVEL III Diagnosis: Cough[ICD10: R05] Diagnosis: Elevated C-reactive protein (CRP)[ICD10: R79.82] Diagnosis: Pleurodynia[ICD10: R07.81] Rhina Ordoñez MD, [facility] CPT- 4: 39901 10/04/2015 ([id number]) OFFICE VISIT, NEW - LEVEL 4 Diagnosis: Cough[ICD10: R05] Diagnosis: Dyspnea, unspecified[ICD10: R06.00] Diagnosis: Essential (primary) hypertension[ICD10: I10] Rhina Ordoñez MD, [facility] CPT-4: 01967 09/05/2015 44991 EST. PATIENT, LEVEL IV Diagnosis: ESSENTIAL HYPERTENSION[SNOMED: 61603627] Diagnosis: Vitamin B 12 deficiency[ICD9: 266.2] Rhina Ordoñez MD, [facility] CPT-4: 41205 04/25/2011 Plan of Care Planned Activity Notes [...] referral to Dr. cote for egd 09/23/2018 Patient Education: Patient Medication Summary Completed [...] refilled rx. 08/04/2018 Appointment: Rhina Ordoñez WPtel: [phone] [facility] [place] (15 min) Moderate 08/04/2018 Patient Education: Patient [...] medications. 03/18/2018 Appointment[phone] [place] (15 min) Moderate 03/18/2018 Patient Education: Patient [...] labs 12/01/2017 Appointment: [phone] [place] (15 min) Moderate 12/01/2017 Patient Education: Patient Medication Summary Completed 12/01/2017 Care Plan: Referral Order SNOMED-CT : [id number] Pending 12/01/2017 Visit Plan: Medicare Exam - [...] [place] [phone] [facility] - Annual Wellness Visit 11/17/2017 [...] at home. 08/11/2017 Appointment: [phone] (15 min) Moderate 08/11/2017 Patient Education: Patient [...] feet 04/07/2017 Appointment: [phone] [facility] (15 min) Moderate 04/07/2017 Patient Education: Patient [...] - 01/05/2017 Appointment: [facility]ez [phone] [facility] (15 min) Moderate 01/05/2017 Patient Education: Patient [...] at home. 2016 Appointment: Adela Ventura WPtel: [facility] (15 min) Moderate 2016 Patient Education: Patient [...] acute concerns. 11/25/2016 Appointment: Rhina Ordoñez WPtel: [phone] [facility] (15 min) Moderate 11/25/2016 Patient Education: Patient [...] care surrogate. 11/12/2016 Appointment: Adela Ventura WPtel: [phone] [facility] [facility] - Annual Wellness Visit 11/12/2016 Patient Education: Patient Medication Summary Completed 11/12/2016 Visit Plan: Bronchitis/cough - acute case of bronchitis identified. Pt has been given antibiotics, breathing treatments as appropriate, and pt has been instructed to call if symptoms are not improved, or if symptoms acutely worsen. Follow up in 2 weeks GERD-protonix BID 11/11/2016 Appointment: Soraida Mayorga WPtel: [facility]4 [phone] [place] (15 min) Moderate 11/11/2016 Patient Education: Patient Medication Summary Completed 11/11/2016 Patient Education: Patient Medication Summary Completed 10/14/2016 Care Plan: Cbc With Differential Pending 10/14/2016 Care Plan: Comp Metabolic Pending 10/14/2016 Care Plan: Tsh Pending 10/14/2016 Care Plan: Lipid Pending 10/14/2016 Care Plan: %Hba1C LOINC : 59258-0 Pending 10/14/2016 Appointment: Rhina Ordoñez WPtel: [facility] (15 min) Moderate 08/06/2016 Visit Plan: Cough - improved - but still slight cough - due to congestion - recommended pt to continue with decongestion medication, call if symptoms worsen or do not further improve. 07/28/2016 Appointment: Rhina Ordoñez WPtel: [facility]9 [facility] [place] (15 min) Moderate 07/28/2016 Patient Education: Patient Medication Summary Completed 07/28/2016 Patient Education: Obesity Completed 07/28/2016 Visit Plan: Pneumonia - Pt has been diagnosed with pneumonia by physical exam. Antibiotics have been ordered, pt to call if symptoms are not improving.. The pt is aware of the diagnosis and the need for acute treatment of this illness. 07/17/2016 Appointment: Rhina Ordoñez WPtel: [facility]9 [facility] [place] (15 min) Moderate 07/17/2016 Patient Education: Patient Medication Summary Completed 07/17/2016 Patient Education: Obesity Completed 07/17/2016 Appointment: Rhina Ordoñez WPtel: [facility]8 [facility] [place] (15 min) Moderate 04/22/2016 Visit Plan: Hypertension [...] show improvement. 03/13/2016 Appointment: [facility]do[facility]ez [facility]Ptel[phone] [facility] (10 min) Simple 03/13/2016 Patient Education: Patient Medication Summary Completed 03/13/2016 Patient Education: Obesity Completed 03/13/2016 Visit Plan: Bronchitis - acute case of bronchitis identified. Pt has been given antibiotics, breathing treatments as appropriate, and pt has been instructed to call if symptoms are not improved, or if symptoms acutely worsen. 01/22/2016 Appointment: Rhina Ordoñez WPtel: [phone] [facility] (15 min) Moderate 01/22/2016 Appointment: [facility]ez [facility]Ptel[phone] (15 min) Moderate 01/22/2016 Patient Education: Patient [...] KUB-monitor symptoms 12/07/2015 Appointment: Soraida Mayorga WPtel: [phone] [phone] [place] (10 min) Simple 12/07/2015 Patient Education: [...] Hypertension Completed 10/26/2015 Appointment: Rhina Ordo[facility]ez [facility]Ptel: [phone] [place] (15 min) Moderate 10/25/2015 Patient Education: [...] history of cryptococcal lung disease. 09/05/2015 Appointment: SmitaAl banerjeey [facility]Ptel: [phone] [facility] [place] New Patient 09/05/2015 Patient Education: Patient Medication Summary Completed 09/05/2015 Patient Education: Hypertension Completed 09/05/2015 Appointment: Rhina Ordo[facility]ez WPtel: [phone] [facility] [place] Injection 05/26/2011 Patient Education: Patient Medication [...] given today. 04/25/2011 Appointment: Rhina Ordoñez WPtel: [phone] [facility] [place] Other 04/25/2011 Patient Education: Patient Medication Summary Completed 04/25/2011 Referral: Dr Ramirez Referral Initiated Referral: Dr Ramirez they will call with appt Initiated Referral: Ame Carpenter Referral Appointment Requested Instructions Comment Polymyalgia Rheumatica - . Elevated CRP, Shoulder pain, Chest wall pain, cough - I suspect that she has Polymyalgia Rheumatica - she refused a CRP repeat today. RTC in 3 weeks for re-eval - if not better, she has agreed to lab draw. Coenzyme Q 10 over the counter. 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 referral to Dr. cote for egd . [...] her shots as directed - refilled rx. . Cough - improved - but still [...] of elevated glucose - check labs . Abdominal pain-patient sent to the hospital [...] B12 deficiency - injection given today. . Lymph node swelling-completed treatment-swelling resolved -no further treatment indicated. . Sinusitis - Pt has acute infection - pain in face, maxillary region, Pt informed to use decongestant, RX given to patient, sinus rinses also recommended. Call if symptoms do not show improvement. . Hypertension - well controlled - continue [...] daily as directed by GI specialist. . Esophageal Reflux - the patient has been counseled against excessive intake of caffeine, spicy foods, peppermint, and cinnamon - all of which can exacerbate esophageal reflux. The patient is to take medications as prescribed and call the office if the symptoms are not improving. CRP improving. . Continued Abdominal pain - Dr. Ordoñez in to see pt, will order repeat CT, pending results will send abx and refer to GI specialist. Power Pudding: equal parts of prune juice, [...] symptoms of your feet . Hypertension - uncontrolled - the patient's [...] her history of cryptococcal lung disease. . Hypertension - well controlled - continue [...] in blood pressure readings at home. . Bronchitis - acute case of bronchitis [...] B12 injections to be given at home. restart the b12 shots . Pneumonia - Pt has been diagnosed with pneumonia by physical exam. Antibiotics have been ordered, pt to call if symptoms are not improving.. The pt is aware of the diagnosis and the need for acute treatment of this illness. . Hypertension - uncontrolled - the patient's [...] is to call for acute concerns. . Hypertension - well controlled - continue [...]
[2018-11-23 08:52] LABS: RED CELL DISTRIBUTION WIDTH 14.4 % (10.0-14.5); WHITE BLOOD COUNT 9.9 10^3/uL (4.3-11.0)
--- OUTSIDE RECORDS SUMMARY | 2018-11-23 08:53 | XMS REPORT | CCD ---
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 Name Role Phone Rhina Ordoñez PP Unavailable CCM Unavailable Summary Purpose Interface Exchange Insurance Providers Payer name Policy type / Coverage type Covered democrat ID Effective Begin Date Effective End Date WPS Medicare Part B Medicare Part B [id number] Unknown [facility] Medicare Part B [id number] Unknown Family history Brother Diagnosis Age At [...] Unknown 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 Unknown Has never used illegal drugs 04/24/2011 Allergies, Adverse Reactions, Alerts Substance Reaction Codes Entered Date Inactivated Date Status Lisinopril Unknown 09/05/2015 No Inactive Date Active Past Medical History Illness Codes Condition Status Onset Date Resolved Date Dysuria ICD-9: 788.1 ICD-10: R30.0 Active 08/11/2017 Unknown Essential (primary) hypertension ICD-9: 401.1 ICD-10: I10 Active 11/25/2016 Unknown Mixed hyperlipidemia ICD-9: 272.2 ICD-10: E78.2 Active 03/18/2018 Unknown Other abnormal glucose ICD-9: 790.29 ICD-10: R73.09 Active 10/14/2016 Unknown Cough ICD-9: 786.2 ICD-10: R05 Active 07/27/2016 Unknown Vitamin B12 deficiency anemia due to intrinsic factor deficiency ICD-9: 266.2 ICD-10: D51.0 Active 08/04/2018 Unknown Mastodynia ICD-9: 611.71 ICD-10: N64.4 Active 12/01/2017 Unknown Pleurodynia ICD-9: 786.52 ICD-10: R07.81 Active 10/03/2015 Unknown Encounter for general adult medical examination with abnormal findings ICD-9: V70.0 ICD-10: Z00.01 Active 11/12/2016 Unknown Essential (primary) hypertension ICD-9: 401.9 ICD-10: I10 Active 04/07/2017 Unknown Gastro-esophageal reflux disease without esophagitis ICD-9: 530.81 ICD-10: K21.9 Active 04/07/2016 Unknown Acute bronchitis, unspecified ICD-9: 466.0 ICD-10: [...] Problems Condition Codes Effective Dates Condition Status Dysuria ICD-9: 788.1 ICD-10: R30.0 08/11/2017 Active Essential (primary) hypertension ICD-9: 401.1 ICD-10: I10 11/25/2016 Active Mixed hyperlipidemia ICD-9: 272.2 ICD-10: E78.2 03/18/2018 Active Other abnormal glucose ICD-9: 790.29 ICD-10: R73.09 10/14/2016 Active Cough ICD-9: 786.2 ICD-10: R05 07/27/2016 Active Vitamin B12 deficiency anemia due to intrinsic factor deficiency ICD-9: 266.2 ICD-10: D51.0 08/04/2018 Active Mastodynia ICD-9: 611.71 ICD-10: N64.4 12/01/2017 Active Pleurodynia ICD-9: 786.52 ICD-10: R07.81 10/03/2015 Active Encounter for general adult medical examination with abnormal findings ICD-9: V70.0 ICD-10: Z00.01 11/12/2016 Active Essential (primary) hypertension ICD-9: 401.9 ICD-10: I10 04/07/2017 Active Gastro-esophageal reflux disease without esophagitis ICD-9: 530.81 ICD-10: K21.9 04/07/2016 Active Acute bronchitis, unspecified ICD-9: 466.0 ICD-10: [...] Fill Instructions simvastatin 40 mg tablet RxNorm: 507325 1 Tablet(s) PO QPM 12/201707/29/2019 Active Generic For:ZOCOR 40MG N O T I C E Last quantity doesn't match original quantity 07/21/2018 9:52:25 AM cyanocobalamin (vit B-12) 1,000 mcg/mL injection solution RxNorm: 174692 1 Milliliter(s) Inj monthly 08/04/201807/29 Active Kenalog 40 mg/mL suspension for injection RxNorm: 5083092 Milliliter(s) Inj 08/04/2018 08/04/2018 Inactive simvastatin 40 mg tablet RxNorm: 200352 ... TAKE 1 TABLET BY MOUTH 3 TIMES A WEEK AT BEDTIME ... 07/21/2018 08/03/2018 Inactive Generic For:ZOCOR 40MG N O T I C E Last quantity doesn't match original quantity 07/21/2018 9:52:25 AM simvastatin 40 mg tablet RxNorm: 815948 1 Tablet(s) PO TIW at [facility] 03/25/2018 07/20/2018 Inactive Take with coQ10 QD [place] 5 mg-325 mg tablet RxNorm: 615235 1 Tablet(s) PO BID as needed for pain 03/19/2018 No Stop Date Active Cozaar 50 mg tablet RxNorm: 408694 ... TAKE 1 TABLET BY MOUTH EVERY DAY AFTER SUPPER ... 03/01/2018 11/25/2018 Active Generic For:COZAAR 50MG 03/01/2018 11: 50:08 AM Coreg 6.25 mg tablet RxNorm: 552926 ... TAKE ONE TABLET BY MOUTH TWICE A DAY ... 02/01/2018 01/26/2019 Active Generic For:COREG 6.25MG N O T I C E Last quantity doesn't match original quantity 02/01/2018 10:56:10 AM simvastatin 40 mg tablet RxNorm: 556792 1 Tablet(s) PO TIW at [facility] 12/04/2017 12/03/2017 Inactive simvastatin 40 mg tablet RxNorm: 613509 1 Tablet(s) PO TIW at [facility] 12/04/2017 03/24/2018 Inactive Take with coQ10 QD [place] 5 mg-325 mg tablet RxNorm: 616078 1 Tablet(s) PO BID as needed for pain 11/17/2017 03/18/2018 Inactive [place] 5 mg-325 mg tablet RxNorm: 888524 1 Tablet(s) PO QAM and one PM PRN pain 08/11/2017 11/16/2017 Inactive Coreg 6.25 mg tablet RxNorm: 672817 one by mouth twice a day No Stop Date Active Coreg 6.25 mg tablet RxNorm: 731776 one by mouth twice a day 08/06/2017 Inactive Lipitor 40 mg tablet RxNorm: 043607 1 Tablet(s) PO QPM 201612/01/2017 Inactive Vitamin B-12 1,000 mcg/mL injection solution RxNorm: 512686 Milliliter(s) Inject 1 mL (1,000 mcg) by subQ inject. bi monthly in march and may then every 30 days 04/07/2017 No Stop Date Active Cozaar 50 mg tablet RxNorm: 185694 Take 1 Tab (50 mg) by mouth daily after supper. 03/23/2017 02/28/2018 Inactive Protonix 40 mg tablet,delayed release RxNorm: 995416 ... TAKE 1 TABLET BY MOUTH TWICE DAILY ... 12/24/2016 01/04/2017 Inactive Generic For:PROTONIX 40MG 2016 9:21:06 AM isosorbide mononitrate ER 30 mg tablet,extended release 24 hr RxNorm: 584234 1 Tablet(s) PO QAM 11/25/2016 03/24/2017 Inactive Zithromax Z-Chase 250 mg tablet RxNorm: 035543 1 Tablet(s) PO UD 11/11/2016 11/15/2016 Inactive zpack Kenalog 40 mg/mL suspension for injection RxNorm: 6048136 1 Milliliter(s) Inj 11/11/2016 11/11/2016 Inactive Protonix 40 mg tablet,delayed release RxNorm: 983621 1 Tablet(s) PO BID 07/30/2016 11/26/2016 Inactive Vitamin B-12 1,000 mcg/mL injection solution RxNorm: 034340 Inject 1 mL (1,000 mcg ) by subcutaneous injection every 30 days. 07/21/2016 04/06/2017 Inactive ceftriaxone 500 mg solution for injection RxNorm: 9375079 Inj 07/17/2016 07/17/2016 Inactive cefdinir 300 mg capsule RxNorm: 517913 1 Capsule(s) PO BID 07/23/2016 Inactive Kenalog 40 mg/mL suspension for injection RxNorm: 6499790 1 Milliliter(s) Inj 07/17/2016 07/17/2016 Inactive azithromycin 250 mg tablet RxNorm: 184805 1 Tablet(s) PO UD 2 tabs on day #1, then one tab daily until zpack finished 07/17/2016 07/27/2016 Inactive Coreg 6.25 mg tablet RxNorm: 695092 1 Tablet(s) PO BID 201502/04/2017 Inactive Protonix 40 mg tablet,delayed release RxNorm: 415234 1 Tablet(s) PO BID 04/08/2016 07/29/2016 Inactive ceftriaxone 500 mg solution for injection RxNorm: 2200201 Inj 03/13/2016 03/13/2016 Inactive cephalexin 500 mg capsule RxNorm: 812922 1 Capsule(s) PO TID 03/22/2016 Inactive azithromycin 250 mg tablet RxNorm: 157855 1 Tablet(s) PO UD 2 tabs on day #1, then one tab daily until zpack finished 01/22/2016 04/07/2016 Inactive Flagyl 500 mg tablet RxNorm: 786181 1 Tablet(s) PO TID 201512/26/2015 Inactive Cipro 500 mg tablet RxNorm: 327422 1 Tablet(s) PO BID 201512/29/2015 Inactive Reglan 5 mg tablet RxNorm: 110131 1 Tablet(s) PO UD Once 01/21/2016 Inactive Flagyl 500 mg tablet RxNorm: 535508 1 Tablet(s) PO TID 201512/13/2015 Inactive Flagyl 500 mg tablet RxNorm: 139094 1 Tablet(s) PO TID 201512/06/2015 Inactive Carafate 1 gram tablet RxNorm: 569351 1 Tablet(s) dissolve in 10ML of water before taking PO three times daily x 1 week then daily before bed and prn acid reflux 10/26/2015 01/21/2016 Inactive Kenalog 40 mg/mL suspension for injection RxNorm: 1474805 2 Milliliter(s) Inj 10/04/2015 10/04/2015 Inactive Coreg 12.5 mg tablet RxNorm: 836974 1 Tablet(s) PO BID 201504/01/2016 Inactive Cozaar 100 mg tablet RxNorm: 574237 1 Tablet(s) PO daily 201508/29/2016 Inactive Fish Oil 1,000 mg Cap RxNorm: 1 Capsule(s) PO TID 05/27/2011 01/21/2016 Inactive Vitamin B-12 1,000 mcg/mL injection solution RxNorm: 906406 1 Milliliter(s) Inj 05/26/2011 05/26/2011 Inactive cetirizine 10 mg tablet RxNorm: 2878044 1 Tablet(s) PO QAM No Start Date Active coenzyme Q10 10 mg tablet RxNorm: 859877 oral No Start Date Active aspirin 81 mg Tab, Delayed Release RxNorm: 600449 1 Tablet(s) PO daily No Start Date Active Lasix 20 mg tablet RxNorm: 604020 1 Tablet(s) PO daily No Start Date Active albuterol sulfate 0.63 mg/3 mL solution for nebulization RxNorm: 550701 Milliliter (s) INH as needed No Start Date Active Vitamin D 2,000 unit Cap RxNorm: 1 Capsule(s) PO daily No Start Date Active vitamin E (dl, acetate) 1,000 unit Cap RxNorm: 880345 1 Capsule(s) PO daily No Start Date 01/21/2016 Inactive Protonix 40 mg tablet,delayed release RxNorm: 900804 1 Tablet(s) PO daily No Start Date 01/21/2016 Inactive Lipitor 40 mg tablet RxNorm: 637628 1 Tablet(s) PO QPM No Start Date 11/24/2016 Inactive Fish Oil 1,000 mg Cap RxNorm: 1 Capsule(s) PO daily No Start Date 05/26/2011 Inactive Vitamin D 1,000 unit Tab RxNorm: 551047 1 Tablet(s) PO daily No Start Date 04/24/2011 Inactive 2000 mg on Sat and Sun niacin 500 mg Tab RxNorm: 611294 1 Tablet(s) PO QHS No Start Date 01/21/2016 Inactive Coreg CR 40 mg 24 hr Cap RxNorm: 679383 1 Capsule(s) PO daily No Start Date 09/03/2015 Inactive Cozaar 50 mg tablet RxNorm: 312807 1 Tablet(s) PO daily No Start Date 09/04/2015 Inactive Medication Administered Medication Codes Instructions Start Date Status Kenalog 40 mg/mL suspension for injection RxNorm: 4088340 Milliliter 08/04/2018 No longer Active Kenalog 40 mg/mL suspension for injection RxNorm: 2030849 1Milliliter 11/11/2016 No longer Active ceftriaxone 500 mg solution for injection RxNorm: 1981080 07/17/2016 No longer Active Kenalog 40 mg/mL suspension for injection RxNorm: 8130852 1Milliliter 07/17/2016 No longer Active ceftriaxone 500 mg solution for injection RxNorm: 0174983 03/13/2016 No longer Active Kenalog 40 mg/mL suspension for injection RxNorm: 4217461 2Milliliter 10/04/2015 No longer Active Vitamin B-12 1,000 mcg/mL Injection RxNorm: 235115 1Milliliter 05/26/2011 No longer Active Immunizations Vaccine Codes Date Status Influenza CVX: 141 05/31/2015 completed Pneumococcal CVX: 133 05/31/2015 completed Assessments Condition Codes Effective Dates Dysuria ICD-10: R30.0 ICD-9: 788.1 09/20/2018 Mixed hyperlipidemia ICD-10: E78.2 ICD-9: 272.2 09/20/2018 Other abnormal glucose ICD-10: R73.09 ICD-9: 790.29 09/20/2018 Essential (primary) hypertension ICD-10: I10 ICD-9: 401.1 09/20/2018 Cough ICD-10: R05 ICD-9: 786.2 08/04/2018 Vitamin B12 deficiency anemia due to intrinsic factor deficiency ICD-10: D51.0 ICD-9: 266.2 08/04/2018 Pleurodynia ICD-10: R07.81 ICD-9: 786.52 03/18/2018 Mastodynia ICD-10: N64.4 ICD-9: 611.71 12/01/2017 Encounter for general adult medical examination with abnormal findings ICD-10: Z00.01 ICD-9: V70.0 11/17/2017 Essential (primary) hypertension ICD-10: I10 ICD-9: 401.9 04/07/2017 Gastro-esophageal reflux disease without esophagitis ICD-10 : K21.9 ICD-9: 530.81 04/07/2017 Acute bronchitis, unspecified ICD-10: J20.9 ICD-9: [...] deficiency ICD-9: 266.2 05/26/2011 ESSENTIAL HYPERTENSION SNOMED: [id number] ICD-9: 401.9 04/25/2011 Reason For Visit Reason For Visit Effective Dates Notes cough 08/04/2018 hypertension 03/18/2018 breast complaint 12/01/2017 [...] Observation Code Item Item Code Result Date %Hba1C Olx536 % HbA1c 68689-9 5.9 % 12/01/2017 %Hba1C Tlv117 Gluc Ave 123 mg/dL 12/01/2017 Lipid Ord30 [...] 25.5 % 12/01/2017 Cbc With Differential Ord2 [place]% 7.2 % 12/01/2017 Cbc With Differential Ord2 MCH 29.0 pg 12/01/2017 Cbc With Differential Ord2 MCHC 32.6 pg 12/01/2017 Cbc With Differential Ord2 Eos% 1.6 % 12/01/2017 Cbc With Differential Ord2 PLT 393 K/ul 12/01/2017 Cbc With Differential Ord2 Baso% 0.2 % 12/01/2017 Cbc With Differential Ord2 Neut ABS# 6.00 K/ul 12/01/2017 Cbc With Differential Ord2 RDW 15.2 % 12/01/2017 Cbc With Differential Ord2 Lymph ABS# 2.34 K/ul 12/01/2017 Cbc With Differential Ord2 [place] ABS# 0.7 K/ul 12/01/2017 Cbc With Differential Ord2 Eos ABS# 0.2 K/ul 12/01/2017 Cbc With Differential Ord2 Baso ABS# 0.0 K/ul 12/01/2017 Comp Metabolic Eng033 NA 141 mEq/L 12/01/2017 Comp Metabolic Ecc929 K 4.4 mEq/L 12/01/2017 Comp Metabolic Urk785 CL 106 mEq/L 12/01/2017 Comp Metabolic Jrc884 CO2 23.0 mEq/L 12/01/2017 Comp Metabolic Ppm857 ANION GAP 16 12/01/2017 Comp Metabolic Nfp362 GLUCOSE 109 mg/dL 12/01/2017 Comp Metabolic Tvp119 Creat 1.0 mg/dL 12/01/2017 Comp Metabolic Vwi282 eGFR 57 ml/min/1.73m2 12/01/2017 Comp Metabolic Fcb972 BUN 16 mg/dL 12/01/2017 Comp Metabolic Kin972 B/C Ratio 16.0 Ratio 12/01/2017 Comp Metabolic Vgm806 CALCIUM 8.9 mg/dL 12/01/2017 Comp Metabolic Pws985 ALK PHOS 99 U/L 12/01/2017 Comp Metabolic Ejs043 AST(SGOT) 15 U/L 12/01/2017 Comp Metabolic Jnv427 ALT(SGPT) 12 U/L 12/01/2017 Comp Metabolic Icp820 BILI T 0.7 mg/dL 12/01/2017 Comp Metabolic Bbd133 ALBUMIN 3.6 g/dL 12/01/2017 Comp Metabolic Nct204 TPRO 6.5 g/dL 12/01/2017 Comp Metabolic Dnq975 GLOB 2.9 g/dL 12/01/2017 Comp Metabolic Cey406 A/G Ratio 1.2 Ratio 12/01/2017 Comp Metabolic Qpi291 Osmo 283 mOsmo 12/01/2017 Lipid Ord30 CHOL 171 mg/dL 07/28/2017 Lipid Ord30 HDL 29.0 mg/dl 07/28/2017 Lipid Ord30 TRIG 218 mg/dL 07/28/2017 Lipid Ord30 LDL 98 mg/dL 07/28/2017 Lipid Ord30 C/HDL 5.9 Ratio 07/28/2017 %Hba1C Wud304 % HbA1c 05393-9 5.6 % 04/08/2017 %Hba1C Wbk257 Gluc Ave 114 mg/dL 04/08/2017 Comp Metabolic Fpt997 NA 139 mEq/L 04/08/2017 Comp Metabolic Mly951 K 4.3 mEq/L 04/08/2017 Comp Metabolic Vva938 CL 102 mEq/L 04/08/2017 Comp Metabolic Kbn892 CO2 26.0 mEq/L 04/08/2017 Comp Metabolic Fpe318 ANION GAP 15 04/08/2017 Comp Metabolic Gvv886 GLUCOSE 99 mg/dL 04/08/2017 Comp Metabolic Rcg915 Creat 1.1 mg/dL 04/08/2017 Comp Metabolic Rhl577 eGFR 52 ml/min/1.73m2 04/08/2017 Comp Metabolic Ged155 BUN 16 mg/dL 04/08/2017 Comp Metabolic Hml482 B/C Ratio 15.0 Ratio 04/08/2017 Comp Metabolic Vss787 CALCIUM 8.8 mg/dL 04/08/2017 Comp Metabolic Gcu765 ALK PHOS 86 U/L 04/08/2017 Comp Metabolic Iuf788 AST(SGOT) 12 U/L 04/08/2017 Comp Metabolic Jxh607 ALT(SGPT) 8 U/L 04/08/2017 Comp Metabolic Wvo452 BILI T 0.8 mg/dL 04/08/2017 Comp Metabolic Wxv279 ALBUMIN 3.5 g/dL 04/08/2017 Comp Metabolic Khb114 TPRO 6.6 g/dL 04/08/2017 Comp Metabolic Svc360 GLOB 3.1 g/dL 04/08/2017 Comp Metabolic Yyt979 A/G Ratio 1.1 Ratio 04/08/2017 Comp Metabolic Nlo639 Osmo 279 mOsmo 04/08/2017 Cbc With Differential [...] 21.9 % 04/08/2017 Cbc With Differential Ord2 [place]% 6.8 % 04/08/2017 Cbc With Differential Ord2 [...] 2.22 K/ul 04/08/2017 Cbc With Differential Ord2 [place] ABS# 0.7 K/ul 04/08/2017 Cbc With Differential Ord2 Eos ABS# 0.2 K/ul 04/08/2017 Cbc With Differential Ord2 Baso ABS# 0.0 K/ul 04/08/2017 Lipid Ord30 CHOL 248 mg/dL 04/08/2017 Lipid Ord30 HDL 34.0 mg/dl 04/08/2017 Lipid Ord30 TRIG 252 mg/dL 04/08/2017 Lipid Ord30 LDL 164 mg/dL 04/08/2017 Lipid Ord30 C/HDL 7.3 Ratio 04/08/2017 B12 Tkf356 B12 665.00 pg/ml 04/08/2017 Tsh Ord6 hTSH II 3.37 uIU/mL 04/08/2017 Culture Sputum [id number] LOWER RESPIRATORY TRACT CULTURE SEE NOTES 12/26/2016 %Hba1C Lbc062 % HbA1c 11295-8 5.9 % 10/15/2016 %Hba1C Nxy059 Gluc Ave 123 mg/dL 10/15/2016 Lipid Ord30 CHOL 141 mg/dL 10/15/2016 Lipid Ord30 HDL 39.0 mg/dl 10/15/2016 Lipid Ord30 TRIG 164 mg/dL 10/15/2016 Lipid Ord30 LDL 69 mg/dL 10/15/2016 Lipid Ord30 C/HDL 3.6 Ratio 10/15/2016 Comp Metabolic Lkf746 NA 140 mEq/L 10/15/2016 Comp Metabolic Wjf283 K 4.3 mEq/L 10/15/2016 Comp Metabolic Dzp721 CL 105 mEq/L 10/15/2016 Comp Metabolic Kqj788 CO2 22.0 mEq/L 10/15/2016 Comp Metabolic Isd583 ANION GAP 17 10/15/2016 Comp Metabolic Llo218 GLUCOSE 101 mg/dL 10/15/2016 Comp Metabolic Gve347 Creat 1.1 mg/dL 10/15/2016 Comp Metabolic Wyh797 eGFR 52 ml/min/1.73m2 10/15/2016 Comp Metabolic Arc169 BUN 20 mg/dL 10/15/2016 Comp Metabolic Kxj873 B/C Ratio 18.7 Ratio 10/15/2016 Comp Metabolic Ixk236 CALCIUM 9.0 mg/dL 10/15/2016 Comp Metabolic Jmc144 ALK PHOS 103 U/L 10/15/2016 Comp Metabolic Jdb134 AST(SGOT) 14 U/L 10/15/2016 Comp Metabolic Fyw693 ALT(SGPT) 11 U/L 10/15/2016 Comp Metabolic Bsi948 BILI T 1.3 mg/dL 10/15/2016 Comp Metabolic Zjw267 ALBUMIN 3.7 g/dL 10/15/2016 Comp Metabolic Mlk885 TPRO 6.4 g/dL 10/15/2016 Comp Metabolic Pat735 GLOB 2.7 g/dL 10/15/2016 Comp Metabolic Gsb370 A/G Ratio 1.4 Ratio 10/15/2016 Comp Metabolic Zyn447 Osmo 282 mOsmo 10/15/2016 Cbc With Differential [...] 24.6 % 10/15/2016 Cbc With Differential Ord2 [place]% 6.9 % 10/15/2016 Cbc With Differential Ord2 MCH 29.3 pg 10/15/2016 Cbc With Differential Ord2 MCHC 31.6 pg 10/15/2016 Cbc With Differential Ord2 Eos% 1.5 % 10/15/2016 Cbc With Differential Ord2 PLT 317 K/ul 10/15/2016 Cbc With Differential Ord2 Baso% 0.4 % 10/15/2016 Cbc With Differential Ord2 RDW 16.4 % 10/15/2016 Cbc With Differential Ord2 Neut ABS# 6.95 K/ul 10/15/2016 Cbc With Differential Ord2 Lymph ABS# 2.57 K/ul 10/15/2016 Cbc With Differential Ord2 [place] ABS# 0.7 K/ul 10/15/2016 Cbc With Differential Ord2 Eos ABS# 0.2 K/ul 10/15/2016 Cbc With Differential Ord2 Baso ABS# 0.0 K/ul 10/15/2016 Tsh Ord6 hTSH II 2.56 uIU/mL 10/15/2016 Tsh Ord6 hTSH II 2.65 uIU/mL 07/11/2016 Comp Metabolic Xet975 NA 139 mEq/L 07/11/2016 Comp Metabolic Inz250 K 4.0 mEq/L 07/11/2016 Comp Metabolic Fxi807 CL 103 mEq/L 07/11/2016 Comp Metabolic Kmg789 CO2 25.0 mEq/L 07/11/2016 Comp Metabolic Jiq411 ANION GAP 15 07/11/2016 Comp Metabolic Elf594 GLUCOSE 94 mg/dL 07/11/2016 Comp Metabolic Nij934 Creat 1.2 mg/dL 07/11/2016 Comp Metabolic Acw272 eGFR 47 ml/min/1.73m2 07/11/2016 Comp Metabolic Gfy942 BUN 17 mg/dL 07/11/2016 Comp Metabolic Pkl228 B/C Ratio 14.5 Ratio 07/11/2016 Comp Metabolic Mxj105 CALCIUM 8.9 mg/dL 07/11/2016 Comp Metabolic Ivz302 ALK PHOS 107 U/L 07/11/2016 Comp Metabolic Isp161 AST(SGOT) 14 U/L 07/11/2016 Comp Metabolic Lyn916 ALT(SGPT) 10 U/L 07/11/2016 Comp Metabolic Mle721 BILI T 1.1 mg/dL 07/11/2016 Comp Metabolic Xss331 ALBUMIN 3.8 g/dL 07/11/2016 Comp Metabolic Zxd628 TPRO 6.7 g/dL 07/11/2016 Comp Metabolic Dul055 GLOB 3.0 g/dL 07/11/2016 Comp Metabolic Lmd544 A/G Ratio 1.3 Ratio 07/11/2016 Comp Metabolic Kor518 Osmo 279 mOsmo 07/11/2016 Lipid Ord30 CHOL 154 mg/dL 07/11/2016 Lipid Ord30 HDL 38.0 mg/dl 07/11/2016 Lipid Ord30 TRIG 199 mg/dL 07/11/2016 Lipid Ord30 LDL 76 mg/dL 07/11/2016 Lipid Ord30 C/HDL 4.1 Ratio 07/11/2016 %Hba1C Fmm109 % HbA1c 19056-6 6.0 % 07/11/2016 %Hba1C Qwz761 Gluc Ave 126 mg/dL 07/11/2016 Free T4 Zwr848 FREE T4 1.00 ng/dL 07/11/2016 Magnesium Ord90 Mag 2.0 mg/dL 07/11/2016 Vitamin D 25 Oh Mfe3671 VITAMIN D, 25 HYDROXY 49.14 ng/mL Cbc With Differential Ord2 WBC 11.21 K/ul 07/11/2016 Cbc With Differential Ord2 RBC 4.69 M/ul 07/11/2016 Cbc With Differential Ord2 HGB 13.6 g/dl 07/11/2016 Cbc With Differential Ord2 Neut% 67.4 % 07/11/2016 Cbc With Differential Ord2 HCT 42.2 % 07/11/2016 Cbc With Differential Ord2 MCV 90.0 fl 07/11/2016 Cbc With Differential Ord2 Lymph% 24.4 % 07/11/2016 Cbc With Differential Ord2 T[place]% 6.4 % 07/11/2016 Cbc With Differential Ord2 MCH 29.0 pg 07/11/2016 Cbc With Differential Ord2 Eos% 1.5 % 07/11/2016 Cbc With Differential Ord2 MCHC 32.2 pg 07/11/2016 Cbc With Differential Ord2 PLT 339 K/ul 07/11/2016 Cbc With Differential Ord2 Baso% 0.3 % 07/11/2016 Cbc With Differential Ord2 Neut ABS# 7.56 K/ul 07/11/2016 Cbc With Differential Ord2 RDW 15.9 % 07/11/2016 Cbc With Differential Ord2 Lymph ABS# 2.73 K/ul 07/11/2016 Cbc With Differential Ord2 [place] ABS# 0.7 K/ul 07/11/2016 Cbc With Differential Ord2 Eos ABS# 0.2 K/ul 07/11/2016 Cbc With Differential Ord2 Baso ABS# 0.0 K/ul 07/11/2016 Vitamin D 25 Oh Tsw2587 VITAMIN D, 25 HYDROXY 54.60 ng/mL Lipase Iiw883 LIPASE 38 U/L 12/11/2015 Cbc With Differential [...] 25.2 % 12/11/2015 Cbc With Differential Ord2 [place]% 8.5 % 12/11/2015 Cbc With Differential Ord2 MCH 29.2 pg 12/11/2015 Cbc With Differential Ord2 Eos% 0.5 % 12/11/2015 Cbc With Differential Ord2 MCHC 32.2 pg 12/11/2015 Cbc With Differential Ord2 Baso% 0.5 % 12/11/2015 Cbc With Differential Ord2 PLT 428 K/ul 12/11/2015 Cbc With Differential Ord2 RDW 15.6 % 12/11/2015 Cbc With Differential Ord2 Neut ABS# 6.50 K/ul 12/11/2015 Cbc With Differential Ord2 Lymph ABS# 2.50 K/ul 12/11/2015 Cbc With Differential Ord2 [place] ABS# 0.8 K/ul 12/11/2015 Cbc With Differential Ord2 Eos ABS# 0.1 K/ul 12/11/2015 Cbc With Differential Ord2 Baso ABS# 0.1 K/ul 12/11/2015 Cbc With Differential Ord2 New Analyzer Notice Please note new ref ranges starting 09-12-2015 due to implemntation of new five part differential hematolgy analyzer. 12/11/2015 Comp Metabolic Qcg065 NA 137 mEq/L 12/11/2015 Comp Metabolic Jqq951 K 3.9 mEq/L 12/11/2015 Comp Metabolic Sow503 CL 101 mEq/L 12/11/2015 Comp Metabolic Gsh523 CO2 32.0 mEq/L 12/11/2015 Comp Metabolic Knj157 ANION GAP 8 12/11/2015 Comp Metabolic Snb269 GLUCOSE 88 mg/dL 12/11/2015 Comp Metabolic Txd077 Creat 1.0 mg/dL 12/11/2015 Comp Metabolic Gdp310 eGFR 55 ml/min/1.73m2 12/11/2015 Comp Metabolic Vxw152 BUN 14 mg/dL 12/11/2015 Comp Metabolic Oyi185 B/C Ratio 13.6 Ratio 12/11/2015 Comp Metabolic Fve500 CALCIUM 9.0 mg/dL 12/11/2015 Comp Metabolic Xmo931 ALK PHOS 75 U/L 12/11/2015 Comp Metabolic Uxk301 AST(SGOT) 13 U/L 12/11/2015 Comp Metabolic Nik132 ALT(SGPT) 8 U/L 12/11/2015 Comp Metabolic Ric686 BILI T 0.6 mg/dL 12/11/2015 Comp Metabolic Nxc137 ALBUMIN 3.4 g/dL 12/11/2015 Comp Metabolic Ekj134 TPRO 5.8 g/dL 12/11/2015 Comp Metabolic Dfy064 GLOB 2.5 g/dL 12/11/2015 Comp Metabolic Kyi534 A/G Ratio 1.4 Ratio 12/11/2015 Comp Metabolic Eca916 Osmo 274 mOsmo 12/11/2015 Amylase Ord34 AMYLASE 32 U/L 12/11/2015 Comp Metabolic Wfh586 NA 139 mEq/L 10/25/2015 Comp Metabolic Att729 K 4.5 mEq/L 10/25/2015 Comp Metabolic Jzp776 CL 101 mEq/L 10/25/2015 Comp Metabolic Mbv400 CO2 31.0 mEq/L 10/25/2015 Comp Metabolic Nog251 ANION GAP 12 10/25/2015 Comp Metabolic Oxu867 GLUCOSE 70 mg/dL 10/25/2015 Comp Metabolic Qoi909 Creat 1.1 mg/dL 10/25/2015 Comp Metabolic Rtp681 eGFR 54 ml/min/1.73m2 10/25/2015 Comp Metabolic Odt911 BUN 17 mg/dL 10/25/2015 Comp Metabolic Ugx453 B/C Ratio 16.2 Ratio 10/25/2015 Comp Metabolic Sft256 CALCIUM 8.8 mg/dL 10/25/2015 Comp Metabolic Tai846 ALK PHOS 82 U/L 10/25/2015 Comp Metabolic Vmu177 AST(SGOT) 13 U/L 10/25/2015 Comp Metabolic Ftx071 ALT(SGPT) 7 U/L 10/25/2015 Comp Metabolic Ldx472 BILI T 0.7 mg/dL 10/25/2015 Comp Metabolic Wyf014 ALBUMIN 3.5 g/dL 10/25/2015 Comp Metabolic Jdb122 TPRO 6.2 g/dL 10/25/2015 Comp Metabolic Lcu457 GLOB 2.7 g/dL 10/25/2015 Comp Metabolic Zlh494 A/G Ratio 1.3 Ratio 10/25/2015 Comp Metabolic Qct675 Osmo 278 mOsmo 10/25/2015 C-Reactive Protein Qnt Crqnt CRP 0.6 mg/dl 10/25/2015 Lipid Ord30 CHOL 259 mg/dL 10/25/2015 Lipid Ord30 HDL 46.0 mg/dl 10/25/2015 Lipid Ord30 TRIG 146 mg/dL 10/25/2015 Lipid Ord30 LDL 184 mg/dL 10/25/2015 Lipid Ord30 C/HDL 5.6 Ratio 10/25/2015 Bordetella pertussis DNA, Qualitative Real-Time PCR [id number] BORDETELLA PERTUSSIS DNA NEGATIVE 09/06/2015 Comp Metabolic Mho891 NA 135 mEq/L 09/05/2015 Comp Metabolic Hlh782 K 3.8 mEq/L 09/05/2015 Comp Metabolic Klo355 CL 100 mEq/L 09/05/2015 Comp Metabolic Ffm832 CO2 26.0 mEq/L 09/05/2015 Comp Metabolic Acz140 ANION GAP 13 09/05/2015 Comp Metabolic Bzu776 GLUCOSE 100 mg/dL 09/05/2015 Comp Metabolic Sss396 Creat 1.0 mg/dL 09/05/2015 Comp Metabolic Duf550 eGFR 56 ml/min/1.73m2 09/05/2015 Comp Metabolic Zsz142 BUN 16 mg/dL 09/05/2015 Comp Metabolic Vtd036 B/C Ratio 15.7 Ratio 09/05/2015 Comp Metabolic Ych069 CALCIUM 8.8 mg/dL 09/05/2015 Comp Metabolic Pbm522 ALK PHOS 96 U/L 09/05/2015 Comp Metabolic Snf472 AST(SGOT) 12 U/L 09/05/2015 Comp Metabolic Xqj521 ALT(SGPT) 10 U/L 09/05/2015 Comp Metabolic Xrj698 BILI T 0.8 mg/dL 09/05/2015 Comp Metabolic Wtu999 ALBUMIN 3.6 g/dL 09/05/2015 Comp Metabolic Ple026 TPRO 6.5 g/dL 09/05/2015 Comp Metabolic Swd181 GLOB 2.9 g/dL 09/05/2015 Comp Metabolic Gzx481 A/G Ratio 1.2 Ratio 09/05/2015 Comp Metabolic Iln291 Osmo 271 mOsmo 09/05/2015 Tsh Ord6 hTSH [...] Result Effective Dates Constitutional No recent illness 2017 Constitutional No [...] Procedure Codes Date THER/PROPH/DIAG INJ SC/IM CPT-4: 97492 08/04/2018 TRIAMCINOLONE ACET INJ NOS CPT-4: J3301 08/04/2018 PPPS, SUBSEQ VISIT CPT -4: G0439 11/17/2017 PPPS, SUBSEQ VISIT CPT -4: G0439 11/12/2016 TRIAMCINOLONE ACET INJ NOS CPT-4: J3301 11/11/2016 TRIAMCINOLONE ACET INJ NOS CPT-4: J3301 07/17/2016 ROCEPHIN, PER 250 MG CPT-4: J0696 07/17/2016 ROCEPHIN, PER 250 MG CPT-4: J0696 03/13/2016 THER/PROPH/DIAG INJ SC/IM CPT-4: 10463 10/04/2015 TRIAMCINOLONE ACET INJ NOS CPT-4: J3301 10/04/2015 VITAMIN B12 INJECTION CPT-4: J3420 05/26/2011 THER/PROPH/DIAG INJ SC/IM CPT-4: 96686 05/26/2011 VITAMIN B12 INJECTION CPT-4: J3420 04/25/2011 THER/PROPH/DIAG INJ SC/IM CPT-4: 42452 04/25/2011 Vital Signs Date Vital 08/04/2018 Blood Pressure 1: 130/74 Code : 8480-6 BMI: 32.7 Code : 96634-9 Heart Rate 1 : 59 bpm Height: 5'2" SpO2: 97% Weight: 179 lbs 03/18/2018 Blood Pressure 1: 122/70 Code : 8480-6 BMI: 32.0 Code : 73049-3 Heart Rate 1 : 63 bpm Height: 5'2" SpO2: 97% Weight: 174 lbs 14 oz 12/01/2017 Blood Pressure 1: 130/72 Code : 8480-6 BMI: 32.0 Code : 21998-6 Heart Rate 1 : 66 bpm Height: 5'2" SpO2: 96% Weight: 175 lbs 11/17/2017 Blood Pressure 1: 138/74 Code : 8480-6 BMI: 32.2 Code : 83269-5 Heart Rate 1 : 61 bpm Height: 5'2" SpO2: 98% Waist Measure (cm): 94 cm Weight: 176 lbs 08/11/2017 Blood Pressure 1: 126/64 Code : 8480-6 BMI: 32.2 Code : 56155-1 Heart Rate 1 : 57 bpm Height: 5'2" SpO2: 98% Weight: 176 lbs 04/07/2017 Blood Pressure 1: 120/70 Code : 8480-6 BMI: 33.1 Code : 04230-3 Heart Rate 1 : 80 bpm Height: 5'2" SpO2: 95% Weight: 181 lbs 01/05/2017 Blood Pressure 1: 128/70 Code : 8480-6 Heart Rate 1: 68 bpm Height: 5'2" SpO2: 96% Temperature: 36.6 (C) / 97.8 (F) Weight: 2016 Blood Pressure 1: 134/62 Code : 8480-6 BMI: 32.6 Code : 50508-5 Heart Rate 1 : 66 bpm Height: 5'2" SpO2: 97% Weight: 178 lbs 11/25/2016 Blood Pressure 1: 144/78 Code : 8480-6 BMI: 32.7 Code : 69467-8 Heart Rate 1 : 54 bpm Height: 5'2" SpO2: 96% Weight: 179 lbs 11/12/2016 Blood Pressure 1: 132/70 Code : 8480-6 BMI: 23.6 Code : 39323-3 Heart Rate 1 : 66 bpm Height: 5'2" SpO2: 98% Waist Measure (cm): 69 cm Weight: 129 lbs 11/11/2016 Blood Pressure 1: 132/68 Code : 8480-6 BMI: 33.1 Code : 07242-7 Heart Rate 1 : 66 bpm Height: 5'2" SpO2: 98% Temperature: 36.6 (C) / 97.8 (F) Weight: 181 lbs 07/28/2016 Blood Pressure 1: 138/78 Code : 8480-6 BMI: 32.0 Code : 59582-7 Heart Rate 1 : 60 bpm Height: 5'2" SpO2: 98% Weight: 175 lbs 07/17/2016 Blood Pressure 1: 118/62 Code : 8480-6 BMI: 31.5 Code : 00829-4 Heart Rate 1 : 66 bpm Height: 5'2" SpO2: 97% Temperature: 36.8 (C) / 98.2 (F) Weight: 172 lbs 04/08/2016 Blood Pressure 1: 138/72 Code : 8480-6 BMI: 31.5 Code : 57823-4 Heart Rate 1 : 58 bpm Height: 5'2" SpO2: 98% Weight: 172 lbs 03/24/2016 Blood Pressure 1: 128/82 Code : 8480-6 BMI: 30.9 Code : 35809-6 Heart Rate 1 : 53 bpm Height: 5'2" SpO2: 96% Weight: 169 lbs 03/13/2016 Blood Pressure 1: 122/72 Code : 8480-6 BMI: 31.1 Code : 20164-4 Heart Rate 1 : 54 bpm Height: 5'2" SpO2: 98% Temperature: 36.7 (C) / 98.0 (F) Weight: 170 lbs 01/22/2016 Blood Pressure 1: 116/58 Code : 8480-6 BMI: 31.5 Code : 91761-2 Heart Rate 1 : 59 bpm Height: 5'2" SpO2: 98% Weight: 172 lbs 12/19/2015 Blood Pressure 1: 158/88 Code : 8480-6 BMI: 30.7 Code : 57453-0 Heart Rate 1 : 70 bpm Height: 5'2" SpO2: 97% Weight: 168 lbs 12/07/2015 Blood Pressure 1: 118/74 Code : 8480-6 BMI: 31.5 Code : 96172-4 Heart Rate 1 : 71 bpm Height: 5'2" SpO2: 93% Temperature: 35.6 (C) / 96.0 (F) Weight: 172 lbs 10/26/2015 Blood Pressure 1: 122/76 Code : 8480-6 BMI: 31.2 Code : 13216-6 Heart Rate 1 : 60 bpm Height: 5'2" SpO2: 98% Weight: 170 lbs 8 oz 10/04/2015 Blood Pressure 1: 120/74 Code : 8480-6 BMI: 31.5 Code : 89871-5 Heart Rate 1 : 57 bpm Height: 5'2" SpO2: 97% Weight: 172 lbs 09/05/2015 Blood Pressure 1: 160/82 Code : 8480-6 BMI: 31.1 Code : 57521-9 Heart Rate 1 : 61 bpm Height: 5'2" SpO2: 98% Weight: 170 lbs 04/25/2011 Blood Pressure 1: 146/88 Code : 8480-6 BMI: 38.9 Code : 92270-8 Heart Rate 1 : 64 bpm Height: 5' Respiratory Rate: 24 bpm Weight: 199 lbs Functional Status No Functional Status data History of Present Illness Symptom Name Status Result Effective Date Notes Location in the lung 08/04/2018 None Quality [...] data Encounters Encounter Performer Location Codes Date ([id number]) 05648 EST. PATIENT, LEVEL IV Diagnosis: Essential (primary) hypertension[ICD10: I10] Diagnosis: Mixed hyperlipidemia[ICD10: E78.2] Diagnosis: Cough[ICD10: R05] Diagnosis: Vitamin B12 deficiency anemia due to intrinsic factor deficiency[ ICD10: D51.0] Rhina Ordoñez MD, [facility] CPT-4: 43907 08/04/2018 [id number]) 21583 EST. PATIENT, LEVEL IV Diagnosis: Essential (primary) hypertension[ICD10: I10] Diagnosis: Pleurodynia[ICD10: R07.81] Diagnosis: Mixed hyperlipidemia[ICD10: E78.2] Rhina Ordoñez MD, [facility] CPT-4: 25125 03/18/2018 ([id number]) 79772 EST. PATIENT, LEVEL IV Diagnosis: Essential (primary) hypertension[ICD10: I10] Diagnosis: Pleurodynia[ICD10: R07.81] Diagnosis: Other abnormal glucose[ICD10: R73.09] Diagnosis: Mastodynia[ICD10: N64.4] Rhina Ordoñez MD, [facility] CPT-4: 82700 12/01/2017 [id number]) 79537 EST. PATIENT, LEVEL IV Diagnosis: Essential (primary) hypertension[ICD10: I10] Diagnosis: Dysuria[ICD10: R30.0] Diagnosis: Vitamin B12 deficiency anemia due to intrinsic factor deficiency[ ICD10: D51.0] Rhina Ordoñez MD, [facility] CPT-4: 43466 08/11/2017 [id number]) 36382 EST. PATIENT, LEVEL IV Diagnosis: Vitamin B12 deficiency anemia due to intrinsic factor deficiency[ ICD10: D51.0] Diagnosis: Essential (primary) hypertension[ICD10: I10] Diagnosis: Gastro-esophageal reflux disease without esophagitis[ICD10: K21.9] Diagnosis: Essential (primary) hypertension[ICD10: I10] Diagnosis: Other abnormal glucose[ICD10: R73.09] Rhina Ordoñez MD, [facility] CPT-4: 06338 04/07/2017 [id number]) 90622 EST. PATIENT, LEVEL IV Diagnosis: Essential (primary) hypertension[ICD10: I10] Diagnosis: Vitamin B12 deficiency anemia due to intrinsic factor deficiency[ ICD10: D51.0] Diagnosis: Cough[ICD10: R05] Rhina Ordoñez MD [facility] CPT-4: 70193 01/05/2017 03042 EST. PATIENT, LEVEL IV Diagnosis: Cough[ICD10: R05] Diagnosis: Essential (primary) hypertension[ICD10: I10] Adela Ordoñez MD [facility] CPT-4: 37790 2016 ([id number]) 11685 EST. PATIENT, LEVEL III Diagnosis: Essential (primary) hypertension[ICD10: I10] Rhina Ordoñez MD [facility] CPT-4: 26532 11/25/2016 ([id number]) 82213 EST. PATIENT, LEVEL III Diagnosis: Cough[ICD10: R05] Diagnosis: Gastro-esophageal reflux disease without esophagitis[ICD10: K21.9] Diagnosis: Acute bronchitis, unspecified[ICD10: J20.9] Soraida Ordoñez MD [facility] CPT-4: 95403 11/11/2016 ([id number]) 79332 EST. PATIENT, LEVEL III Diagnosis: Cough[ICD10: R05] Rhina Ordoñez MD [facility] CPT-4: 04244 07/28/2016 ([id number]) 54431 EST. PATIENT, LEVEL IV Diagnosis: Pneumonia due to other specified bacteria[ICD10: J15.8] Diagnosis: Cough[ICD10: R05] Diagnosis: Vitamin B12 deficiency anemia due to intrinsic factor deficiency[ ICD10: D51.0] Rhina Ordoñez MD [facility] CPT-4: 69998 07/17/2016 ([id number]) 58603 EST. PATIENT, LEVEL IV Diagnosis: Essential (primary) hypertension[ICD10: I10] Diagnosis: Gastro-esophageal reflux disease without esophagitis[ICD10: K21.9] Rhina Ordoñez MD, [facility] CPT-4: 43831 04/08/2016 84952 EST. PATIENT, LEVEL II Diagnosis: Localized enlarged lymph nodes[ICD10: R59.0] Soraida Ordoñez MD [facility] CPT-4: 93609 03/24/2016 ([id number]) 37276 EST. PATIENT, LEVEL III Diagnosis: Enlarged lymph nodes, unspecified[ICD10: R59.9] Diagnosis: Acute maxillary sinusitis, unspecified[ICD10: J01.00] Rhina Ordoñez MD, [facility] CPT-4: 45708 03/13/2016 ([id number]) 15398 EST. PATIENT, LEVEL IV Diagnosis: Cough[ICD10: R05] Diagnosis: Dyspnea, unspecified[ICD10: R06.00] Rhina Ordoñez MD, [facility] CPT-4: 88442 01/22/2016 02790 EST. PATIENT, LEVEL IV Diagnosis: Right upper quadrant pain[ICD10: R10.11] Diagnosis: Left upper quadrant pain[ICD10: R10.12] Adela Ordoñez MD, [facility] CPT-4: 03540 12/19/2015 ([id number]) 00017 EST. PATIENT, LEVEL IV Diagnosis: Generalized abdominal pain[ICD10: R10.84] Diagnosis: Constipation, unspecified[ICD10: K59.00] Diagnosis: Urinary tract infection, site not specified[ICD10: N39.0] Soraida Ordoñez MD , [facility] CPT-4: 15809 12/07/2015 ([id number]) 64971 EST. PATIENT, LEVEL III Diagnosis: Gastro-esophageal reflux disease without esophagitis[ICD10: K21.9] Diagnosis: Elevated C-reactive protein (CRP)[ICD10: R79.82] Rhina Ordoñez MD, [facility] CPT-4: 12561 10/26/2015 ([id number]) 89923 EST. PATIENT, LEVEL III Diagnosis: Cough[ICD10: R05] Diagnosis: Elevated C-reactive protein (CRP)[ICD10: R79.82] Diagnosis: Pleurodynia[ICD10: R07.81] Rhina Ordoñez MD, [facility] CPT- 4: 64194 10/04/2015 ([id number]) OFFICE VISIT, NEW - LEVEL 4 Diagnosis: Cough[ICD10: R05] Diagnosis: Dyspnea, unspecified[ICD10: R06.00] Diagnosis: Essential (primary) hypertension[ICD10: I10] Rhina Ordoñez MD, [facility] CPT-4: 55967 09/05/2015 01999 EST. PATIENT, LEVEL IV Diagnosis: ESSENTIAL HYPERTENSION[SNOMED: 69044899] Diagnosis: Vitamin B 12 deficiency[ICD9: 266.2] [facility] CPT-4: 08344 04/25/2011 Plan of Care Planned Activity Notes Codes Status Date Patient Education: Patient Medication Summary Completed 09/20/2018 Care Plan: Comp Metabolic Pending 09/20/2018 Care Plan: Cbc With Differential Pending 09/20/2018 Care Plan: %Hba1C LOINC : 44891-7 Pending 09/20/2018 Care Plan: Tsh Pending 09/20/2018 Care Plan: Lipid Pending 09/20/2018 Care Plan: Urinalysis Pending 09/20/2018 Care Plan: Urine Culture if indicated Pending 09/20/2018 Visit Plan: Hypertension - well controlled [...] refilled rx. 08/04/2018 Appointment: Rhina Ordoñez WPtel: [facility] (15 min) Moderate 08/04/2018 Patient Education: Patient [...] to medications. 03/18/2018 Appointment: Rhina Ordoñez WPtel: [facility]5 [facility] (15 min) Moderate 03/18/2018 Patient Education: Patient [...] labs 12/01/2017 Appointment: Rhina Ordo[facility]ez [facility]el[phone] [facility] [place] (15 min) Moderate 12/01/2017 Patient Education: Patient Medication Summary Completed 12/01/2017 Care Plan: Referral Order SNOMED-CT : [id number] Pending 12/01/2017 Visit Plan: Medicare Exam - [...] paperwork for health care surrogate. 11/17/2017 Appointment: Lorenzo Adela [facility]el[phone] [facility] - Annual Wellness Visit 11/17/2017 [...] at home. 08/11/2017 Appointment: Rhina Ordoñez WPtel: [phone] [facility] (15 min) Moderate 08/11/2017 Patient Education: Patient [...] your feet 04/07/2017 Appointment: [facility] Ordo[facility]ez [facility] [phone] [facility] (15 min) Moderate 04/07/2017 Patient Education: Patient [...] patient - 01/05/2017 Appointment: Rh[facility] Ordo[facility]ez [facility]el[facility] [phone] [facility] (15 min) Moderate 01/05/2017 Patient Education: Patient [...] at home. 2016 Appointment: Adela Ventura [facility]Ptel[phone] (15 min) Moderate 2016 Patient Education: Patient [...] acute concerns. 11/25/2016 Appointment: Rhina Ordo[facility]ez [facility]Ptel[facility] [phone] [facility] (15 min) Moderate 11/25/2016 Patient Education: Patient [...] care surrogate. 11/12/2016 Appointment: Adela Ventura WPtel: [facility] [facility] - Annual Wellness Visit 11/12/2016 Patient Education: Patient Medication Summary Completed 11/12/2016 Visit Plan: Bronchitis/cough - acute case of bronchitis identified. Pt has been given antibiotics, breathing treatments as appropriate, and pt has been instructed to call if symptoms are not improved, or if symptoms acutely worsen. Follow up in 2 weeks GERD-protonix BID 11/11/2016 Appointment: Soraida Mayorga [facility]Ptel: [phone] [phone] (15 min) Moderate 11/11/2016 Patient Education: Patient Medication Summary Completed 11/11/2016 Patient Education: Patient Medication Summary Completed 10/14/2016 Care Plan: Cbc With Differential Pending 10/14/2016 Care Plan: Comp Metabolic Pending 10/14/2016 Care Plan: Tsh Pending 10/14/2016 Care Plan: Lipid Pending 10/14/2016 Care Plan: %Hba1C LOINC : 13173-1 Pending 10/14/2016 Appointment: Rhina Ordo[facility]ez [facility]Ptel[facility] [phone] [email or web address] (15 min) Moderate 08/06/2016 Visit Plan: Cough - improved - but still slight cough - due to congestion - recommended pt to continue with decongestion medication, call if symptoms worsen or do not further improve. 07/28/2016 Appointment: Rhina Ordoñez WPtel: [phone] [email or web address] (15 min) Moderate 07/28/2016 Patient Education: Patient Medication Summary Completed 07/28/2016 Patient Education: Obesity Completed 07/28/2016 Visit Plan: Pneumonia - Pt has been diagnosed with pneumonia by physical exam. Antibiotics have been ordered, pt to call if symptoms are not improving.. The pt is aware of the diagnosis and the need for acute treatment of this illness. 07/17/2016 Appointment: Rhina Ordoñez WPtel: [facility]5 [email or web address] (15 min) Moderate 07/17/2016 Patient Education: Patient Medication Summary Completed 07/17/2016 Patient Education: Obesity Completed 07/17/2016 Appointment: Rhina Ordoñez WPtel: [facility]5 [email or web address] (15 min) Moderate 04/22/2016 Visit Plan: Hypertension [...] show improvement. 03/13/2016 Appointment: Rhina Ordoñez WPtel: [phone] [facility] (10 min) Simple 03/13/2016 Patient Education: Patient Medication Summary Completed 03/13/2016 Patient Education: Obesity Completed 03/13/2016 Visit Plan: Bronchitis - acute case of bronchitis identified. Pt has been given antibiotics, breathing treatments as appropriate, and pt has been instructed to call if symptoms are not improved, or if symptoms acutely worsen. 01/22/2016 Appointment: Rhina Ordoñez WPtel: [phone] [facility] [place] (15 min) Moderate 01/22/2016 Appointment: Rhina Ordoñez WPtel: [phone] [email or web address] (15 min) Moderate 01/22/2016 Patient Education: Patient [...] symptoms 12/07/2015 Appointment: Soraida Mayorga WPtel: [phone] [phone] [place] (10 min) Simple 12/07/2015 Patient Education: [...] Hypertension Completed 10/26/2015 Appointment: Rhina Ordoñez WPtel: [phone] [facility] (15 min) Moderate 10/25/2015 Patient Education: Patient [...] lung disease. 09/05/2015 Appointment: Rhina Ordoñez WPtel: [facility]5 [facility] [place] New Patient 09/05/2015 Patient Education: Patient Medication Summary Completed 09/05/2015 Patient Education: Hypertension Completed 09/05/2015 Appointment: Rhina Ordoñez WPtel: [phone] [facility] [place] Injection 05/26/2011 Patient Education: Patient Medication [...] given today. 04/25/2011 Appointment: Rhina Ordoñez WPtel: [facility] Other 04/25/2011 Patient Education: Patient Medication Summary [...] as tolerated UTI-recheck urine Constipation-check KUB-monitor symptoms . Hypertension - well controlled - continue [...] to assure normal liver response to medications. . Hypertension - uncontrolled - the patient's [...] pt is to call for acute concerns. restart the b12 shots . Pneumonia - Pt has been diagnosed with pneumonia by physical exam. Antibiotics have been ordered, pt to call if symptoms are not improving.. The pt is aware of the diagnosis and the need for acute treatment of this illness. . Hypertension - well controlled - continue with current medications, continue with no added salt diet. Pt has been encouraged to exercise daily. The pt has been advised to call the office if there are any acute concerns about change in blood pressure readings at home. Dysuria - check urinalysis Vitamin B12 injections to be given at home. . Hypertension - well controlled - continue [...] of elevated glucose - check labs . Bronchitis - acute case of bronchitis identified. Pt has been given antibiotics, breathing treatments as appropriate, and pt has been instructed to call if symptoms are not improved, or if symptoms acutely worsen. . Persistent cough - Pt is scheduled [...] in blood pressure readings at home. . Hypertension - well controlled - continue with current medications, continue with no added salt diet. Pt has been encouraged to exercise daily. The pt has been advised to call the office if there are any acute concerns about change in blood pressure readings at home. Cough - continue with chronic current therapy - monitor symptoms. CT of chest discussed with patient - Breo 1 puff daily chest xray kenalog [...] up in 2 weeks GERD-protonix BID . Medicare Exam - today we discussed [...] [employer]OP[employer] paperwork for health care surrogate. . Cough - improved - but still slight cough - due to congestion - recommended pt to continue with decongestion medication, call if symptoms worsen or do not further improve. Coenzyme Q 10 over the counter. Medicare [...] DOPA paperwork for health care surrogate. . Esophageal Reflux - the patient has been counseled against excessive intake of caffeine, spicy foods, peppermint, and cinnamon - all of which can exacerbate esophageal reflux. The patient is to take medications as prescribed and call the office if the symptoms are not improving. CRP improving. . Hypertension - well controlled - continue [...] daily as directed by GI specialist. . Sinusitis - Pt has acute infection - pain in face, maxillary region, Pt informed to use decongestant, RX given to patient, sinus rinses also recommended. Call if symptoms do not show improvement. . Lymph node swelling-completed treatment-swelling resolved -no further treatment indicated. Polymyalgia Rheumatica - . Elevated CRP, Shoulder pain, Chest wall pain, cough - I suspect that she has Polymyalgia Rheumatica - she refused a CRP repeat today. RTC in 3 weeks for re-eval - if not better, she has agreed to lab draw. return to clinic in the next 4-6 [...] shots as directed - refilled rx. . Continued Abdominal pain - Dr. Ordoñez [...]
--- OUTSIDE RECORDS SUMMARY | 2018-11-23 08:54 | XMS REPORT | Continuity of Care Document ---
Author Author [facility] Organization [facility] Address Unknown Phone Unavailable Allergies Active Description Code Type Severity Reaction Onset Reported/Identified Relationship to Patient Clinical Status Yes No Known Drug Allergies [id number] Drug Allergy Unknown N/A 08/25/2014 Yes morphine [id number] Drug Allergy Unknown vomiting 04/17/2017 Medications There is no data. Problems Date Dx Coded Attending Type Code Diagnosis Diagnosed By 08/25/2014 JAMES VILLAR, GOGO Chun Ot 288.60 LEUKOCYTOSIS, UNSPECIFIED 08/25/2014 JAMES VILLAR, GOGO Chun Ot 414.01 CORONARY ATHEROSCLEROSIS OF [place] CORON 08/25/2014 GOGO RAMIREZ MD Ot 593.9 RENAL URETERAL DIS NOS 08/25/2014 JAMES VILLAR, GOGO Chun Ot 786.50 CHEST PAIN NOS 08/25/2014 AJMES VILLAR, GOGO Chun Ot V45.82 PERCUTANEOUS TRANSLUM CORON ANGIOPLASTY 10/02/2015 MOLINA VILLAR, REBECCA A Ot R05 10/02/2015 MOLINA VILLAR, REBECCA A Ot R06.00 10/11/2015 MOLINA VILLAR, REBECCA A Ot R05 10/11/2015 MOLINA VILLAR, REBECCA A Ot R06.00 12/07/2015 MOLINA VILLAR, REBECCA A Ot R05 12/07/2015 MOLINA VILLAR, REBECCA A Ot R06.00 12/10/2015 RUBA WHARTONP Ot K59.00 12/10/2015 RUBA WHARTON STRIP DEBURRER Ot N39.0 12/11/2015 RBUA WHARTON STRIP DEBURRER Ot M54.9 12/11/2015 RUBA WHARTON STRIP DEBURRER Ot R10.13 12/11/2015 RUBA WHARTON STRIP DEBURRER Ot R10.32 12/27/2015 RUBA WHARTON STRIP DEBURRER Ot K59.00 CONSTIPATION, UNSPECIFIED 12/27/2015 WHARTON, RUBA M STRIP DEBURRER Ot N39.0 URINARY TRACT INFECTION, SITE NOT SPECIF 01/02/2016 RUBA WHARTON STRIP DEBURRER Ot K59.00 CONSTIPATION, UNSPECIFIED 01/02/2016 RUBA WHARTON STRIP DEBURRER Ot N39.0 URINARY TRACT INFECTION, SITE NOT SPECIF 01/02/2016 RUBA WHARTON STRIP DEBURRER Ot M54.9 DORSALGIA, UNSPECIFIED 01/02/2016 RUBA WHARTON STRIP DEBURRER Ot R10.13 EPIGASTRIC PAIN 01/02/2016 RUBA WHARTON STRIP DEBURRER Ot R10.32 LEFT LOWER QUADRANT PAIN 01/08/2016 JONATHAN OROZCO BATH STEWARD Ot K57.90 DVRTCLOS OF INTEST, PART UNSP, W/O PERF 01/08/2016 JONATHAN OROZCO BATH STEWARD Ot R10.11 RIGHT UPPER QUADRANT PAIN 01/08/2016 JONATHAN OROZCO BATH STEWARD Ot R10.12 LEFT UPPER QUADRANT PAIN 01/08/2016 JONATHAN OROZCO BATH STEWARD Ot R91.1 SOLITARY PULMONARY NODULE 01/09/2016 RUBA WHARTON STRIP DEBURRER Ot M54.9 DORSALGIA, UNSPECIFIED 01/09/2016 RUBA WHARTON STRIP DEBURRER Ot R10.13 EPIGASTRIC PAIN 01/09/2016 RUBA WHARTON STRIP DEBURRER Ot R10.32 LEFT LOWER QUADRANT PAIN 01/22/2016 MOLINA VILLAR, REBECCA Lai Ot R05 COUGH 01/24/2016 JONATHAN OROZCO BATH STEWARD Ot K57.90 DVRTCLOS OF INTEST, PART UNSP, W/O PERF 01/24/2016 JONATHAN OROZCO BATH STEWARD Ot R10.11 RIGHT UPPER QUADRANT PAIN 01/24/2016 JONATHAN OROZCO BATH STEWARD Ot R10.12 LEFT UPPER QUADRANT PAIN 01/24/2016 JONATHAN OROZCO BATH STEWARD Ot R91.1 SOLITARY PULMONARY NODULE 02/14/2016 MOLINA VILLAR, REBECCA Lai Ot R05 COUGH 02/23/2016 MOLINA VILLAR, REBECCA Lai Ot R05 COUGH 11/11/2016 MOLINA VILLAR, REBECCA Lai Ot R05 COUGH 11/11/2016 MOLINA VILLAR, REBECCA Lai Ot R06.00 DYSPNEA, UNSPECIFIED 11/11/2016 RUBA WHARTON STRIP DEBURRER Ot K59.00 CONSTIPATION, UNSPECIFIED 11/11/2016 WHARTON, RUBA M STRIP DEBURRER Ot N39.0 URINARY TRACT INFECTION, SITE NOT SPECIF 11/11/2016 AKIKO RUBA M STRIP DEBURRER Ot M54.9 DORSALGIA, UNSPECIFIED 11/11/2016 RUBA WHARTON STRIP DEBURRER Ot R10.13 EPIGASTRIC PAIN 11/11/2016 RUBA WHARTON STRIP DEBURRER Ot R10.32 LEFT LOWER QUADRANT PAIN 11/11/2016 JONATHAN OROZCO BATH STEWARD Ot K57.90 DVRTCLOS OF INTEST, PART UNSP, W/O PERF 11/11/2016 JONATHAN OROZCO BATH STEWARD Ot R10.11 RIGHT UPPER QUADRANT PAIN 11/11/2016 JONATHAN OROZCO BATH STEWARD Ot R10.12 LEFT UPPER QUADRANT PAIN 11/11/2016 JONATHAN OROZCO BATH STEWARD Ot R91.1 SOLITARY PULMONARY NODULE 11/11/2016 MOLINA VILLAR, REBECCA Lai Ot R05 COUGH 11/12/2016 RUBA WHARTON STRIP DEBURRER Ot I51.7 CARDIOMEGALY 11/12/2016 RUBA WHARTON STRIP DEBURRER Ot J44.9 CHRONIC OBSTRUCTIVE PULMONARY DISEASE, U 11/27/2016 RUBA WHARTON STRIP DEBURRER Ot I51.7 CARDIOMEGALY 11/27/2016 RUBA WHARTON STRIP DEBURRER Ot J44.9 CHRONIC OBSTRUCTIVE PULMONARY DISEASE, U 12/02/2016 RUBA WHARTON STRIP DEBURRER Ot I51.7 CARDIOMEGALY 12/02/2016 RUBA WHARTON STRIP DEBURRER Ot J44.9 CHRONIC OBSTRUCTIVE PULMONARY DISEASE, U 01/15/2017 REBECCA AUGUSTE MD Ot R91.1 [...] Ot M25.512 PAIN IN LEFT SHOULDER 02/26/2017 REBCECA AUGUSTE MD Ot M54.9 DORSALGIA, UNSPECIFIED 03/19/2017 REBECCA AUGUSTE MD Ot M25.512 PAIN IN LEFT SHOULDER 03/19/2017 REBECCA AUGUSTE MD Ot M54.9 DORSALGIA, UNSPECIFIED 04/19/2017 ARIANA BERGERON MD Ot 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 04/19/2017 ARIANA BERGERON MD Ot D72.829 ELEVATED WHITE BLOOD CELL COUNT, UNSPECI 04/19/2017 ARIANA BERGERON MD Ot I10 ESSENTIAL (PRIMARY) HYPERTENSION 04/19/2017 ARIANA BERGERON MD Ot I25.10 ATHSCL HEART DISEASE OF [place] CORONARY 04/19/2017 ARIANA BERGERON MD Ot K57.30 DVRTCLOS OF LG INT W/O PERFORATION OR AB 04/19/2017 ARIANA BERGERON MD Ot K59.00 CONSTIPATION, UNSPECIFIED 04/19/2017 ARIANA BERGERON MD Ot K59.8 OTHER SPECIFIED FUNCTIONAL INTESTINAL DI 04/19/2017 ARIANA BERGERON MD Ot R10.84 GENERALIZED ABDOMINAL PAIN 04/19/2017 ARIANA BERGERON MD Ot R19.7 DIARRHEA, UNSPECIFIED 04/19/2017 ARIANA BERGERON MD Ot R91.1 SOLITARY PULMONARY NODULE 04/19/2017 ARIANA BERGERON MD Ot Z79.899 OTHER HORSE GROOMER (CURRENT) DRUG THERAPY 04/19/2017 ARIANA BERGERON MD Ot Z95.5 PRESENCE OF CORONARY ANGIOPLASTY IMPLANT 05/13/2017 ARIANA BERGERON MD Ot 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 05/13/2017 ARIANA BERGERON MD Ot D72.829 ELEVATED WHITE BLOOD CELL COUNT, UNSPECI 05/13/2017 ARIANA BERGERON MD Ot I10 ESSENTIAL (PRIMARY) HYPERTENSION 05/13/2017 ARIANA BERGERON MD Ot I25.10 ATHSCL HEART DISEASE OF [place] CORONARY 05/13/2017 ARIANA BERGERON MD Ot K57.30 DVRTCLOS OF LG INT W/O PERFORATION OR AB 05/13/2017 ARIANA BERGERON MD Ot K59.00 CONSTIPATION, UNSPECIFIED 05/13/2017 ARIANA BERGERON MD Ot K59.8 OTHER SPECIFIED FUNCTIONAL INTESTINAL DI 05/13/2017 ARIANA BERGERON MD Ot R10.84 GENERALIZED ABDOMINAL PAIN 05/13/2017 ARIANA BERGERON MD Ot R19.7 DIARRHEA, UNSPECIFIED 05/13/2017 ARIANA BERGERON MD Ot R91.1 SOLITARY PULMONARY NODULE 05/13/2017 ARIANA BERGERON MD Ot Z79.899 OTHER SENIOR LIVING (CURRENT) DRUG THERAPY 05/13/2017 ARIANA BERGERON MD Ot Z95.5 PRESENCE OF CORONARY ANGIOPLASTY IMPLANT 12/04/2017 REBECCA AUGUSTE MD Ot I51.7 CARDIOMEGALY 12/04/2017 REBECCA AUGUSTE MD Ot N64.89 OTHER SPECIFIED DISORDERS OF BREAST 12/04/2017 REBECCA AUGUSTE MD Ot Z98.890 OTHER SPECIFIED POSTPROCEDURAL STATES 12/04/2017 REBECCA AUGUSTE MD Ot I51.7 CARDIOMEGALY 12/04/2017 REBECCA AUGUSTE MD Ot N64.89 OTHER SPECIFIED DISORDERS OF BREAST 12/04/2017 REBECCA AUGUSTE MD Ot Z98.890 OTHER SPECIFIED POSTPROCEDURAL STATES 12/24/2017 REBECCA AUGUSTE MD Ot I51.7 CARDIOMEGALY 12/24/2017 REBECCA AUGUSTE MD Ot N64.89 OTHER SPECIFIED DISORDERS OF BREAST 12/24/2017 REBECCA AUGUSTE MD Ot Z98.890 OTHER SPECIFIED POSTPROCEDURAL STATES 12/30/2017 REBECCA AUGUSTE MD Ot I51.7 CARDIOMEGALY 12/30/2017 REBECCA AUGUSTE MD Ot N64.89 OTHER SPECIFIED DISORDERS OF BREAST 12/30/2017 REBECCA AUGUSTE MD Ot Z98.890 OTHER SPECIFIED POSTPROCEDURAL STATES 01/11/2018 NINA VILLAR FACC, ALI FACP CCDS Ot E66.9 OBESITY, UNSPECIFIED 01/11/2018 NINA VILLAR FACC, ALI FACP CCDS Ot E78.5 HYPERLIPIDEMIA, UNSPECIFIED 01/11/2018 NINA VILLAR FACC, ALI FACP CCDS Ot I10 ESSENTIAL (PRIMARY) HYPERTENSION 01/11/2018 NINA VILLAR FACC, ALI FACP CCDS Ot I25.10 ATHSCL HEART DISEASE OF [place] CORONARY 01/11/2018 NINA VILLAR FACC, ALI FACP CCDS Ot I44.7 LEFT BUNDLE-BRANCH BLOCK, UNSPECIFIED 01/13/2018 NINA MD FACC, ALI FACP CCDS Ot E66.9 OBESITY, UNSPECIFIED 01/13/2018 NINA VILLAR FACC, ALI FACP CCDS Ot E78.5 HYPERLIPIDEMIA, UNSPECIFIED 01/13/2018 NINA MD FACC, ALI FACP CCDS Ot I10 ESSENTIAL (PRIMARY) HYPERTENSION 01/13/2018 NINA MD FACC, ALI FACP CCDS Ot I25.10 ATHSCL HEART DISEASE OF [place] CORONARY 01/13/2018 NNIA VILLAR FACC, ALI FACP CCDS Ot I44.7 LEFT BUNDLE-BRANCH BLOCK, UNSPECIFIED 01/27/2018 NINA MD FACC, ALI FACP CCDS Ot E66.9 OBESITY, UNSPECIFIED 01/27/2018 NINA MD FACC, ALI FACP CCDS Ot E78.5 HYPERLIPIDEMIA, UNSPECIFIED 01/27/2018 NINA MD FACC, ALI FACP CCDS Ot I10 ESSENTIAL (PRIMARY) HYPERTENSION 01/27/2018 NINA VILLAR FACC, ALI FACP CCDS Ot I25.10 ATHSCL HEART DISEASE OF [place] CORONARY 01/27/2018 NINA VILLAR FACC, ALI FACP CCDS Ot I44.7 LEFT BUNDLE-BRANCH BLOCK, UNSPECIFIED 02/01/2018 NINA VILLAR FAC, ALI FACP CCDS Ot E66.9 OBESITY, UNSPECIFIED 02/01/2018 NINA VILLAR FAC, ALI FACP CCDS Ot E78.5 HYPERLIPIDEMIA, UNSPECIFIED 02/01/2018 NINA VILLAR FACC, ALI FACP CCDS Ot I10 ESSENTIAL (PRIMARY) HYPERTENSION 02/01/2018 NINA VILLAR [facility], ALI FACP CCDS Ot I25.10 ATHSCL HEART DISEASE OF [place] CORONARY 02/01/2018 NINA VILLAR FAC, ALI FACP CCDS Ot I44.7 LEFT BUNDLE-BRANCH BLOCK, UNSPECIFIED 03/15/2018 MOLINA VILLAR, REBECCA Lai Ot R05 COUGH 03/15/2018 MOLINA VILLAR, REBECCA Lai Ot R06.00 DYSPNEA, UNSPECIFIED 03/15/2018 RUBA WHARTON STRIP DEBURRER Ot K59.00 CONSTIPATION, UNSPECIFIED 03/15/2018 RUBA WHARTON STRIP DEBURRER Ot N39.0 URINARY TRACT INFECTION, SITE NOT SPECIF 03/15/2018 RUBA WHARTON STRIP DEBURRER Ot M54.9 DORSALGIA, UNSPECIFIED 03/15/2018 WHARTON, RUBA M STRIP DEBURRER Ot R10.13 EPIGASTRIC PAIN 03/15/2018 RUBA WHARTON STRIP DEBURRER Ot R10.32 LEFT LOWER QUADRANT PAIN 03/15/2018 JONATHAN OROZCO BATH STEWARD Ot K57.90 DVRTCLOS OF INTEST, PART UNSP, W/O PERF 03/15/2018 JONATHAN OROZCO BATH STEWARD Ot R10.11 RIGHT UPPER QUADRANT PAIN 03/15/2018 JONATHAN OROZCO BATH STEWARD Ot R10.12 LEFT UPPER QUADRANT PAIN 03/15/2018 JONATHAN OROZCO BATH STEWARD Ot R91.1 SOLITARY PULMONARY NODULE 03/15/2018 MOLINA VILLAR, REBECCA Lai Ot R05 COUGH 03/15/2018 RUBA WHARTONP Ot I51.7 CARDIOMEGALY 03/15/2018 RUBA WHARTONP Ot J44.9 CHRONIC OBSTRUCTIVE PULMONARY DISEASE, U 03/15/2018 REBECCA AUGUSTE MD Ot R91.1 SOLITARY PULMONARY NODULE 03/15/2018 REBECCA AUGUSTE MD Ot Z95.1 PRESENCE OF AORTOCORONARY BYPASS GRAFT 03/15/2018 REBECCA AUGUSTE MD Ot I51.7 CARDIOMEGALY 03/15/2018 REBECCA AUGUSTE MD Ot N64.89 OTHER SPECIFIED DISORDERS OF BREAST 03/15/2018 REBECCA AUGUSTE MD Ot Z98.890 OTHER SPECIFIED POSTPROCEDURAL STATES 03/15/2018 NINA VILLAR FACC, RISHI FACP CCDS Ot E66.9 OBESITY, UNSPECIFIED 03/15/2018 NINA VILLAR FACC, ALI FACP CCDS Ot E78.5 HYPERLIPIDEMIA, UNSPECIFIED 03/15/2018 NINA VILLAR FACC, ALI FACP CCDS Ot I10 ESSENTIAL (PRIMARY) HYPERTENSION 03/15/2018 NINA VILLAR FACC, ALI FACP CCDS Ot I25.10 ATHSCL HEART DISEASE OF [place] CORONARY 03/15/2018 NINA VILLAR FACC, ALI FACP CCDS Ot I44.7 LEFT BUNDLE-BRANCH BLOCK, UNSPECIFIED 03/15/2018 RUBA WHARTONP Ot R92.8 OTH ABN AND INCONCLUSIVE FINDINGS ON DX 09/10/2018 RUBA WHARTONP Ot N63.10 UNSPECIFIED LUMP IN THE RIGHT BREAST, UN 09/10/2018 WHARTON, RUBA M STRIP DEBURRER Ot N63.20 UNSPECIFIED LUMP IN THE LEFT BREAST, UNS 09/24/2018 RUBA WHARTON STRIP DEBURRER Ot N63.10 UNSPECIFIED LUMP IN THE RIGHT BREAST, UN 09/24/2018 RUBA WHARTON STRIP DEBURRER Ot N63.20 UNSPECIFIED LUMP IN THE LEFT BREAST, UNS 09/28/2018 TAWNYA, JULIETTE L BATH STEWARD Ot R05 COUGH 09/28/2018 TAWNYA, JULIETTE L BATH STEWARD Ot R06.02 SHORTNESS OF BREATH 09/28/2018 TAWNYA, JULIETTE L BATH STEWARD Ot Z97.8 PRESENCE OF OTHER SPECIFIED DEVICES 09/29/2018 RUBA WHARTON STRIP DEBURRER Ot N63.10 UNSPECIFIED LUMP IN THE RIGHT BREAST, UN 09/29/2018 RUBA WHARTON STRIP DEBURRER Ot N63.20 UNSPECIFIED LUMP IN THE LEFT BREAST, UNS 10/20/2018 TAWNYA, JULIETTE L BATH STEWARD Ot R05 COUGH 10/20/2018 TAWNYA, JULIETTE L BATH STEWARD Ot R06.02 SHORTNESS OF BREATH 10/20/2018 TAWNYA, JULIETTE L BATH STEWARD Ot Z97.8 PRESENCE OF OTHER SPECIFIED DEVICES Procedures There is no data. Results Test Result Range Complete blood count (CBC) with automated white blood cell (WBC) differential - 04/17/17 18:35 Blood leukocytes automated count (number/volume) 24.1 10*3/uL 4.3-11.0 Blood erythrocytes automated count (number/volume) 4.50 10*6/uL 4.35-5.85 Venous blood hemoglobin measurement (mass/volume) 12.9 g/dL 11.5-16.0 Blood hematocrit (volume fraction) 41 % 35-52 Automated erythrocyte mean corpuscular volume 90 [foz_us] 80-99 Automated erythrocyte mean corpuscular hemoglobin (mass per erythrocyte) 29 pg 25-34 Automated erythrocyte mean corpuscular hemoglobin concentration measurement ( mass/volume) 32 g/dL 32-36 Automated erythrocyte distribution width ratio 14.2 % 10.0-14.5 Automated blood platelet count (count/volume) 346 10*3/uL 130-400 Automated blood platelet mean volume measurement 10.5 [foz_us] 7.4-10.4 Automated blood neutrophils/100 leukocytes 90 % 42-75 Automated blood lymphocytes/100 leukocytes 5 % 12-44 Blood monocytes/100 leukocytes 5 % 0-12 Automated blood eosinophils/100 leukocytes 0 % 0-10 Automated blood basophils/100 leukocytes 0 % 0-10 Blood neutrophils automated count (number/volume) 21.7 10*3 1.8-7.8 Blood lymphocytes automated count (number/volume) 1.2 10*3 1.0-4.0 Blood monocytes automated count (number/volume) 1.1 10*3 0.0-1.0 Automated eosinophil count 0.0 10*3/uL 0.0-0.3 Automated blood basophil count (count/volume) 0.0 10*3/uL 0.0-0.1 Comprehensive metabolic panel - 04/17/17 18:35 Serum or plasma sodium measurement (moles/volume) 136 mmol/L 135-145 Serum or plasma potassium measurement (moles/volume) 4.1 mmol/L 3.6-5.0 Serum or plasma chloride measurement (moles/volume) 104 mmol/L 98-107 Carbon dioxide 20 mmol/L 21-32 Serum or plasma anion gap determination (moles/volume) 12 mmol/L 5-14 Serum or plasma urea nitrogen measurement (mass/volume) 13 mg/dL 7-18 Serum or plasma creatinine measurement (mass/volume) 1.06 mg/dL 0.60-1.30 Serum or plasma urea nitrogen/creatinine mass ratio 12 NRG Serum or plasma creatinine measurement with calculation of estimated glomerular filtration rate 50 NRG Serum or plasma glucose measurement (mass/volume) 148 mg/dL 70-105 Serum or plasma calcium measurement (mass/volume) 8.9 mg/dL 8.5-10.1 Serum or plasma total bilirubin measurement (mass/volume) 1.0 mg/dL 0.1-1.0 Serum or plasma alkaline phosphatase measurement (enzymatic activity/volume) 87 U/L 40-136 Serum or plasma aspartate aminotransferase measurement (enzymatic activity/ volume) 14 U/L 5-34 Serum or plasma alanine aminotransferase measurement (enzymatic activity/volume ) 9 U/L 0-55 Serum or plasma protein measurement (mass/volume) 6.3 g/dL 6.4-8.2 Serum or plasma albumin measurement (mass/volume) 3.2 g/dL 3.2-4.5 Blood manual differential performed detection - 04/17/17 18:35 Blood monocytes/100 leukocytes 2 % NRG Manual blood segmented neutrophils/100 leukocytes 93 % NRG Blood band neutrophils/100 leukocytes 1 % NRG Manual blood lymphocytes/100 leukocytes 4 % NRG Manual eosinophils/100 leukocytes in nose 0 % NRG Manual blood basophils/100 leukocytes 0 % NRG Blood erythrocyte morphology finding identification NORMAL NRG Complete urinalysis with reflex to culture - 04/18/17 03:15 Urine color determination CYNDI NRG Urine clarity determination CLEAR NRG Urine pH measurement by test strip 6.5 5-9 Specific gravity of urine by test strip 1.010 1.016- 1.022 Urine protein assay by test strip, semi-quantitative 2+ NEGATIVE Urine glucose detection by automated test strip NEGATIVE NEGATIVE Erythrocytes detection in urine sediment by light microscopy 1+ NEGATIVE Urine ketones detection by automated test strip NEGATIVE NEGATIVE Urine nitrite detection by test strip NEGATIVE NEGATIVE Urine total bilirubin detection by test strip 1+ NEGATIVE Urine urobilinogen measurement by automated test strip (mass/volume) 1 mg/dL NORMAL Urine leukocyte esterase detection by dipstick 1+ NEGATIVE Automated urine sediment erythrocyte count by microscopy (number/high power field) RARE NRG Automated urine sediment leukocyte count by microscopy (number/high power field ) RARE NRG Bacteria detection in urine sediment by light microscopy TRACE NRG Squamous epithelial cells detection in urine sediment by light microscopy 25-50 NRG Crystals detection in urine sediment by light microscopy NONE NRG Casts detection in urine sediment by light microscopy NONE NRG Mucus detection in urine sediment by light microscopy NEGATIVE NRG Complete urinalysis with reflex to culture NO NRG Automated blood complete blood count (hemogram) panel - 04/18/17 10:55 Blood leukocytes automated count (number/volume) 18.2 10*3/uL 4.3-11.0 Blood erythrocytes automated count (number/volume) 4.15 10*6/uL 4.35-5.85 Venous blood hemoglobin measurement (mass/volume) 12.0 g/dL 11.5-16.0 Blood hematocrit (volume fraction) 37 % 35-52 Automated erythrocyte mean corpuscular volume 90 [foz_us] 80-99 Automated erythrocyte mean corpuscular hemoglobin (mass per erythrocyte) 29 pg 25-34 Automated erythrocyte mean corpuscular hemoglobin concentration measurement ( mass/volume) 32 g/dL 32-36 Automated erythrocyte distribution width ratio 14.2 % 10.0-14.5 Automated blood platelet count (count/volume) 315 10*3/uL 130-400 Automated blood platelet mean volume measurement 10.5 [foz_us] 7.4-10.4 Whole blood basic metabolic panel - 04/18/17 10:55 Serum or plasma sodium measurement (moles/volume) 140 mmol/L 135-145 Serum or plasma potassium measurement (moles/volume) 4.5 mmol/L 3.6-5.0 Serum or plasma chloride measurement (moles/volume) 111 mmol/L 98-107 Carbon dioxide 23 mmol/L 21-32 Serum or plasma anion gap determination (moles/volume) 6 mmol/L 5-14 Serum or plasma urea nitrogen measurement (mass/volume) 14 mg/dL 7-18 Serum or plasma creatinine measurement (mass/volume) 0.98 mg/dL 0.60-1.30 Serum or plasma urea nitrogen/creatinine mass ratio 14 NRG Serum or plasma creatinine measurement with calculation of estimated glomerular filtration rate 55 NRG Serum or plasma glucose measurement (mass/volume) 108 mg/dL 70-105 Serum or plasma calcium measurement (mass/volume) 8.2 mg/dL 8.5-10.1 Complete blood count (CBC) with automated white blood cell (WBC) differential - 04/19/17 04:28 Blood leukocytes automated count (number/volume) 12.7 10*3/uL 4.3-11.0 Blood erythrocytes automated count (number/volume) 4.25 10*6/uL 4.35-5.85 Venous blood hemoglobin measurement (mass/volume) 12.1 g/dL 11.5-16.0 Blood hematocrit (volume fraction) 39 % 35-52 Automated erythrocyte mean corpuscular volume 91 [foz_us] 80-99 Automated erythrocyte mean corpuscular hemoglobin (mass per erythrocyte) 29 pg 25-34 Automated erythrocyte mean corpuscular hemoglobin concentration measurement ( mass/volume) 31 g/dL 32-36 Automated erythrocyte distribution width ratio 14.5 % 10.0-14.5 Automated blood platelet count (count/volume) 330 10*3/uL 130-400 Automated blood platelet mean volume measurement 11.1 [foz_us] 7.4-10.4 Automated blood neutrophils/100 leukocytes 69 % 42-75 Automated blood lymphocytes/100 leukocytes 22 % 12-44 Blood monocytes/100 leukocytes 8 % 0-12 Automated blood eosinophils/100 leukocytes 2 % 0-10 Automated blood basophils/100 leukocytes 0 % 0-10 Blood neutrophils automated count (number/volume) 8.7 10*3 1.8-7.8 Blood lymphocytes automated count (number/volume) 2.8 10*3 1.0-4.0 Blood monocytes automated count (number/volume) 1.0 10*3 0.0-1.0 Automated eosinophil count 0.2 10*3/uL 0.0-0.3 Automated blood basophil count (count/volume) 0.0 10*3/uL 0.0-0.1 Comprehensive metabolic panel - 04/19/17 04:28 Serum or plasma sodium measurement (moles/volume) 142 mmol/L 135-145 Serum or plasma potassium measurement (moles/volume) 4.0 mmol/L 3.6-5.0 Serum or plasma chloride measurement (moles/volume) 111 mmol/L 98-107 Carbon dioxide 21 mmol/L 21-32 Serum or plasma anion gap determination (moles/volume) 10 mmol/L 5-14 Serum or plasma urea nitrogen measurement (mass/volume) 14 mg/dL 7-18 Serum or plasma creatinine measurement (mass/volume) 0.92 mg/dL 0.60-1.30 Serum or plasma urea nitrogen/creatinine mass ratio 15 NRG Serum or plasma creatinine measurement with calculation of estimated glomerular filtration rate 59 NRG Serum or plasma glucose measurement (mass/volume) 89 mg/dL 70-105 Serum or plasma calcium measurement (mass/volume) 8.6 mg/dL 8.5-10.1 Serum or plasma total bilirubin measurement (mass/volume) 0.7 mg/dL 0.1-1.0 Serum or plasma alkaline phosphatase measurement (enzymatic activity/volume) 73 U/L 40-136 Serum or plasma aspartate aminotransferase measurement (enzymatic activity/ volume) 18 U/L 5-34 Serum or plasma alanine aminotransferase measurement (enzymatic activity/volume ) 10 U/L 0-55 Serum or plasma protein measurement (mass/volume) 5.9 g/dL 6.4-8.2 Serum or plasma albumin measurement (mass/volume) 3.0 g/dL 3.2-4.5 Encounters ACCT No. Visit Date/Time Discharge Status Pt. Type Provider Facility Loc./Unit Complaint [id number] 09/27/2018 16:10:00 09/27/2018 23:59:59 CLS Outpatient RAO BOWLINGVARSHA [place] BATH STEWARD [facility] RAD COUGH [id number] 09/09/2018 12:03:00 09/09/2018 23:59:59 CLS Outpatient RUBA WHARTON [facility] RAD BREAST NODULES 6 MONTH F/U [id number] 03/15/2018 11:57:00 03/15/2018 23:59:59 CLS Outpatient RUBA WHARTON [facility] RAD 3 MONTH F/U BILAT BREAST NODULES [id number] 01/07/2018 10:37:00 01/07/2018 23:59:59 CLS Outpatient NINA VILLAR FACC, RISHI FACGema CCDS [facility] CARD CAD,HTN,HLP [id number] 12/03/2017 08:02:00 12/03/2017 23:59:59 CLS Outpatient REBECCA AUGUSTE MD [facility] RAD L AND R BREAST PAIN [id number] 04/18/2017 01:20:00 04/19/2017 11:27:00 DIS Outpatient ARIANA BERGERON MD [facility] SDC ABD PAIN,DIARRHEA, LEUKOCYTOSIS [id number] 01/30/2017 15:42:00 03/19/2017 14:52:00 DIS Outpatient REBECCA AUGUSTE MD [facility] REHAB LEFT UPPER BACK AND SCAPULAR; L SHOULDER PAIN [id number] 12/25/2016 13:05:00 12/25/2016 23:59:59 CLS Outpatient REBECCA AUGUSTE MD [facility] RAD LEFT LUNG PULMONARY NODULES, FLU [id number] 11/11/2016 10:02:00 11/11/2016 23:59:59 CLS Outpatient RUBA WHARTON [facility] RAD COUGH [id number] 01/22/2016 10:25:00 01/22/2016 23:59:59 CLS Outpatient REBECCA AUGUSTE MD [facility] RAD COUGH [id number] 12/19/2015 11:57:00 12/19/2015 23:59:59 CLS Outpatient JONATHAN OROZCO APRN [facility] RAD RUQ PAIN LUQ PAIN [id number] 12/10/2015 15:16:00 12/10/2015 23:59:59 CLS Outpatient RUBA WHARTON [facility] RAD EPIGASTRIC PAIN [id number] 12/07/2015 12:01:00 12/07/2015 23:59:59 CLS Outpatient RUBA WHARTON [facility] RAD ABD PAIN,UTI, CONSTIPATION [id number] 09/05/2015 11:41:00 09/05/2015 23:59:59 CLS Outpatient MOLINA VILLAR, REBECCA Lai [facility] RAD COUGH, DYSPNEA [id number] 08/25/2014 18:24:00 08/25/2014 22:25:00 DIS Emergency JAMES VILLAR, GOGO Chun [facility] ER L SIDE PAIN, CHEST PAIN [id number] 08/25/2014 18:25:03 ACT Document Registration
[2018-11-23 09:07] LABS: PROTHROMBIN TIME PATIENT 13.8 SEC (12.2-14.7)
[2018-11-23 09:12] LABS: ALBUMIN 3.7 GM/DL (3.2-4.5); BILIRUBIN,TOTAL 0.8 MG/DL (0.1-1.0); CALCIUM 9.2 MG/DL (8.5-10.1); CREATININE SERUM 1.3 MG/DL (0.60-1.30); POTASSIUM 4.1 MMOL/L (3.6-5.0); TOTAL PROTEIN 7.2 GM/DL (6.4-8.2)
[2018-11-23] MEDS ORDERED: MIDAZOLAM 5 MG/5 ML (VERSED) VIAL ONE (10:03)
[2018-11-23] MEDS ORDERED: fentaNYL INJECTION 100 MCG/2 ML AMP ONE (10:03)
[2018-11-23] MEDS ORDERED: PATIENT MAY USE OWN MEDS, ALL PO SCH (11:15)
--- NOTE | 2018-11-23 11:20 | Discharge Inst-Cardiology ---
Discharge Inst-Cardiac Discharge Medications Continued Medications: Aspirin (Aspir 81) 81 Mg Tablet.dr 81 MG PO DAILY, TAB Carvedilol (Coreg) 6.25 Mg Tablet 6.25 MG PO BID, TAB Cholecalciferol (Vitamin D) 1,000 Unit Tablet 1000 UNIT PO DAILY, TAB Clopidogrel Bisulfate (Plavix) 75 Mg Tablet 75 MG PO DAILY, TAB Isosorbide Mononitrate (Isosorbide Mononitrate ER) 30 Mg Tab.er.24h 30 MG PO DAILY, TAB Losartan Potassium (Cozaar) 25 Mg Tablet 25 MG PO DAILY, TAB Omeprazole (Prilosec) 20 Mg Capsule. 20 MG PO DAILY, RISHI ALCARAZ MD FACP FAC CCDS Nov 23, 2018 11:20
--- NOTE | 2018-11-23 11:21 | Discharge Inst-Post CATH ---
Discharge Inst-CATH/EP Post Cardiac Cath/EP D/C Inst Follow Up/Plan F/u with Dr Carpenter next week after having BMP done CARDIAC CATH DISCHARGE INSTRUCTIONS *Hold Metformin for 48 hours post heart cath. ACTIVITY * Go Home directly and rest. * Limit activity of the leg (or wrist if it was used) for 7 days including aerobics, swimming, jogging, bicycling, etc. * Restrict stair-climbing for 7 days if possible, if not, climb up with your non -cath leg, then bring together on the same step. * Avoid lifting, pushing, pulling or excessive movement of the affected extremity for 7 days. * Customary sexual activity may be resumed after 2 days-use caution not to use a position that strains or causes pain to the affected extremity. * No driving for 24 hours. * NO SMOKING. * Avoid straining for bowel movements for 7 days. * Gentle walking on level ground is allowed. * Returning to work will depend on the type of procedure and the results. Your doctor will discuss this with you. CALL YOUR DOCTOR FOR ANY OF THE FOLLOWING: *If bleeding from the puncture site occurs- Apply gentle pressure to site with clean cloth and call your doctor or EMS. * If a knot or lump forms under the skin, increases in size, or causes pain. * If bruising appears to be worsening or moving further down your leg instead of disappearing. * Temperature above 101 F. CARE OF YOUR GROIN INCISION; * Bruising or purple discoloration of the skin near the puncture site is common. * You may shower only, no bathtub bathing for 5 days. Be careful to avoid slipping as your leg may feel stiff. * If a closure device was used on your femoral artery, please see the attached guide regarding care of the device and your leg. * Leave the dressing on, until removed by office staff. CARE OF YOUR WRIST INCISION; * Bruising or purple discoloration of the skin near the puncture site is common. * You may shower. * DO NOT submerge wrist. * Leave dressing on, until removed by office staff.. RISHI CARPENTER MD [facility] CCDS Nov 23, 2018 11:21
--- NOTE | 2018-11-23 11:32 | Cardiac Procedure Note-CS/ASA ---
Pre-Procedure Note Pre-Op Procedure Note H&P Reviewed The H&P was reviewed, patient examined and no changes noted. Date H&P Reviewed: Nov 23, 2018 Time H&P Reviewed: 10:30 Conscious Sedation Pre-Proced Time 10:30 ASA Score 3 For ASA 3 and 4: Consider anesthesia and medical clearance. Also, for patients with a history of failed moderate sedation consider anesthesia. Airway Lungs Heart ASA score ASA 1: a normal healthy patient ASA 2: a patient with a mild systemic disease (mid diabetes, controlled hypertension, obesity ASA 3: a patient with a severe systemic disease that limits activity (angina , COPD, prior Myocardial infarction) ASA 4: a patient with an incapacitating disease that is a constant threat to life (CHF, renal failure) ASA 5: a moribund patient not expected to survive 24 hrs. (ruptured aneurysm) ASA 6: a declared brain- patient whose organs are being harvested. For emergent operations, add the letter E after the classification Mallampati Classification Grade 2 Sedation Plan Analgesia, Amnesia, Plan communicated to team members, Discussed options with patient/fam, Discussed risks with patient/fam The patient is an appropriate candidate to undergo the planned procedure, sedation, and anesthesia. The patient immediately re-assessed prior to indication. RISHI WOOD MD FACP [facility]S Nov 23, 2018 11:32
--- NOTE | 2018-11-23 15:30 | NUR ---
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 STATES LAB ORDER SHOULD BE FOR BNP, NOT BMP. CONTACTED DR WOOD'S OFFICE. RN THERE STATES THEY WILL FAX CORRECTED ORDER TO [facility], WHICH IS PT'S PREFERRED LAB. INFORMED PT OF SAME.
--- NOTE | 2018-11-29 06:35 | CARDIAC CATHETERIZATION ---
DATE OF SERVICE: 11/23/2018 CARDIAC CATHETERIZATION REPORT INDICATIONS: The patient is an 82-year-old lady with multiple coronary artery disease risk factors and a history of coronary artery bypass surgery consisting of a saphenous vein graft to an obtuse marginal and left internal mammary artery graft to the left anterior descending. She has lately been experiencing symptoms that are suggestive of recurrent angina. Symptoms have been progressive. Cardiac catheterization was carried out today after having obtained an informed consent. She has chronic kidney disease stage III. Vigorous perioperative hydration was carried out to reduce risk of contrast nephropathy. PROCEDURE: She was brought to the cardiac catheterization laboratory. Right groin was prepared and draped in the usual sterile fashion. Lidocaine 1% was used for local anesthesia. Modified Seldinger technique was used to advance a 5-Lao sheath in the right femoral artery. A 5-Lao JL4 catheter was used for left coronary angiography. A 5-Lao JR4 catheter was used for right coronary angiography and for angiography of the aortocoronary graft to the left circumflex obtuse marginal system. We used 5-Lao ANITA catheter for angiography of the left internal mammary artery graft to the left anterior descending. A 5-Lao pigtail catheter was used for left heart catheterization and left ventricular angiography. Pigtail was then pulled back into the ascending aorta and removed. Angiography of the right femoral artery was carried out through the sheath. Mynx was used to achieve hemostasis. She tolerated the procedure well. HEMODYNAMICS: Left ventricular end-diastolic pressure following coronary angiography was 10 mmHg. There was no significant pressure gradient on pullback across the aortic valve. The ascending aortic pressure was 105/44 with a mean of 57 mmHg. CORONARY ANGIOGRAPHY: Coronary calcification is present. Left main coronary artery does not exhibit significant obstructive disease. Left anterior descending artery is occluded at its ostium. Ramus intermedius is of a small caliber and has 60% proximal stenosis. Left circumflex has a 30% to 40% mid vessel stenosis. First obtuse marginal branch has 90% proximal stenosis and this stenosis is bypassed by a patent aortocoronary graft. The right coronary artery is dominant. It has a patent stent in its distal portion. The distal posterolateral system of the right coronary artery has moderate disease with stenosis up to 50% to 60%. LEFT INTERNAL MAMMARY ARTERY ANGIOGRAPHY: Left internal mammary artery is grafted to the distal left anterior descending artery. The graft is patent with good distal runoff. SAPHENOUS VEIN GRAFT ANGIOGRAPHY: An aortocoronary graft to the first obtuse marginal branch is patent and does not exhibit obstructive disease. It has good distal runoff. LEFT VENTRICULAR ANGIOGRAPHY: Global left ventricular systolic function is normal. Left ventricular ejection fraction is approximately 60%. There does not appear to be a significant mitral regurgitation on this study. CONCLUSIONS: 1. Coronary artery disease consisting of ostial occlusion of the left anterior descending and a 90% proximal stenosis of the first obtuse marginal. The rest of the [place] coronaries have moderate disease. 2. Patent left internal mammary artery graft to distal left anterior descending. 3. Patent aortocoronary graft to distal first obtuse marginal. 4. Patent stent within the distal right coronary artery. 5. Normal left ventricular end-diastolic pressure. 6. Normal global left ventricular systolic function with an ejection fraction of approximately 60%. DISCUSSION AND RECOMMENDATIONS: Close outpatient followup is advised. We have advised repeat BMP in a few days and follow up at our office next week. Risk factor modification has been reviewed. Compliance with the medications is advised. Job ID: [id number] DocumentID: [id number] Dictated Date: 11/23/2018 11:31:41 Call Center Supervisor Date: 11/23/2018 11:49:08 Dictated By: RISHI WOOD MD, MA, FACP, FACC,
== END 2018-11-23 15:40 | disposition home or self-care (01) ==
LOC: CATH 08:02 → SDC 11:44 → CATH 15:40
PROVIDERS: ATTEND Internal Medicine Cardiovascular Disease
DX: I25.10 Atherosclerotic heart disease of native coronary artery without angina pectoris (principal); I12.9 Hypertensive chronic kidney disease with stage 1 through stage 4 chronic kidney disease, or unspecified chronic kidney disease; N18.3 Chronic kidney disease, stage 3 (moderate); E78.5 Hyperlipidemia, unspecified; R06.09 Other forms of dyspnea; I44.7 Left bundle-branch block, unspecified; I65.23 Occlusion and stenosis of bilateral carotid arteries; I34.0 Nonrheumatic mitral (valve) insufficiency; G47.33 Obstructive sleep apnea (adult) (pediatric); R53.83 Other fatigue; E66.9 Obesity, unspecified; Z68.32 Body mass index [BMI] 32.0-32.9, adult; Z95.1 Presence of aortocoronary bypass graft; Z79.82 Long term (current) use of aspirin; Z79.899 Other long term (current) drug therapy
CPT/HCPCS: 36415; 80053; 80061; 85027; 85610; 85730; 87081; 93005; 93459

== ENCOUNTER → 2019-03-18 | Outpatient (CLI) | payer MEDICARE ==
[~2019-03-18] MED LIST changes: +CARV6.25 PO
--- NOTE | 2019-03-18 17:00 | Diagnostic Imaging Report ---
INDICATION: Routine screening. COMPARISON: Prior mammogram from 12/03/2017. EXAMINATION: 2D and 3D bilateral screening mammography was performed with CAD. The current study was also evaluated with a Computer Aided Detection (CAD) system. FINDINGS: Both breasts are heterogeneously dense, limiting the sensitivity of mammography. Patient has had prior breast ultrasounds demonstrating benign-appearing nodules. Patient refused followup ultrasound. Benign-appearing nodule outer left breast is stable. There are vascular and benign parenchymal calcifications, bilaterally. No new mass or malignant appearing microcalcifications are seen. Axillae are unremarkable. IMPRESSION: No mammographic features suspicious for malignancy are identified. ACR BI-RADS Category 2: Benign findings. Result letter will be mailed to the patient. Note: At least 10% of breast cancer is not imaged by mammography. Dictated on workstation # [id number]
== END ==
LOC: RAD 09:51
PROVIDERS: ATTEND Family Medicine
DX: Z12.31 Encounter for screening mammogram for malignant neoplasm of breast (principal)
CPT/HCPCS: 77067

== ENCOUNTER → 2020-09-10 | Outpatient (CLI) | payer MEDICARE ==
[~2020-09-10] VITALS: Ht 155 cm; Wt 81.0 kg
[~2020-09-10] MED LIST changes: +BAMLANIVIMAB 700 MG in NS 200 ML IV ONE; +EPINEPHrine INJECTION 1 MG/ML AMP IM PRN; +diphenhydrAMINE 50 MG/ML INJ (BENADRYL) IV PRN
[2020-09-10 13:23] VITALS: BP 155/84
[2020-09-10 15:46] VITALS: BP 136/81
== END ==
LOC: INFUSION 13:26
PROVIDERS: ATTEND Nurse Practitioner Family
DX: U07.1 COVID-19 (principal)

== ENCOUNTER 2021-03-27 12:27 | Emergency (ER) | payer MEDICARE ==
[~2021-03-27] VITALS: Ht 155 cm; Wt 77.0 kg
[~2021-03-27 12:27] MED LIST changes: -BAMLANIVIMAB 700 MG in NS 200 ML IV ONE; -EPINEPHrine INJECTION 1 MG/ML AMP IM PRN; -ISOS30TA3 PO; +ISOS30TA82 PO; -diphenhydrAMINE 50 MG/ML INJ (BENADRYL) IV PRN
[2021-03-27 12:36] VITALS: BP 152/79
[2021-03-27] MEDS ORDERED: AMOX-358 PO (12:53)
--- NOTE | 2021-03-27 12:53 | ED Upper Extremity ---
General Stated Complaint: DOG BITE;HAND LACERATION Source: patient Exam Limitations: no limitations History of Present Illness Date Seen by Provider: Mar 27, 2021 Time Seen by Provider: 12:50 Initial Comments Patient was bit on the right hand to the space between the thumb and pointer finger just prior to arrival by her own dog which is up-to-date on its rabies vaccinations. Patient herself is not up-to-date on her tetanus vaccine. Onset: just prior to arrival Severity: moderate Pain/Injury Location: right hand Method of Injury: direct blow Allergies and Home Medications Allergies Coded Allergies: No Known Drug Allergies (Unverified , 11/23/18) Home Medications Aspirin 81 Mg Tablet.dr, 81 MG PO DAILY, (Reported) Carvedilol 6.25 Mg Tablet, 6.25 MG PO BID, (Reported) Cholecalciferol 1,000 Unit Tablet, 1,000 UNIT PO DAILY, (Reported) Clopidogrel Bisulfate 75 Mg Tablet, 75 MG PO DAILY, (Reported) Isosorbide Mononitrate 30 Mg Tab.er.24h, 30 MG PO DAILY, (Reported) Losartan Potassium 25 Mg Tablet, 25 MG PO DAILY, (Reported) Omeprazole 20 Mg Capsule.dr, 20 MG PO DAILY, (Reported) Patient Home Medication List Home Medication List Reviewed: Yes Review of Systems Constitutional: see HPI EENTM: see HPI Respiratory: no symptoms reported Cardiovascular: no symptoms reported Genitourinary: no symptoms reported Musculoskeletal: see HPI Skin: no symptoms reported Psychiatric/Neurological: No Symptoms Reported Past Wumgvqn-Kgjaqg-Epwbks Hx Immunizations Up To Date PED Vaccines UTD: No Seasonal Allergies Seasonal Allergies: No Past Medical History Surgeries: No CABG, Coronary Stent Respiratory: Yes Pneumonia Currently Using CPAP: No Currently Using BIPAP: No Cardiac: Yes Coronary Artery Disease, Hypertension Neurological: No Reproductive Disorders: No Genitourinary: No Gastrointestinal: Yes Diverticulosis Musculoskeletal: Yes Endocrine: No HEENT: No Cancer: No Psychosocial: No Integumentary: No Blood Disorders: No Adverse Reaction/Blood Tranf: No Family Medical History Patient reports no known family medical history. No Pertinent Family Hx Physical Exam Vital Signs Capillary Refill : Height, Weight, BMI Height: 5'1.00" Weight: 174lbs. 0.0oz. [id number]; 32.9 BMI Method:Stated General Appearance: WD/WN, no apparent distress HEENT: PERRL/EOMI, normal ENT inspection Respiratory: no respiratory distress, no accessory muscle use Shoulder: normal inspection, non-tender Elbow/Forearm: normal inspection, non-tender Wrist: Yes normal inspection, Yes non-tender Hand: Right, laceration (Superficial lacerations to the webspace between the thumb and pointer finger no active bleeding none of these are gaping none of these require primary closure) Neurologic/Tendon: normal sensation, normal motor functions Neurologic/Psychiatric: alert, normal mood/affect, oriented x 3 Skin: normal color, warm/dry Progress/Results/Core Measures Results/Orders My Orders Orders - PHIL PADILLA APRN Dipht,Pertuss(Acell),Tet Adult (Boostrix (03/27/21 13:00) Departure Impression Primary Impression: Dog bite Disposition: 01 HOME, SELF-CARE Condition: Stable Departure-Patient Inst. Decision time for Depature: 12:51 Referrals: REBECCA AUGUSTE MD (PCP/Family) Primary Care Physician Patient Instructions: Animal Bites (DC) Add. Discharge Instructions: 1. Antibiotics as directed 2. Return to ER for any concerns 3. Scripts Amoxicillin/Potassium Clav (Augmentin 875-125 Tablet) 1 Each Tablet 1 EACH PO BID, #10 TAB 0 Refills Prov: PHIL PADILLA APRN 03/27/21 PHIL PADILLA APRN Mar 27, 2021 12:53
[2021-03-27] MEDS ORDERED: TETANUS,DIPTH,PERTUSS P/F (BOOSTRIX) 0.5 ML VIAL IM ONE (13:00)
== END 2021-03-27 13:13 | disposition home or self-care (01) ==
LOC: EDUNIT# 12:27 → ER 12:28
DX: S61.451A Open bite of right hand, initial encounter (principal); I10 Essential (primary) hypertension; I25.10 Atherosclerotic heart disease of native coronary artery without angina pectoris; Z23 Encounter for immunization; Z95.5 Presence of coronary angioplasty implant and graft; Z95.1 Presence of aortocoronary bypass graft; Z79.02 Long term (current) use of antithrombotics/antiplatelets; Z79.82 Long term (current) use of aspirin; Z79.899 Other long term (current) drug therapy; W54.0XXA Bitten by dog, initial encounter
CPT/HCPCS: 90715; 99284